=== PATIENT | male | born 1970 | race Caucasian/White ===

== ENCOUNTER 2019-10-12 22:24 | Inpatient (IN) | payer MEDICAID, SELFPAY ==
[2019-10-12 22:28] VITALS: BP 171/112; PULSE 89; RESP 20; TEMP 36.4; O2SAT 96; BMI 29.8
--- NOTE | 2019-10-12 22:36 | ED_ITS ---
Entered by Lisa Lagos, acting as scribe for Jose Ramon Li DO Oct 12, 2019 22:24 HPI - Chest Pain General: Chief Complaint: Chest Pain Stated Complaint: chest pain/sob Time Seen by Provider: 10/12/19 22:33 Source: patient Mode of arrival: ambulatory History of Present Illness: HPI narrative: 49 y/o male presents to the ED with complaint of chest pain and SOB. Pt states this started a couple hours ago while he was laying in bed. Pt states he had an AZ in August, which resulted in several stents. He reports that this feels similar to his previous episodes. MD complaint: chest pain Onset (ago): hour(s) Timing of current episode: constant Prior episodes: Yes Onset: during rest Severity: moderate Relieving factors: nothing Associated symptoms: Reports dyspnea and nausea (from pain); Deny abdominal pain, fever(s), palpitations or vomiting Treatment prior to arrival: nitroglycerin (no relief) Review of Systems Const: Denies: fever or chills Eyes: Denies: change in vision or blurry vision ENMT: Denies: painful swallowing, swelling of lips/tongue, bleeding gums, dental pain, Change in hearing, nose bleeds, post nasal drip or facial/sinus pain Card: Reports: chest pain; Denies: palpitations, irregular heart rhythm, edema, swelling of feet/ankles, shortness of breath on exertion or shortness of breath when lying down Resp: Reports: shortness of breath; Denies: productive cough, non-productive cough or wheezing GI: Reports: nausea (from pain); Denies: abdominal pain, vomiting, rectal pain, blood in stool or black tarry stool : Denies: difficulty urinating, painful urination, urinary frequency, urinary urgency or blood in urine Musc: Denies: neck pain, back pain, redness or joint warmth Skin/Breast: Denies: rash, itching or redness Neuro: Reports: headache (since taking NTG); Denies: dizziness, vertigo, confusion or seizure-like activity Psych: Reports: anxiety (panic attack); Denies: visual hallucinations or auditory hallucinations PFSH ED PFSH: Statuses (acute, chronic, etc) shown below reflect problem list status as previously entered and may not be historically accurate Medical History (Updated 10/13/19 @ 02:10 by Elena Marquis DO) Cardiac catheterization as the cause of abnormal reaction of the patient, or of later complication, without mention of misadventure at the time of the procedure (Acute) Social History Smoking and tobacco status: current every day smoker Physical Exam Const: COMMON NORMALS: alert GENERAL APPEARANCE: well developed ORIENTATION/CONSCIOUSNESS: Yes awake, Yes oriented to person, Yes oriented to place and Yes oriented to time HENMT: COMMON NORMALS: normocephalic, external ears normal, external nose normal and moist oral mucous membranes HEAD & SCALP: normocephalic; no scalp tenderness FACE & SINUS: normal facial exam NOSE: external nose normal and no nasal discharge EXTERNAL EAR: Yes external ears normal MOUTH: tongue normal Eye: COMMON NORMALS: EOMs intact bilaterally and conjunctivae normal EYELID: eyelids normal CONJUNCTIVA: Yes conjunctivae normal Chest: COMMONS NORMALS: inspection of chest normal CHEST: Yes symmetrical chest wall rise and No tenderness Resp: COMMON NORMALS: clear to auscultation bilaterally EFFORT & INSPECTION: No tachypneic, No respiratory distress, No retractions, No uses accessory muscles and No tracheal deviation AUSCULTATION: clear to auscultation bilaterally, no rhonchi, no wheezes and lung sounds not diminished Cardio: COMMON NORMALS: regular rate and regular rhythm RATE: regular rate RHYTHM: regular rhythm HEART SOUNDS: no murmurs PERIPHERAL PULSES: radial pulses present GI: INSPECTION: No abdominal distension AUSCULTATION: No hyperactive bowel sounds and No hypoactive bowel sounds PALPATION: No tender, No guarding and No rigid PERCUSSION: no dullness to percussion and no tympanic to percussion : COMMON NORMALS: Yes no CVA tenderness BLADDER/KIDNEY EXAM: Yes no CVA tenderness Back/Pelvis: COMMON NORMALS: no CVA tenderness Neuro: SENSORIUM/ORIENTATION: Yes alert, Yes oriented to person, Yes oriented to place and Yes oriented to time Psych: COMMON NORMALS: mental status grossly normal and speech normal SPEECH: Yes normal speech Skin: COMMON NORMALS: no rashes or lesions noted GENERAL SKIN EXAM: no rashes or lesions noted Course ED course: 49-year-old male with a history of coronary disease presents with chest discomfort. Difficult to control. He is also hypertensive. Nitroglycerin drip was started in the emergency department because of difficult to control chest pain and hypertension. This seemed to relieve his chest pain significantly he will be placed in a CSU. Consultations: Consultation #1: paul Time: 01:12 Vital Signs: Vital signs: Vital Signs Temperature 97.7 F 10/14/19 04:00 Pulse Rate 73 10/14/19 04:00 Respiratory Rate 20 H 10/14/19 04:00 Blood Pressure 116/63 10/14/19 04:00 Pulse Oximetry 90 10/14/19 04:00 MDM - Chest Pain Lab Data: Labs: Lab Results 10/12/19 10/12/19 10/12/19 Range/Units 22:44 22:54 22:54 WBC 12.7 H (4.0-10.0) 10^3/ uL RBC 4.92 (4.1-5.3) 10^6/u L Hgb 14.6 (11.7-16.6) g/dL Hct 43.7 (42.0-52.0) % MCV 88.8 (80-94) fL MCH 29.7 (28.0-34.0) pg MCHC 33.4 (30.0-36.0) g/dL RDW 14.0 (12.1-15.1) % Plt Count 328 (130-400) 10^3/c mm MPV 8.7 (7.4-10.4) fL Neut % (Auto) 67.3 % Lymph % (Auto) 23.9 % [place] % (Auto) 7.0 % Eos % (Auto) 1.0 % Baso % (Auto) 0.2 % Neut # (Auto) 8.5 H (1.8-7.7) 10^3/u L Lymph # (Auto) 3.0 (0.8-4.8) 10^3/u L [place] # (Auto) 0.9 (0.2-0.9) 10^3/u L Eos # (Auto) 0.1 (0.0-0.8) 10^3/u L Baso # (Auto) 0.0 (0.0-0.1) 10^3/u L Nucleated RBC % (a uto) 0 % Nucleated RBCs # 0.0 /100WBC Sodium 138 (136-145) mmol/L Potassium 3.3 L (3.5-5.1) mmol/L Chloride 97 L (98-107) mmol/L Carbon Dioxide 25 (22-29) mmol/L Anion Gap 19.3 H (5-19) BUN 7 (6-20) mg/dL Creatinine 0.9 (0.7-1.2) mg/dL GFR Calculation 89.7 L (90-130) mL/min Glucose 114 H (74-109) mg/dL POC Glucose 117 (70-110) mg/dL Calcium 9.6 (8.6-10.0) mg/Dl Total Bilirubin 0.6 (0.15-1.2) mg/dL AST 14 (0-40) U/L ALT 8 (0-41) U/L Alkaline Phosphata se 61 (40-130) IU/L Troponin T Baselin e (0-15) ng/mL Troponin T 120 Min emely (0-15) ng/mL Delta Troponin T (0-10) ABS# NT-Pro-B Natriuret Pep 698 H (0-125) pg/mL Total Protein 7.6 (6.6-8.7) g/dL Albumin 4.2 (3.5-5.2) g/dL Globulin 3.4 (1.3-4.6) g/dL 10/12/19 10/13/19 Range/Units 22:54 00:58 WBC (4.0-10.0) 10^3/ uL RBC (4.1-5.3) 10^6/u L Hgb (11.7-16.6) g/dL Hct (42.0-52.0) % MCV (80-94) fL MCH (28.0-34.0) pg MCHC (30.0-36.0) g/dL RDW (12.1-15.1) % Plt Count (130-400) 10^3/c mm MPV (7.4-10.4) fL Neut % (Auto) % Lymph % (Auto) % [place] % (Auto) % Eos % (Auto) % Baso % (Auto) % Neut # (Auto) (1.8-7.7) 10^3/u L Lymph # (Auto) (0.8-4.8) 10^3/u L [place] # (Auto) (0.2-0.9) 10^3/u L Eos # (Auto) (0.0-0.8) 10^3/u L Baso # (Auto) (0.0-0.1) 10^3/u L Nucleated RBC % (a uto) % Nucleated RBCs # /100WBC Sodium (136-145) mmol/L Potassium (3.5-5.1) mmol/L Chloride (98-107) mmol/L Carbon Dioxide (22-29) mmol/L Anion Gap (5-19) BUN (6-20) mg/dL Creatinine (0.7-1.2) mg/dL GFR Calculation (90-130) mL/min Glucose (74-109) mg/dL POC Glucose (70-110) mg/dL Calcium (8.6-10.0) mg/Dl Total Bilirubin (0.15-1.2) mg/dL AST (0-40) U/L ALT (0-41) U/L Alkaline Phosphata se (40-130) IU/L Troponin T Baselin e 22 H (0-15) ng/mL Troponin T 120 Min emely 20.38 H (0-15) ng/mL Delta Troponin T -1.62 L (0-10) ABS# NT-Pro-B Natriuret Pep (0-125) pg/mL Total Protein (6.6-8.7) g/dL Albumin (3.5-5.2) g/dL Globulin (1.3-4.6) g/dL Discharge Plan Discharge Patient Disposition: Admitted As Inpatient Admit Provider: Elena Marquis Condition: Stable Discharge Date/Time: 10/13/19 01:54 Coding Level of Care Code ED Dip Painter for Chg Fwd The documentation recorded by the Demond stewart Ashley, accurately reflects the service I personally performed and the decisions made by Guillermo mendoza Jeremy John, DO Oct 12, 2019 22:24
--- NOTE | 2019-10-12 22:38 | ECG_ITS ---
Measurements Intervals [place] Rate: 89 P: 51 IA: 184 QRS: 21 QRSD: 167 T: 63 QT: 418 QTc: 511 SINUS RHYTHM POSSIBLE LEFT ATRIAL ENLARGEMENT [-0.1mV P WAVE IN V1/V2] LEFT BUNDLE BRANCH BLOCK [120+ ms QRS DURATION, 80+ ms Q/S IN V1/V2, 85+ ms R IN I/aVL/V5/V6] Compared to ECG 08/25/2019 03:00:22 No significant changes Electronically Signed On 10-13-2019 19:16:56 HELICOPTER TECHNICIAN by Theresa Berry M.D. [id number]
[2019-10-12 22:41] VITALS: BP 171/112; PULSE 86; RESP 18; O2SAT 96
[2019-10-12 22:50] LABS: Glucose Point of Care 117 mg/dL (70-110)
[2019-10-12 23:07] LABS: Basophils % 0.2 %; Eosinophils # 0.1 10^3/uL (0.0-0.8); Hematocrit 43.7 % (42.0-52.0); Hemoglobin 14.6 g/dL (11.7-16.6); Lymphocytes % 23.9 %; Mean Corpuscular HGB Conc 33.4 g/dL (30.0-36.0); Mean Corpuscular Hemoglobin 29.7 pg (28.0-34.0); Mean Corpuscular Volume 88.8 fL (80-94); Mean Platelet Volume 8.7 fL (7.4-10.4); Monocytes # 0.9 10^3/uL (0.2-0.9); Neutrophils # 8.5 10^3/uL (1.8-7.7); Neutrophils % 67.3 %; Nucleated Red Blood Cells % 0 %; Platelet Count 328 10^3/cmm (130-400); Red Blood Count 4.92 10^6/uL (4.1-5.3); White Blood Count 12.7 10^3/uL (4.0-10.0)
[2019-10-12 23:12] VITALS: RESP 18; O2SAT 97
[2019-10-12] MEDS: morphine 4 mg/mL SDV 1 mL IVP (23:12)
[2019-10-12] MEDS: ondansetron 2 mg/ML SDV 2 mL 4 MG IVP (23:12)
[2019-10-12] MEDS: nitroglycerin 1 gm/inch oint Pkt 2 INCH TOPICAL (23:13)
[2019-10-12 23:35] LABS: Alanine Aminotransferase 8 U/L (0-41); Albumin Level 4.2 g/dL (3.5-5.2); Alkaline Phosphatase 61 IU/L (40-130); Anion Gap 19.3 (5-19); Aspartate Amino Transferase 14 U/L (0-40); Blood Urea Nitrogen 7 mg/dL (6-20); Calcium 9.6 mg/Dl (8.6-10.0); Carbon Dioxide 25 mmol/L (22-29); Chloride 97 mmol/L (98-107); Globulin 3.4 g/dL (1.3-4.6); Glomerular Filtration Rate 89.7 mL/min (90-130); Glucose 114 mg/dL (74-109); NT Pro B Type Natriuretic Pept 698 pg/mL (0-125); Potassium 3.3 mmol/L (3.5-5.1); Sodium 138 mmol/L (136-145); Total Bilirubin 0.6 mg/dL (0.15-1.2); Total Protein 7.6 g/dL (6.6-8.7)
[2019-10-12 23:49] LABS: Troponin(5th) Baseline 22 ng/mL (0-15)
[2019-10-12 23:54] VITALS: PULSE 83; RESP 21; O2SAT 95
[2019-10-12 23:55] VITALS: PULSE 86; RESP 19; O2SAT 94
--- NOTE | 2019-10-12 23:58 | XRR_ITS ---
PROCEDURE INFORMATION: Exam: XR Chest, 1 View Exam date and time: 10/13/2019 12:10 AM Age: 49 years old Clinical indication: Chest pain; Type not specified; Additional info: Cp TECHNIQUE: Imaging protocol: XR of the chest Views: 1 view. COMPARISON: CR Chest 1 [place] [id number] 08/22/2019 9:15 PM FINDINGS: Lungs: There are increased linear opacities present in the hemithoraces bilaterally and some hazy and patchy opacity seen in the lower hemithoraces. Mild indistinctness of the pulmonary vasculature is seen. These findings could represent pulmonary edema. Superimposed basilar infiltrates and pneumonia cannot be entirely excluded. Pleural space: Unremarkable. No pleural effusion. No pneumothorax. Heart/Mediastinum: Unremarkable. No cardiomegaly. Bones/joints: Unremarkable. XR/XR chest 1V portable [id number] IMPRESSION: Increased interstitial markings, mild seen seen pulmonary vasculature and some hazy and patchy opacity seen in the lower hemithoraces may represent pulmonary edema. However, superimposed basilar infiltrates and pneumonia cannot be entirely excluded.
[2019-10-13] VITALS (34 sets, daily range): BP systolic 116–169; BP diastolic 50–112; PULSE 64–93; RESP 14–24; TEMP 36.5–36.8; O2SAT 93–99
--- NOTE | 2019-10-13 00:38 | ECG_ITS ---
Measurements Intervals [place] Rate: 78 P: 47 AZ: 181 QRS: 1 QRSD: 170 T: 138 QT: 454 QTc: 518 SINUS RHYTHM LEFT ATRIAL ENLARGEMENT [-0.15mV P WAVE IN V1/V2] LEFT BUNDLE BRANCH BLOCK [120+ ms QRS DURATION, 80+ ms Q/S IN V1/V2, 85+ ms R IN I/aVL/V5/V6] Compared to ECG 08/25/2019 03:00:22 Atrial abnormality now present Electronically Signed On 10-13-2019 19:21:40 RESIDENT CAREGIVER by Theresa Berry M.D. [id number]
[2019-10-13] MEDS: morphine 4 mg/mL SDV 1 mL 8 MG IVP (01:01)
[2019-10-13] MEDS: nitroglycerin drip 50 MG/250 ML PREMIX IV (01:14)
[2019-10-13 01:21] LABS: Add Urine Microscopic? NO
[2019-10-13] MEDS: LORazepam 2 mg/mL INJ 1 mL 1 MG IVP (01:35)
[2019-10-13 01:36] LABS: Bilirubin Urine Neg (NEGATIVE); Blood Urine Neg (Negative); Glucose Urine UA Norm (Normal); Ketones Urine Negative (Negative); Leukocyte Esterase Urine Negative (Negative); Nitrate Urine Negative (Negative); Protein Urine Neg (Negative); Urine Appearance Clear (CLEAR); Urine Color Yellow (Yellow); Urobilinogen Urine Norm (Negative); pH Urine 6 (5-7)
[2019-10-13 01:37] LABS: Troponin 5 2HR 20.38 ng/mL (0-15)
[2019-10-13 01:39] LABS: Troponin 5 2HR Delta -1.62 ABS# (0-10)
--- NOTE | 2019-10-13 01:41 | P.HP_ITS ---
Providers/Chief Complaint Admitting Physician: Elena Marquis DO Primary Care Provider: Phillip Gill MD Chief Complaint: chest pain/sob History of Present Illness Magen Riddle SR is a 49 year old male w/ CAD s/p multiple interventions, Chronic smoker, Obesity, HTN, Hyperlipidemia, NIDDM type II, Chronic combined systolic and diastolic CHF, ischemic cardiomyopathy, GERD, Chronic back pain, DJD presents w/ chest pain. Chest pain started 1 week ago and progressively worsened today. Admits to SOB, orthopnea and PND at baseline. Also admits to mild nausea today. Patient has several episodes of chest pain w/ multiple stents and intervention. Denies any abdominal pain, fever or chills Patient started on nitro drip in the ED for no improvement in chest pain post ni tro paste and elevated BP systolic 170 Review of Systems General: Reports: 10 or more systems reviewed and unremarkable except in HPI and below Card: Reports: chest pain and shortness of breath on exertion Medications/Allergies Home Medications Medication Instructions Recorded Confirmed Last Taken Type albuterol sulfate 2.5 mg INHALATION Q6H 10/13/19 10/13/19 Unknown History alprazolam [Xanax] 0.5 mg PO DIRECTED PRN 10/13/19 10/13/19 Unknown History amlodipine 5 mg PO BID 10/13/19 10/13/19 Unknown History aspirin 81 mg PO DAILY 10/13/19 10/13/19 Unknown History budesonide-formoterol [Symbicort] 2 puff INHALATION BID 10/13/19 10/13/19 Unknown History doxepin 50 mg PO BEDTIME 10/13/19 10/13/19 Unknown History glimepiride 4 mg PO DAILY 10/13/19 10/13/19 Unknown History hydrocodone-acetaminophen 1 tab PO BID PRN 10/13/19 10/13/19 Unknown History hydroxyzine HCl 50 mg PO BID PRN 10/13/19 10/13/19 Unknown History isosorbide mononitrate 30 mg PO BID PRN 10/13/19 10/13/19 Unknown History lisinopril 20 mg PO DAILY 10/13/19 10/13/19 Unknown History metoprolol succinate 100 mg PO DAILY 10/13/19 10/13/19 Unknown History nicotine 1 patch TRANSDERMAL Q24H 10/13/19 10/13/19 Unknown History nitroglycerin [Nitrostat] 0.4 mg SUBLINGUAL Q5M PRN 10/13/19 10/13/19 Unknown History pantoprazole 40 mg PO DAILY 10/13/19 10/13/19 Unknown History potassium chloride 10 meq PO DAILY 10/13/19 10/13/19 Unknown History ranolazine [Ranexa] 1,000 mg PO BID 10/13/19 10/13/19 Unknown History simvastatin 40 mg PO BEDTIME 10/13/19 10/13/19 Unknown History sitagliptin-metformin [Janumet] 1 tab PO DAILY 10/13/19 10/13/19 Unknown History ticagrelor [Brilinta] 90 mg PO DAILY 10/13/19 10/13/19 Unknown History tiotropium bromide [Spiriva with 1 cap INHALATION DAILY 10/13/19 10/13/19 Unknown History HandiHaler] zolpidem [Ambien] 10 mg PO BEDTIME 10/13/19 10/13/19 Unknown History Allergies Allergy/AdvReac Type Severity Reaction Status Date / Time No Known Allergies Allergy Verified 10/12/19 22:33 PFSH Acute PFSH: Statuses (acute, chronic, etc) shown below reflect problem list status as previously entered and may not be historically accurate Medical History (Updated 10/13/19 @ 02:10 by Elena Marquis DO) Cardiac catheterization as the cause of abnormal reaction of the patient, or of later complication, without mention of misadventure at the time of the procedure (Acute) Social History Smoking and tobacco status: current every day smoker Vitals/I&O/Wt Last Vital Signs Temp 97.6 F 10/12/19 22:28 Pulse 82 10/13/19 01:00 Resp 18 10/13/19 01:01 BP 169/112 10/13/19 01:00 Pulse Ox 96 10/13/19 01:01 Weight last 48 hrs Weight 99.79 kg Physical Exam Const: COMMON NORMALS: no apparent distress, oriented x3 and well nourished HENMT: COMMON NORMALS: normocephalic Eye: COMMON NORMALS: no scleral icterus Neck/C-Spine: COMMON NORMALS: full ROM and supple Resp: COMMON NORMALS: normal respiratory effort EFFORT & INSPECTION: Yes symmetric chest movement AUSCULTATION: crackles Laterality: bilateral Cardio: COMMON NORMALS: regular rate and regular rhythm HEART SOUNDS: S1 normal and S2 normal GI: COMMON NORMALS: normal to inspection, nondistended, normoactive bowel sounds and non-tender Extremity: COMMON NORMALS: full ROM and no clubbing, cyanosis or edema Psych: COMMON NORMALS: mental status grossly normal Skin: COMMON NORMALS: no rashes or lesions noted Data : 10/12/19 22:54 10/12/19 22:54 A&P Assessment and plan (1) Chest pain: Status: Acute Code(s): R07.9 - Chest pain, unspecified (2) Coronary artery disease: Status: Chronic Code(s): I25.10 - Atherosclerotic heart disease of [place] coronary artery without angina pectoris (3) Accelerated essential hypertension: Status: Chronic Code(s): I10 - Essential (primary) hypertension (4) Obesity: # Chest pain r/o KS in setting of CAD. EKG does not show acute ST elevations - trend trop - c/w home dual antiplatelet , bblocker, deanne inhibitor and statin - tele - started on nitro drip in the ED for uncontrolled chest pain and HTN - titrate down and discontinue - cardiology f/u in AM if no improvement in chest pain # SOB likely due to hx of CHF currently at baseline - c/w bblocker and deanne inhibitor - s/p IVP lasix x 1 # DMII - ISS # HTN - c/w home meds # c/w rest of chronic home meds # dvt ppx: enoxaparin subq Status: Chronic Code(s): E66.9 - Obesity, unspecified Attestations Medical Necessity Statement*: Patient requires inpatient addmission for chest pain w/ extensive CAD > 2 midnights. Coding Level of Care Code Acute Image Consultant for Chg Fwd Exam Problem Focused Diagnoses Chest pain R07.9 Coronary artery disease I25.10 Accelerated essential hypertension I10 Obesity E66.9
[2019-10-13] MEDS: aspirin 81 mg EC Tablet PO ×2 (02:45→08:59)
[2019-10-13] MEDS: amlodipine 5 mg Tablet PO ×2 (02:45→09:00)
[2019-10-13] MEDS: FUROsemide 10 mg/mL SDV 4mL 40 MG IVP (02:46)
[2019-10-13] MEDS: enoxaparin 40 mg/0.4 mL Syringe SUBCUT (02:59)
[2019-10-13] MEDS: nicotine 21 mg Patch 1 PATCH TRANSDERMA (03:53)
[2019-10-13] MEDS: morphine 4 mg/mL SDV 1 mL IVP ×4 (03:53→20:23)
--- NOTE | 2019-10-13 04:18 | PC.NURSE ---
Morphine given for pain. Patient states, It really doesn't help....they gave me Dilaudid the last time I was here....I'd like to have that back if I can. This nurse explained to patient that I would relay this onto the oncoming shift. Will monitor.
[2019-10-13 04:20] LABS: Basophils % 0.4 %; Eosinophils # 0.1 10^3/uL (0.0-0.8); Eosinophils % 0.8 %; Hematocrit 42.7 % (42.0-52.0); Hemoglobin 14.3 g/dL (11.7-16.6); Lymphocytes # 3.1 10^3/uL (0.8-4.8); Lymphocytes % 29.7 %; Mean Corpuscular HGB Conc 33.5 g/dL (30.0-36.0); Mean Corpuscular Hemoglobin 29.7 pg (28.0-34.0); Mean Corpuscular Volume 88.8 fL (80-94); Mean Platelet Volume 8.7 fL (7.4-10.4); Monocytes # 0.8 10^3/uL (0.2-0.9); Neutrophils # 6.3 10^3/uL (1.8-7.7); Neutrophils % 60.6 %; Nucleated Red Blood Cells % 0 %; Platelet Count 312 10^3/cmm (130-400); Red Blood Count 4.81 10^6/uL (4.1-5.3); Red Cell Distribution Width 14.3 % (12.1-15.1); White Blood Count 10.4 10^3/uL (4.0-10.0)
--- NOTE | 2019-10-13 04:27 | PC.NURSE ---
REANNA at 0200: Admitted from ED via stretcher with complaint of CP. Denies CP;however, complaining of severe headache. Physician notified. Awaiting orders. Will monitor. Daughters at bedside. Patient requesting Sprite and a sandwich which were given to him.
--- NOTE | 2019-10-13 04:29 | PC.NURSE ---
Nitro drip discontinued as ordered per Dr. Marquis. Will monitor.
--- NOTE | 2019-10-13 04:38 | ECG_ITS ---
Measurements Intervals [place] Rate: 79 P: 56 [place]: 179 QRS: 19 QRSD: 172 T: 195 QT: 462 QTc: 532 SINUS RHYTHM POSSIBLE LEFT ATRIAL ENLARGEMENT [-0.1mV P WAVE IN V1/V2] LEFT BUNDLE BRANCH BLOCK [120+ ms QRS DURATION, 80+ ms Q/S IN V1/V2, 85+ ms R IN I/aVL/V5/V6] Compared to ECG 08/25/2019 03:00:22 No significant changes Electronically Signed On 10-13-2019 19:21:46 HAY FARMER by Theresa Berry M.D. [id number]
[2019-10-13 04:46] LABS: Alanine Aminotransferase 9 U/L (0-41); Albumin Level 4.2 g/dL (3.5-5.2); Alkaline Phosphatase 52 IU/L (40-130); Anion Gap 17.9 (5-19); Blood Urea Nitrogen 7 mg/dL (6-20); Calcium 9.5 mg/Dl (8.6-10.0); Carbon Dioxide 25 mmol/L (22-29); Chloride 97 mmol/L (98-107); Globulin 2.8 g/dL (1.3-4.6); Glomerular Filtration Rate 89.7 mL/min (90-130); Glucose 246 mg/dL (74-109); Potassium 3.9 mmol/L (3.5-5.1); Sodium 136 mmol/L (136-145); Total Bilirubin 0.6 mg/dL (0.15-1.2)
[2019-10-13 04:55] LABS: Aspartate Amino Transferase 16 U/L (0-40)
[2019-10-13 06:54] LABS: Troponin 5 6HR 15.75 ng/L (0-15)
[2019-10-13 07:35] LABS: Glucose Point of Care 250 mg/dL (70-110)
--- NOTE | 2019-10-13 08:23 | P.PN_ITS ---
Vitals/I&O/Wt Last Vital Signs Temp 98.2 F 10/13/19 07:06 Pulse 84 10/13/19 07:06 Resp 18 10/13/19 07:06 BP 148/91 10/13/19 07:06 Pulse Ox 97 10/13/19 07:06 10/12/19 10/13/19 10/13/19 22:59 06:59 14:59 Intake Total 490 / 490 Balance 490 / 490 Weight last 48 hrs Weight 101.605 kg Weight 101.803 kg Weight 99.79 kg Data Imaging^: Echo: Radiologist's impression: From 08/17/2019 FINDINGS Left Ventricle Mildly increased left ventricular cavity size. Normal left ventricular wall thickness. Moderately decreased left ventricular systolic function. Regional wall motion abnormalities (see diagram). Grade I/IV diastolic dysfunction (abnormal relaxation filling pattern), normal to mildly elevated filling pressures. There is severe hypokinesis of the septum and anterior wall. The apex is akinetic. Mild hypokinesis of the lateral wall. Inferior posterior jernigan contract normally. Estimated ejection fraction 35-40%.abnormal septal motion consistent with conduction abnormality. Right Ventricle Normal right ventricular size and systolic function. Normal right ventricular systolic pressure. Right Atrium The right atrium is normal in size. Left Atrium Mildly increased left atrial size. Mitral Valve Structurally normal mitral valve. Mild mitral valve regurgitation. Aortic Valve Structurally normal aortic valve without significant sclerosis or stenosis. There is no aortic regurgitation. Tricuspid Valve Structurally normal tricuspid valve. Trace tricuspid valve regurgitation. Pulmonic Valve Pulmonic valve not well visualized. Pericardium Normal pericardium without effusion. Aorta Normal ascending aorta dimension. CONCLUSIONS Mildly increased left ventricular cavity size. Normal left ventricular wall thickness. Moderately decreased left ventricular systolic function. Regional wall motion abnormalities (see diagram). Grade I/IV diastolic dysfunction (abnormal relaxation filling pattern), normal to mildly elevated filling pressures. There is severe hypokinesis of the septum and anterior wall. The apex is akinetic. Mild hypokinesis of the lateral wall. Inferior posterior jernigan contract normally. Estimated ejection fraction 35-40%.abnormal septal motion consistent with conduction abnormality. Mildly increased left atrial size. Structurally normal mitral valve. Mild mitral valve regurgitation. There are no prior echocardiogram studies to compare. Coding Level of Care Code Acute Head Banquet Waitress for Chg Lin
--- NOTE | 2019-10-13 08:33 | USCV_ITS ---
Magen Riddle Age: 49 Gender: M : 1970 Exam Date: 10/13/2019 09:39 Ordering Phys: Kamlesh Jackson MD Technologist: Elvia Alexander [place] [facility] [place]: New chest pain BP: 148 / 91 HR: 74 Rhythm: Sinus Technical Quality: Fair MEASUREMENTS (Male / Female) Normal Values 2D ECHO LV Diastolic Diameter PLAX 4.8 cm 4.2 - 5.9 / 3.9 - 5.3 cm LV Systolic Diameter PLAX 4.2 cm LV Chamber Size 5.9 cm IVS Diastolic Thickness 1.5 cm 0.6 - 1.0 / 0.6 - 0.9 cm IVS Systolic Thickness 1.7 cm LVPW Diastolic Thickness 1.2 cm 0.6 - 1.0 / 0.6 - 0.9 cm LVPW Systolic Thickness 1.9 cm RV Chamber Size 3.0 cm LVOT Diameter 2.1 cm LV Ejection Fraction 2D Teich 26.6 % LV Ejection Fraction MOD 2C 28.4 % LV Ejection Fraction 2C AL 33.3 % LA Diameter 4.0 cm LA Width 3.4 cm LA Height 5.2 cm RA Width 3.5 cm RA Height 5.1 cm Aorta at Sinotubular Diameter 2.9 cm M-MODE LV Diastolic Diameter MM 7.0 cm 4.2 - 5.9 / 3.9 - 5.3 cm LV Systolic Diameter MM 5.9 cm LV Ejection Fraction MM Teich 32.3 % IVS Diastolic Thickness MM 1.8 cm 0.6 - 1.0 / 0.6 - 0.9 cm IVS Systolic Thickness MM 2.0 cm LVPW Diastolic Thickness MM 1.6 cm 0.6 - 1.0 / 0.6 - 0.9 cm LVPW Systolic Thickness MM 2.1 cm Aortic Annulus Diameter 3.6 cm LA Ao Ratio MM 1.1 MV E Point Septal Separation 2.2 cm DOPPLER AV Peak Velocity 154.0 cm/s LVOT Peak Velocity 126.0 cm/s AV Area Cont Eq vti 2.7 cm squared AV Area Cont Eq pk 2.9 cm squared MV Area PHT 3.1 cm squared Mitral E to A Ratio 0.8 MV E' Velocity 9.0 cm/s Mitral E to MV E' Ratio 8.9 Mitral E to LV E' Lateral Ratio 7.1 Mitral E to LV E' Septal Ratio 12.2 TR Peak Velocity 267.0 cm/s TR Peak Gradient 28.6 mmHg TV Peak E Velocity 49.0 cm/s Right Atrial Pressure 3.0 mmHg Pulmonary Artery Systolic Pressu 31.5 mmHg PV Peak Velocity 109.0 cm/s RV Acceleration Time 0.1 s RV Ejection Time 0.3 s RV AcT/ET 0.3 FINDINGS Left Ventricle Moderate diffuse hypokinesia of the septum, anteroseptum,inferior wall and the LV apex. Slightly dyskinetic basal inferior wall segment LV ejection fraction around 30-35%. Right Ventricle Normal right ventricular size and systolic function. Right Atrium Normal right atrial size. Left Atrium Normal left atrial size. Mitral Valve Thickened mitral valve. Mild mitral valve regurgitation. Aortic Valve Thickened aortic valve. Tricuspid Valve No gross abnormalities noted Pulmonic Valve No gross abnormalities noted Pericardium No pericardial effusion. Aorta Normal aortic annulus size. CONCLUSIONS Multiple wall motion normalities with a diminished left ventricular ejection fraction of 30-35%. Mildly dilated LV cavity Thickened mitral valve. Mild mitral valve regurgitation. Thickened aortic valve. There is no pericardial effusion. There are no intracardiac masses. Compared to the study from 08/16/2019, there may not be a significant change. Dr. Becerril was informed about these findings Dr Theresa Berry MD [facility] (Electronically Signed) Final Date: 13 October 2019 15:29 S
[2019-10-13] MEDS: ranolazine (12HR) 500 mg Tablet 1000 MG PO ×2 (08:59→18:58)
[2019-10-13] MEDS: metoprolol succinate ER (24 HR) 100 mg Tablet PO (08:59)
[2019-10-13] MEDS: lisinopril 20 mg Tablet PO (08:59)
[2019-10-13] MEDS: FUROsemide 40 mg Tablet PO (08:59)
[2019-10-13] MEDS: pantoprazole DR 40 mg Tablet PO (08:59)
[2019-10-13] MEDS: ticagrelor 90 mg Tablet PO (08:59)
[2019-10-13] MEDS: isosorbide mononitrate ER 30 mg Tablet PO ×2 (09:11→20:25)
[2019-10-13 11:21] LABS: Glucose Point of Care 172 mg/dL (70-110)
[2019-10-13] MEDS: ALPRAZolam 0.5 mg Tablet PO (14:07)
--- NOTE | 2019-10-13 14:30 | PC.NURSE ---
Instructed pt of no caffeine for possible stress test tomorrow. Instructed pt of no smoking. he said he does not.
[2019-10-13 16:05] LABS: Glucose Point of Care 142 mg/dL (70-110)
[2019-10-13] MEDS: ondansetron 2 mg/ML SDV 2 mL 4 MG IVP (18:58)
--- NOTE | 2019-10-13 19:43 | PM.PN ---
Subjective Subjective: Interval history: Admitted overnight. H&P and labs noted. At present denies any CP, SOB, cough. States he continues to smoke but now 1/2 pack a day. Denies any N/V, abd pain, LOC, palpitations, dizziness. Vitals/I&O/Wt Last Vital Signs Temp 97.8 F 10/13/19 19:37 Pulse 93 10/13/19 19:37 Resp 21 H 10/13/19 19:37 BP 132/95 10/13/19 19:37 Pulse Ox 96 10/13/19 19:37 10/13/19 10/13/19 10/13/19 06:59 14:59 22:59 Intake Total 490 / 490 660 / 660 500 / 1160 Output Total 250 / 250 Balance 490 / 490 410 / 410 500 / 910 Weight last 48 hrs Weight 101.605 kg Weight 101.803 kg Weight 99.79 kg Physical Exam Narrative: EXAM NARRATIVE: General: No acute distress, AO x3 HEENT: PERRLA, pupils bilaterally equal and reactive Chest: Normal vesicular breath sounds, no added sounds, equal good air entry bilaterally CVS: S1-S2 regular, PSM at apex, no tachycardia, no gallops, no rubs Abdomen: Soft, nontender, no organomegaly, bowel sounds present Neuro: No focal deficits, no facial deformity, AO x3, power 5/5 in all limbs A&P Assessment and plan (1) Chest pain: Status: Acute Code(s): R07.9 - Chest pain, unspecified (2) Coronary artery disease: Status: Chronic Code(s): I25.10 - Atherosclerotic heart disease of [place] coronary artery without angina pectoris (3) Accelerated essential hypertension: Status: Chronic Code(s): I10 - Essential (primary) hypertension (4) Obesity: Chest pain r/o ACS: In setting of repeated ACS and multi PCI in past and very recently 2-3 times in last 6 months CAD can not be ruled out. EKG s/o LBBB with QRS widening so CAD can not be ruled out. Trop trend negative but in past has had ACS with negative trops. - Check ECHO to r/o further RWMA and EF. Can r/o symptoms due to CHF. Probnp stable. ECHO will also help assess if any MR - c/w home dual antiplatelet , bblocker, deanne inhibitor and statin - Will adjust anti-anginals. Will change Imdur from PRN to standing 30 mg BID. - c/w ranexa 1000mg BID. QTc 520 but pt has LBBB so acceptable range and is home dose. Plan for Lexisan tomorrow for above reason. If positive will consult cards. Euvoluemic at present DMII ISS. Change diet to cardiac carbs consistent. HTN: BP acceptable at present. - c/w home meds but will decrease Amlo to QD to have more room for imdur c/w rest of chronic home meds dvt ppx: enoxaparin subq NPO after midnight for trent in AM Status: Chronic Code(s): E66.9 - Obesity, unspecified Attestations Medical Necessity Statement*: Needs further work up to r/o ACS Time Spent in Patient Care: 16 - 35 minutes Coding Level of Care Code Acute Merchandise Execution Leader for [facility] Fwd Diagnoses Chest pain R07.9 Coronary artery disease I25.10 Accelerated essential hypertension I10 Obesity E66.9
[2019-10-13] MEDS: atorvastatin 40 mg Tablet 20 MG PO (20:24)
[2019-10-13] MEDS: doxepin 50 mg Capsule PO (20:25)
[2019-10-13 20:30] LABS: Glucose Point of Care 213 mg/dL (70-110)
--- NOTE | 2019-10-13 21:00 | ECG_ITS ---
Measurements Intervals [place] Rate: 90 P: 37 IL: 172 QRS: 5 QRSD: 162 T: 200 QT: 416 QTc: 509 SINUS RHYTHM POSSIBLE LEFT ATRIAL ENLARGEMENT [-0.1mV P WAVE IN V1/V2] LEFT BUNDLE BRANCH BLOCK [120+ ms QRS DURATION, 80+ ms Q/S IN V1/V2, 85+ ms R IN I/aVL/V5/V6] Compared to ECG 10/13/2019 04:05:31 No significant changes Electronically Signed On 10-14-2019 19:29:58 FILM CLEANER by Theresa Berry M.D. [email or web address]
[2019-10-14] VITALS (13 sets, daily range): BP systolic 104–119; BP diastolic 59–73; PULSE 66–108; RESP 13–20; TEMP 36.5–37.8; O2SAT 90–96; BMI 30.2
[2019-10-14] MEDS: nicotine 21 mg Patch 1 PATCH TRANSDERMA (02:38)
[2019-10-14] MEDS: enoxaparin 40 mg/0.4 mL Syringe SUBCUT (02:38)
[2019-10-14] MEDS: morphine 4 mg/mL SDV 1 mL IVP ×3 (02:39→13:37)
--- NOTE | 2019-10-14 06:00 | ECG_ITS ---
NAME OF STUDY: LEXISCAN SESTAMIBI STRESS TEST INDICATION: [Angina] PROCEDURE: At the baseline, the blood pressure was [108/68 mmHg] with a heart rate of 62 bpm. The electrocardiogram showed [normal sinus rhythm, right axis deviation and intraventricular conduction delay (suspect limb lead reversal) ]. The Lexiscan was infused over a period of 20 seconds. A total of 0.4 milligrams of Lexiscan was infused. The stress phase was continued for a total of 5 minutes. Heart rate at the end of the stress phase was 76 bpm with a blood pressure 117/60 mmHg. The EKG at the peak infusion revealed [no changes]. Sestamibi was injected 20 seconds after the Lexiscan infusion. Blood pressure at the end of the recovery phase was [108/64 mmHg] with a heart rate of 69 beats per minute. CONCLUSION: 1. Uninterpretable EKG with the] LexiScan infusion given baseline IVCD (left bundle branch block like morphology). 2. No LexiScan induced chest pain or cardiac arrhythmia. [] 3. Normal blood pressure and heart rate response. [] 4. Sestamibi/sestamibi perfusion scan pending; see separate report. Electronically Signed On 10-15-2019 12:17:34 ASBESTOS SHINGLE INSPECTOR by Lavinia Estrada M.D. [email or web address]
--- NOTE | 2019-10-14 06:34 | PC.NURSE ---
This nurse was notified by Kirill Jaffe, [facility] [employer] when he went to inject the patient for his rest images Mr. Riddle stated that he didn't know why we were doing this again and that he just had stents in August . This nurse called the overnight hospitalist, Dr. Marquis, and she stated that Dr. Jackson would be on in 30 minutes and to call him with questions regarding the ordered stress test. KACEY Gonzalez, on CSU was notified and she stated that she would pass it along to KACEY Mendiola, in report this AM.
--- NOTE | 2019-10-14 07:28 | PC.NURSE ---
Dr. Jackson was called to notify that the patient was questioning the need for today's stress test. He cut this nurse off mid sentence stating I know my patients history and that's why he needs a stress test . This nurse stated that the patients history was not the reason for the call. The reason for the call was to inform him that the patient did not understand the reasoning for the test and refused to let Nuclear Medicine inject until he spoke with the doctor. Dr. Jackson stated to this nurse that he would speak to the patient with in the next 10-15 minutes and let me know.
[2019-10-14 07:46] LABS: Glucose Point of Care 157 mg/dL (70-110)
[2019-10-14] MEDS: pantoprazole DR 40 mg Tablet PO (08:16)
[2019-10-14] MEDS: amlodipine 5 mg Tablet PO (08:16)
[2019-10-14] MEDS: metoprolol succinate ER (24 HR) 100 mg Tablet PO (08:16)
[2019-10-14] MEDS: lisinopril 20 mg Tablet PO (08:16)
[2019-10-14] MEDS: ticagrelor 90 mg Tablet PO (08:17)
[2019-10-14] MEDS: aspirin 81 mg EC Tablet PO (08:17)
[2019-10-14] MEDS: ranolazine (12HR) 500 mg Tablet 1000 MG PO (08:17)
[2019-10-14] MEDS: isosorbide mononitrate ER 30 mg Tablet PO (08:29)
[2019-10-14] MEDS: regadenoson 0.4 Mg/5 ml Syringe IVP (09:49)
[2019-10-14 11:29] LABS: Glucose Point of Care 193 mg/dL (70-110)
[2019-10-14] MEDS: FUROsemide 10 mg/mL SDV 4mL 40 MG IVP ×2 (12:55→13:30)
--- NOTE | 2019-10-14 14:13 | PC.CHAP ---
Pastoral Care Encounter/Spiritual Assessment Type of Contact [] Declined chef concierge visit [] Patient/Family/Request visit [] Outpatient visit [] Follow-up visit [] Physician referral [] Code/Alert [] Routine visit [] Staff referral [] Actively dying [] Patient sleeping [] Family support [] [x] Out of room [] Palliative care [] [] Receiving care in room [] Pre-surgical visit [] Trauma [] Long length of stay [] ICU visit [] Other: Relational/Emotional Strength [] Patient feels connected with others/family/visitors/staff [] Distress [] Loneliness/isolation [] Abandonment Spirituality of Patient [] Person of Karina [] Attends Baptism of their Karina [] Believes in Prayer [] Reads Bible or Methodist materials [] There are Spiritual issues to be addressed On Air Announcer Interventions [] Prayer [] Active listening [] Non-anxious presence [] Spiritual/emotional support [] Crisis/trauma care [] Spiritual counseling [] Bereavement support [] Provided bereavement packet [] Provided Bible/devotional materials [] Provided toy/stuffed animal, coloring book to patient or family member [] Completed spiritual assessment [] Provided Communion [] Anointing/[employer] [] Salvation [] Other: Impact on Illness or Injury [] Angry [] Fearful [] Anxious [] Often cries [] Exhaustion [] Unable to work [] Unable to attend church [] Unable to walk/stand [] Unable to read [] Unable to drive [] Unable to eat/drink [] Unable to sleep [] Unable to be with family [] Other: Summary Outof room. Patient is follow up Time spent with patient 2min.
--- NOTE | 2019-10-14 16:14 | PM.PN ---
Subjective Subjective: Interval history: No acute event overnight. Continues to have mild chest pain along with shortness of breath on minimal exertion. Denies of having any dizziness, palpitations, nausea, vomiting. Has been n.p.o. overnight for Lexiscan today morning. Medications: Reviewed: Yes Medication Review Details: With QRS widening. Renal dosing. Vitals/I&O/Wt Last Vital Signs Temp 97.7 F 10/14/19 15:50 Pulse 68 10/14/19 15:50 Resp 17 10/14/19 15:50 BP 104/59 10/14/19 15:50 Pulse Ox 94 10/14/19 15:50 10/14/19 10/14/19 10/14/19 06:59 14:59 22:59 Intake Total 330 / 2190 240 / 240 Output Total 400 / 400 300 / 700 Balance 330 / 1940 -160 / -160 -300 / -460 Weight last 48 hrs Weight 101.106 kg Weight 101.106 kg Weight 101.605 kg Weight 101.803 kg Weight 99.79 kg Physical Exam Narrative: EXAM NARRATIVE: General: No acute distress, AO x3 HEENT: PERRLA, pupils bilaterally equal and reactive Chest: Bilateral fine crackles present in lower zone, posterior more than anterior, equal good air entry bilaterally CVS: S1-S2 regular, no murmurs, no tachycardia, no gallops, no rubs Abdomen: Soft, nontender, no organomegaly, bowel sounds present Neuro: No focal deficits, no facial deformity, AO x3, power 5/5 in all limbs A&P Assessment and plan (1) Chest pain: Status: Acute Code(s): R07.9 - Chest pain, unspecified (2) Coronary artery disease: Status: Chronic Code(s): I25.10 - Atherosclerotic heart disease of [place] coronary artery without angina pectoris (3) Accelerated essential hypertension: Status: Chronic Code(s): I10 - Essential (primary) hypertension (4) Obesity: Chest pain r/o ACS: In setting of repeated ACS and multi PCI in past and very recently 2-3 times in last 6 months CAD can not be ruled out. EKG s/o LBBB with QRS widening so CAD can not be ruled out. Trop trend negative but in past has had ACS with negative trops. -Echocardiogram results appreciated. EF 30?35% with dilated LV, mild MR and dyskinetic basal inferior wall segment. - c/w home dual antiplatelet , bblocker, deanne inhibitor and statin - Will adjust anti-anginals. Will change Imdur from PRN to standing 30 mg BID. -Discontinue Ranexa as the QRS is widening. Will help with synchronization somewhat. IV Lasix 40 mg today for mild CHF. We will consult Dr. Paulson from cardiology for further work-up and a possible ICD placement given the EF and continued symptoms for better synchronization of therapy. Type 2 diabetes mellitus: ISS. Stop OHA's. Change diet to cardiac carbs consistent. HTN: BP acceptable at present. - c/w home meds but will decrease Amlo to QD to have more room for imdur c/w rest of chronic home meds dvt ppx: enoxaparin subq Carbohydrate consistent cardiac diet. Blood sugars acceptable. Status: Chronic Code(s): E66.9 - Obesity, unspecified Attestations Medical Necessity Statement*: He scheduled hospitalization for further work-up of chest pain in setting of low EF. Time Spent in Patient Care: Greater than 35 minutes Coding Level of Care Code Acute Temperer for g Fwd Diagnoses Chest pain R07.9 Coronary artery disease I25.10 Accelerated essential hypertension I10 Obesity E66.9
[2019-10-14 16:31] LABS: Glucose Point of Care 226 mg/dL (70-110)
--- NOTE | 2019-10-14 17:44 | PM.CONSULT ---
Providers/Reason For Consult Consulting Physican/Specialty*: Cardiovascular medicine Reason for Consult*: Chest pain/CHF Attending Physician: Kamlesh Jackson MD Primary Care Provider: Phillip Gill MD History of Present Illness History of Present Illness Magen Riddle SR is a 49 year old male Who is well known to us to his multiple admissions and through my clinic. He has history of extensive disease of coronary artery status post multiple stents, coronary spasm, systolic function, left bundle branch block, diabetes, continuous tobacco abuse presented with chest pain and shortness of breath. He was ruled out for acute coronary syndrome. He was diuresed with IV Lasix. Echocardiogram was consistent with severe to moderate LV dysfunction , I reviewed echocardiogram left ventricular ejection fraction may be in between 35-40%. Stress test was performed today which was negative. Overall he is feeling much better. He denies PND orthopnea. He is walking around without any problem now. Review of Systems Const: Denies: fever, chills or body aches Eyes: Denies: change in vision Card: Reports: chest pain; Denies: palpitations, irregular heart rhythm or edema Resp: Reports: shortness of breath GI: Denies: abdominal pain, nausea or vomiting Neuro: Denies: headache or numbness in extremities Psych: Reports: anxiety Meds/Allergies Home Medications and Allergies Home Medications Medication Instructions Recorded Confirmed Type Ambien 10 mg PO BEDTIME 10/13/19 10/13/19 History Brilinta 90 mg PO DAILY 10/13/19 10/13/19 History Janumet 1 tab PO DAILY 10/13/19 10/13/19 History Nitrostat 0.4 mg SUBLINGUAL Q5M PRN 10/13/19 10/13/19 History Spiriva with HandiHaler 1 cap INHALATION DAILY 10/13/19 10/13/19 History Symbicort 2 puff INHALATION BID 10/13/19 10/13/19 History Xanax 0.5 mg PO DIRECTED PRN 10/13/19 10/13/19 History albuterol sulfate 2.5 mg INHALATION Q6H 10/13/19 10/13/19 History aspirin 81 mg PO DAILY 10/13/19 10/13/19 History doxepin 50 mg PO BEDTIME 10/13/19 10/13/19 History glimepiride 4 mg PO DAILY 10/13/19 10/13/19 History hydrocodone-acetaminophen 1 tab PO BID PRN 10/13/19 10/13/19 History hydroxyzine HCl 50 mg PO BID PRN 10/13/19 10/13/19 History lisinopril 20 mg PO DAILY 10/13/19 10/13/19 History nicotine 1 patch TRANSDERMAL Q24H 10/13/19 10/13/19 History pantoprazole 40 mg PO DAILY 10/13/19 10/13/19 History potassium chloride 10 meq PO DAILY 10/13/19 10/13/19 History simvastatin 40 mg PO BEDTIME 10/13/19 10/13/19 History Allergies Allergy/AdvReac Type Severity Reaction Status Date / Time No Known Allergies Allergy Verified 10/12/19 22:33 Current Medications Current Medications Generic Name Dose Route Start Last Admin Trade Name Freq PRN Reason Stop Dose Admin Albuterol Sulfate 2.5 mg 10/13/19 03:00 10/14/19 15:12 Albuterol INHALATION Not Given Q6H.RESPIRATORY GRISEL Alprazolam 0.5 mg 10/13/19 13:37 10/13/19 14:07 Xanax PO 0.5 mg TID PRN Administration ANXIETY Amlodipine Besylate 5 mg 10/13/19 09:00 10/14/19 08:16 Norvasc PO 5 mg DAILY GRISEL Administration Aspirin 81 mg 10/13/19 02:20 10/14/19 08:17 Aspirin Ec PO 81 mg DAILY GRISEL Administration Atorvastatin Calcium 20 mg 10/13/19 21:00 10/13/19 20:24 Lipitor PO 20 mg BEDTIME GRISEL Administration Doxepin HCl 50 mg 10/13/19 21:00 10/13/19 20:25 Sinequan PO 50 mg BEDTIME GRISEL Administration Enoxaparin Sodium 40 mg 10/13/19 02:30 10/14/19 02:38 Lovenox SUBCUT 40 mg Q24H GRISEL Administration Furosemide 40 mg 10/13/19 08:00 10/13/19 08:59 Lasix PO 40 mg DAILY@0800 GRISEL Administration Insulin Aspart 0 unit 10/13/19 08:00 10/14/19 17:21 Novolog SUBCUT 8 unit WM&BEDTIME GRISEL Administration Protocol Isosorbide Mononitrate 30 mg 10/13/19 20:00 10/14/19 08:29 Imdur PO 30 mg 09,2000 GRISEL Administration Lisinopril 20 mg 10/13/19 09:00 10/14/19 08:16 Prinivil PO 20 mg DAILY GRISEL Administration Metoprolol Succinate 100 mg 10/13/19 09:00 10/14/19 08:16 Toprol Xl PO 100 mg DAILY GRISEL Administration Morphine Sulfate 4 mg 10/13/19 02:07 10/14/19 13:37 Morphine IVP 4 mg Q4H PRN Administration SEVERE PAIN Nicotine 1 patch 10/13/19 03:00 10/14/19 02:38 Nicoderm 21 Mg Patch TRANSDERMA 1 patch Q24H GRISEL Administration Ondansetron HCl 4 mg 10/13/19 02:07 10/13/19 18:58 Zofran IVP 4 mg Q6H PRN Administration NAUSEA AND VOMITING Pantoprazole Sodium 40 mg 10/13/19 09:00 10/14/19 08:16 Protonix PO 40 mg DAILY GRISEL Administration Potassium Chloride 10 meq 10/13/19 09:00 10/14/19 08:15 Klor-Con 10 PO 10 meq DAILY GRISEL Administration Fluticasone/Salmeterol 2 puff 10/13/19 20:00 10/14/19 08:55 Advair Diskus 250-50 INHALATION 1 diskus BID.RESPIRATORY GRISEL Administration Ticagrelor 90 mg 10/13/19 02:20 10/14/19 08:17 Brilinta PO 90 mg DAILY GRISEL Administration Tiotropium [place] 1 mcg 10/13/19 08:00 10/14/19 08:56 Spiriva INHALATION 1 puff DAILY.RESPIRATORY GRISEL Administration Zolpidem Tartrate 10 mg 10/13/19 21:00 10/13/19 20:25 Ambien PO 10 mg BEDTIME GRISEL Administration PFSH Acute PFSH: Statuses (acute, chronic, etc) shown below reflect problem list status as previously entered and may not be historically accurate Medical History (Updated 10/14/19 @ 18:01 by Mana Paulson MD) Cardiac catheterization as the cause of abnormal reaction of the patient, or of later complication, without mention of misadventure at the time of the procedure (Acute) Cardiomyopathy (Acute) Coronary artery spasm (Acute) Social History Smoking and tobacco status: current every day smoker Vitals/I&O/Wt Last Vital Signs Temp 97.7 F 10/14/19 15:50 Pulse 68 10/14/19 15:50 Resp 17 10/14/19 15:50 BP 104/59 10/14/19 15:50 Pulse Ox 94 10/14/19 15:50 10/14/19 10/14/19 10/14/19 06:59 14:59 22:59 Intake Total 330 / 2190 240 / 240 240 / 480 Output Total 400 / 400 300 / 700 Balance 330 / 1940 -160 / -160 -60 / -220 Weight last 48 hrs Weight 222 lb 14.4 oz Weight 222 lb 14.4 oz Weight 224 lb Weight 224 lb 7 oz Weight 220 lb Physical Exam Narrative: EXAM NARRATIVE: GENERAL: Patient is alert, awake and oriented x3. NECK: No jugular vein distension. HEENT: No cyanosis. No icterus. No pallor. HEART: Regular S1 and S2. No murmur, rub or gallop. LUNGS: Clear to auscultate bilaterally. ABDOMEN: Soft, nontender and nondistended. Positive bowel sounds. No guarding, rebound or tenderness. CENTRAL NERVOUS SYSTEM: Grossly nonfocal. EXTREMITIES: Lower extremities without edema bilaterally. A&P Assessment and plan (1) Coronary artery spasm: Continue amlodipine. Nitroglycerin was seen stable be given. He is already on isosorbide mononitrate Status: Acute Code(s): I20.1 - Angina pectoris with documented spasm (2) Coronary artery disease: Patient has history of coronary artery disease. He has history of coronary spasm proven during the catheterization with severe catheter induced spasm. We will optimize his medicines. I will also give him nitroglycerin spray. Status: Chronic Qualifiers: Coronary Disease-Associated Artery/Lesion type: [place] artery [place] vs. transplanted heart: [place] heart Associated angina: with angina and documented spasm Qualified Code(s): I25.111 - Atherosclerotic heart disease of [place] coronary artery with angina pectoris with documented spasm Code(s): I25.10 - Atherosclerotic heart disease of [place] coronary artery without angina pectoris (3) Cardiomyopathy: Patient has mostly nonischemic Cardiomyopathy, It is out of proportion of ischemic complain. I will switch patient to Coreg. We'll continue lisinopril. We will add Lasix to his regimen. We will see him back in our clinic in 7 days. We will also give him heart failure education. Status: Acute Qualifiers: Cardiomyopathy type: ischemic Qualified Code(s): I25.5 - Ischemic cardiomyopathy Code(s): I42.9 - Cardiomyopathy, unspecified (4) Accelerated essential hypertension: Well controlled. Continue regimen. Status: Chronic Code(s): I10 - Essential (primary) hypertension Coding Level of Care Code New Pt Acute Manager Behavioral for Chg Fwd Patient Type New History Expanded Problem Focused Exam Expanded Problem Focused Medical Decision Making Moderate Complexity Diagnoses Coronary artery spasm I20.1 Coronary artery disease I25.111 Coronary Disease-Associated Artery/Lesion type: [place] artery [place] vs. transplanted heart: [place] heart Associated angina: with angina and documented spasm Cardiomyopathy I25.5 Cardiomyopathy type: ischemic Accelerated essential hypertension I10
--- NOTE | 2019-10-14 17:47 | P.DS_ITS ---
Discharge Providers Date of Admission: 10/13/19 01:15 Date of Discharge: 10/14/19 Attending Provider at Admission: Elena Marquis DO Attending Provider at Discharge: Kamlesh Jackson MD Primary Care Provider: Phillip Gill MD Diagnoses at Discharge Discharge Diagnosis (1) Chest pain: Status: Acute (2) Coronary artery disease: Status: Chronic (3) Accelerated essential hypertension: Status: Chronic (4) Obesity: Status: Chronic Reason for Visit Reason for Visit: Reason For Visit: chest pain/sob Hospital Course Discharge Summary: See my progress note from today. Magen Riddle SR is a 49 year old male w/ CAD s/p multiple interventions, Chronic smoker, Obesity, HTN, Hyperlipidemia, NIDDM type II, Chronic combined systolic and diastolic CHF, ischemic cardiomyopathy, GERD, Chronic back pain, DJD presents w/ chest pain. He underwent stress test which was negative for any acute ischemia. Echocardiogram was done which showed EF of 35% with dyskinetic inferior septum. His medications were adjusted for vasospastic angina and CHF. Patient was also consulted by cardiology and will be following up with Dr. Paulson from cardiology in 1 week for up titration of medications. Physical Exam Narrative: EXAM NARRATIVE: General: No acute distress, AO x3 HEENT: PERRLA, pupils bilaterally equal and reactive Chest: Bilateral fine crackles present in lower zone, posterior more than anterior, equal good air entry bilaterally CVS: S1-S2 regular, no murmurs, no tachycardia, no gallops, no rubs Abdomen: Soft, nontender, no organomegaly, bowel sounds present Neuro: No focal deficits, no facial deformity, AO x3, power 5/5 in all limbs Discharge Data Data Completed and Pending: Completed Studies During Hospitalization Category Date Time Status XR chest 1V lovely ble [id number] Stat Exams 10/12/19 23:58 Completed NM mary perf SPECT r&s* [id number] Routin e Nuc Med 10/14/19 19:42 Completed CV echo complete* [id number] Routine Ultrasound 10/13/19 08:33 Completed Pending at discharge Category Date Time Status Sestamibi Stress Test Request Routi ne Exams 10/13/19 19:41 Stop Req Sestamibi Stress Test Request Routi ne Exams 10/14/19 06:00 Ordered Complete Blood Co unt w/Auto AM LABS Lab 10/15/19 04:00 Ordered Comprehensive Met abolic Panel AM GALE BS Lab 10/15/19 04:00 Ordered Labs from last 24 hours 10/14/19 10/14/19 10/14/19 15:48 10:50 07:07 POC Glucose 226 193 157 10/13/19 20:15 POC Glucose 213 Vitals: Last Vital Signs Temp 97.7 F 10/14/19 15:50 Pulse 68 10/14/19 15:50 Resp 17 10/14/19 15:50 BP 104/59 10/14/19 15:50 Pulse Ox 94 10/14/19 15:50 Discharge Plan Discharge Patient Disposition: Home, Self-Care Condition: Stable Prescriptions: New Coreg 6.25 mg tablet 6.25 mg PO BID Qty: 60 RF: 4 Lasix 40 mg tablet 40 mg PO DAILY Qty: 30 RF: 4 potassium chloride 20 mEq tablet extended release 20 meq PO DAILY Qty: 30 RF: 4 nitroglycerin 400 mcg/spray spray,non-aerosol 0.4 mg SUBLINGUAL Q5M PRN (Reason: chest pain) Qty: 4.9 RF: 3 Continued Xanax 0.5 mg tablet 0.5 mg PO DIRECTED PRN (Reason: Anxiety) RF: 0 doxepin 50 mg Capsule 50 mg PO BEDTIME RF: 0 hydrocodone-acetaminophen 10-325 mg Tablet 1 tab PO BID PRN (Reason: Pain) RF: 0 aspirin 81 mg tablet,delayed release (DR/EC) 81 mg PO DAILY RF: 0 glimepiride 4 mg Tablet 4 mg PO DAILY RF: 0 Ambien 10 mg Tablet 10 mg PO BEDTIME RF: 0 Brilinta 90 mg Tablet 90 mg PO DAILY RF: 0 hydroxyzine HCl 50 mg Tablet 50 mg PO BID PRN (Reason: Pain) RF: 0 albuterol sulfate 2.5 mg /3 mL (0.083 %) Solution For Nebulization 2.5 mg INHALATION Q6H RF: 0 lisinopril 20 mg Tablet 20 mg PO DAILY RF: 0 potassium chloride 10 mEq Tablet Extended Release 10 meq PO DAILY RF: 0 simvastatin 40 mg Tablet 40 mg PO BEDTIME RF: 0 pantoprazole 40 mg Tablet,Delayed Release (Dr/Ec) 40 mg PO DAILY RF: 0 nicotine 21 mg/24 hr Patch 24 Hour 1 patch TRANSDERMAL Q24H RF: 0 Nitrostat 0.4 mg Tablet, Sublingual 0.4 mg SUBLINGUAL Q5M PRN (Reason: Chest Pain) RF: 0 Spiriva with HandiHaler 18 mcg Capsule, W/Inhalation Device 1 cap INHALATION DAILY RF: 0 Janumet 50-1,000 mg Tablet 1 tab PO DAILY RF: 0 Symbicort 160-4.5 mcg/actuation Hfa Aerosol Inhaler 2 puff INHALATION BID RF: 0 isosorbide mononitrate 30 mg Tablet Extended Release 24 Hr 30 mg PO BID PRN (Reason: Chest Pain) Qty: 0 RF: 0 Discontinued amlodipine 5 mg Tablet 5 mg PO BID RF: 0 metoprolol succinate 100 mg Tablet Extended Release 24 Hr 100 mg PO DAILY RF: 0 ranolazine [Ranexa] 1,000 mg Tablet Extended Release 12 Hr 1,000 mg PO BID RF: 0 Referrals: Mana Paulson MD [Physician] - 7-10 days Phillip Gill MD [Primary Care Provider] - 2 weeks Discharge Diet: Cardiac Discharge Activity: Resume usual activity Activity Restrictions/Additional Instructions: Metoprolol changed to Coreg. Will be uptitrated as an outpatient. Lasix has been added to the treatment plan. Amlodipine has been withheld and Imdur has been made standing. Generalized and have been withheld in view of broadening of QRS. Discharge Attestations Time Spent in Discharge Care*: greater than 30 min Specific Discharge Activities: Specific discharge activities: educating patient and evaluating patient/reviewing data Time Spent in Smoking Cessation: Time spent discussing smoking cessation with patient: more than 10 minutes Status at Discharge: Cognitive status at discharge: cognitively intact , Behavioral status at discharge: cooperative , Functional status at discharge: independent ambulation Overall status at discharge: patient is back to baseline Quality Metrics Clinical Quality Measures During this hospital stay, did patient experience: None Coding Level of Care Code Acute Environmental Communications Specialist for Swethag Fwd Diagnoses Chest pain R07.9 Coronary artery disease I25.10 Accelerated essential hypertension I10 Obesity E66.9
--- NOTE | 2019-10-14 19:42 | NMCV_ITS ---
NM MIBI/MIBI Stress/Rest 71081 Venkatesh Magen Age: 49 Gender: M : 1970 Exam Date: 10/14/2019 19:42 Ordering Phys: Kamlesh Jackson MD Technologist: HERNESTO Alvarez Exam Location: [facility] Indications: Chest pain, SOB STRESS TEST Please see separate stress test report in [facility] for full findings IMAGE PROTOCOL Rest/Stress 1 Lexiscan Day Radiopharmaceutical Dose (mCi) Administration Site Administered by Rest: Tc-99m 10.2 IV HERNESTO Qiu Sestamibi Stress:Tc-99m 32.1 IV HERNESTO Alvarez Sestamijay Rest: 14-Oct-2019 60 Discovery 630 Stress: 14-Oct-2019 90 Discovery 630 0.4mg Lexiscan. Images obtained in supine and prone position. SPECT RESULTS Technical Quality: Good Raw Data Analysis: Subdiaphragmatic activity Image Corrections: Patient motion artifact - motion correction applied to rest images Summed Stress Score: 3 Summed Rest Score: 5 Summed Difference Score: 1 PERFUSION FINDINGS Medium-size area of fixed perfusion defect noted in basal to mid anterior wall suggestive of old myocardial infarction versus scarring. Medium-size area of patchy decreased tracer uptake noted in basal to distal inferior wall suggestive of old myocardial infarction versus scarring. FUNCTIONAL RESULTS (calculated via Gated SPECT) Stress Image LV EF (%): 18 Stress EDV (mL):246 TID: 1.02 Stress ESV (mL):202 Rest Image LV EF (%): 18 FUNCTIONAL FINDINGS: Global hypokinesis IMPRESSIONS Medium-size area of old myocardial infarction versus scarring noted in basal to mid inferior and basal to distal inferior wall without sofie-infarct ischemia. This study is negative for ischemia. EKG segment will be documented separately. Mana Paulson MD (Electronically Signed) Final Date: 14 October 2019 12:04 S
== END 2019-10-14 19:15 | disposition home or self-care (01) | DRG 303 ==
LOC: ER 22:38 → CSU 10-13 01:48
PROVIDERS: Admitting Provider Internal Medicine; Emergency Provider Emergency Medicine; Family Provider Family Medicine; PCP Family Medicine; Visit Provider Student in an Organized Health Care Education/Training Program
DX: I25.111 Atherosclerotic heart disease of native coronary artery with angina pectoris with documented spasm (principal); I50.42 Chronic combined systolic (congestive) and diastolic (congestive) heart failure; F17.210 Nicotine dependence, cigarettes, uncomplicated; E78.5 Hyperlipidemia, unspecified; E11.9 Type 2 diabetes mellitus without complications; I11.0 Hypertensive heart disease with heart failure; I25.5 Ischemic cardiomyopathy; K21.9 Gastro-esophageal reflux disease without esophagitis; G89.29 Other chronic pain; M19.90 Unspecified osteoarthritis, unspecified site; E66.9 Obesity, unspecified; Z68.30 Body mass index [BMI] 30.0-30.9, adult; Z79.84 Long term (current) use of oral hypoglycemic drugs; Z79.82 Long term (current) use of aspirin
CPT/HCPCS: 12345; 36415; 36416; 71045; 78452; 80053; 81003; 82962; 83880; 84484; 85025; 93005; 93017; 93306; 94640; 96372; 96374; 96375; 99221; 99283; A9500; J1650; J1815; J1940; J2060; J2270; J2405; J2785; J3490; J7611

== ENCOUNTER 2019-10-12 22:24 | Emergency (ER) | payer MEDICAID, SELFPAY | END 2019-10-13 01:54 | disposition admitted as inpatient to this hospital (09) | LOC: ER 01-08 08:31 | PROVIDERS: Emergency Provider Emergency Medicine; Family Provider Family Medicine; PCP Family Medicine | DX: Z76.89 Persons encountering health services in other specified circumstances (principal) | CPT/HCPCS: 36416; 71045; 80053; 82962; 83880; 84484; 85025; 93005; 96374; 96375; 99283; J2270; J2405; J3490 ==

== ENCOUNTER 2019-11-08 03:24 | Emergency (ER) | payer MEDICAID, SELFPAY ==
[2019-11-08] VITALS (14 sets, daily range): BP systolic 143–182; BP diastolic 80–111; PULSE 100–128; RESP 11–22; TEMP 36.7–37.1; O2SAT 91–99; BMI 29.8
--- NOTE | 2019-11-08 03:26 | XR_ITS ---
WS: [id number] Portable AP upright chest, 11/08/2019 Clinical Data: cp Comparison: Portable chest, 10/13/2019 Findings: No nodules, masses or effusions are seen. The heart is normal. The pulmonary vascularity is not increased. No pneumonia or pneumothorax is seen. Monitor leads on the chest wall. XR/XR chest 1V portable [id number] Impression: Negative chest.
--- NOTE | 2019-11-08 03:26 | ECG_ITS ---
Measurements Intervals [place] Rate: 123 P: 30 DC: 138 QRS: -14 QRSD: 159 T: 129 QT: 329 QTc: 472 SINUS TACHYCARDIA LEFT BUNDLE BRANCH BLOCK [120+ ms QRS DURATION, 80+ ms Q/S IN V1/V2, 85+ ms R IN Compared to ECG 10/13/2019 21:10:25 Sinus rhythm no longer present Electronically Signed On 11-08-2019 22:15:54 LONG TERM CARE PHARMACIST by Mana Paulson M.D. [email or web address]
--- NOTE | 2019-11-08 03:28 | ED_ITS ---
Entered by Angelina Horne, acting as scribe for David Contreras MD HPI - Chest Pain General: Chief Complaint: Chest Pain Stated Complaint: CP/SOB Time Seen by Provider: 11/08/19 03:28 Source: patient Mode of arrival: ambulatory Limitations: no limitations History of Present Illness: HPI narrative: 49 yo m came to the er pov for chest pain and sob. Onset was a month ago. Pt states that he has had a fever and a cough as well. Pt states that this just has steadly gotten worse. Pt states that he is at a 9 out of 10 pain scale. complaint: chest pain Onset (ago): month(s) (1 month ago) Timing of current episode: episodic Prior episodes: Yes Onset: during rest Pain location: substernal Quality: other (pain) Relieving factors: nothing Exacerbating factors: nothing Associated symptoms: Reports fever(s) and other (cough); Deny abdominal pain, dyspnea, nausea or vomiting Treatment prior to arrival: none Review of Systems General: Reports: other (negative unless marked) Const: Reports: fever Eyes: Denies: blurry vision or eye discomfort ENMT: Denies: throat pain or dental pain Card: Reports: chest pain Resp: Denies: shortness of breath GI: Denies: abdominal pain, nausea, vomiting or diarrhea : Denies: painful urination Musc: Denies: neck pain or back pain Skin/Breast: Denies: rash Neuro: Denies: headache Psych: Denies: depression Thai/Lymph: Denies: easy bruising All/Imm: Denies: hives PFSH ED PFSH: Statuses (acute, chronic, etc) shown below reflect problem list status as previously entered and may not be historically accurate Medical History (Updated 11/08/19 @ 05:55 by David Contreras MD) Cardiac catheterization as the cause of abnormal reaction of the patient, or of later complication, without mention of misadventure at the time of the procedure (Acute) Cardiomyopathy (Acute) Coronary artery spasm (Acute) Social History Smoking and tobacco status: current every day smoker Physical Exam Const: COMMON NORMALS: no apparent distress, oriented x3 and healthy appearing HENMT: COMMON NORMALS: normocephalic and head/scalp atraumatic HEAD & SCALP: normocephalic and atraumatic Eye: COMMON NORMALS: PERRL and EOMs intact bilaterally PUPIL: Yes PERRL Neck/C-Spine: COMMON NORMALS: full ROM and supple Chest: COMMONS NORMALS: inspection of chest normal and palpation of chest normal Resp: COMMON NORMALS: normal respiratory effort, no retractions, no use of accessory muscles and clear to auscultation bilaterally AUSCULTATION: clear to auscultation bilaterally Cardio: COMMON NORMALS: regular rhythm and no murmurs RATE: tachycardic RHYTHM: regular rhythm GI: COMMON NORMALS: normal to inspection, nondistended, normoactive bowel sounds, soft to palpation, non-tender and no masses PALPATION: Yes soft Extremity: COMMON NORMALS: normal to inspection and full ROM Neuro: COMMON NORMALS: oriented x3, moves all extremities and no focal motor deficits Psych: COMMON NORMALS: mental status grossly normal, thought process normal and cooperative THOUGHT PROCESS: normal thought process Skin: COMMON NORMALS: no rashes or lesions noted and no wounds GENERAL SKIN EXAM: no rashes or lesions noted Course Vital Signs: Vital signs: Vital Signs Temperature 98.8 F 11/08/19 03:26 Pulse Rate 106 H 11/08/19 05:00 Respiratory Rate 15 11/08/19 05:00 Blood Pressure 171/87 11/08/19 05:00 Pulse Oximetry 93 11/08/19 05:00 MDM - Chest Pain MDM Narrative: Medical decision making narrative: Patient presents here with chest pain that is atypical in nature. Patient's troponin and EKG here are normal. He had a stress test last month that was negative. Patient's pain is been going on for a month as well. He does have a fever along with cough and CT shows a likely pneumonia. We will start him on doxycycline along with pain meds. Patient is stable for discharge and is to follow-up with his primary care doctor in 3 to 5 days return to the ER if worsening. Lab Data: Labs: Lab Results 11/08/19 11/08/19 11/08/19 Range/Units 03:34 03:34 03:34 WBC 6.7 (4.0-10.0) 10^3/ uL RBC 4.99 (4.1-5.3) 10^6/u L Hgb 14.7 (11.7-16.6) g/dL Hct 42.7 (42.0-52.0) % MCV 85.6 (80-94) fL MCH 29.5 (28.0-34.0) pg MCHC 34.4 (30.0-36.0) g/dL RDW 13.5 (12.1-15.1) % Plt Count 221 (130-400) 10^3/c mm MPV 8.9 (7.4-10.4) fL Neut % (Auto) 65.7 % Lymph % (Auto) 25.4 % Riley % (Auto) 6.9 % Eos % (Auto) 1.2 % Baso % (Auto) 0.3 % Neut # (Auto) 4.4 (1.8-7.7) 10^3/u L Lymph # (Auto) 1.7 (0.8-4.8) 10^3/u L Riley # (Auto) 0.5 (0.2-0.9) 10^3/u L Eos # (Auto) 0.1 (0.0-0.8) 10^3/u L Baso # (Auto) 0.0 (0.0-0.1) 10^3/u L Nucleated RBC % (a uto) 0 % Nucleated RBCs # 0.0 /100WBC D-Dimer (0-0.59) ug/mIFE U Sodium 132 L (136-145) mmol/L Potassium 3.7 (3.5-5.1) mmol/L Chloride 95 L (98-107) mmol/L Carbon Dioxide 22 (22-29) mmol/L Anion Gap 18.7 (5-19) BUN 9 (6-20) mg/dL Creatinine 0.9 (0.7-1.2) mg/dL GFR Calculation 89.7 L (90-130) mL/min Glucose 274 H (65-115) mg/dL Calculated Osmolal ity 280 L (285-295) mOsm/k g Calcium 9.1 (8.5-10.5) mg/dL Troponin T Baselin e 15 (0-15) ng/mL Troponin T 120 Min [place] (0-15) ng/mL Delta Troponin T (0-10) ABS# Influenza Type A A g (Negative) POC Influenza B Ag (Negative) 11/08/19 11/08/19 11/08/19 Range/Units 03:34 03:48 05:27 WBC (4.0-10.0) 10^3/ uL RBC (4.1-5.3) 10^6/u L Hgb (11.7-16.6) g/dL Hct (42.0-52.0) % MCV (80-94) fL MCH (28.0-34.0) pg MCHC (30.0-36.0) g/dL RDW (12.1-15.1) % Plt Count (130-400) 10^3/c mm MPV (7.4-10.4) fL Neut % (Auto) % Lymph % (Auto) % Riley % (Auto) % Eos % (Auto) % Baso % (Auto) % Neut # (Auto) (1.8-7.7) 10^3/u L Lymph # (Auto) (0.8-4.8) 10^3/u L Riley # (Auto) (0.2-0.9) 10^3/u L Eos # (Auto) (0.0-0.8) 10^3/u L Baso # (Auto) (0.0-0.1) 10^3/u L Nucleated RBC % (a uto) % Nucleated RBCs # /100WBC D-Dimer 1.79 H (0-0.59) ug/mIFE U Sodium (136-145) mmol/L Potassium (3.5-5.1) mmol/L Chloride (98-107) mmol/L Carbon Dioxide (22-29) mmol/L Anion Gap (5-19) BUN (6-20) mg/dL Creatinine (0.7-1.2) mg/dL GFR Calculation (90-130) mL/min Glucose (65-115) mg/dL Calculated Osmolal ity (285-295) mOsm/k g Calcium (8.5-10.5) mg/dL Troponin T Baselin e (0-15) ng/mL Troponin T 120 Min [place] 14.28 (0-15) ng/mL Delta Troponin T -0.72 L (0-10) ABS# Influenza Type A A g Negative (Negative) POC Influenza B Ag Negative (Negative) Imaging Data^: CT Chest: Attestation: I personally reviewed and interpreted this imaging study as follow s: Radiologist's impression: Ordering Provider/Ordering MD: David Contreras MD Date of Service: 11/08/19 Procedure(s): CT angio chest PE protcl [id number] Accession Number(s): [id number] Report Number: [id number] PROCEDURE INFORMATION: Exam: CT Angiography Chest With Contrast Exam date and time: 11/08/2019 4:10 AM Age: 49 years old Clinical indication: Chest pain; Type not specified; Prior surgery; Surgery date: 6+ months; Surgery type: Stents; Additional info: Cp TECHNIQUE: Imaging protocol: Computed tomographic angiography of the chest with intravenous contrast. 3D rendering: MIP and/or 3D reconstructed images were created by the technologist. Total DLP: 656.35 mGy-cm Radiation optimization: All CT scans at this facility use at least one of these dose optimization techniques: automated exposure control; mA and/or kV adjustment per patient size (includes targeted exams where dose is matched to clinical indication); or iterative reconstruction. Contrast material: OMNI 350; Contrast volume: 73.6 ml; Contrast route: 18G; COMPARISON: CTA Chest-Pulmonary Emb [id number] 08/15/2019 2:02 AM FINDINGS: Pulmonary arteries: Normal. No pulmonary emboli. Aorta: Unremarkable. No aortic aneurysm. No aortic dissection. Lungs: There are subpleural emphysematous changes seen bilaterally. In strandy opacities are seen in the lung bases bilaterally likely representing atelectasis versus parenchymal or pleural scarring. Pleural space: Unremarkable. No pneumothorax. No pleural effusion. Heart: Unremarkable. No cardiomegaly. No pericardial effusion. Lymph nodes: There are mildly prominent mediastinal lymph nodes seen similar to those present on 08/15/2019. These could represent reactive lymph nodes. Bones/joints: Unremarkable. No acute fracture. Soft tissues: There is a patchy soft tissue attenuation nodularity adjacent to the major fissure within the right upper lobe that measures 1.9 x 2.2 x 1.3 cm. Although this could represent a focal infiltrate and pneumonia or atelectasis, an underlying soft tissue mass cannot be excluded. Other findings: The there are calcified nodularities seen within the hemithoraces bilaterally compatible with calcified granulomas. CT/CT angio chest PE protcl [id number] IMPRESSION: 1. The there is no evidence for pulmonary emboli. 2. There is a background of subpleural emphysema in bilateral basilar atelectasis versus parenchymal or pleural scarring. 3. There are scattered calcified granulomas seen bilaterally. 4. There is a patchy soft tissue nodularity seen adjacent to the major fissure within the right upper lobe measuring up to 2.2 cm. This could represent focal pneumonia or atelectasis although an underlying mass cannot be excluded. CT at 3-6 months to confirm persistence of the nodule. If unchanged and solid component remains < 6 mm, annual CT should be performed for 5 years. (Eleazar et al., Fleischner Society, 2017) 5. Stable mildly prominent mediastinal lymph nodes compared with 08/15/2019. EKG Data^: EKG 1: Attestation: I personally reviewed and interpreted this EKG as follows: EKG interpretation date: 11/08/19 EKG interpretation time: 03:32 Interpretation: Sinus tachycardia heart rate [address] or T wave abnormalities left bundle branch block is noted and unchanged from EKG on 10/13/2019 curious 159 QTc 4 2 EKG 2: Attestation: I personally reviewed and interpreted this EKG as follows: EKG interpretation date: 11/08/19 EKG interpretation time: 05:10 Interpretation: sinus tach hr [address] or t wave abnormalities qrs 166 qtc 444 Discharge Plan Discharge Patient Disposition: Home, Self-Care Clinical Impression: Chest pain Qualifiers: Chest pain type: other chest pain Qualified Code(s): R07.89 - Other chest pain Pneumonia Qualifiers: Pneumonia type: due to unspecified organism Laterality: bilateral Lung locatio n: unspecified part of lung Qualified Code(s): J18.9 - Pneumonia, unspecified organism Condition: Stable Prescriptions: [place] 5-325 mg tablet 1 tab PO Q6H PRN (Reason: pain) Qty: 14 RF: 0 doxycycline hyclate 100 mg capsule 100 mg PO BID 10 Days Qty: 20 RF: 0 No Action alprazolam [Xanax] 0.5 mg tablet 0.5 mg PO DIRECTED PRN (Reason: Anxiety) RF: 0 doxepin 50 mg Capsule 50 mg PO BEDTIME RF: 0 hydrocodone-acetaminophen 10-325 mg Tablet 1 tab PO BID PRN (Reason: Pain) RF: 0 aspirin 81 mg tablet,delayed release (DR/EC) 81 mg PO DAILY RF: 0 glimepiride 4 mg Tablet 4 mg PO DAILY RF: 0 zolpidem [Ambien] 10 mg Tablet 10 mg PO BEDTIME RF: 0 Brilinta 90 mg Tablet 90 mg PO DAILY RF: 0 hydroxyzine HCl 50 mg Tablet 50 mg PO BID PRN (Reason: Pain) RF: 0 albuterol sulfate 2.5 mg /3 mL (0.083 %) Solution For Nebulization 2.5 mg INHALATION Q6H RF: 0 lisinopril 20 mg Tablet 20 mg PO DAILY RF: 0 potassium chloride 10 mEq Tablet Extended Release 10 meq PO DAILY RF: 0 simvastatin 40 mg Tablet 40 mg PO BEDTIME RF: 0 pantoprazole 40 mg Tablet,Delayed Release (Dr/Ec) 40 mg PO DAILY RF: 0 nicotine 21 mg/24 hr Patch 24 Hour 1 patch TRANSDERMAL Q24H RF: 0 nitroglycerin [Nitrostat] 0.4 mg Tablet, Sublingual 0.4 mg SUBLINGUAL Q5M PRN (Reason: Chest Pain) RF: 0 Spiriva with HandiHaler 18 mcg Capsule, W/Inhalation Device 1 cap INHALATION DAILY RF: 0 Janumet 50-1,000 mg Tablet 1 tab PO DAILY RF: 0 Symbicort 160-4.5 mcg/actuation Hfa Aerosol Inhaler 2 puff INHALATION BID RF: 0 carvedilol [Coreg] 6.25 mg tablet 6.25 mg PO BID Qty: 60 RF: 4 furosemide [Lasix] 40 mg tablet 40 mg PO DAILY Qty: 30 RF: 4 potassium chloride 20 mEq tablet extended release 20 meq PO DAILY Qty: 30 RF: 4 nitroglycerin 400 mcg/spray spray,non-aerosol 0.4 mg SUBLINGUAL Q5M PRN (Reason: chest pain) Qty: 4.9 RF: 3 isosorbide mononitrate 30 mg Tablet Extended Release 24 Hr 30 mg PO BID PRN (Reason: Chest Pain) Qty: 0 RF: 0 Referrals: Phillip Gill MD [Primary Care Provider] - Coding Level of Care Code ED Principal Product Manager for Chg Fwd Exam Problem Focused The documentation recorded by the Ozzie stewart Stephanie Lyn, accurately reflects the service I personally performed and the decisions made by me, David Contreras MD Nov 08, 2019 03:24
[2019-11-08 03:51] LABS: Basophils % 0.3 %; Eosinophils # 0.1 10^3/uL (0.0-0.8); Eosinophils % 1.2 %; Hematocrit 42.7 % (42.0-52.0); Hemoglobin 14.7 g/dL (11.7-16.6); Lymphocytes # 1.7 10^3/uL (0.8-4.8); Lymphocytes % 25.4 %; Mean Corpuscular HGB Conc 34.4 g/dL (30.0-36.0); Mean Corpuscular Hemoglobin 29.5 pg (28.0-34.0); Mean Corpuscular Volume 85.6 fL (80-94); Mean Platelet Volume 8.9 fL (7.4-10.4); Monocytes # 0.5 10^3/uL (0.2-0.9); Monocytes % 6.9 %; Neutrophils # 4.4 10^3/uL (1.8-7.7); Neutrophils % 65.7 %; Nucleated Red Blood Cells % 0 %; Platelet Count 221 10^3/cmm (130-400); Red Blood Count 4.99 10^6/uL (4.1-5.3); Red Cell Distribution Width 13.5 % (12.1-15.1); White Blood Count 6.7 10^3/uL (4.0-10.0)
[2019-11-08] MEDS: acetaminophen 325 mg Tablet 650 MG PO (03:55)
[2019-11-08] MEDS: aspirin 81 mg Chew Tablet 324 MG PO (03:57)
[2019-11-08] MEDS: sodium chloride 0.9% 1,000 ML 999 ML IV (03:57)
[2019-11-08] MEDS: morphine 4 mg/mL SDV 1 mL IVP (03:58)
[2019-11-08 04:00] LABS: D Dimer 1.79 ug/mIFEU (0-0.59)
--- NOTE | 2019-11-08 04:03 | CTR_ITS ---
PROCEDURE INFORMATION: Exam: CT Angiography Chest With Contrast Exam date and time: 11/08/2019 4:10 AM Age: 49 years old Clinical indication: Chest pain; Type not specified; Prior surgery; Surgery date: 6+ months; Surgery type: Stents; Additional info: Cp TECHNIQUE: Imaging protocol: Computed tomographic angiography of the chest with intravenous contrast. 3D rendering: MIP and/or 3D reconstructed images were created by the technologist. Total DLP: 656.35 mGy-cm Radiation optimization: All CT scans at this facility use at least one of these dose optimization techniques: automated exposure control; mA and/or kV adjustment per patient size (includes targeted exams where dose is matched to clinical indication); or iterative reconstruction. Contrast material: OMNI 350; Contrast volume: 73.6 ml; Contrast route: 18G; COMPARISON: CTA Chest-Pulmonary Emb [id number] 08/15/2019 2:02 AM FINDINGS: Pulmonary arteries: Normal. No pulmonary emboli. Aorta: Unremarkable. No aortic aneurysm. No aortic dissection. Lungs: There are subpleural emphysematous changes seen bilaterally. In strandy opacities are seen in the lung bases bilaterally likely representing atelectasis versus parenchymal or pleural scarring. Pleural space: Unremarkable. No pneumothorax. No pleural effusion. Heart: Unremarkable. No cardiomegaly. No pericardial effusion. Lymph nodes: There are mildly prominent mediastinal lymph nodes seen similar to those present on 08/15/2019. These could represent reactive lymph nodes. Bones/joints: Unremarkable. No acute fracture. Soft tissues: There is a patchy soft tissue attenuation nodularity adjacent to the major fissure within the right upper lobe that measures 1.9 x 2.2 x 1.3 cm. Although this could represent a focal infiltrate and pneumonia or atelectasis, an underlying soft tissue mass cannot be excluded. Other findings: The there are calcified nodularities seen within the hemithoraces bilaterally compatible with calcified granulomas. CT/CT angio chest PE protcl [id number] IMPRESSION: 1. The there is no evidence for pulmonary emboli. 2. There is a background of subpleural emphysema in bilateral basilar atelectasis versus parenchymal or pleural scarring. 3. There are scattered calcified granulomas seen bilaterally. 4. There is a patchy soft tissue nodularity seen adjacent to the major fissure within the right upper lobe measuring up to 2.2 cm. This could represent focal pneumonia or atelectasis although an underlying mass cannot be excluded. CT at 3-6 months to confirm persistence of the nodule. If unchanged and solid component remains < 6 mm, annual CT should be performed for 5 years. (Eleazar et al., Fleischner Society, 2017) 5. Stable mildly prominent mediastinal lymph nodes compared with 08/15/2019. Radiation Dose CTDIVOL = (mGy): DLP = 656.35 (mGy-cm)
[2019-11-08 04:04] LABS: Anion Gap 18.7 (5-19); Blood Urea Nitrogen 9 mg/dL (6-20); Calcium 9.1 mg/dL (8.5-10.5); Carbon Dioxide 22 mmol/L (22-29); Chloride 95 mmol/L (98-107); Glomerular Filtration Rate 89.7 mL/min (90-130); Glucose 274 mg/dL (65-115); Osmolality Calculated 280 mOsm/kg (285-295); Potassium 3.7 mmol/L (3.5-5.1); Sodium 132 mmol/L (136-145)
[2019-11-08 04:06] LABS: Troponin(5th) Baseline 15 ng/mL (0-15)
[2019-11-08 04:31] LABS: Influenza A by IFA Negative (Negative); Influenza B by IFA Negative (Negative)
[2019-11-08] MEDS: iohexol 350 mg/mL 100 mL Btl IV (04:37)
[2019-11-08] MEDS: HYDROmorphone 1 mg/mL INJ 1 mL IVP (04:41)
[2019-11-08 05:49] LABS: Troponin 5 2HR 14.28 ng/mL (0-15)
[2019-11-08 05:52] LABS: Troponin 5 2HR Delta -0.72 ABS# (0-10)
--- NOTE | 2019-11-08 09:26 | ECG_ITS ---
Measurements Intervals [place] Rate: 103 P: 52 VA: 155 QRS: -15 QRSD: 166 T: 133 QT: 384 QTc: 505 SINUS TACHYCARDIA LEFT BUNDLE BRANCH BLOCK [120+ ms QRS DURATION, 80+ ms Q/S IN V1/V2, 85+ ms R IN I/aVL/V5/V6] Compared to ECG 10/13/2019 21:10:25 Sinus rhythm no longer present Electronically Signed On 11-08-2019 22:18:48 HOE RUNNER by Mana Paulson M.D. [id number]
== END 2019-11-08 06:20 | disposition home or self-care (01) ==
PROVIDERS: Emergency Provider Emergency Medicine; Family Provider Family Medicine; PCP Family Medicine
DX: R07.89 Other chest pain (principal); J18.9 Pneumonia, unspecified organism; Z79.82 Long term (current) use of aspirin; Z79.84 Long term (current) use of oral hypoglycemic drugs; F17.210 Nicotine dependence, cigarettes, uncomplicated
CPT/HCPCS: 36415; 71045; 71275; 80048; 84484; 85025; 85378; 87804; 93005; 96361; 96374; 96375; 96376; 99283; 99284; J1170; J2270; J7030; Q9967

== ENCOUNTER 2019-11-14 11:10 | Emergency (ER) | payer MEDICAID, SELFPAY | END 2019-11-14 14:35 | disposition still patient (30) | LOC: ER 01-22 07:52 | PROVIDERS: Emergency Provider Family Medicine; Family Provider Family Medicine; PCP Family Medicine | DX: I25.110 Atherosclerotic heart disease of native coronary artery with unstable angina pectoris (principal); I42.9 Cardiomyopathy, unspecified; E11.9 Type 2 diabetes mellitus without complications; I11.0 Hypertensive heart disease with heart failure; I50.9 Heart failure, unspecified; E78.5 Hyperlipidemia, unspecified; F17.210 Nicotine dependence, cigarettes, uncomplicated | CPT/HCPCS: 12345; 36415; 71045; 80053; 84484; 85025; 93005; 94640; 96365; 96372; 96375; 96376; 99283; 99285; G0378; J1650; J2270; J2405; J3490 ==

== ENCOUNTER 2019-11-14 11:10 | Inpatient (IN) | payer MEDICAID, SELFPAY ==
[2019-11-14] VITALS (28 sets, daily range): BP systolic 124–175; BP diastolic 68–116; PULSE 68–88; RESP 10–20; TEMP 36.3–36.8; O2SAT 95–100; BMI 29.8
--- NOTE | 2019-11-14 11:14 | XRR_ITS ---
PROCEDURE INFORMATION: Exam: XR Chest, 1 View Exam date and time: 11/14/2019 12:08 PM Age: 49 years old Clinical indication: Cough; Additional info: Cough/congestion, chest pain TECHNIQUE: Imaging protocol: XR of the chest Views: 1 view. COMPARISON: CR XR chest 1V portable [id number] 11/08/2019 3:30 AM FINDINGS: Lungs: No consolidation evident. Pleural space: Unremarkable. No pleural effusion. No pneumothorax. Heart/Mediastinum: Unremarkable. No cardiomegaly. Bones/joints: Unremarkable. XR/XR chest 1V portable [id number] IMPRESSION: No acute findings.
[2019-11-14 11:39] LABS: Basophils % 0.4 %; Eosinophils # 0.2 10^3/uL (0.0-0.8); Hematocrit 42.8 % (42.0-52.0); Hemoglobin 14.4 g/dL (11.7-16.6); Lymphocytes # 3.7 10^3/uL (0.8-4.8); Lymphocytes % 37.7 %; Mean Corpuscular HGB Conc 33.6 g/dL (30.0-36.0); Mean Corpuscular Volume 86.3 fL (80-94); Mean Platelet Volume 8.3 fL (7.4-10.4); Monocytes # 0.7 10^3/uL (0.2-0.9); Monocytes % 7.1 %; Neutrophils # 5.1 10^3/uL (1.8-7.7); Neutrophils % 52.2 %; Nucleated Red Blood Cells % 0 %; Platelet Count 479 10^3/cmm (130-400); Red Blood Count 4.96 10^6/uL (4.1-5.3); Red Cell Distribution Width 13.8 % (12.1-15.1); White Blood Count 9.7 10^3/uL (4.0-10.0)
--- NOTE | 2019-11-14 11:51 | ED_ITS ---
Entered by Ilana Luke, acting as scribe for Onesimo Carrasquillo DO HPI - Chest Pain General: Chief Complaint: Chest Pain Stated Complaint: cp Time Seen by Provider: 11/14/19 11:52 History of Present Illness: HPI narrative: 49 yo male presents with chest pain. Pt states that he has been taking nitro and it doesn't seem to help much. Pt states that he had a stress test 3 weeks ago. Pt states that he had chest pain before the stress test as well. Pt states that he has been taking nitro everyday for a week. Pt states that he will have the chest pain off and on, he doesn't have any specific thing that causes the chest pain. Pt states that his pain radiated down his left arm. MD complaint: chest pain Onset (ago): week(s) Timing of current episode: daily and still present Prior episodes: Yes Onset: during rest, during exertion and after eating Pain location: left chest Pain radiation: left arm Severity: moderate Quality: sharp Relieving factors: nitroglycerin Associated symptoms: Deny abdominal pain, dyspnea, fever(s), nausea, palpitations, syncope or vomiting Review of Systems Const: Denies: fever, chills, body aches, fatigue, malaise or night sweats Eyes: Denies: change in vision or blurry vision ENMT: Denies: throat pain, oral sores/lesions, dental pain, nasal discharge or nasal congestion Card: Reports: chest pain; Denies: palpitations, irregular heart rhythm, edema, syncope, shortness of breath on exertion, shortness of breath when lying down or leg pain with exertion Resp: Denies: shortness of breath, productive cough, non-productive cough or wheezing GI: Denies: abdominal pain, nausea, vomiting, vomiting blood, coffee grounds in vomit, difficulty swallowing, heartburn/indigestion, diarrhea, constipation, cramping, blood in stool or black tarry stool : Denies: flank pain, difficulty urinating, painful urination, urinary frequency, urinary urgency, urinary incontinence or blood in urine Musc: Denies: neck pain, back pain, extremity pain, extremity swelling, joint pain or joint swelling Skin/Breast: Denies: rash, itching or redness Neuro: Denies: headache, numbness in extremities, weakness in extremities, changes in sensation, lack of coordination, difficulty walking, frequent falls, dizziness, vertigo or confusion Psych: Denies: anxiety, depression, loss of interest, visual hallucinations, auditory hallucinations, suicidal ideation or homicidal ideation Endo: Denies: excessive urination, excessive thirst, tired all the time or cold intolerance Thai/Lymph: Denies: easy bruising, easy bleeding, petechiae, enlarged lymph nodes or tender lymph nodes PFSH ED PFSH: Medical History Cardiac catheterization as the cause of abnormal reaction of the patient, or of later complication, without mention of misadventure at the time of the procedure Cardiomyopathy Congestive heart failure Coronary artery spasm Diabetes mellitus Dyslipidemia Left bundle branch block Tobacco abuse Social History Smoking and tobacco status: current every day smoker Physical Exam Const: COMMON NORMALS: average body habitus, oriented x3 and alert GENERAL APPEARANCE: cooperative, comfortable, well kempt and well developed NUTRITIONAL APPEARANCE: not obese ORIENTATION/CONSCIOUSNESS: Yes awake, Yes oriented to person and Yes oriented to place HENMT: COMMON NORMALS: normocephalic, head/scalp atraumatic, EAC's normal, TM's normal bilaterally, external nose normal, moist oral mucous membranes and oropharynx normal HEAD & SCALP: normocephalic and atraumatic NOSE: external nose normal EXTERNAL AUDITORY CANAL: EAC's normal TYMPANIC MEMBRANE: TM's normal bilaterally MOUTH: oral and palatal mucosa normal, lip normal and tongue normal THROAT: posterior oropharynx normal and tonsils normal Eye: COMMON NORMALS: PERRL, EOMs intact bilaterally, conjunctivae normal and no scleral icterus CONJUNCTIVA: Yes conjunctivae normal PUPIL: Yes PERRL Neck/C-Spine: COMMON NORMALS: full ROM, no lymphadenopathy, supple, no meningeal signs and thyroid normal THYROID: thyroid normal and asymmetrical Lymph: LYMPHATIC: no lymphadenopathy noted Resp: COMMON NORMALS: normal respiratory effort, no retractions, no use of accessory muscles and clear to auscultation bilaterally AUSCULTATION: clear to auscultation bilaterally Cardio: COMMON NORMALS: regular rate and regular rhythm RATE: regular rate RHYTHM: regular rhythm HEART SOUNDS: no murmurs GI: COMMON NORMALS: normal to inspection, nondistended, normoactive bowel sounds, soft to palpation and no hepatosplenomegaly PALPATION: Yes soft and Yes no hepatosplenomegaly : COMMON NORMALS: Yes no CVA tenderness BLADDER/KIDNEY EXAM: Yes no CVA tenderness Back/Pelvis: COMMON NORMALS: no CVA tenderness LUMBAR SPINE/LOWER BACK: Yes normal to inspection Extremity: COMMON NORMALS: no clubbing, cyanosis or edema, no calf tenderness and no pedal edema Neuro: COMMON NORMALS: oriented x3 SENSORIUM/ORIENTATION: Yes alert, Yes oriented to person and Yes oriented to place MENINGEAL SIGNS: Yes no meningeal signs Psych: APPEARANCE: Yes well kempt Skin: COMMON NORMALS: no rashes or lesions noted and skin turgor normal GEN ERAL SKIN EXAM: no rashes or lesions noted and turgor normal Course ED course: Discussed with Dr. Hester and with Dr. Montes patient will be admitted to hospitalist on observation Dr. Montes to consult. Patient is pain- free at this time. Admit for his unstable angina and further evaluation Vital Signs: Vital signs: Vital Signs Temperature 97.8 F 11/16/19 07:54 Pulse Rate 77 11/16/19 07:56 Respiratory Rate 13 11/16/19 07:56 Blood Pressure 151/96 11/16/19 07:56 Pulse Oximetry 95 11/16/19 07:56 MDM - Chest Pain Lab Data: Labs: Lab Results 11/14/19 11/14/19 11/14/19 Range/Units 11:26 11:26 11:26 WBC 9.7 (4.0-10.0) 10^3/ uL RBC 4.96 (4.1-5.3) 10^6/u L Hgb 14.4 (11.7-16.6) g/dL Hct 42.8 (42.0-52.0) % MCV 86.3 (80-94) fL MCH 29.0 (28.0-34.0) pg MCHC 33.6 (30.0-36.0) g/dL RDW 13.8 (12.1-15.1) % Plt Count 479 H (130-400) 10^3/c mm MPV 8.3 (7.4-10.4) fL Neut % (Auto) 52.2 % Lymph % (Auto) 37.7 % [place] % (Auto) 7.1 % Eos % (Auto) 2.0 % Baso % (Auto) 0.4 % Neut # (Auto) 5.1 (1.8-7.7) 10^3/u L Lymph # (Auto) 3.7 (0.8-4.8) 10^3/u L [place] # (Auto) 0.7 (0.2-0.9) 10^3/u L Eos # (Auto) 0.2 (0.0-0.8) 10^3/u L Baso # (Auto) 0.0 (0.0-0.1) 10^3/u L Nucleated RBC % (a uto) 0 % Nucleated RBCs # 0.0 /100WBC Sodium 134 L (136-145) mmol/L Potassium 3.5 (3.5-5.1) mmol/L Chloride 95 L (98-107) mmol/L Carbon Dioxide 26 (22-29) mmol/L Anion Gap 16.5 (5-19) BUN 9 (6-20) mg/dL Creatinine 1.0 (0.7-1.2) mg/dL GFR Calculation 79.4 L (90-130) mL/min Glucose 316 H (65-115) mg/dL Calculated Osmolal ity (285-295) mOsm/k g Calcium 9.5 (8.5-10.5) mg/dL Total Bilirubin 0.4 (0.15-1.2) mg/dL AST 12 (0-40) U/L ALT 9 (0-41) U/L Alkaline Phosphata se 68 (40-130) IU/L Troponin I 6 Hour (0-15) ng/mL Troponin I Hi Sens Del (0-12) ng/L Troponin T Baselin e 40.09 Troponin T 120 Min blackfeet (0-15) ng/mL Delta Troponin T (0-10) ABS# Total Protein 7.7 (6.6-8.7) g/dL Albumin 4.2 (3.5-5.2) g/dL Globulin 3.5 (1.3-4.6) g/dL 11/14/19 11/14/19 11/15/19 Range/Units 13:32 17:15 04:30 WBC 9.0 (4.0-10.0) 10^3/ uL RBC 4.43 (4.1-5.3) 10^6/u L Hgb 12.7 (11.7-16.6) g/dL Hct 37.2 L (42.0-52.0) % MCV 84.0 (80-94) fL MCH 28.7 (28.0-34.0) pg MCHC 34.1 (30.0-36.0) g/dL RDW 13.9 (12.1-15.1) % Plt Count 443 H (130-400) 10^3/c mm MPV 8.6 (7.4-10.4) fL Neut % (Auto) 52.4 % Lymph % (Auto) 36.4 % [place] % (Auto) 7.9 % Eos % (Auto) 2.4 % Baso % (Auto) 0.3 % Neut # (Auto) 4.7 (1.8-7.7) 10^3/u L Lymph # (Auto) 3.3 (0.8-4.8) 10^3/u L [place] # (Auto) 0.7 (0.2-0.9) 10^3/u L Eos # (Auto) 0.2 (0.0-0.8) 10^3/u L Baso # (Auto) 0.0 (0.0-0.1) 10^3/u L Nucleated RBC % (a uto) 0 % Nucleated RBCs # 0.0 /100WBC Sodium (136-145) mmol/L Potassium (3.5-5.1) mmol/L Chloride (98-107) mmol/L Carbon Dioxide (22-29) mmol/L Anion Gap (5-19) BUN (6-20) mg/dL Creatinine (0.7-1.2) mg/dL GFR Calculation (90-130) mL/min Glucose (65-115) mg/dL Calculated Osmolal ity (285-295) mOsm/k g Calcium (8.5-10.5) mg/dL Total Bilirubin (0.15-1.2) mg/dL AST (0-40) U/L ALT (0-41) U/L Alkaline Phosphata se (40-130) IU/L Troponin I 6 Hour 42.02 H (0-15) ng/mL Troponin I Hi Sens Del 2.02 (0-12) ng/L Troponin T Baselin e Troponin T 120 Min [place] 35.41 H (0-15) ng/mL Delta Troponin T -4.68 L (0-10) ABS# Total Protein (6.6-8.7) g/dL Albumin (3.5-5.2) g/dL Globulin (1.3-4.6) g/dL 11/15/19 Range/Units 04:30 WBC (4.0-10.0) 10^3/ uL RBC (4.1-5.3) 10^6/u L Hgb (11.7-16.6) g/dL Hct (42.0-52.0) % MCV (80-94) fL MCH (28.0-34.0) pg MCHC (30.0-36.0) g/dL RDW (12.1-15.1) % Plt Count (130-400) 10^3/c mm MPV (7.4-10.4) fL Neut % (Auto) % Lymph % (Auto) % [place] % (Auto) % Eos % (Auto) % Baso % (Auto) % Neut # (Auto) (1.8-7.7) 10^3/u L Lymph # (Auto) (0.8-4.8) 10^3/u L [place] # (Auto) (0.2-0.9) 10^3/u L Eos # (Auto) (0.0-0.8) 10^3/u L Baso # (Auto) (0.0-0.1) 10^3/u L Nucleated RBC % (a uto) % Nucleated RBCs # /100WBC Sodium 134 L (136-145) mmol/L Potassium 3.8 (3.5-5.1) mmol/L Chloride 96 L (98-107) mmol/L Carbon Dioxide 25 (22-29) mmol/L Anion Gap 16.8 (5-19) BUN 12 (6-20) mg/dL Creatinine 0.9 (0.7-1.2) mg/dL GFR Calculation 89.7 L (90-130) mL/min Glucose 327 H (65-115) mg/dL Calculated Osmolal ity 287 (285-295) mOsm/k g Calcium 9.1 (8.5-10.5) mg/dL Total Bilirubin (0.15-1.2) mg/dL AST (0-40) U/L ALT (0-41) U/L Alkaline Phosphata se (40-130) IU/L Troponin I 6 Hour (0-15) ng/mL Troponin I Hi Sens Del (0-12) ng/L Troponin T Baselin e Troponin T 120 Min [place] (0-15) ng/mL Delta Troponin T (0-10) ABS# Total Protein (6.6-8.7) g/dL Albumin (3.5-5.2) g/dL Globulin (1.3-4.6) g/dL Discharge Plan Discharge Admit Provider: Liz Hester Clinical Impression: Unstable angina pectoris, Coronary artery disease, Accelerated essential hypertension, Cardiomyopathy Condition: Stable Discharge Date/Time: 11/14/19 14:35 Coding Level of Care Code ED Cash Grain Farmer for Chg Fwd Exam Problem Focused The documentation recorded by the Ti stewart Kialy, accurately reflects the service I personally performed and the decisions made by Foreign mendoza Curtis L, DO Nov 14, 2019 11:10
[2019-11-14 12:08] LABS: Alanine Aminotransferase 9 U/L (0-41); Albumin Level 4.2 g/dL (3.5-5.2); Alkaline Phosphatase 68 IU/L (40-130); Anion Gap 16.5 (5-19); Aspartate Amino Transferase 12 U/L (0-40); Blood Urea Nitrogen 9 mg/dL (6-20); Calcium 9.5 mg/dL (8.5-10.5); Carbon Dioxide 26 mmol/L (22-29); Chloride 95 mmol/L (98-107); Globulin 3.5 g/dL (1.3-4.6); Glomerular Filtration Rate 79.4 mL/min (90-130); Glucose 316 mg/dL (65-115); Potassium 3.5 mmol/L (3.5-5.1); Sodium 134 mmol/L (136-145); Total Bilirubin 0.4 mg/dL (0.15-1.2); Total Protein 7.7 g/dL (6.6-8.7)
[2019-11-14 12:12] LABS: Troponin(5th) Baseline 40.09
[2019-11-14] MEDS: nitroglycerin 1 gm/inch oint Pkt 1 INCH TOPICAL (12:22)
[2019-11-14] MEDS: enoxaparin 100 mg/mL Syringe SUBCUT (12:23)
--- NOTE | 2019-11-14 12:34 | PC.NURSE ---
history of 7 stents
--- NOTE | 2019-11-14 13:14 | ECG_ITS ---
Measurements Intervals [place] Rate: 78 P: 47 NE: 186 QRS: -1 QRSD: 161 T: 182 QT: 450 QTc: 515 ELECTRONIC VENTRICULAR PACEMAKER ABNORMAL RHYTHM ECG Compared to ECG 11/08/2019 05:10:19 Sinus tachycardia no longer present Left bundle-branch block no longer present Electronically Signed On 11-14-2019 20:43:18 SUPERVISOR LIME by Mana Paulson M.D. [id number]
[2019-11-14] MEDS: morphine 4 mg/mL SDV 1 mL IVP (13:46)
[2019-11-14] MEDS: ondansetron 2 mg/ML SDV 2 mL 4 MG IVP (13:49)
[2019-11-14 13:58] LABS: Troponin 5 2HR 35.41 ng/mL (0-15)
[2019-11-14] MEDS: nitroglycerin drip 50 MG/250 ML PREMIX IV (13:59)
[2019-11-14 14:04] LABS: Troponin 5 2HR Delta -4.68 ABS# (0-10)
--- NOTE | 2019-11-14 14:52 | PM.HP ---
Providers/Chief Complaint Admitting Physician: Liz Hester MD Primary Care Provider: Phillip Gill MD Chief Complaint: Unstable angina;cad History of Present Illness Magen Riddle SR is a 49 year old male w/ CAD s/p multiple interventions, Chronic smoker, Obesity, HTN, Hyperlipidemia, NIDDM type II, Chronic combined systolic and diastolic CHF, ischemic cardiomyopathy, GERD, Chronic back pain, DJD recently admitted 10/13 to 10/14 after p/w chest pain. He underwent stress test which was negative for any acute ischemia. Echocardiogram was done which showed EF of 35% with dyskinetic inferior septum. His medications were adjusted for vasospastic angina and CHF. Came to ER again on 11/08 with atypical chest ppain. Diagnosed with pneumonia and discharged. Returns today with recurrent chest pain including at rest, not relieved with nitroglycerin, radiating to left arm. Currently started on nitroglycerin drip, titrated up to 50mcg at this time. Symptoms improving. Denies dyspnea. Has not taken his lasix in 3-4 days as he developed cramps and thought he was dehydrated. Review of Systems General: Reports: 10 or more systems reviewed and unremarkable except in HPI and below Const: Denies: fever, chills or body aches Eyes: Denies: change in vision, blurry vision or photophobia ENMT: Reports: hoarseness; Denies: throat pain, enlarged tonsils, painful swallowing or nasal congestion Card: Reports: chest pain; Denies: palpitations, irregular heart rhythm, edema, swelling of feet/ankles, lightheadedness, pre-syncope, shortness of breath on exertion or shortness of breath when lying down Resp: Denies: shortness of breath, productive cough, non-productive cough, wheezing, stridor, pain on inspiration, change in phlegm color, coughing up blood or chest congestion GI: Denies: abdominal pain, nausea, vomiting, vomiting blood, coffee grounds in vomit, difficulty swallowing, heartburn/indigestion, diarrhea, constipation, cramping, change in stool character, blood in stool or black tarry stool : Denies: flank pain, painful urination, urinary frequency, urinary urgency, urinary hesitancy or blood in urine Musc: Denies: neck pain, back pain, extremity pain, joint swelling, joint warmth or deformity Neuro: Denies: headache, numbness in extremities, weakness in extremities, changes in sensation, difficulty walking, frequent falls, dizziness, vertigo, behavioral changes, slurred speech or seizure-like activity Psych: Denies: anxiety, depression, suicidal ideation or homicidal ideation Endo: Denies: excessive urination, excessive thirst, tired all the time, cold intolerance or hot flashes Thai/Lymph: Denies: easy bruising or easy bleeding Medications/Allergies Home Medications Medication Instructions Recorded Confirmed Last Taken Type acetaminophen [Tylenol Extra 1,000 mg PO Q4H PRN 11/14/19 11/14/19 Unknown History Strength] albuterol sulfate [Ventolin HFA] 2 puff INHALATION Q4H PRN 11/14/19 11/14/19 Unknown History benzonatate 200 mg PO BEDTIME 11/14/19 11/14/19 11/13/19 History doxepin 75 mg PO BEDTIME 11/14/19 11/14/19 11/13/19 History isosorbide mononitrate 60 mg PO BID PRN 11/14/19 11/14/19 11/14/19 History metoprolol succinate 100 mg PO DAILY 11/14/19 11/14/19 Unknown History sitagliptin-metformin [Janumet] 1 tab PO BID 11/14/19 11/14/19 11/14/19 History Allergies Allergy/AdvReac Type Severity Reaction Status Date / Time cefdinir Allergy ALGY-Rash Verified 11/14/19 11:25 doxycycline Allergy ADR-Nausea Verified 11/14/19 11:25 PFSH Acute PFSH: Medical History Cardiac catheterization as the cause of abnormal reaction of the patient, or of later complication, without mention of misadventure at the time of the procedure Cardiomyopathy Coronary artery spasm Social History Smoking and tobacco status: current every day smoker Vitals/I&O/Wt Last Vital Signs Temp 97.8 F 11/14/19 14:49 Pulse 76 11/14/19 14:49 Resp 18 11/14/19 14:49 BP 144/116 11/14/19 14:49 Pulse Ox 97 11/14/19 14:49 Weight last 48 hrs Weight 99.79 kg Physical Exam Narrative: EXAM NARRATIVE: GEN: Awake, alert and oriented, no acute distress CVS: S1S@ N RS: CTA B/L Abd: Soft, nt/nd , bs+ 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: no focal neuro deficits Data : 11/14/19 11:26 11/14/19 11:26 A&P Assessment and plan (1) Chest pain: Status: Acute Qualifiers: Chest pain type: other chest pain Qualified Code(s): R07.89 - Other chest pain Code(s): R07.9 - Chest pain, unspecified (2) Unstable angina pectoris: Status: Acute Code(s): I20.0 - Unstable angina (3) Cardiomyopathy: Status: Acute Code(s): I42.9 - Cardiomyopathy, unspecified (4) Coronary artery spasm: Status: Acute Code(s): I20.1 - Angina pectoris with documented spasm (5) Obesity: Status: Chronic Code(s): E66.9 - Obesity, unspecified (6) Accelerated essential hypertension: Status: Chronic Code(s): I10 - Essential (primary) hypertension (7) Coronary artery disease: Status: Chronic Code(s): I25.10 - Atherosclerotic heart disease of [place] coronary artery without angina pectoris Additional A&P Information Admit to CSU Continue nitroglycerin drip, titrated up currently. Currently reports chest pain has improved continue ASA, brilinta, statin, carvediolol Troponin without significant delta Cardiology consult placed from ER with Dr. Khurram ALFORD ppx: lovenox Code status: Full code Attestations Medical Necessity Statement*: Unstable angina with recurrent chest pain. Anticipate less than 2 midnight stay for w/up Coding Level of Care Code Acute General Office Clerk for Chg Fwd Diagnoses Chest pain R07.89 Chest pain type: other chest pain Unstable angina pectoris I20.0 Cardiomyopathy I42.9 Coronary artery spasm I20.1 Obesity E66.9 Accelerated essential hypertension I10 Coronary artery disease I25.10
[2019-11-14] MEDS: ALPRAZolam 0.5 mg Tablet PO (16:50)
[2019-11-14] MEDS: HYDROcodone-acetaminophen 10-325 mg Tablet 1 TAB PO (16:50)
--- NOTE | 2019-11-14 16:54 | PC.NURSE ---
DR. BISHOP UPDATED ON PATIENT'S BLOOD PRESSURE. DIASTOLIC BP'S CONSISTENTLY REMAINING AROUND 100 ON 50MCG OF NITRO GTT. THIS IS MAX DOSE FOR CSU. NO NEW ORDERS.
--- NOTE | 2019-11-14 17:14 | ECG_ITS ---
Measurements Intervals [place] Rate: 80 P: 45 [place]: 185 QRS: -13 QRSD: 162 T: 163 QT: 446 QTc: 517 SINUS RHYTHM POSSIBLE LEFT ATRIAL ENLARGEMENT [-0.1mV P WAVE IN V1/V2] LEFT BUNDLE BRANCH BLOCK [120+ ms QRS DURATION, 80+ ms Q/S IN V1/V2, 85+ ms R IN I/aVL/V5/V6] Compared to ECG 11/08/2019 05:10:19 Sinus tachycardia no longer present Electronically Signed On 11-14-2019 20:43:31 DISPATCH SUPERVISOR by Mana Paulson M.D. [id number]
[2019-11-14] MEDS: ticagrelor 90 mg Tablet PO (17:32)
[2019-11-14] MEDS: carvedilol 6.25 mg Tablet PO (17:32)
[2019-11-14 17:38] LABS: Troponin 5 6HR 42.02 ng/mL (0-15); Troponin 5 6HR Delta 2.02 ng/L (0-12)
[2019-11-14] MEDS: doxepin 25 mg Capsule 75 MG PO (21:17)
--- NOTE | 2019-11-14 21:34 | PM.CONSULT ---
Providers/Reason For Consult Attending Physician: Liz Hester MD Primary Care Provider: Phillip Gill MD History of Present Illness History of Present Illness Magen Riddle SR is a 49 year old male is a very complicated patient who is compliant with medicine but noncompliant with the food and smoking. This is one of the many admissions to the hospital for recurrent chest pain. He has a history of multiple stents last stent was for in-stent restenosis in the right mid RCA. He is also history of severe coronary spasm documented during angiograms. He has been on many combinations of medicines including high dosages of isosorbide mononitrate, calcium channel blockers, Ranexa in the past and now. In the last 3 months this is his third admission. In October of this year he was admitted with worsening of chest pain shortness of breath. Stress test was negative therefore he was discharged home on Ranexa. According to the patient he never felt better. According to him for the past 1 week on daily basis he has been hurting to the extent that he is not able to go to any work. He has been taking nitroglycerin 2-3 times on daily basis. He cannot function without taking it. Today when pain started becoming unbearable at different intervals l he decided to come to the ER. He was started on nitro drip his blood pressure is also moderately elevated. Still he rates his pain at 3 out of 10. So far there is no big bump in troponin. In the past he has been ruled out for extracardiac causes such as musculoskeletal GERD with EGD. He had many courses of PPIs. Review of Systems General: Reports: 10 or more systems reviewed and unremarkable except in HPI and below Const: Denies: fever, chills, body aches, fatigue, malaise or night sweats Eyes: Denies: change in vision, blurry vision or photophobia ENMT: Reports: hoarseness; Denies: throat pain, enlarged tonsils, painful swallowing, oral sores/lesions, dental pain, nasal discharge or nasal congestion Card: Reports: chest pain; Denies: palpitations, irregular heart rhythm, edema, swelling of feet/ankles, lightheadedness, syncope, pre-syncope, shortness of breath on exertion, shortness of breath when lying down or leg pain with exertion Resp: Denies: shortness of breath, productive cough, non-productive cough, wheezing, stridor, pain on inspiration, change in phlegm color, coughing up blood or chest congestion GI: Denies: abdominal pain, nausea, vomiting, vomiting blood, coffee grounds in vomit, difficulty swallowing, heartburn/indigestion, diarrhea, constipation, cramping, change in stool character, blood in stool or black tarry stool : Denies: flank pain, difficulty urinating, painful urination, urinary frequency, urinary urgency, urinary hesitancy, urinary incontinence or blood in urine Musc: Denies: neck pain, back pain, extremity pain, extremity swelling, joint pain, joint swelling, joint warmth or deformity Skin/Breast: Denies: rash, itching or redness Neuro: Denies: headache, numbness in extremities, weakness in extremities, changes in sensation, lack of coordination, difficulty walking, frequent falls, dizziness, vertigo, confusion, behavioral changes, slurred speech or seizure-like activity Psych: Denies: anxiety, depression, loss of interest, visual hallucinations, auditory hallucinations, suicidal ideation or homicidal ideation Endo: Denies: excessive urination, excessive thirst, tired all the time, cold intolerance or hot flashes Thai/Lymph: Denies: easy bruising, easy bleeding, petechiae, enlarged lymph nodes or tender lymph nodes Meds/Allergies Home Medications and Allergies Home Medications Medication Instructions Recorded Confirmed Type Brilinta 90 mg PO BID 10/13/19 11/14/19 History Spiriva with HandiHaler 1 cap INHALATION DAILY 10/13/19 11/14/19 History Symbicort 2 puff INHALATION BID 10/13/19 11/14/19 History alprazolam [Xanax] 0.5 mg PO BID PRN 10/13/19 11/14/19 History aspirin 81 mg PO DAILY 10/13/19 11/14/19 History glimepiride 4 mg PO DAILY 10/13/19 11/14/19 History hydrocodone-acetaminophen 1 tab PO TID PRN 10/13/19 11/14/19 History hydroxyzine HCl 50 mg PO TID PRN 10/13/19 11/14/19 History lisinopril 10 mg PO DAILY 10/13/19 11/14/19 History pantoprazole 40 mg PO DAILY 10/13/19 11/14/19 History zolpidem [Ambien] 10 mg PO BEDTIME 10/13/19 11/14/19 History acetaminophen [Tylenol Extra 1,000 mg PO Q4H PRN 11/14/19 11/14/19 History Strength] albuterol sulfate [Ventolin HFA] 2 puff INHALATION Q4H PRN 11/14/19 11/14/19 History benzonatate 200 mg PO BEDTIME 11/14/19 11/14/19 History doxepin 75 mg PO BEDTIME 11/14/19 11/14/19 History isosorbide mononitrate 60 mg PO BID PRN 11/14/19 11/14/19 History metoprolol succinate 100 mg PO DAILY 11/14/19 11/14/19 History sitagliptin-metformin [Janumet] 1 tab PO BID 11/14/19 11/14/19 History Allergies Allergy/AdvReac Type Severity Reaction Status Date / Time cefdinir Allergy ALGY-Rash Verified 11/14/19 11:25 doxycycline Allergy ADR-Nausea Verified 11/14/19 11:25 Current Medications Current Medications Generic Name Dose Route Start Last Admin Trade Name Freq PRN Reason Stop Dose Admin Hydrocodone Bitart/Acetaminophen 1 tab 11/14/19 16:34 11/14/19 16:50 [place] 10-325 Mg PO 1 tab TID PRN Administration Pain Alprazolam 0.5 mg 11/14/19 16:34 11/14/19 16:50 Xanax PO 0.5 mg BID PRN Administration Anxiety Carvedilol 6.25 mg 11/14/19 18:00 11/14/19 17:32 Coreg PO 6.25 mg BID GRISEL Administration Doxepin HCl 75 mg 11/14/19 21:00 11/14/19 21:17 Sinequan PO 75 mg BEDTIME GRISEL Administration Fluticasone/Salmeterol 1 puff 11/14/19 20:00 11/14/19 21:31 Advair Diskus 500-50 INHALATION 1 puff BID.RESPIRATORY GRISEL Administration Ticagrelor 90 mg 11/14/19 18:00 11/14/19 17:32 Brilinta PO 90 mg BID GRISEL Administration Zolpidem Tartrate 10 mg 11/14/19 21:00 11/14/19 20:45 Ambien PO 10 mg BEDTIME GRISEL Administration PFSH Acute PFSH: Medical History Cardiac catheterization as the cause of abnormal reaction of the patient, or of later complication, without mention of misadventure at the time of the procedure (Acute) Cardiomyopathy (Acute) Coronary artery spasm (Acute) Social History Smoking and tobacco status: current every day smoker Vitals/I&O/Wt Last Vital Signs Temp 98.3 F 11/14/19 20:00 Pulse 82 11/14/19 21:31 Resp 18 11/14/19 21:31 BP 149/91 11/14/19 20:00 Pulse Ox 96 11/14/19 21:31 Weight last 48 hrs Weight 220 lb Physical Exam Narrative: EXAM NARRATIVE: GENERAL: Patient is alert, awake and oriented x3. NECK: No jugular vein distension. HEENT: No cyanosis. No icterus. No pallor. HEART: Regular S1 and S2. No murmur, rub or gallop. LUNGS: Clear to auscultate bilaterally. ABDOMEN: Soft, nontender and nondistended. Positive bowel sounds. No guarding, rebound or tenderness. CENTRAL NERVOUS SYSTEM: Grossly nonfocal. EXTREMITIES: Lower extremities without edema bilaterally. Pulses palpable in the lower extremities, both dorsalis pedis and posterior tibial. A&P Assessment and plan (1) Unstable angina pectoris: As I mentioned above this is a very complicated patient despite of maximal medical management including beta-blockers, isosorbide mononitrate, calcium channel frederic, ranolazine he get admitted every 2 to 3 months. He has multiple episodes of in-stent restenosis despite of significant postdilatation with noncompliant balloon. On the last angiogram left main LAD and circumflex were patent however RCA had mid severe 90% stenosis treated with drug-eluting stent. Proximal RCA had moderate lesion around 60% it also spasm badly upon engaging with a catheter. Patient is complaining of continuous chest pain for the last 1 week with multiple usages of nitroglycerin. Currently is on nitro drip. At the moment I do not have any option but to proceed with coronary angiogram in the morning. Patient has been explained all risk benefits and alternatives for the procedure. Status: Acute Code(s): I20.0 - Unstable angina (2) Cardiomyopathy: Ischemic cardiomyopathy currently appears to be in compensated state. Status: Acute Code(s): I42.9 - Cardiomyopathy, unspecified (3) Coronary artery spasm: Multiple medicine has already been prescribed. I almost exhausted all my options. Continue IV nitroglycerin for now. Status: Acute Code(s): I20.1 - Angina pectoris with documented spasm (4) Accelerated essential hypertension: We will titrate carvedilol and other blood pressure medicines. Status: Chronic Code(s): I10 - Essential (primary) hypertension Consult Attestations Medical Necessity Statement: I am expecting his stay to cross more than 2 midnights Coding Level of Care Code New Pt Acute Manager Ecommerce for [facility] Fwd Patient Type New History Comprehensive Exam Comprehensive Medical Decision Making Moderate Complexity Diagnoses Unstable angina pectoris I20.0 Cardiomyopathy I42.9 Coronary artery spasm I20.1 Accelerated essential hypertension I10
[2019-11-14] MEDS: morphine 4 mg/mL SDV 1 mL 2 MG IVP (23:42)
--- NOTE | 2019-11-14 23:45 | PC.NURSE ---
Patient was complaining of headache 07/11. Patient had nitro gtt running at 50 mcg/min. Patient stated that he did not have any chest pain. VSS. Drip slowly titrated down to 10 mcg/min. PRN Morphine given for pain. Patient educated to let nurse know if chest pain comes back. Will continue to monitor.
[2019-11-15] VITALS (81 sets, daily range): BP systolic 133–169; BP diastolic 74–120; PULSE 62–100; RESP 5–21; TEMP 36.4–36.9; O2SAT 87–98
[2019-11-15] MEDS: HYDROcodone-acetaminophen 10-325 mg Tablet 1 TAB PO ×3 (00:26→19:23)
--- NOTE | 2019-11-15 00:30 | PC.NURSE ---
Patient is complaining of chest pain /. He is still complaining of headache 07/11. Nitro gtt running at 10 mcg/min. PRN [place] given. Will continue to monitor.
--- NOTE | 2019-11-15 03:54 | PC.NURSE ---
Addendum entered by Jordy Dillard LPN 11/15/19 03:57: BP IS 132/73. Original Note: PT HAS BEEN SLEEPING SINCE LAST NORCO WAS GIVEN. NITRO GTT IS STILL RUNNING AT 10MCG/MIN. WILL CONTINUE TO MONITOR.
[2019-11-15 04:50] LABS: Basophils % 0.3 %; Eosinophils # 0.2 10^3/uL (0.0-0.8); Eosinophils % 2.4 %; Hematocrit 37.2 % (42.0-52.0); Hemoglobin 12.7 g/dL (11.7-16.6); Lymphocytes # 3.3 10^3/uL (0.8-4.8); Lymphocytes % 36.4 %; Mean Corpuscular HGB Conc 34.1 g/dL (30.0-36.0); Mean Corpuscular Hemoglobin 28.7 pg (28.0-34.0); Mean Platelet Volume 8.6 fL (7.4-10.4); Monocytes # 0.7 10^3/uL (0.2-0.9); Monocytes % 7.9 %; Neutrophils # 4.7 10^3/uL (1.8-7.7); Neutrophils % 52.4 %; Nucleated Red Blood Cells % 0 %; Platelet Count 443 10^3/cmm (130-400); Red Blood Count 4.43 10^6/uL (4.1-5.3); Red Cell Distribution Width 13.9 % (12.1-15.1)
[2019-11-15 05:14] LABS: Anion Gap 16.8 (5-19); Blood Urea Nitrogen 12 mg/dL (6-20); Calcium 9.1 mg/dL (8.5-10.5); Carbon Dioxide 25 mmol/L (22-29); Chloride 96 mmol/L (98-107); Glomerular Filtration Rate 89.7 mL/min (90-130); Glucose 327 mg/dL (65-115); Osmolality Calculated 287 mOsm/kg (285-295); Potassium 3.8 mmol/L (3.5-5.1); Sodium 134 mmol/L (136-145)
--- NOTE | 2019-11-15 07:55 | XACV_ITS ---
Exam Room: [facility] Ht: 183 cm Wt: 102 kg BSA: 2.30 m2 Gender: Male : 1970 Any Known Allergies: Other Exam Priority: Routine Procedure(s): Procedure Description: Diagnostic procedure Procedure Description: PCI procedure Procedure Description: Left Heart Catheterization Procedure Description: Drug Eluting Coronary Stent Procedure Description: PTCA Diagnostic Cath Status: Elective Diagnostic Findings LM has 0% stenosis. LAD has 0% stenosis. pCIRC: Severe 90% stenosis, [place]NEY: 3 flow. pRCA: Moderate 60% stenosis, [place]: 3 flow. Coronary angiography shows co-dominance. PCI Status: Urgent PCI Indication: New Onset Angina <= 2 months Interventional Findings pCIRC: 90% stenosis treated with MDT R YOLANDA 3.0X12 DARREN. 0% residual stenosis, SYDNEY: 3 flow. Conclusions Patient underwent coronary angiogram today. He was found to have ostial bifurcating large size and caliber circumflex and obtuse marginal 1 lesion. FFR was performed which termed the lesion significant at 0.77. Due to bifurcating nature of the disease Dr. Díaz from cardiothoracic surgery was requested to discuss the angiogram for surgical versus percutaneous option however because of the fact the patient has disease in the RCA and LAD at the moment not significant it was agreed through discussion between Dr. Díaz and me along and patient to treat it now with stent. Two wires approach was adopted. One wire was passed in the obtuse marginal other in circumflex. Ostial circumflex bifurcating lesion was predilated with the balloon followed by deployment of the yolanda 3.0 x 12 mm drug-eluting stent at high JALEEL of 12. Wire underneath the stent was withdrawn from the OM 1 branch. Jailed OM1 branch was reentered through run-through wire from circumflex. Ostium of the obtuse marginal jailed branch was then treated with 2.0 time 8 mm noncompliant balloon at 10 JALEEL. Excellent angiographic result without compromise of flow in any of the branch vessel was achieved. Patient is transferred back to [facility]. We will continue Brilinta. We will continue IV fluid at 10 mL/h for 10 hours. Advised to quit smoking. There is severe coronary artery disease with two vessel disease. Ostial Left CIRC was treated with Drug Eluting Stent. #1 L eft main is normal #2 LAD has luminal irregularities with patent previously placed mid segment stent#3 L eft circumflex has ostial 90% stenosis which immediately divides into circumflex and obtuse marginal 1. Both are moderate size and caliber large branches #3 RCA has proximal 60% stenosis with patent previously placed mid RCA stent. Proximal segment is known to have severe spasm. Upon engagement spasm was again witnessed. Recommendations 1-Return to inpatient for close monitoring and routine cath care2-Risk factor modification for secondary prevention3-Statin with LDL goal <70 mg/dl, aspirin 81 mg [id number] Brillinta 90mg p.o. twice daily for at least one year. We will assess at the end of one year again to continue it further or not5-Continue optimal medical management, continue isosorbide mononitrate for coronary spasm6-Follow up with Dr. Paulson in four weeks and with your PCP in one week. Diagnostic RX Recommendation: PCI w/o planned CABG Pressures Phase:Rest AO : 51 mmHg / 43 mmHg ( 41 mmHg ) @ 9:24:00 AM 115 mmHg / 83 mmHg ( 99 mmHg ) @ 9:25:00 AM Clinical Evaluation EBL: 5mL-10mL Procedural Details Procedure Consent Obtained. RT Hector was relieved by RT Hector as monitoring person. Procedure started. Pre-Procedure Time Out. Identified patient by full name and date of as verbalized by the patient/guarantor. Does the consent match the physician's order: Yes. Accurate & Complete Informed Consent: Yes. Inpatient/Outpatient History & Physical on Chart: N/A. If H&P is completed, is and addenduem needed: N/A; If yes, is the addendum complete: N/A. Visualize and Verify Site with Patient/Guarantor: N/A. Relevant Radiology Images available: N/A. Pre-op teaching completed and patient verbalized understanding. The risks, benefits, and alternatives of sedation and/or procedure were discussed by physician. The patient agrees to continue. Correct patient, site and procedure confirmed by cath team. PERRLA. Strong, equal hand concrete curer bilaterally. Lungs clear x 5 lobes. IV Site on Arrival: 18 gauge in the left anticubital. Oxygen started at 2liters/min via nasal canula. bilateral groins was prepped with chloroprep then draped in the usual sterile fashion. Baseline sample Acquired. HR: 83 BPM. Admit Source: In Patient. Physician notified. Physician arrived. Physician scrubbed in. Immediate Pre-Procedure Time Out. Correct Patient: Yes; Correct Procedure: Yes; Correct Site: Yes; Correct Patient Position: Yes; Correct Supplies: Yes; Dried Flammable Prep: Yes; Blood Products Available: N/A;. Lidocaine 1% infiltrated to the right groin. Arterial access obtained with micropuncture set. A 5 cook islander JR4 catheter in over wire. wire out. Multiple views taken of right coronary artery. nitro drip shut off. Catheter out. A 5 cook islander JL4 catheter in over wire. family updated. Multiple views taken of left coronary artery. A 6 cook islander CLS 3.5 [address] over wire. Dr. Headley arrived. FFR wire inserted. flushing the hoop. going across lesion. An FFR value of 0.75 was obtained for a lesion located at Prox CX. Dr. Díaz notified. pressure wire out. catheter hooked up to heparnized saline at KVO to maintain patency. An FFR value of 0.94 was obtained for a lesion located at Prox RCA. guide out. Katherine scrubbing in for Reuben. CLS guide catheter is in. Runthrough guidewire was advanced through the guide catheter to lesion in the 1st margional branch.. Kathleen guidewire was advanced through the guide catheter to lesion in the 2nd margional branch. Inflation number : 1 A AB TREK 2.50X12 RX BALLOON was prepped and advanced across the Prox CX , then inflated to 8 JALEEL for 0:11 seconds. Inflation number: 2 The AB TREK 2.50X12 RX BALLOON was reinflated across the Prox CX, to 8 JALEEL for 0:10 seconds. Balloon out. checking results. Inflation Number : 1 A TALI Negrete YOLANDA 3.0X12 DARREN -Lot Number#[id number] 09-02-2021 was prepped and advanced across the Prox CX1. The stent was deployed at 12 JALEEL for 0:13 seconds. Stent balloon out over wire. cougar wire out. Inflation number : 1 A TALI HEAD EUPHORA RX 2.0X08MM BALLOON was prepped and advanced across the 2nd Ob Stephanie , then inflated to 10 JALEEL for 0:12 seconds. Wire out. ACT drawn. Results 161 seconds. Therapeutic limits - pre-heparin administration 90-150 seconds and monitoring heparin during a vascular procedure >250 seconds. Sheath(s) sutured into position with 2-0 silk and sterile 4x4's and Op-site applied over the site. No oozing or signs and symptoms of hematoma noted. Arterial sheath flushed and connected to tranducer and pressure bag with heparinized saline. Post Procedure: Pulses reassessed and unchanged. PERRLA. Strong, equal hand concrete curer bilaterally. No VTE prophylaxis required. Medication's Wasted: Heparin = 1000 units. Total IV fluids: 230 mL. Contrast type used: Visipaque 320 mgI/mL, 500 mL bottle. Visipaque 457mL. Post-op diagnosis: PCI to OC. Current diagnosis: Unstable angina. Medication's Wasted: Other = versed 4 mg. Medication's Wasted: Other = adenosine 30 mg. [facility] Clinical Fraility Score: 3: Managing Well. 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 Chest Pain Symptom Assessment: Typical Angina Symptoms. Cardiovascular Instability: No. PCI Indication: New Onset Angina/ abnormal FFR. Complications: none. Estimated blood loss: 5mL-10mL. Procedure completed. Patient transferred by bed to 1st floor. Vital chart was stopped. Site: Right Femoral artery Sheath Size: 6 Fr Hemostasis Success: Unsuccessful Procedure Medications Start: 2:56 PM Stop: 2:56 PM Medication: Versed Amount: 1 mg Route: I.V. Start: 2:56 PM Stop: 2:56 PM Medication: Fentanyl Amount: 50 mcg Route: I.V. Start: 2:59 PM Stop: 2:59 PM Medication: Versed Amount: 1 mg Route: I.V. Start: 3:00 PM Stop: 3:00 PM Medication: Fentanyl Amount: 50 mcg Route: I.V. Start: 3:02 PM Stop: 3:02 PM Medication: Versed Amount: 1 mg Route: I.V. Start: 3:06 PM Stop: 3:06 PM Medication: Versed Amount: 1 mg Route: I.V. Start: 3:08 PM Stop: 3:08 PM Medication: Nitrogylcerin Amount: 10 mcg/min Route: I.V. drip Start: 3:11 PM Stop: 3:11 PM Medication: Fentanyl Amount: 25 mcg Route: I.V. Start: 3:13 PM Stop: 3:13 PM Medication: Versed Amount: 1 mg Route: I.V. Start: 3:23 PM Stop: 3:23 PM Medication: Fentanyl Amount: 25 mcg Route: I.V. Start: 3:33 PM Stop: 3:33 PM Medication: Versed Amount: 1 mg Route: I.V. Start: 3:46 PM Stop: 3:46 PM Medication: Versed Amount: 1 mg Route: I.V. Start: 3:46 PM Stop: 3:46 PM Medication: Fentanyl Amount: 25 mcg Route: I.V. Start: 3:49 PM Stop: 3:49 PM Medication: Heparin Amount: 5000 units Route: I.V. Start: 4:04 PM Stop: 4:04 PM Medication: Versed Amount: 1 mg Route: I.V. Start: 4:04 PM Stop: 4:04 PM Medication: Fentanyl Amount: 25 mcg Route: I.V. Start: 4:07 PM Stop: 4:07 PM Medication: Adenosine (Adenocard) Amount: 857 Route: I.V. bolus Start: 4:28 PM Stop: 4:28 PM Medication: Nitrogylcerin Amount: 15 mcg/min Route: I.V. drip Start: 4:29 PM Stop: 4:29 PM Medication: Nitrogylcerin Amount: 20 mcg/min Route: I.V. drip Start: 4:32 PM Stop: 4:32 PM Medication: Heparin Amount: 2000 units Route: I.V. Start: 4:33 PM Stop: 4:33 PM Medication: Versed Amount: 1 mg Route: I.V. Start: 4:45 PM Stop: 4:45 PM Medication: Versed Amount: 1 mg Route: I.V. Start: 4:45 PM Stop: 4:45 PM Medication: Heparin Amount: 2000 units Route: I.V. Start: 4:50 PM Stop: 4:50 PM Medication: Fentanyl Amount: 50 mcg Route: I.V. Start: 4:55 PM Stop: 4:55 PM Medication: Adenosine (Adenocard) Amount: 857 Route: I.V. bolus Start: 5:05 PM Stop: 5:05 PM Medication: Versed Amount: 1 mg Route: I.V. Start: 5:13 PM Stop: 5:13 PM Medication: Heparin Amount: 4000 units Route: I.V. Start: 5:15 PM Stop: 5:15 PM Medication: Fentanyl Amount: 50 mcg Route: I.V. Start: 5:18 PM Stop: 5:18 PM Medication: Versed Amount: 1 mg Route: I.V. Start: 5:46 PM Stop: 5:46 PM Medication: Heparin Amount: 3000 units Route: I.V. I, the attending physician, have reviewed and verified all procedure medications. Yes, all medications given per verbal order History/Risk Factors Hypertension: No Dyslipidemia: No Peripheral Arterial Disease (PAD): No Myocardial Infarction ([place]): No Obesity: No Renal Disease: No Tobacco Use: Current/Recent(w/in 1 year) Prior Interventions PCI: No CABG: No Valve Surgery: No Report Signatures Finalized by:Mana Paulson MD on 12/02/2019 6:36:08 PM
--- NOTE | 2019-11-15 09:23 | PM.PN ---
Subjective Subjective: Interval history: Chest pain is currently resolved. Nitroglycerin titrated down to 10. No acute events overnight. Patient plan cardiac catheterization today. Medications: Reviewed: Yes Vitals/I&O/Wt Last Vital Signs Temp 98.4 F 11/15/19 08:00 Pulse 86 11/15/19 08:26 Resp 18 11/15/19 08:23 BP 147/86 11/15/19 08:00 Pulse Ox 96 11/15/19 08:23 11/14/19 11/15/19 11/15/19 22:59 06:59 14:59 Intake Total 440 / 440 0 / 440 240 / 240 Balance 440 / 440 0 / 440 240 / 240 Weight last 48 hrs Weight 101.922 kg Weight 99.79 kg Physical Exam Narrative: EXAM NARRATIVE: GEN: Awake, alert and oriented, no acute distress CVS: S1S2 N RS: CTA B/L Abd: Soft, nt/nd , bs+ TRANSFORMER BUILDER: no focal neuro deficits Data : 11/15/19 04:30 11/15/19 04:30 A&P Assessment and plan (1) Chest pain: Status: Acute Qualifiers: Chest pain type: other chest pain Qualified Code(s): R07.89 - Other chest pain Code(s): R07.9 - Chest pain, unspecified (2) Unstable angina pectoris: Status: Acute Code(s): I20.0 - Unstable angina (3) Cardiomyopathy: Status: Acute Code(s): I42.9 - Cardiomyopathy, unspecified (4) Coronary artery spasm: Status: Acute Code(s): I20.1 - Angina pectoris with documented spasm (5) Obesity: Status: Chronic Code(s): E66.9 - Obesity, unspecified (6) Accelerated essential hypertension: Status: Chronic Code(s): I10 - Essential (primary) hypertension (7) Coronary artery disease: Status: Chronic Code(s): I25.10 - Atherosclerotic heart disease of [place] coronary artery without angina pectoris Additional A&P Information Continue nitroglycerin drip, titrated for blood pressure and chest pain. continue ASA, brilinta, statin, carvediolol Troponin without significant delta Plan for cardiac catheterization today Further orders dependent on results. DVT ppx: lovenox Code status: Full code Attestations Medical Necessity Statement*: Plan for cardiac catheterization today. 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
[2019-11-15] MEDS: ALPRAZolam 0.5 mg Tablet PO ×2 (09:45→21:53)
[2019-11-15] MEDS: aspirin 81 mg EC Tablet PO (09:45)
[2019-11-15] MEDS: lisinopril 20 mg Tablet 10 MG PO (09:46)
[2019-11-15] MEDS: ticagrelor 90 mg Tablet PO ×2 (09:47→18:15)
[2019-11-15] MEDS: pantoprazole DR 40 mg Tablet PO (09:48)
[2019-11-15] MEDS: carvedilol 6.25 mg Tablet PO ×2 (09:48→18:14)
[2019-11-15] MEDS: sodium chloride 0.9% 1,000 ML 50 ML IV (09:50)
[2019-11-15] MEDS: diphenhydrAMINE 50 mg Capsule PO (14:02)
--- NOTE | 2019-11-15 14:27 | PC.NURSE ---
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
--- NOTE | 2019-11-15 16:19 | PC.CHAP ---
Pastoral Care Encounter/Spiritual Assessment Type of Contact [] Declined news editor visit [] Patient/Family/Request visit [] Outpatient visit [x] Follow-up visit [] Physician referral [] Code/Alert [] Routine visit [] Staff referral [] Actively dying [] Patient sleeping [] Family support [] [] Out of room [] Palliative care [] [] Receiving care in room [] Pre-surgical visit [] Trauma [] Long length of stay [] ICU visit [x] Other: Fellow up Relational/Emotional Strength [] Patient feels connected with others/family/visitors/staff [] Distress [] Loneliness/isolation [] Abandonment Spirituality of Patient [] Person of Karina [] Attends Rastafarian of their Karina [] Believes in Prayer [] Reads Bible or Methodist materials [] There are Spiritual issues to be addressed Saute Chef Interventions [] Prayer [] Active listening [] Non-anxious presence [] Spiritual/emotional support [] Crisis/trauma care [] Spiritual counseling [] Bereavement support [] Provided bereavement packet [] Provided Bible/devotional materials [] Provided toy/stuffed animal, coloring book to patient or family member [] Provided Communion [] Anointing/Mission [] Salvation [] Completed spiritual assessment [] Other: Impact on Illness or Injury [] Angry [] Fearful [] Anxious [] Often cries [] Exhaustion [] Unable to work [] Unable to attend jehovah's witness [] Unable to walk/stand [] Unable to read [] Unable to drive [] Unable to eat/drink [] Unable to sleep [] Unable to be with family [] Patient intubated [] Other: Summary Fellow up Time spent with patient 5 mins
--- NOTE | 2019-11-15 17:55 | P.PN_ITS ---
Subjective Subjective: Interval history: Patient underwent coronary angiogram today. He was found to have ostial bifurcating large size and caliber circumflex and obtuse marginal 1 lesion. FFR was performed which termed the lesion significant at 0.77. Due to bifurcating nature of the disease Dr. Díaz from cardiothoracic surgery was requested to discuss the angiogram with surgical versus percutaneous option however because of the fact the patient has disease in the RCA and LAD at the moment not significant it was agreed through discussion between Dr. Díaz and me along and patient to treat it now with stent. Two wires approach was adopted. One wire was passed in the obtuse marginal other in circumflex. Ostial circumflex bifurcating lesion was predilated with the balloon followed by deployment of the yolanda 3.0 x 12 mm drug-eluting stent at high JALEEL of 12. Wire underneath the stent was withdrawn from the OM 1 branch. Jailed OM1 branch was really entered through run-through wire from circumflex. Ostium of the obtuse marginal jailed branch was then treated with 2.0 time 8 mm noncompliant balloon at 10 JALEEL. Excellent angiographic result without compromise of flow in any of t he branch vessel was achieved. Patient is transferred back to [facility]. We will continue Brilinta. We will continue IV fluid at 10 mL/h for 10 hours. Advised to quit smoking. Medications: Reviewed: Yes Vitals/I&O/Wt Last Vital Signs Temp 98.4 F 11/15/19 08:00 Pulse 83 11/15/19 12:00 Resp 14 11/15/19 12:00 BP 143/89 11/15/19 12:00 Pulse Ox 96 11/15/19 12:00 11/15/19 11/15/19 11/15/19 06:59 14:59 22:59 Intake Total 0 / 440 360 / 360 Balance 0 / 440 360 / 360 Weight last 48 hrs Weight 224 lb 11.2 oz Weight 220 lb Physical Exam Narrative: EXAM NARRATIVE: GENERAL: Patient is alert, awake and oriented x3. NECK: No jugular vein distension. HEENT: No cyanosis. No icterus. No pallor. HEART: Regular S1 and S2. No murmur, rub or gallop. LUNGS: Clear to auscultate bilaterally. ABDOMEN: Soft, nontender and nondistended. Positive bowel sounds. No guarding, rebound or tenderness. CENTRAL NERVOUS SYSTEM: Grossly nonfocal. EXTREMITIES: Lower extremities without edema bilaterally. Pulses palpable in the lower extremities, both dorsalis pedis and posterior tibial. Data : 11/15/19 04:30 11/15/19 04:30 A&P Assessment and plan (1) Unstable angina pectoris: Patient underwent coronary angiogram today. He was found to have ostial bifurcating large size and caliber circumflex and obtuse marginal 1 lesion. FFR was performed which termed the lesion significant at 0.77. Due to bifurcating nature of the disease Dr. Díaz from cardiothoracic surgery was requested to discuss the angiogram with surgical versus percutaneous option however because of the fact the patient has disease in the RCA and LAD at the moment not significant it was agreed through discussion between Dr. Díaz and me along and patient to treat it now with stent. Two wires approach was adopted. One wire was passed in the obtuse marginal other in circumflex. Ostial circumflex bifurcating lesion was predilated with the balloon followed by deployment of the yolanda 3.0 x 12 mm drug-eluting stent at high JALEEL of 12. Wire underneath the stent was withdrawn from the OM 1 branch. Jailed OM1 branch was really entered through run-through wire from circumflex. Ostium of the obtuse marginal jailed branch was then treated with 2.0 time 8 mm noncompliant balloon at 10 JALEEL. Excellent angiographic result without compromise of flow in any of the branch vessel was achieved. Patient is transferred back to [facility]. We will continue Brilinta. We will continue IV fluid at 10 mL/h for 10 hours. Advised to quit smoking. Status: Acute Code(s): I20.0 - Unstable angina (2) Cardiomyopathy: Currently stable denies any chest pain. Status: Acute Code(s): I42.9 - Cardiomyopathy, unspecified (3) Coronary artery spasm: Continue isosorbide mononitrate. Proximal RCA has clear-cut area/segment which causes his spasm. Continue to treat medically. RCA was was assessed through FFR which was not significant at 0.93 Status: Acute Code(s): I20.1 - Angina pectoris with documented spasm (4) Accelerated essential hypertension: Continue titrating medicine. Status: Chronic Code(s): I10 - Essential (primary) hypertension Attestations Medical Necessity Statement*: Patient require continuation of hospitalization for above defined care. Coding Level of Care Code Established Pt Acute Mobile Sales Technician for Chg Fwd Patient Type Established History Detailed Exam Detailed Medical Decision Making High Complexity Diagnoses Unstable angina pectoris I20.0 Cardiomyopathy I42.9 Coronary artery spasm I20.1 Accelerated essential hypertension I10
[2019-11-15 19:46] LABS: Partial Thromboplastin Time 126.3 SECONDS (23.9-36.7)
[2019-11-15] MEDS: doxepin 25 mg Capsule 75 MG PO (21:52)
[2019-11-15] MEDS: acetaminophen 325 mg Tablet 650 MG PO (21:53)
--- NOTE | 2019-11-15 21:57 | PC.NURSE ---
Nitro drip currently running at 20 mcg/min. Blood pressure is 148/78.
[2019-11-15 22:31] LABS: Partial Thromboplastin Time 34.8 SECONDS (23.9-36.7)
[2019-11-15] MEDS: fentaNYL 50 mcg/mL INJ 2mL 25 MCG IVP (23:10)
--- NOTE | 2019-11-15 23:51 | PC.NURSE ---
Sheath pulled from right groin at 2320. Manual pressure held for 20 minutes. Dressing placed to right groin. No hematoma noted. VSS. Nitro drip tapered down and shut off. BP 139/92. Will continue to monitor. Patient educated on post-cath activity restrictions and length of bed rest and verbalized understanding.
[2019-11-16] VITALS (10 sets, daily range): BP systolic 132–151; BP diastolic 80–96; PULSE 77–93; RESP 13–20; TEMP 36.6; O2SAT 91–96
[2019-11-16 04:35] LABS: Basophils % 0.5 %; Eosinophils # 0.2 10^3/uL (0.0-0.8); Eosinophils % 2.7 %; Hematocrit 36.9 % (42.0-52.0); Hemoglobin 12.5 g/dL (11.7-16.6); Lymphocytes # 3.4 10^3/uL (0.8-4.8); Lymphocytes % 39.1 %; Mean Corpuscular HGB Conc 33.9 g/dL (30.0-36.0); Mean Corpuscular Hemoglobin 28.3 pg (28.0-34.0); Mean Corpuscular Volume 83.7 fL (80-94); Mean Platelet Volume 8.7 fL (7.4-10.4); Monocytes # 0.8 10^3/uL (0.2-0.9); Monocytes % 9.3 %; Neutrophils # 4.1 10^3/uL (1.8-7.7); Neutrophils % 47.9 %; Nucleated Red Blood Cells % 0 %; Platelet Count 440 10^3/cmm (130-400); Red Blood Count 4.41 10^6/uL (4.1-5.3); Red Cell Distribution Width 13.9 % (12.1-15.1); White Blood Count 8.6 10^3/uL (4.0-10.0)
[2019-11-16 04:55] LABS: Anion Gap 15.6 (5-19); Blood Urea Nitrogen 13 mg/dL (6-20); Carbon Dioxide 26 mmol/L (22-29); Chloride 100 mmol/L (98-107); Glomerular Filtration Rate 102.7 mL/min (90-130); Glucose 194 mg/dL (65-115); Osmolality Calculated 287 mOsm/kg (285-295); Potassium 3.6 mmol/L (3.5-5.1); Sodium 138 mmol/L (136-145)
--- NOTE | 2019-11-16 05:28 | PC.NURSE ---
Patient ambulated with nurse in the cerna. Right groin dressing c/d/i. No drainage or hematoma before or after. VSS before and after.
[2019-11-16] MEDS: HYDROcodone-acetaminophen 10-325 mg Tablet 1 TAB PO (07:05)
--- NOTE | 2019-11-16 07:51 | PM.PN ---
Subjective Subjective: Interval history: Prince is here frequently for chest pain. He underwent yet another angiogram yesterday due to repeated chest discomfort despite negative stress testing. His LAD stent was widely patent. His right coronary artery stents were patent. There was a lesion in the ostial circumflex. After discussion with Dr. Díaz the decision was made to intervene. A stent was placed in the ostial circumflex. A balloon angioplasty was done in the other marginal branch. Patient wants to go home this morning. The procedure was done from the right common femoral artery. Medications: Reviewed: Yes Vitals/I&O/Wt Last Vital Signs Temp 97.8 F 11/16/19 00:00 Pulse 93 11/16/19 04:00 Resp 17 11/16/19 04:00 BP 140/80 11/16/19 04:00 Pulse Ox 94 11/16/19 04:00 11/15/19 11/16/19 11/16/19 22:59 06:59 14:59 Intake Total 965 / 1325 Output Total 1150 / 1150 300 / 1450 Balance -185 / 175 -300 / -125 Weight last 48 hrs Weight 224 lb 11.2 oz Weight 220 lb Physical Exam Narrative: EXAM NARRATIVE: GENERAL: In general he looks and feels well HEENT: Exam within normal limits. NECK: Supple without jugular vein distention. The carotid upstroke is normal without bruits. BACK: Exam normal. LUNGS: Clear. HEART: Regular rate and rhythm. ABDOMEN: Benign without organomegaly or tenderness. EXTREMITIES: No edema. The right groin entry site is flat, dry without bleeding or hematoma NEUROLOGIC: Exam normal. SKIN: Unremarkable. Data : 11/16/19 03:49 11/16/19 03:49 A&P Assessment and plan (1) Tobacco abuse: Status: Acute Code(s): Z72.0 - Tobacco use (2) Dyslipidemia: Status: Acute Code(s): E78.5 - Hyperlipidemia, unspecified (3) Diabetes mellitus: Status: Acute Code(s): E11.9 - Type 2 diabetes mellitus without complications (4) Unstable angina pectoris: Status: Acute Code(s): I20.0 - Unstable angina (5) Cardiomyopathy: Status: Acute Code(s): I42.9 - Cardiomyopathy, unspecified (6) Coronary artery spasm: Status: Acute Code(s): I20.1 - Angina pectoris with documented spasm (7) Obesity: Status: Chronic Code(s): E66.9 - Obesity, unspecified (8) Accelerated essential hypertension: Status: Chronic Code(s): I10 - Essential (primary) hypertension (9) Coronary artery disease: Status: Chronic Code(s): I25.10 - Atherosclerotic heart disease of [place] coronary artery without angina pectoris (10) Left bundle branch block: Status: Acute Code(s): I44.7 - Left bundle-branch block, unspecified Additional A&P Information Magen can be discharged today. He should stay on Brilinta, low-dose aspirin, 40 mg of Lasix, isosorbide as currently prescribed, metoprolol. Previously was also on Ranexa though I do not feel strongly about that at this time. We will see him in the office in about a week to check his leg and then he will be scheduled with Dr. Khurram lugo. Attestations Medical Necessity Statement*: Not applicable Coding Level of Care Code Established Pt Acute Support Representative for Swethag Pamelad Patient Type Established History Detailed Exam Detailed Medical Decision Making Moderate Complexity Diagnoses Tobacco abuse Z72.0 Dyslipidemia E78.5 Diabetes mellitus E11.9 Unstable angina pectoris I20.0 Cardiomyopathy I42.9 Coronary artery spasm I20.1 Obesity E66.9 Accelerated essential hypertension I10 Coronary artery disease I25.10 Left bundle branch block I44.7 Time Spent (min) 32
[2019-11-16] MEDS: aspirin 81 mg EC Tablet PO (08:30)
[2019-11-16] MEDS: carvedilol 6.25 mg Tablet PO (08:31)
[2019-11-16] MEDS: lisinopril 20 mg Tablet 10 MG PO (08:31)
[2019-11-16] MEDS: pantoprazole DR 40 mg Tablet PO (08:31)
[2019-11-16] MEDS: ticagrelor 90 mg Tablet PO (08:31)
--- NOTE | 2019-11-16 08:47 | P.DS_ITS ---
Discharge Providers Date of Admission: 11/15/19 08:31 Date of Discharge: November 16, 2019 Attending Provider at Admission: Liz Hester MD Attending Provider at Discharge: Liz Hester MD Primary Care Provider: Phillip Gill MD Diagnoses at Discharge Discharge Diagnosis (1) Tobacco abuse: Status: Acute (2) Dyslipidemia: Status: Acute (3) Diabetes mellitus: Status: Acute (4) Unstable angina pectoris: Status: Acute (5) Cardiomyopathy: Status: Acute (6) Coronary artery spasm: Status: Acute (7) Obesity: Status: Chronic (8) Accelerated essential hypertension: Status: Chronic (9) Coronary artery disease: Status: Chronic (10) Left bundle branch block: Status: Acute Reason for Visit Reason for Visit: Reason For Visit: Unstable angina;cad Hospital Course Discharge Summary: Magen Riddle SR is a 49 year old male w/ CAD s/p multiple interventions, Chronic smoker, Obesity, HTN, Hyperlipidemia, NIDDM type II, Chronic combined systolic and diastolic CHF, ischemic cardiomyopathy, GERD, Chronic back pain, DJD recently admitted 10/13 to 10/14 after p/w chest pain. He underwent stress test which was negative for any acute ischemia. Echocardiogram was done which showed EF of 35% with dyskinetic inferior septum. His medications were adjusted for vasospastic angina and CHF. Came to ER again on 11/08 with atypical chest pain. Diagnosed with pneumonia and discharged. Returned with recurrent chest pain including at rest, not relieved with nitroglycerin, radiating to left arm and accelearted HTN. He was started on nitorglycerin infusion with relief of symptoms. On 11/15 he underwent angiogram for repeated chest discomfort despite negative stress testing. His LAD stent was widely patent. His right coronary artery stents were patent. There was a lesion in the ostial circumflex. A stent was placed in the ostial circumflex. A balloon angioplasty was done in the other marginal branch. he is currently relieved of his symptoms. feels well this morning and wants to go home. Physical Exam Narrative: EXAM NARRATIVE: GEN: Awake, alert and oriented, no acute distress CVS: S1S2 N RS: CTA B/L except crackles over RUL Abd: Soft, nt/nd , bs+ TOOL SPECIALIST: no focal neuro deficits EXT: R groin access site without any gross hematomas. No distal neurovascular deficits. Discharge Data Data Completed and Pending: Completed Studies During Hospitalization Category Date Time Status XR chest 1V lovely ble [id number] Urgent Exams 11/14/19 11:14 Completed Pending at discharge Category Date Time Status PSYCHIATRY INSTRUCTOR request for service Routin e Exams 11/15/19 07:55 Ordered Labs from last 24 hours 11/16/19 11/16/19 11/15/19 03:49 03:49 22:09 WBC 8.6 RBC 4.41 Hgb 12.5 Hct 36.9 L MCV 83.7 MCH 28.3 MCHC 33.9 RDW 13.9 Plt Count 440 H MPV 8.7 Neut % (Auto) 47.9 Lymph % (Auto) 39.1 [place] % (Auto) 9.3 Eos % (Auto) 2.7 Baso % (Auto) 0.5 Neut # (Auto) 4.1 Lymph # (Auto) 3.4 [place] # (Auto) 0.8 Eos # (Auto) 0.2 Baso # (Auto) 0.0 Nucleated RBC % (a uto) 0 Nucleated RBCs # 0.0 APTT 34.8 D Sodium 138 Potassium 3.6 Chloride 100 Carbon Dioxide 26 Anion Gap 15.6 BUN 13 Creatinine 0.8 GFR Calculation 102.7 Glucose 194 H Calculated Osmolal ity 287 Calcium 9.0 11/15/19 19:00 WBC RBC Hgb Hct MCV MCH MCHC RDW Plt Count MPV Neut % (Auto) Lymph % (Auto) [place] % (Auto) Eos % (Auto) Baso % (Auto) Neut # (Auto) Lymph # (Auto) [place] # (Auto) Eos # (Auto) Baso # (Auto) Nucleated RBC % (a uto) Nucleated RBCs # APTT 126.3 H Sodium Potassium Chloride Carbon Dioxide Anion Gap BUN Creatinine GFR Calculation Glucose Calculated Osmolal ity Calcium Vitals: Last Vital Signs Temp 97.8 F 11/16/19 07:54 Pulse 77 11/16/19 07:56 Resp 13 11/16/19 07:56 BP 151/96 11/16/19 07:56 Pulse Ox 95 11/16/19 07:56 Discharge Plan Discharge Patient Disposition: Home, Self-Care Condition: Stable Prescriptions: New amoxicillin-pot clavulanate [Augmentin] 875-125 mg tablet 1 tab PO Q12H 7 Days Qty: 14 RF: 0 Continued benzonatate 200 mg Capsule 200 mg PO BEDTIME RF: 0 metoprolol succinate 100 mg tablet extended release 24 hr 100 mg PO DAILY RF: 0 doxepin 75 mg Capsule 75 mg PO BEDTIME RF: 0 Tylenol Extra Strength 500 mg Tablet 1,000 mg PO Q4H PRN (Reason: Pain) RF: 0 Ventolin HFA 90 mcg/actuation Hfa Aerosol Inhaler 2 puff INHALATION Q4H PRN (Reason: Shortness Of Breath) RF: 0 Janumet 50-500 mg Tablet 1 tab PO BID RF: 0 isosorbide mononitrate 30 mg tablet extended release 24 hr 60 mg PO BID PRN (Reason: Chest Pain) RF: 0 alprazolam [Xanax] 0.5 mg tablet 0.5 mg PO BID PRN (Reason: Anxiety) RF: 0 hydrocodone-acetaminophen 10-325 mg Tablet 1 tab PO TID PRN (Reason: Pain) RF: 0 aspirin 81 mg tablet,delayed release (DR/EC) 81 mg PO DAILY RF: 0 glimepiride 4 mg Tablet 4 mg PO DAILY RF: 0 zolpidem [Ambien] 10 mg Tablet 10 mg PO BEDTIME RF: 0 Brilinta 90 mg Tablet 90 mg PO BID RF: 0 hydroxyzine HCl 50 mg Tablet 50 mg PO TID PRN (Reason: Anxiety) RF: 0 lisinopril 20 mg Tablet 10 mg PO DAILY RF: 0 pantoprazole 40 mg Tablet,Delayed Release (Dr/Ec) 40 mg PO DAILY RF: 0 Spiriva with HandiHaler 18 mcg Capsule, W/Inhalation Device 1 cap INHALATION DAILY RF: 0 Symbicort 160-4.5 mcg/actuation Hfa Aerosol Inhaler 2 puff INHALATION BID RF: 0 furosemide [Lasix] 40 mg tablet 40 mg PO DAILY Qty: 30 RF: 4 potassium chloride 20 mEq tablet extended release 20 meq PO DAILY Qty: 30 RF: 4 nitroglycerin 400 mcg/spray spray,non-aerosol 0.4 mg SUBLINGUAL Q5M PRN (Reason: chest pain) Qty: 4.9 RF: 3 Discontinued carvedilol [Coreg] 6.25 mg tablet 6.25 mg PO BID Qty: 60 RF: 4 Discharge Orders: Discharge Order (Routine); Ordered 11/16/19 Ordered By: Liz Hester Referrals: Mana Paulson MD [Physician] - 1 month Phillip Gill MD [Primary Care Provider] - Janiya Bray FNP [Nurse Practitioner] - 1 week Discharge Diet: Cardiac Discharge Activity: Resume usual activity Discharge Attestations Time Spent in Discharge Care*: less than 30 min Status at Discharge: Cognitive status at discharge: cognitively intact , Behavioral status at discharge: cooperative , Quality Metrics Clinical Quality Measures During this hospital stay, did patient experience: None Coding Level of Care Code Acute Health Care Sanitary Technician for g Fwd Diagnoses Tobacco abuse Z72.0 Dyslipidemia E78.5 Diabetes mellitus E11.9 Unstable angina pectoris I20.0 Cardiomyopathy I42.9 Coronary artery spasm I20.1 Obesity E66.9 Accelerated essential hypertension I10 Coronary artery disease I25.10 Left bundle branch block I44.7
== END 2019-11-16 11:45 | disposition home or self-care (01) | DRG 247 ==
LOC: ER 13:27 → CSU 14:26
PROVIDERS: Internal Medicine Cardiovascular Disease; Physician Assistant; Admitting Provider Student in an Organized Health Care Education/Training Program; Emergency Provider Family Medicine; Family Provider Family Medicine; PCP Family Medicine; Visit Provider Student in an Organized Health Care Education/Training Program
DX: I25.110 Atherosclerotic heart disease of native coronary artery with unstable angina pectoris (principal); I50.42 Chronic combined systolic (congestive) and diastolic (congestive) heart failure; Z71.6 Tobacco abuse counseling; F17.210 Nicotine dependence, cigarettes, uncomplicated; E66.9 Obesity, unspecified; Z68.30 Body mass index [BMI] 30.0-30.9, adult; E78.5 Hyperlipidemia, unspecified; E11.9 Type 2 diabetes mellitus without complications; I11.0 Hypertensive heart disease with heart failure; I25.5 Ischemic cardiomyopathy; K21.9 Gastro-esophageal reflux disease without esophagitis
CPT/HCPCS: 12345; 36415; 71045; 80048; 80053; 84484; 85025; 85347; 85730; 93005; 93454; 93571; 94640; 96372; 96375; 99283; C1725; C1769; C1874; C1887; C1894; C9600; G0378; J0153; J1644; J1650; J2001; J2250; J2270; J2405; J3010; J3490; J7030; Q0163; Q9967

== ENCOUNTER → 2019-11-25 14:35 | Outpatient (BNVA) | payer MEDICAID, SELFPAY | PROVIDERS: Family Provider Family Medicine; PCP Family Medicine; Visit Provider Nurse Practitioner Family | DX: I25.119 Atherosclerotic heart disease of native coronary artery with unspecified angina pectoris (principal) | CPT/HCPCS: 80048 ==

== ENCOUNTER 2019-12-05 20:19 | Emergency (ER) | payer MEDICAID, SELFPAY ==
[2019-12-05] VITALS (25 sets, daily range): BP systolic 135–177; BP diastolic 82–99; PULSE 76–114; RESP 20; TEMP 37.2–37.4; O2SAT 95–98; BMI 29.8
--- NOTE | 2019-12-05 20:20 | ECG_ITS ---
Measurements Intervals [place] Rate: 99 P: 65 MO: 178 QRS: -7 QRSD: 174 T: 40 QT: 400 QTc: 515 SINUS RHYTHM WITH OCCASIONAL VENTRICULAR PREMATURE COMPLEXES LEFT BUNDLE BRANCH BLOCK Compared to ECG 11/14/2019 17:40:09 Ventricular premature complex(es) now present Electronically Signed On 12-06-2019 15:30:50 FIELD NURSE CASE MANAGER by Lavinia Estrada M.D. [email or web address]
--- NOTE | 2019-12-05 20:20 | XR_ITS ---
WS: [id number] XR chest 1V portable [id number] REASON FOR EXAM: cough/congestion FINDINGS: Scattered granulomas well calcified bilaterally. The heart is not enlarged. The lung james are adequately aerated no pneumonia, pleural effusion, pulmonary edema, no pneumothor ax. The hilum and apices normal. XR/XR chest 1V portable [id number] IMPRESSION: Negative chest for active pathology. Unchanged since November 14, 2019.
--- NOTE | 2019-12-05 20:36 | ED_ITS ---
Entered by Kirsten Rodarte, acting as scribe for Jacquelin Joseph HPI - Chest Pain General: Chief Complaint: Chest Pain Stated Complaint: CP/N/V Time Seen by Provider: 12/05/19 20:35 Source: patient Mode of arrival: ambulatory Limitations: no limitations History of Present Illness: HPI narrative: 49 yo Male presents to ED with complaint of chest pain. Pt states that he has been having this pain since about the time he got his stent placed. Pt states that he had his stent placed about 2-3 weeks ago. Pt states that the pain runs between his 2 shoulder blades. Pt states that he has had shortness of breath and fever. MD complaint: chest pain Onset (ago): week(s) Timing of current episode: constant and still present Prior episodes: Yes Onset: during rest Pain location: substernal Pain radiation: back Pain scale (0-10): 7 Relieving factors: nothing Exacerbating factors: nothing Context: recent surgery (cardiac stent placement) Associated symptoms: Reports diaphoresis, dyspnea, fever(s) and nausea; Deny palpitations or syncope Treatment prior to arrival: none Review of Systems General: Reports: other (negative unless marked) Const: Reports: fever and diaphoresis Eyes: Denies: change in vision or blurry vision ENMT: Denies: throat pain, painful swallowing, hoarseness, ear pain, ear dis charge, Change in hearing or nasal discharge Card: Reports: chest pain; Denies: palpitations, irregular heart rhythm, syncope, pre-syncope, shortness of breath on exertion or shortness of breath when lying down Resp: Reports: shortness of breath GI: Reports: nausea : Denies: flank pain, difficulty urinating, painful urination, urinary frequency, urinary urgency, decreased urine ouput, urinary incontinence or blood in urine Musc: Reports: back pain; Denies: neck pain, extremity pain, extremity swelling, joint pain, joint swelling, joint warmth or joint stiffness Skin/Breast: Denies: rash, skin tenderness or yellow skin Neuro: Denies: headache, numbness in extremities, weakness in extremities, changes in sensation, lack of coordination, difficulty walking, dizziness, vertigo or confusion Endo: Denies: excessive thirst, tired all the time, cold intolerance, excessive sweating, flushing or hot flashes Thai/Lymph: Denies: easy bruising, easy bleeding, petechiae or enlarged lymph nodes All/Imm: Denies: hives, throat swelling, tongue swelling, facial swelling or acute wheezing PFSH ED PFSH: Medical History Cardiac catheterization as the cause of abnormal reaction of the patient, or of later complication, without mention of misadventure at the time of the procedure Cardiomyopathy Congestive heart failure Coronary artery spasm Diabetes mellitus Dyslipidemia Left bundle branch block Tobacco abuse Surgical History Hx of heart artery stent Stents to LAD, RCA (Aug 2019) and circumflex (2019), angioplasty of the obtuse marginal Social History Smoking and tobacco status: current every day smoker Alcohol intake: never Physical Exam Const: COMMON NORMALS: no apparent distress, oriented x3, no limitations, healthy appearing and well nourished EXAM LIMITATIONS: no altered mental status GENERAL APPEARANCE: cooperative, well kempt and well developed ORIENTATION/CONSCIOUSNESS: Yes awake HENMT: COMMON NORMALS: normocephalic, head/scalp atraumatic, hearing grossly normal bilaterally, external ears normal, EAC's normal, external nose normal and moist oral mucous membranes HEAD & SCALP: normal to inspection, normocephalic and atraumatic FACE & SINUS: normal facial exam and face symmetric NOSE: external nose normal and nares normal EXTERNAL EAR: Yes external ears normal EXTERNAL AUDITORY CANAL: EAC's normal MOUTH: oral and palatal mucosa normal and tongue normal Eye: COMMON NORMALS: PERRL, EOMs intact bilaterally, conjunctivae normal and no scleral icterus GENERAL EYE: normal appearance of both eyes and normal light reflex CONJUNCTIVA: Yes conjunctivae normal SCLERA: sclerae normal CORNEA: Yes corneas normal PUPIL: Yes PERRL DIRECT OPHTHALMOSCOPY: Yes normal light reflex Neck/C-Spine: COMMON NORMALS: full ROM, no lymphadenopathy, supple, no meningeal signs and no JVD GENERAL: Yes normal visual inspection and Yes trachea midline CERVICAL SPINE: Yes cervical ROM normal Chest: COMMONS NORMALS: inspection of chest normal and palpation of chest normal Resp: COMMON NORMALS: normal respiratory effort, no retractions, no use of accessory muscles and clear to auscultation bilaterally EFFORT & INSPECTION: Yes able to speak in complete sentences AUSCULTATION: clear to auscultation bilaterally Cardio: COMMON NORMALS: no JVD, regular rate, regular rhythm, S1 normal heart sound, S2 normal heart sound, no gallops, no clicks, no murmurs and no rub JUGULAR VENOUS DISTENTION: no JVD RATE: regular rate RHYTHM: regular rhythm HEART SOUNDS: S1 normal and S2 normal GI: COMMON NORMALS: soft to palpation, non-tender, no hepatosplenomegaly and no masses INSPECTION: Yes normal to inspection PALPATION: Yes soft and Yes no hepatosplenomegaly : COMMON NORMALS: Yes no CVA tenderness BLADDER/KIDNEY EXAM: Yes no CVA tenderness Back/Pelvis: COMMON NORMALS: no CVA tenderness, thoracic and lumbar spine normal to inspection, no thoracic nor lumbar tenderness and thoraco-lumbar ROM normal Extremity: COMMON NORMALS: normal to inspection, full ROM, normal capillary refill, no joint enlargement, no clubbing, cyanosis or edema and no calf tenderness Neuro: COMMON NORMALS: oriented x3, CN's II-XII intact bilaterally, moves all extremities, no focal motor deficits and no sensory deficits noted MENINGEAL SIGNS: Yes no meningeal signs Psych: COMMON NORMALS: mental status grossly normal, thought process normal, cooperative, affect normal, speech normal and activity/motor behavior normal APPEARANCE: Yes well kempt SPEECH: Yes normal speech THOUGHT PROCESS: normal thought process Skin: COMMON NORMALS: no rashes or lesions noted, skin turgor normal, no jaundice, no petechiae and no mottling GENERAL SKIN EXAM: no rashes or lesions noted and turgor normal Course ED course: 2199 - I discussed the patient the necessity of him staying in the hospital for repeat testing but he is refusing. He states he wants to go home at this time. He does not think this is his heart and he thinks he can follow- up with Dr. Montes in the office in the morning. After much discussion and encouragement by me he does agree to stay for at least a second EKG and troponin. He does realize that leaving even after this will be leaving against my advice but he wants to proceed with this plan at this time. His family was with him supports him but they do not seem to agree with his decision but nonetheless are leaving the decision up to him. Vital Signs: Vital signs: Vital Signs Temperature 99.3 F 12/05/19 21:22 Pulse Rate 76 12/05/19 23:15 Respiratory Rate 20 H 12/05/19 21:22 Blood Pressure 135/84 12/05/19 23:15 Pulse Oximetry 96 12/05/19 23:15 MDM - Chest Pain MDM Narrative: Medical decision making narrative: Prince is a nice 49-year-old male who comes in complaining of chest pain. He states he has had this pain almost constantly since he had a stent placed. He has since even followed up with the nurse practitioner Dr. Montes's office and they have tried to get him a earlier appointment to see Dr. Montes as he continues to have pain. There is questionable talk of him having bypass surgery. Please see that nurse practitioners note in [facility] for details. As the patient's troponin is gone up slightly and I have previously discussed with him I am recommending he stay in the hospital for complete evaluation and care but he is refusing. I reviewed with him at length the risks of leaving with incomplete evaluation including or severe permanent disability from [place], dissection, pulmonary embolism among others but he is refusing to stay. He does agree to return should his symptoms change or worsen but at this time despite mine and his family's encouragement he is refusing to stay. The patient has been warned but he is also been welcomed to return. Lab Data: Attestation: I reviewed the patient's lab results. Labs: Lab Results 12/05/19 12/05/19 12/05/19 Range/Units 20:37 20:37 20:37 WBC 14.1 H (4.0-10.0) 10^3/ uL RBC 4.85 (4.1-5.3) 10^6/u L Hgb 13.7 (11.7-16.6) g/dL Hct 41.5 L (42.0-52.0) % MCV 85.6 (80-94) fL MCH 28.2 (28.0-34.0) pg MCHC 33.0 (30.0-36.0) g/dL RDW 13.2 (12.1-15.1) % Plt Count 324 (130-400) 10^3/c mm MPV 8.7 (7.4-10.4) fL Neut % (Auto) 59.3 % Lymph % (Auto) 30.7 % [place] % (Auto) 7.3 % Eos % (Auto) 1.9 % Baso % (Auto) 0.4 % Neut # (Auto) 8.4 H (1.8-7.7) 10^3/u L Lymph # (Auto) 4.3 (0.8-4.8) 10^3/u L [place] # (Auto) 1.0 H (0.2-0.9) 10^3/u L Eos # (Auto) 0.3 (0.0-0.8) 10^3/u L Baso # (Auto) 0.1 (0.0-0.1) 10^3/u L Nucleated RBC % (a uto) 0 % Nucleated RBCs # 0.0 /100WBC Sodium 135 L (136-145) mmol/L Potassium 3.1 L (3.5-5.1) mmol/L Chloride 96 L (98-107) mmol/L Carbon Dioxide 24 (22-29) mmol/L Anion Gap 18.1 (5-19) BUN 7 (6-20) mg/dL Creatinine 1.0 (0.7-1.2) mg/dL GFR Calculation 79.4 L (90-130) mL/min Glucose 235 H (65-115) mg/dL Calcium 9.7 (8.5-10.5) mg/dL Magnesium (1.7-2.3) mg/dL Total Bilirubin 0.4 (0.15-1.2) mg/dL AST 12 (0-40) U/L ALT 8 (0-41) U/L Alkaline Phosphata se 68 (40-130) IU/L Troponin T Baselin e 15 (0-15) ng/mL Troponin T 120 Min [place] (0-15) ng/mL Delta Troponin T (0-10) ABS# NT-Pro-B Natriuret Pep (0-125) pg/mL Total Protein 7.4 (6.6-8.7) g/dL Albumin 3.9 (3.5-5.2) g/dL Globulin 3.5 (1.3-4.6) g/dL Influenza Type A A g (Negative) POC Influenza B Ag (Negative) 03/05/20 03/05/20 03/05/20 Range/Units 20:37 20:37 21:33 WBC (4.0-10.0) 10^3/ uL RBC (4.1-5.3) 10^6/u L Hgb (11.7-16.6) g/dL Hct (42.0-52.0) % MCV (80-94) fL MCH (28.0-34.0) pg MCHC (30.0-36.0) g/dL RDW (12.1-15.1) % Plt Count (130-400) 10^3/c mm MPV (7.4-10.4) fL Neut % (Auto) % Lymph % (Auto) % [place] % (Auto) % Eos % (Auto) % Baso % (Auto) % Neut # (Auto) (1.8-7.7) 10^3/u L Lymph # (Auto) (0.8-4.8) 10^3/u L [place] # (Auto) (0.2-0.9) 10^3/u L Eos # (Auto) (0.0-0.8) 10^3/u L Baso # (Auto) (0.0-0.1) 10^3/u L Nucleated RBC % (a uto) % Nucleated RBCs # /100WBC Sodium (136-145) mmol/L Potassium (3.5-5.1) mmol/L Chloride (98-107) mmol/L Carbon Dioxide (22-29) mmol/L Anion Gap (5-19) BUN (6-20) mg/dL Creatinine (0.7-1.2) mg/dL GFR Calculation (90-130) mL/min Glucose (65-115) mg/dL Calcium (8.5-10.5) mg/dL Magnesium 1.5 L (1.7-2.3) mg/dL Total Bilirubin (0.15-1.2) mg/dL AST (0-40) U/L ALT (0-41) U/L Alkaline Phosphata se (40-130) IU/L Troponin T Baselin e (0-15) ng/mL Troponin T 120 Min [place] (0-15) ng/mL Delta Troponin T (0-10) ABS# NT-Pro-B Natriuret Pep 502 H (0-125) pg/mL Total Protein (6.6-8.7) g/dL Albumin (3.5-5.2) g/dL Globulin (1.3-4.6) g/dL Influenza Type A A g Negative (Negative) POC Influenza B Ag Negative (Negative) 12/05/19 Range/Units 22:25 WBC (4.0-10.0) 10^3/ uL RBC (4.1-5.3) 10^6/u L Hgb (11.7-16.6) g/dL Hct (42.0-52.0) % MCV (80-94) fL MCH (28.0-34.0) pg MCHC (30.0-36.0) g/dL RDW (12.1-15.1) % Plt Count (130-400) 10^3/c mm MPV (7.4-10.4) fL Neut % (Auto) % Lymph % (Auto) % [place] % (Auto) % Eos % (Auto) % Baso % (Auto) % Neut # (Auto) (1.8-7.7) 10^3/u L Lymph # (Auto) (0.8-4.8) 10^3/u L [place] # (Auto) (0.2-0.9) 10^3/u L Eos # (Auto) (0.0-0.8) 10^3/u L Baso # (Auto) (0.0-0.1) 10^3/u L Nucleated RBC % (a uto) % Nucleated RBCs # /100WBC Sodium (136-145) mmol/L Potassium (3.5-5.1) mmol/L Chloride (98-107) mmol/L Carbon Dioxide (22-29) mmol/L Anion Gap (5-19) BUN (6-20) mg/dL Creatinine (0.7-1.2) mg/dL GFR Calculation (90-130) mL/min Glucose (65-115) mg/dL Calcium (8.5-10.5) mg/dL Magnesium (1.7-2.3) mg/dL Total Bilirubin (0.15-1.2) mg/dL AST (0-40) U/L ALT (0-41) U/L Alkaline Phosphata se (40-130) IU/L Troponin T Baselin e (0-15) ng/mL Troponin T 120 Min [place] 18.19 H (0-15) ng/mL Delta Troponin T 3.19 (0-10) ABS# NT-Pro-B Natriuret Pep (0-125) pg/mL Total Protein (6.6-8.7) g/dL Albumin (3.5-5.2) g/dL Globulin (1.3-4.6) g/dL Influenza Type A A g (Negative) POC Influenza B Ag (Negative) Imaging Data^: CXR: My impression: No acute cardiopulmonary findings. EKG Data^: EKG 1: Attestation: I personally reviewed and interpreted this EKG as follows: EKG interpretation date: 12/05/19 EKG interpretation time: 20:32 Interpretation: Normal sinus rhythm at 99 beats a minute, left bundle branch block. Unchanged from previous. EKG 2: Attestation: I personally reviewed and interpreted this EKG as follows: EKG interpretation date: 12/05/19 EKG interpretation time: 22:23 Interpretation: Normal sinus rhythm at 90 beats a minute, left bundle branch block, no acute ST-T wave changes. Unchanged from previous. Discharge Plan Discharge Patient Disposition: Left Against Medical Advice Clinical Impression: Chest pain Qualifiers: Chest pain type: unspecified Qualified Code(s): R07.9 - Chest pain, unspecified Condition: Stable Prescriptions: No Action benzonatate 200 mg Capsule 200 mg PO BEDTIME RF: 0 doxepin 75 mg Capsule 75 mg PO BEDTIME RF: 0 acetaminophen [Tylenol Extra Strength] 500 mg Tablet 1,000 mg PO Q4H PRN (Reason: Pain) RF: 0 albuterol sulfate [Ventolin HFA] 90 mcg/actuation Hfa Aerosol Inhaler 2 puff INHALATION Q4H PRN (Reason: Shortness Of Breath) RF: 0 Janumet 50-500 mg Tablet 1 tab PO BID RF: 0 isosorbide mononitrate 30 mg tablet extended release 24 hr 60 mg PO BID PRN (Reason: Chest Pain) RF: 0 carvedilol 6.25 mg Tablet 6.25 mg PO BID RF: 0 alprazolam [Xanax] 0.5 mg tablet 0.5 mg PO BID PRN (Reason: Anxiety) RF: 0 hydrocodone-acetaminophen 10-325 mg Tablet 1 tab PO TID PRN (Reason: Pain) RF: 0 aspirin 81 mg tablet,delayed release (DR/EC) 81 mg PO DAILY RF: 0 glimepiride 4 mg Tablet 4 mg PO DAILY RF: 0 zolpidem [Ambien] 10 mg Tablet 10 mg PO BEDTIME RF: 0 Brilinta 90 mg Tablet 90 mg PO BID RF: 0 hydroxyzine HCl 50 mg Tablet 50 mg PO TID PRN (Reason: Anxiety) RF: 0 lisinopril 20 mg Tablet 10 mg PO DAILY RF: 0 pantoprazole 40 mg Tablet,Delayed Release (Dr/Ec) 40 mg PO DAILY RF: 0 Spiriva with HandiHaler 18 mcg Capsule, W/Inhalation Device 1 cap INHALATION DAILY RF: 0 Symbicort 160-4.5 mcg/actuation Hfa Aerosol Inhaler 2 puff INHALATION BID RF: 0 furosemide [Lasix] 40 mg tablet 40 mg PO DAILY Qty: 30 RF: 4 potassium chloride 20 mEq tablet extended release 20 meq PO DAILY Qty: 30 RF: 4 nitroglycerin 400 mcg/spray spray,non-aerosol 0.4 mg SUBLINGUAL Q5M PRN (Reason: chest pain) Qty: 4.9 RF: 3 Discharge Orders: Discharge Order (Routine); Ordered 12/05/19 Ordered By: Jacquelin Joseph Referrals: Mana Paulson MD [Physician] - 1-3 days Phillip Gill MD [Primary Care Provider] - 1-3 days Discharge Diet: Advance as tolerated Discharge Activity: Increase activity as tolerated Patient Instructions: Chest Pain (ED) Activity Restrictions/Additional Instructions: You're leaving AGAINST MEDICAL ADVICE and are at risk for or severe permanent disability by doing so. You are more than welcome to return at any time for recheck and for further evaluation and care suture change you change your mind. You are leaving without complete evaluation of your heart. If your symptoms return or you simply change your mind you are more than welcome to return to the ER at any time for recheck. 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
[2019-12-05 20:52] LABS: Basophils # 0.1 10^3/uL (0.0-0.1); Basophils % 0.4 %; Eosinophils # 0.3 10^3/uL (0.0-0.8); Eosinophils % 1.9 %; Hematocrit 41.5 % (42.0-52.0); Hemoglobin 13.7 g/dL (11.7-16.6); Lymphocytes # 4.3 10^3/uL (0.8-4.8); Lymphocytes % 30.7 %; Mean Corpuscular Hemoglobin 28.2 pg (28.0-34.0); Mean Corpuscular Volume 85.6 fL (80-94); Mean Platelet Volume 8.7 fL (7.4-10.4); Monocytes % 7.3 %; Neutrophils # 8.4 10^3/uL (1.8-7.7); Neutrophils % 59.3 %; Nucleated Red Blood Cells % 0 %; Platelet Count 324 10^3/cmm (130-400); Red Blood Count 4.85 10^6/uL (4.1-5.3); Red Cell Distribution Width 13.2 % (12.1-15.1); White Blood Count 14.1 10^3/uL (4.0-10.0)
[2019-12-05] MEDS: aspirin 325 mg Tablet PO (21:05)
[2019-12-05 21:09] LABS: Alanine Aminotransferase 8 U/L (0-41); Albumin Level 3.9 g/dL (3.5-5.2); Alkaline Phosphatase 68 IU/L (40-130); Anion Gap 18.1 (5-19); Aspartate Amino Transferase 12 U/L (0-40); Blood Urea Nitrogen 7 mg/dL (6-20); Calcium 9.7 mg/dL (8.5-10.5); Carbon Dioxide 24 mmol/L (22-29); Chloride 96 mmol/L (98-107); Globulin 3.5 g/dL (1.3-4.6); Glomerular Filtration Rate 79.4 mL/min (90-130); Glucose 235 mg/dL (65-115); Potassium 3.1 mmol/L (3.5-5.1); Sodium 135 mmol/L (136-145); Total Bilirubin 0.4 mg/dL (0.15-1.2); Total Protein 7.4 g/dL (6.6-8.7)
[2019-12-05 21:19] LABS: NT Pro B Type Natriuretic Pept 502 pg/mL (0-125)
--- NOTE | 2019-12-05 21:20 | PC.NURSE ---
Introduced self to patient and initiated vital signs. Patient presents A&O x 4. NAD, ABCs intact, MAEW and agreeable to treatment. Respirations are even and unlabored. Pt states being in [place] and returning 2-3 days ago. Pt is coughing and is having some minor shortness of breath. Pt states that the chief complaint for the ER visit today is due to chest pain. Pt also complaining of cough and general malaise. Pt denies any vision disturbances or lightheadedness. Bed left in lowest position in semi-fowlers with side rails up.Reassured patient of needs and will continue to monitor.
[2019-12-05 21:39] LABS: Troponin(5th) Baseline 15 ng/mL (0-15)
[2019-12-05] MEDS: metoprolol tartrate 1 mg/1 mL SDV 5 mL 5 MG IV (21:39)
[2019-12-05] MEDS: nitroglycerin 0.4 mg sublingual Tablet SUBLINGUAL (21:42)
[2019-12-05 21:55] LABS: Influenza A by IFA Negative (Negative)
[2019-12-05 21:56] LABS: Influenza B by IFA Negative (Negative)
[2019-12-05 22:05] LABS: Magnesium 1.5 mg/dL (1.7-2.3)
--- NOTE | 2019-12-05 22:20 | ECG_ITS ---
Measurements Intervals [place] Rate: 90 P: 51 UT: 168 QRS: 17 QRSD: 166 T: 198 QT: 416 QTc: 511 SINUS RHYTHM LEFT BUNDLE BRANCH BLOCK [120+ ms QRS DURATION, 80+ ms Q/S IN V1/V2, 85+ ms R IN I/aVL/V5/V6] Compared to ECG 11/14/2019 17:40:09 No significant changes Electronically Signed On 12-06-2019 15:40:07 BLEACH SUPERVISOR by Lavinia Estrada M.D. [email or web address]
--- NOTE | 2019-12-05 22:21 | PC.NURSE ---
EKG done at 221 and shown to ER doctor
[2019-12-05] MEDS: HYDROmorphone 1 mg/mL INJ 1 mL 0.5 MG IVP (22:40)
[2019-12-05 22:43] LABS: Troponin 5 2HR 18.19 ng/mL (0-15); Troponin 5 2HR Delta 3.19 ABS# (0-10)
[2019-12-05] MEDS: magnesium sulfate premix 2 GM/50 ML PIGGYBACK IV (23:03)
== END 2019-12-06 00:03 | disposition left against medical advice (07) ==
PROVIDERS: Physician Assistant; Emergency Provider Emergency Medicine; Family Provider Family Medicine; PCP Family Medicine
DX: R07.9 Chest pain, unspecified (principal); R06.02 Shortness of breath; R50.9 Fever, unspecified; R11.2 Nausea with vomiting, unspecified; F17.210 Nicotine dependence, cigarettes, uncomplicated; I42.9 Cardiomyopathy, unspecified; I50.9 Heart failure, unspecified; E11.9 Type 2 diabetes mellitus without complications; E78.5 Hyperlipidemia, unspecified; I44.7 Left bundle-branch block, unspecified; Z95.5 Presence of coronary angioplasty implant and graft
CPT/HCPCS: 12345; 71045; 80053; 83735; 83880; 84484; 85025; 87040; 87077; 87186; 87205; 87804; 93005; 96365; 96374; 96375; 99283; 99284; J1170; J3475; J3490

== ENCOUNTER 2020-02-19 10:19 | Outpatient (CLI) | payer MEDICAID, SELFPAY ==
--- NOTE | 2020-02-19 10:21 | CT_ITS ---
WS: [id number] INDICATION: CT lung screening abnormal TECHNIQUE: Noncontrast and contrast-enhanced CT of the chest FINDINGS: Moderate chronic emphysematous changes with subpleural emphysema. A few calcified granulomas. Previou sly described opacities in right lower lobe along the right fissure have resolved and were likely inf ectious or inflammatory. No new pulmonary infiltrates or suspicious pulmonary parenchymal opacities t tami. Proximal main pulmonary arteries are patent. Normal caliber thoracic aorta. Coronary calcification. N o mediastinal or hilar lymphadenopathy. Prominent paratracheal and AP window lymph nodes the largest measuring 10 mm likely reactive. These appear improved from previous. Normal endobronchial tree. Adrenal glands are normal. Normal GE junction. Cardiomegaly. Mild thoracic curve. CT/CT chest wo/w con [id number] IMPRESSION: 1. Moderate chronic emphysematous changes with subpleural emphysema. 2. Previously described pulmonary opacities in the right lower lobe and along the right minor fissure have resolved and were likely infectious or inflammator y. 3. No new pulmonary infiltrates today. No suspicious pulmonary parenchymal opa cities. 4. Prominent AP window and peribronchial lymph nodes the largest measuring 10 mm improved from previous and likely reactive. 5. Coronary calcification.
[2020-02-19] MEDS: iohexol 300 mg/mL 100 mL Btl IV (10:38)
== END 2020-02-19 10:20 | disposition home or self-care (01) ==
LOC: RAD 10:19
PROVIDERS: PCP Family Medicine; Visit Provider Family Medicine
DX: R91.8 Other nonspecific abnormal finding of lung field (principal); J43.8 Other emphysema; I25.10 Atherosclerotic heart disease of native coronary artery without angina pectoris
CPT/HCPCS: 71270

== ENCOUNTER 2020-03-07 23:04 | Emergency (ER) | payer MEDICAID, SELFPAY ==
--- NOTE | 2020-03-07 23:10 | XRR_ITS ---
PROCEDURE INFORMATION: Exam: XR Chest, 1 View Exam date and time: 03/07/2020 11:11 PM Age: 49 years old Clinical indication: Chest pain; Type not specified; Prior surgery; Surgery date: 6+ months; Surgery type: Stent; Additional info: Cp TECHNIQUE: Imaging protocol: XR of the chest Views: 1 view. COMPARISON: CR XR chest 1V portable [id number] 12/05/2019 8:45 PM FINDINGS: Lungs: There is no consolidation. Scattered tiny calcified nodules in both lower lungs are stable. Pleural space: There is no pleural effusion or pneumothorax. Heart/Mediastinum: The cardiac silhouette is within normal limits of size given AP technique. Bones/joints: Bones are unremarkable. XR/XR chest 1V portable [id number] IMPRESSION: No acute findings.
[2020-03-07 23:14] VITALS: BP 160/98; PULSE 96; RESP 18; TEMP 36.7; O2SAT 96; BMI 29.8
[2020-03-07] MEDS: aspirin 81 mg Chew Tablet 324 MG PO (23:32)
[2020-03-07 23:36] VITALS: BP 169/91; PULSE 88; RESP 14; O2SAT 96
[2020-03-07 23:38] LABS: Basophils # 0.1 10^3/uL (0.0-0.1); Basophils % 0.5 %; Eosinophils # 0.2 10^3/uL (0.0-0.8); Eosinophils % 2.1 %; Hematocrit 43.3 % (42.0-52.0); Hemoglobin 14.7 g/dL (11.7-16.6); Lymphocytes % 38.8 %; Mean Corpuscular HGB Conc 33.9 g/dL (30.0-36.0); Mean Corpuscular Hemoglobin 29.8 pg (28.0-34.0); Mean Corpuscular Volume 87.8 fL (80-94); Mean Platelet Volume 8.6 fL (7.4-10.4); Monocytes # 0.9 10^3/uL (0.2-0.9); Monocytes % 8.6 %; Neutrophils # 5.1 10^3/uL (1.8-7.7); Neutrophils % 49.8 %; Nucleated Red Blood Cells % 0 %; Platelet Count 306 10^3/cmm (130-400); Red Blood Count 4.93 10^6/uL (4.1-5.3); Red Cell Distribution Width 14.3 % (12.1-15.1); White Blood Count 10.2 10^3/uL (4.0-10.0)
--- NOTE | 2020-03-07 23:56 | W.ED.CHESTPA ---
HPI - Chest Pain General: Chief Complaint: Chest Pain Stated Complaint: cp Time Seen by Provider: 03/07/20 23:24 Source: patient Mode of arrival: ambulatory Limitations: no limitations History of Present Illness: HPI narrative: 49-year-old male with extensive cardiac history states he has had chest pain over the last day. He states been a pressure type pain in the center of his chest. He states he took nitro at home that originally helped but then his pain returned. States pain is currently 5 out of 10. Denies any shortness of breath or nausea. He has had no vomiting. Denies any worsening factors. MD complaint: chest pain Onset (ago): hour(s) Associated symptoms: Deny abdominal pain, dyspnea, fever(s), nausea or vomiting Review of Systems Const: Denies: fever(s), chills, body aches or change in appetite Eyes: Denies: blurry vision or eye discomfort ENMT: Denies: throat pain or dental pain Card: Reports: chest pain Resp: Denies: dyspnea GI: Denies: abdominal pain, nausea, vomiting or diarrhea : Denies: dysuria Musc: Denies: neck pain or back pain Skin/Breast: Denies: rash Neuro: Denies: headache(s) Psych: Denies: depression Thai/Lymph: Denies: easy bruising All/Imm: Denies: urticaria PFSH ED PFSH: Medical History Cardiac catheterization as the cause of abnormal reaction of the patient, or of later complication, without mention of misadventure at the time of the procedure Cardiomyopathy Congestive heart failure Coronary artery spasm Diabetes mellitus Dyslipidemia Left bundle branch block Tobacco abuse Surgical History Hx of heart artery stent Stents to LAD, RCA (Aug 2019) and circumflex (2019), angioplasty of the obtuse marginal Social History Smoking and tobacco status: current every day smoker Alcohol intake: never Physical Exam Const: COMMON NORMALS: no acute distress, patient oriented x3 and healthy appearing HENMT: COMMON NORMALS: normocephalic and atraumatic HEAD & SCALP: normocephalic and atraumatic Eye: COMMON NORMALS: Equal, round and reactive pupils present and EOMs intact bilaterally PUPIL: Yes Equal, round and reactive pupils present Neck/C-Spine: COMMON NORMALS: full ROM and supple Chest: COMMONS NORMALS: normal inspection of the chest and normal palpation of entire chest wall Resp: COMMON NORMALS: normal respiratory effort, No retractions, No use of accessory muscles and clear to auscultation bilaterally AUSCULTATION: clear to auscultation bilaterally Cardio: COMMON NORMALS: regular rate, regular rhythm and No murmurs present (Cardio) RATE: regular rate RHYTHM: regular rhythm GI: COMMON NORMALS: Normal to inspection, nondistended, normoactive bowel sounds present, Soft to palpation, non-tender and no masses PALPATION: Yes Soft to palpation Extremity: COMMON NORMALS: normal to inspection and full ROM Neuro: COMMON NORMALS: patient oriented x3, moves all extremities and no focal motor deficits Psych: COMMON NORMALS: mental status grossly normal, Normal thought process present and cooperative THOUGHT PROCESS: Normal thought process present Skin: COMMON NORMALS: no rashes or lesions noted and no wounds GENERAL SKIN EXAM: no rashes or lesions noted Course Vital Signs: Vital signs: Vital Signs Temperature 98.0 F 03/07/20 23:14 Pulse Rate 70 03/08/20 01:39 Respiratory Rate 14 03/08/20 01:10 Blood Pressure 129/74 03/08/20 01:39 Pulse Oximetry 98 03/08/20 01:39 MDM - Chest Pain MDM Narrative: Medical decision making narrative: Prince presents here with chest pain is atypical in nature. His pain is improved after Dilaudid. Initial and repeat EKG showed no change and troponins here are normal. Patient is to follow-up with his household personal assistant next week and return to the ER if worsening. He understands and agrees to plan. Lab Data: Labs: Lab Results 03/07/20 03/07/20 03/07/20 Range/Units 23:30 23:30 23:30 WBC 10.2 H (4.0-10.0) 10^3/ uL RBC 4.93 (4.1-5.3) 10^6/u L Hgb 14.7 (11.7-16.6) g/dL Hct 43.3 (42.0-52.0) % MCV 87.8 (80-94) fL MCH 29.8 (28.0-34.0) pg MCHC 33.9 (30.0-36.0) g/dL RDW 14.3 (12.1-15.1) % Plt Count 306 (130-400) 10^3/c mm MPV 8.6 (7.4-10.4) fL Neut % (Auto) 49.8 % Lymph % (Auto) 38.8 % [place] % (Auto) 8.6 % Eos % (Auto) 2.1 % Baso % (Auto) 0.5 % Neut # (Auto) 5.1 (1.8-7.7) 10^3/u L Lymph # (Auto) 4.0 (0.8-4.8) 10^3/u L [place] # (Auto) 0.9 (0.2-0.9) 10^3/u L Eos # (Auto) 0.2 (0.0-0.8) 10^3/u L Baso # (Auto) 0.1 (0.0-0.1) 10^3/u L Nucleated RBC % (a uto) 0 % Nucleated RBCs # 0.0 /100WBC Sodium 133 L (136-145) mmol/L Potassium 3.7 (3.5-5.1) mmol/L Chloride 98 (98-107) mmol/L Carbon Dioxide 24 (22-29) mmol/L Anion Gap 14.7 (5-19) BUN 13 (6-20) mg/dL Creatinine 1.0 (0.7-1.2) mg/dL GFR Calculation 79.4 L (90-130) mL/min Glucose 293 H (65-115) mg/dL Calculated Osmolal ity 283 L (285-295) mOsm/k g Calcium 9.2 (8.5-10.5) mg/dL Total Bilirubin 0.3 (0.15-1.2) mg/dL AST 24 (0-40) U/L ALT 15 (0-41) U/L Alkaline Phosphata se 58 (40-130) IU/L Troponin T Baselin e 16 H (0-15) ng/L Troponin T 120 Min [place] (0-15) ng/L Delta Troponin T (0-10) ABS# Total Protein 7.4 (6.6-8.7) g/dL Albumin 4.5 (3.5-5.2) g/dL Globulin 2.9 (1.3-4.6) g/dL 03/08/20 Range/Units 01:10 WBC (4.0-10.0) 10^3/ uL RBC (4.1-5.3) 10^6/u L Hgb (11.7-16.6) g/dL Hct (42.0-52.0) % MCV (80-94) fL MCH (28.0-34.0) pg MCHC (30.0-36.0) g/dL RDW (12.1-15.1) % Plt Count (130-400) 10^3/c mm MPV (7.4-10.4) fL Neut % (Auto) % Lymph % (Auto) % [place] % (Auto) % Eos % (Auto) % Baso % (Auto) % Neut # (Auto) (1.8-7.7) 10^3/u L Lymph # (Auto) (0.8-4.8) 10^3/u L [place] # (Auto) (0.2-0.9) 10^3/u L Eos # (Auto) (0.0-0.8) 10^3/u L Baso # (Auto) (0.0-0.1) 10^3/u L Nucleated RBC % (a uto) % Nucleated RBCs # /100WBC Sodium (136-145) mmol/L Potassium (3.5-5.1) mmol/L Chloride (98-107) mmol/L Carbon Dioxide (22-29) mmol/L Anion Gap (5-19) BUN (6-20) mg/dL Creatinine (0.7-1.2) mg/dL GFR Calculation (90-130) mL/min Glucose (65-115) mg/dL Calculated Osmolal ity (285-295) mOsm/k g Calcium (8.5-10.5) mg/dL Total Bilirubin (0.15-1.2) mg/dL AST (0-40) U/L ALT (0-41) U/L Alkaline Phosphata se (40-130) IU/L Troponin T Baselin e (0-15) ng/L Troponin T 120 Min [place] 18.45 H (0-15) ng/L Delta Troponin T 2.45 (0-10) ABS# Total Protein (6.6-8.7) g/dL Albumin (3.5-5.2) g/dL Globulin (1.3-4.6) g/dL Imaging Data^: CXR: Attestation: I personally reviewed and interpreted this imaging study as follows: My impression: no acute abnormality EKG Data^: EKG 1: Attestation: I personally reviewed and interpreted this EKG as follows: EKG interpretation date: 03/07/20 EKG interpretation time: 23:26 Interpretation: nsr hr [address] elevation lbbb unchanged from previous ekg qrs 169 qtc 456 Discharge Plan Discharge Patient Disposition: Home, Self-Care Clinical Impression: Chest pain Qualifiers: Chest pain type: unspecified Qualified Code(s): R07.9 - Chest pain, unspecified Condition: Stable Prescriptions: No Action ranolazine 500 mg tablet extended release 12 hr 500 mg PO BID 90 Days Qty: 180 RF: 3 Brilinta 90 mg tablet 90 mg PO BID Qty: 180 RF: 3 furosemide [Lasix] 40 mg tablet 40 mg PO DAILY Qty: 30 RF: 4 benzonatate 200 mg Capsule 200 mg PO BEDTIME RF: 0 doxepin 75 mg Capsule 75 mg PO BEDTIME RF: 0 acetaminophen [Tylenol Extra Strength] 500 mg Tablet 1,000 mg PO Q4H PRN (Reason: Pain) RF: 0 albuterol sulfate [Ventolin HFA] 90 mcg/actuation Hfa Aerosol Inhaler 2 puff INHALATION Q4H PRN (Reason: Shortness Of Breath) RF: 0 Janumet 50-500 mg Tablet 1 tab PO BID RF: 0 isosorbide mononitrate 30 mg tablet extended release 24 hr 60 mg PO BID PRN (Reason: Chest Pain) RF: 0 carvedilol 6.25 mg Tablet 6.25 mg PO BID RF: 0 alprazolam [Xanax] 0.5 mg tablet 0.5 mg PO BID PRN (Reason: Anxiety) RF: 0 hydrocodone-acetaminophen 10-325 mg Tablet 1 tab PO TID PRN (Reason: Pain) RF: 0 aspirin 81 mg tablet,delayed release (DR/EC) 81 mg PO DAILY RF: 0 glimepiride 4 mg Tablet 4 mg PO DAILY RF: 0 zolpidem [Ambien] 10 mg Tablet 10 mg PO BEDTIME RF: 0 hydroxyzine HCl 50 mg Tablet 50 mg PO TID PRN (Reason: Anxiety) RF: 0 lisinopril 20 mg Tablet 10 mg PO DAILY RF: 0 pantoprazole 40 mg Tablet,Delayed Release (Dr/Ec) 40 mg PO DAILY RF: 0 Spiriva with HandiHaler 18 mcg Capsule, W/Inhalation Device 1 cap INHALATION DAILY RF: 0 Symbicort 160-4.5 mcg/actuation Hfa Aerosol Inhaler 2 puff INHALATION BID RF: 0 potassium chloride 20 mEq tablet extended release 20 meq PO DAILY Qty: 30 RF: 4 nitroglycerin 400 mcg/spray spray,non-aerosol 0.4 mg SUBLINGUAL Q5M PRN (Reason: chest pain) Qty: 4.9 RF: 3 Discharge Orders: Discharge Order (Routine); Ordered 03/08/20 Ordered By: David Contreras Referrals: Phillip Gill MD [Primary Care Provider] - 1-3 days Discharge Diet: Advance as tolerated Discharge Activity: Resume usual activity Patient Instructions: Chest Pain (ED) Coding Level of Care Code ED Slat Twister for Chg Fwd Exam Comprehensive
[2020-03-07 23:58] LABS: Alanine Aminotransferase 15 U/L (0-41); Albumin Level 4.5 g/dL (3.5-5.2); Alkaline Phosphatase 58 IU/L (40-130); Anion Gap 14.7 (5-19); Aspartate Amino Transferase 24 U/L (0-40); Blood Urea Nitrogen 13 mg/dL (6-20); Calcium 9.2 mg/dL (8.5-10.5); Carbon Dioxide 24 mmol/L (22-29); Chloride 98 mmol/L (98-107); Globulin 2.9 g/dL (1.3-4.6); Glomerular Filtration Rate 79.4 mL/min (90-130); Glucose 293 mg/dL (65-115); Osmolality Calculated 283 mOsm/kg (285-295); Potassium 3.7 mmol/L (3.5-5.1); Sodium 133 mmol/L (136-145); Total Bilirubin 0.3 mg/dL (0.15-1.2); Total Protein 7.4 g/dL (6.6-8.7)
[2020-03-07 23:59] LABS: Troponin(5th) Baseline 16 ng/L (0-15)
[2020-03-08] VITALS (7 sets, daily range): BP systolic 117–136; BP diastolic 64–78; PULSE 70–84; RESP 14–16; O2SAT 95–98
[2020-03-08] MEDS: morphine 4 mg/mL SDV 1 mL IVP ×2 (00:22)
[2020-03-08 01:43] LABS: Troponin 5 2HR 18.45 ng/L (0-15); Troponin 5 2HR Delta 2.45 ABS# (0-10)
[2020-03-08] MEDS: nitroglycerin 0.4 mg sublingual Tablet SUBLINGUAL (01:52)
[2020-03-08] MEDS: HYDROmorphone 1 mg/mL INJ 1 mL 0.5 MG IVP (02:09)
== END 2020-03-08 02:43 | disposition home or self-care (01) ==
PROVIDERS: Emergency Provider Emergency Medicine; PCP Family Medicine
DX: R07.9 Chest pain, unspecified (principal); Z79.82 Long term (current) use of aspirin; I50.9 Heart failure, unspecified; E11.9 Type 2 diabetes mellitus without complications; E78.5 Hyperlipidemia, unspecified; F17.210 Nicotine dependence, cigarettes, uncomplicated
CPT/HCPCS: 12345; 71045; 80053; 84484; 85025; 96374; 96375; 99282; 99284; J1170; J2270

== ENCOUNTER 2020-03-17 20:28 | Observation (INO) | payer MEDICAID, SELFPAY ==
[2020-03-17] VITALS (12 sets, daily range): BP systolic 149–186; BP diastolic 93–123; PULSE 92–113; RESP 18–24; TEMP 36–37.4; O2SAT 96–100; BMI 29.8
--- NOTE | 2020-03-17 20:32 | ECG_ITS ---
[facility] ED Test Date: 2020-03-17 Pat Name: Magen Riddle Department: Room: Gender: Male Diffusion Operator: DANTE : 1970 Requested By: David Contreras Order Number: [id number] Darnell MD: Theresa Berry M.D. Measurements Intervals [place] Rate: 81 P: 61 ND: 164 QRS: 22 QRSD: 166 T: 207 QT: 437 QTc: 509 Interpretive Statements SINUS RHYTHM WITH FREQUENT VENTRICULAR PREMATURE COMPLEXES POSSIBLE LEFT ATRIAL ENLARGEMENT [-0.1mV P WAVE IN V1/V2] LEFT BUNDLE BRANCH BLOCK [120+ ms QRS DURATION, 80+ ms Q/S IN V1/V2, 85+ ms R IN I/aVL/V5/V6] Compared to ECG 12/05/2019 22:23:45 Ventricular premature complex(es) now present Electronically Signed On 03-18-2020 19:15:21 CDT by Theresa Berry M.D. [id number]
--- NOTE | 2020-03-17 20:32 | XR_ITS ---
WS: [id number] XR chest 1V portable [id number] REASON FOR EXAM: cp FINDINGS: Borderline cardiomegaly is noted similar to previous exam of March 07, 2020. The lung james are well aerated. No pneumonia, pleural effusion, pulmonary edema, or pneumothorax. The hilum is and apices normal. No osseous abnormalities. XR/XR chest 1V portable [id number] IMPRESSION: Borderline cardiomegaly.
--- NOTE | 2020-03-17 20:36 | ED_ITS ---
HPI - Chest Pain General: Chief Complaint: Chest Pain Stated Complaint: CP X 4 HRS Time Seen by Provider: 03/17/20 20:32 Source: patient Mode of arrival: ambulatory Limitations: no limitations History of Present Illness: HPI narrative: 49-year-old male who states he has had a sharp chest pain in the center of his chest starting 4 hours ago. He states it is been constant in nature and rates it an 8 out of 10. He denies any nausea or diaphoresis. Patient states nitro did not help with the pain. He states it is worse with palpation and movement of his arm. complaint: chest pain Onset (ago): hour(s) Timing of current episode: constant Prior episodes: No Pain location: substernal Pain radiation: none Severity: moderate Quality: sharp Associated symptoms: Deny abdominal pain, dyspnea, fever(s), nausea or vomiting Review of Systems Const: Denies: fever(s), chills, body aches or change in appetite Eyes: Denies: blurry vision or eye discomfort ENMT: Denies: throat pain or dental pain Card: Reports: chest pain Resp: Denies: dyspnea GI: Denies: abdominal pain, nausea, vomiting or diarrhea : Denies: dysuria Musc: Denies: neck pain or back pain Skin/Breast: Denies: rash Neuro: Denies: headache(s) Psych: Denies: depression Thai/Lymph: Denies: easy bruising All/Imm: Denies: urticaria PFSH ED PFSH: Medical History Cardiac catheterization as the cause of abnormal reaction of the patient, or of later complication, without mention of misadventure at the time of the procedure Cardiomyopathy Congestive heart failure Coronary artery spasm Diabetes mellitus Dyslipidemia Left bundle branch block Tobacco abuse Surgical History Hx of heart artery stent Stents to LAD, RCA (Aug 2019) and circumflex (2019), angioplasty of the obtuse marginal Family History Father Myocardial infarction Mother CAD (coronary artery disease) Brother Valvular heart disease Social History Smoking and tobacco status: current every day smoker cigarettes [ Other cigarette details: Says cutting down but has not quit completely ] Alcohol intake: never Substance/Drug Use: never Household members: significant other Marital status: Legally Physical Exam Const: COMMON NORMALS: no acute distress, patient oriented x3 and healthy appearing HENMT: COMMON NORMALS: normocephalic and atraumatic HEAD & SCALP: normocephalic and atraumatic Eye: COMMON NORMALS: Equal, round and reactive pupils present and EOMs intact bilaterally PUPIL: Yes Equal, round and reactive pupils present Neck/C-Spine: COMMON NORMALS: full ROM and supple Chest: COMMONS NORMALS: normal inspection of the chest OTHER: Point tenderness over left chest Resp: COMMON NORMALS: normal respiratory effort, No retractions, No use of accessory muscles and clear to auscultation bilaterally AUSCULTATION: clear to auscultation bilaterally Cardio: COMMON NORMALS: regular rate, regular rhythm and No murmurs present (Cardio) RATE: regular rate RHYTHM: regular rhythm GI: COMMON NORMALS: Normal to inspection, nondistended, normoactive bowel sounds present, Soft to palpation, non-tender and no masses PALPATION: Yes Soft to palpation Extremity: COMMON NORMALS: normal to inspection and full ROM Neuro: COMMON NORMALS: patient oriented x3, moves all extremities and no focal motor deficits Psych: COMMON NORMALS: mental status grossly normal, Normal thought process present and cooperative THOUGHT PROCESS: Normal thought process present Skin: COMMON NORMALS: no rashes or lesions noted and no wounds GENERAL SKIN EXAM: no rashes or lesions noted Course Vital Signs: Vital signs: Vital Signs Temperature 98.0 F 03/18/20 08:00 Pulse Rate 80 03/18/20 08:42 Respiratory Rate 18 03/18/20 08:42 Blood Pressure 129/91 03/18/20 08:00 Pulse Oximetry 95 03/18/20 08:42 MDM - Chest Pain MDM Narrative: Medical decision making narrative: Patient presents with chest pain. Patient's troponin slightly elevated spoke to hospitalist will admit. Patient EKG shows no acute findings. Patient has no signs of pulmonary embolism. Lab Data: Labs: Lab Results 03/17/20 03/17/20 03/17/20 Range/Units 20:42 20:42 20:42 WBC 12.4 H (4.0-10.0) 10^3/ uL RBC 5.12 (4.1-5.3) 10^6/u L Hgb 14.8 (11.7-16.6) g/dL Hct 44.0 (42.0-52.0) % MCV 85.9 (80-94) fL MCH 28.9 (28.0-34.0) pg MCHC 33.6 (30.0-36.0) g/dL RDW 13.9 (12.1-15.1) % Plt Count 342 (130-400) 10^3/c mm MPV 8.9 (7.4-10.4) fL Neut % (Auto) 47.5 % Lymph % (Auto) 40.8 % [place] % (Auto) 9.5 % Eos % (Auto) 1.6 % Baso % (Auto) 0.3 % Neut # (Auto) 5.9 (1.8-7.7) 10^3/u L Lymph # (Auto) 5.1 H (0.8-4.8) 10^3/u L [place] # (Auto) 1.2 H (0.2-0.9) 10^3/u L Eos # (Auto) 0.2 (0.0-0.8) 10^3/u L Baso # (Auto) 0.0 (0.0-0.1) 10^3/u L Nucleated RBC % (a uto) 0 % Nucleated RBCs # 0.0 /100WBC Sodium 136 (136-145) mmol/L Potassium 3.9 (3.5-5.1) mmol/L Chloride 96 L (98-107) mmol/L Carbon Dioxide 24 (22-29) mmol/L Anion Gap 19.9 H (5-19) BUN 15 (6-20) mg/dL Creatinine 1.0 (0.7-1.2) mg/dL GFR Calculation 79.4 L (90-130) mL/min Glucose 242 H (65-115) mg/dL Estimat Average Gl ucose Hemoglobin A1c (4.0-6.0) % Calculated Osmolal ity 286 (285-295) mOsm/k g Calcium 10.0 (8.5-10.5) mg/dL Total Bilirubin 0.4 (0.15-1.2) mg/dL AST 17 (0-40) U/L ALT 11 (0-41) U/L Alkaline Phosphata se 64 (40-130) IU/L Troponin T Baselin e 54 H (0-15) ng/L Total Protein 7.3 (6.6-8.7) g/dL Albumin 4.6 (3.5-5.2) g/dL Globulin 2.7 (1.3-4.6) g/dL 03/17/20 Range/Units 20:42 WBC (4.0-10.0) 10^3/ uL RBC (4.1-5.3) 10^6/u L Hgb (11.7-16.6) g/dL Hct (42.0-52.0) % MCV (80-94) fL MCH (28.0-34.0) pg MCHC (30.0-36.0) g/dL RDW (12.1-15.1) % Plt Count (130-400) 10^3/c mm MPV (7.4-10.4) fL Neut % (Auto) % Lymph % (Auto) % [place] % (Auto) % Eos % (Auto) % Baso % (Auto) % Neut # (Auto) (1.8-7.7) 10^3/u L Lymph # (Auto) (0.8-4.8) 10^3/u L [place] # (Auto) (0.2-0.9) 10^3/u L Eos # (Auto) (0.0-0.8) 10^3/u L Baso # (Auto) (0.0-0.1) 10^3/u L Nucleated RBC % (a uto) % Nucleated RBCs # /100WBC Sodium (136-145) mmol/L Potassium (3.5-5.1) mmol/L Chloride (98-107) mmol/L Carbon Dioxide (22-29) mmol/L Anion Gap (5-19) BUN (6-20) mg/dL Creatinine (0.7-1.2) mg/dL GFR Calculation (90-130) mL/min Glucose (65-115) mg/dL Estimat Average Gl ucose 157 Hemoglobin A1c 7.1 H (4.0-6.0) % Calculated Osmolal ity (285-295) mOsm/k g Calcium (8.5-10.5) mg/dL Total Bilirubin (0.15-1.2) mg/dL AST (0-40) U/L ALT (0-41) U/L Alkaline Phosphata se (40-130) IU/L Troponin T Baselin e (0-15) ng/L Total Protein (6.6-8.7) g/dL Albumin (3.5-5.2) g/dL Globulin (1.3-4.6) g/dL Imaging Data^: CXR: Attestation: I personally reviewed and interpreted this imaging study as follows: My impression: no acute abnormality EKG Data^: EKG 1: Attestation: I personally reviewed and interpreted this EKG as follows: EKG interpretation date: 03/17/20 EKG interpretation time: 20:40 Interpretation: sinus tach hr 109 lbbb unchanged from previous qrs 170 [id number] EKG 2: Attestation: I personally reviewed and interpreted this EKG as follows: EKG interpretation date: 03/17/20 EKG interpretation time: 22:24 Interpretation: sinus tach hr 100 lbbb unchanged from previous qrs 170 qtc 445 Discharge Plan Discharge Patient Disposition: Admitted As Inpatient Admit Provider: Pascual Senior Clinical Impression: Chest pain Qualifiers: Chest pain type: unspecified Qualified Code(s): R07.9 - Chest pain, unspecified Condition: Stable Referrals: Phillip Gill MD [Primary Care Provider] - Discharge Date/Time: 03/17/20 23:07 Coding Level of Care Code ED Information Services Manager for Chg Fwd Exam Comprehensive
[2020-03-17] MEDS: ondansetron 2 mg/ML SDV 2 mL 4 MG IVP (20:46)
[2020-03-17] MEDS: morphine 4 mg/mL SDV 1 mL IVP (20:46)
[2020-03-17] MEDS: nitroglycerin 0.4 mg sublingual Tablet SUBLINGUAL (21:07)
[2020-03-17] MEDS: metoclopramide 5 mg/mL SDV 2 mL 10 MG IVP (21:08)
[2020-03-17] MEDS: diphenhydrAMINE 50 mg/mL SDV 1mL IVP (21:08)
[2020-03-17 21:11] LABS: Basophils % 0.3 %; Eosinophils # 0.2 10^3/uL (0.0-0.8); Eosinophils % 1.6 %; Hemoglobin 14.8 g/dL (11.7-16.6); Lymphocytes # 5.1 10^3/uL (0.8-4.8); Lymphocytes % 40.8 %; Mean Corpuscular HGB Conc 33.6 g/dL (30.0-36.0); Mean Corpuscular Hemoglobin 28.9 pg (28.0-34.0); Mean Corpuscular Volume 85.9 fL (80-94); Mean Platelet Volume 8.9 fL (7.4-10.4); Monocytes # 1.2 10^3/uL (0.2-0.9); Monocytes % 9.5 %; Neutrophils # 5.9 10^3/uL (1.8-7.7); Neutrophils % 47.5 %; Nucleated Red Blood Cells % 0 %; Platelet Count 342 10^3/cmm (130-400); Red Blood Count 5.12 10^6/uL (4.1-5.3); Red Cell Distribution Width 13.9 % (12.1-15.1); White Blood Count 12.4 10^3/uL (4.0-10.0)
[2020-03-17 21:22] LABS: Alanine Aminotransferase 11 U/L (0-41); Albumin Level 4.6 g/dL (3.5-5.2); Alkaline Phosphatase 64 IU/L (40-130); Anion Gap 19.9 (5-19); Aspartate Amino Transferase 17 U/L (0-40); Blood Urea Nitrogen 15 mg/dL (6-20); Carbon Dioxide 24 mmol/L (22-29); Chloride 96 mmol/L (98-107); Globulin 2.7 g/dL (1.3-4.6); Glomerular Filtration Rate 79.4 mL/min (90-130); Glucose 242 mg/dL (65-115); Osmolality Calculated 286 mOsm/kg (285-295); Potassium 3.9 mmol/L (3.5-5.1); Sodium 136 mmol/L (136-145); Total Bilirubin 0.4 mg/dL (0.15-1.2); Total Protein 7.3 g/dL (6.6-8.7)
[2020-03-17 21:25] LABS: Troponin(5th) Baseline 54 ng/L (0-15)
--- NOTE | 2020-03-17 21:33 | PC.NURSE ---
AT BEDSIDE, ALL MEDS IN, APPEARS TO BE MORE CALM
--- NOTE | 2020-03-17 21:46 | PC.NURSE ---
Repeat EKG done at 2144 and shown to ER doctor
[2020-03-17] MEDS: LORazepam 2 mg/mL INJ 1 mL 1 MG IVP (21:59)
[2020-03-17] MEDS: HYDROmorphone 1 mg/mL INJ 1 mL 0.5 MG IVP (21:59)
--- NOTE | 2020-03-17 22:31 | PC.NURSE ---
EKG done at 2225 and shown to ER doctor
--- NOTE | 2020-03-17 22:32 | ECG_ITS ---
[facility] ED Test Date: 2020-03-17 Pat Name: Magen Riddle Department: Room: 103 Gender: Male Tie Man: HERBIE: 1970 Requested By: David Contreras Order Number: [id number] Darnell MD: Theresa Berry M.D. Measurements Intervals [place] Rate: 100 P: 62 MA: 173 QRS: 23 QRSD: 170 T: 202 QT: 388 QTc: 502 Interpretive Statements SINUS TACHYCARDIA LEFT BUNDLE BRANCH BLOCK [120+ ms QRS DURATION, 80+ ms Q/S IN V1/V2, 85+ ms R IN I/aVL/V5/V6] Compared to ECG 03/17/2020 21:44:01 Sinus rhythm no longer present Ventricular premature complex(es) no longer present Electronically Signed On 03-18-2020 19:28:41 CDT by Theresa Berry M.D. [id number]
[2020-03-17] MEDS: HYDROmorphone 1 mg/mL INJ 1 mL IVP (22:43)
--- NOTE | 2020-03-17 23:08 | PM.HP ---
Providers/Chief Complaint Admitting Physician: Pascual Senior Primary Care Provider: Phillip Gill MD Chief Complaint: CP X 4 HRS History of Present Illness Magen Riddle SR is a 49 year old gentleman with CAD who returns with chest pain, L sided, sharp, radiating to the left axilla, and then towards the back from there. He reports he has had multiple episodes today with pain coming and going, starting around 4 PM. Yesterday he saw his supply person Dr. Paulson in office, telling him about recurrent chest pain symptoms. Per discussion reportedly the thought is that it may be microvascular disease responsible for the symptoms given recent coronary angiogram. On assessment in ER noted with old left bundle branch block on EKG, but troponin is somewhat higher than usual on initial testing at 54. His symptoms currently have eased up somewhat with Dilaudid in ER. Due to recurrence of symptoms, as well as troponin abnormality he is placed in observation. Review of Systems Const: Denies: fever(s), chills, body aches or malaise Eyes: Denies: change in vision or eye redness ENMT: Denies: throat pain, oral sores or ear or mastoid pain Card: Reports: chest pain; Denies: edema, pre-syncope or dyspnea on exertion Resp: Denies: dyspnea, productive cough, change in phlegm color or hemoptysis GI: Denies: abdominal pain, nausea, vomiting, diarrhea, constipation, hematochezia or melena : Denies: flank pain, difficulty urinating, urinary frequency or hematuria Musc: Denies: back pain, joint swelling or joint redness Skin/Breast: Denies: rash, sores or new lesions Neuro: Denies: headache(s), numbness in extremities, weakness in extremities, dizziness, confusion or seizure-like activity Endo: Denies: polyuria or polydipsia Thai/Lymph: Denies: easy bleeding or purpura All/Imm: Denies: urticaria, throat swelling or tongue swelling Medications/Allergies Home Medications Medication Instructions Recorded Confirmed Last Taken Type Spiriva with HandiHaler 1 cap INHALATION DAILY 10/13/19 03/17/20 03/17/20 History alprazolam [Xanax] 0.5 mg PO BID PRN 10/13/19 03/17/20 03/17/20 History aspirin 81 mg PO DAILY 10/13/19 03/17/20 03/16/20 History budesonide-formoterol [Symbicort] 2 puff INHALATION BID 10/13/19 03/17/20 03/17/20 History glimepiride 4 mg PO DAILY 10/13/19 03/17/20 03/16/20 History hydrocodone-acetaminophen 1 tab PO TID PRN 10/13/19 03/17/20 03/17/20 History hydroxyzine HCl 50 mg PO TID PRN 10/13/19 03/17/20 03/16/20 History lisinopril 10 mg PO DAILY 10/13/19 03/17/20 03/16/20 History pantoprazole 40 mg PO DAILY 10/13/19 03/17/20 03/16/20 History zolpidem [Ambien] 10 mg PO BEDTIME 10/13/19 03/17/20 03/16/20 History potassium chloride 20 meq PO DAILY #30 tab 10/14/19 03/17/20 Unknown Rx Janumet 1 tab PO BID 11/14/19 03/17/20 03/16/20 History acetaminophen [Tylenol Extra 1,000 mg PO Q4H PRN 11/14/19 03/17/20 03/17/20 History Strength] doxepin 75 mg PO BEDTIME 11/14/19 03/17/20 03/16/20 History isosorbide mononitrate 60 mg PO BID PRN 11/14/19 03/17/20 03/17/20 History carvedilol 12.5 mg PO BID 12/05/19 03/17/20 03/16/20 History ticagrelor 90 mg tablet 90 mg PO BID #180 tab 01/22/20 03/17/20 03/17/20 Rx furosemide 40 mg tablet 40 mg PO DAILY #30 tab 03/03/20 03/17/20 Unknown Rx nitroglycerin 0.4 mg sublingual 0.4 mg SUBLINGUAL Q5M PRN 90 Days 03/16/20 03/17/20 03/17/20 Rx tablet #25 tab budesonide-formoterol [Symbicort] 2 puff INHALATION BID 03/17/20 03/17/20 03/17/20 History nitroglycerin See Rx Instructions .ROUTE .COMPLEX 03/17/20 03/17/20 03/17/20 History ranolazine 1,000 mg PO BID 03/17/20 03/17/20 03/17/20 History Allergies Allergy/AdvReac Type Severity Reaction Status Date / Time cefdinir Allergy ALGY-Rash Verified 03/17/20 21:13 doxycycline Allergy ADR-Nausea Verified 03/17/20 21:13 PFSH Acute PFSH: Medical History Cardiac catheterization as the cause of abnormal reaction of the patient, or of later complication, without mention of misadventure at the time of the procedure Cardiomyopathy Congestive heart failure Coronary artery spasm Diabetes mellitus Dyslipidemia Left bundle branch block Tobacco abuse Surgical History Hx of heart artery stent Stents to LAD, RCA (Aug 2019) and circumflex (2019), angioplasty of the obtuse marginal Family History Father Myocardial infarction Mother CAD (coronary artery disease) Brother Valvular heart disease Social History Smoking and tobacco status: current every day smoker cigarettes [ Other cigarette details: Says cutting down but has not quit completely ] Alcohol intake: never Substance/Drug Use: never Household members: significant other Marital status: Legally Vitals/I&O/Wt Last Vital Signs Temp 98.8 F 03/17/20 23:02 Pulse 105 H 03/17/20 23:02 Resp 18 03/17/20 23:02 BP 149/93 03/17/20 23:02 Pulse Ox 97 03/17/20 23:02 Weight last 48 hrs Weight 99.79 kg Physical Exam Const: COMMON NORMALS: no acute distress and patient oriented x3 HENMT: COMMON NORMALS: oropharynx normal Neck/C-Spine: COMMON NORMALS: no JVD Resp: COMMON NORMALS: normal respiratory effort and clear to auscultation bilaterally AUSCULTATION: clear to auscultation bilaterally Cardio: COMMON NORMALS: no JVD, regular rhythm, S1 normal heart sound present, S2 normal heart sound present and No murmurs present (Cardio) RHYTHM: regular rhythm HEART SOUNDS: S1 normal heart sound present and S2 normal heart sound present GI: COMMON NORMALS: Normal to inspection, nondistended, normoactive bowel sounds present, Soft to palpation and non-tender PALPATION: Yes Soft to palpation Extremity: COMMON NORMALS: no joint enlargement and no pedal edema Neuro: COMMON NORMALS: patient oriented x3 and moves all extremities Skin: COMMON NORMALS: no rashes or lesions noted GENERAL SKIN EXAM: no rashes or lesions noted Data : 03/17/20 20:42 03/17/20 20:42 A&P Assessment and plan (1) Chest pain: With known coronary disease, with multiple stents, most recently in November at the bifurcation of left circumflex and OM1. Also has known LAD and RCA disease. He had seen his supply person yesterday, and reportedly the concern is for microvascular disease. At the same time he does have troponin ovation today up to 54 which is higher than usual. Recurrent episodes of pain today. Due to this we will go ahead and place him in observation, complete troponin EKG series. Depending on his results, symptoms, may need additional evaluation by cardiology tomorrow. He had a recent angiogram, although on discussion with him reports also that this was the case in the past when after a recent angiogram was reassessed again with restenosis noted within about 2 weeks after prior 1. For now we will continue his cardiac medications. He is feeling somewhat better after Dilaudid in ER. Status: Acute Qualifiers: Chest pain type: unspecified Qualified Code(s): R07.9 - Chest pain, unspecified (2) Troponin level elevated: Up to 54. Complete troponin EKG series. As above. Status: Acute Additional A&P Information CAD: Concern is for possible microvascular disease, and discussed with him need for close monitoring and optimization of his risk factors. First and foremost he needs to stop smoking. Discussed cessation with him. He understands, and has been trying. Discussed also needs optimization of his diabetes control and hypertension control. Will check A1c. Smoking addiction: Discussed smoking cessation for 3.5 minutes. Encouraged he stop, which he understands. He states that he has been cutting down, but has not quit completely yet. He is agreeable for nicotine replacement with gum as needed in the hospital. He declines nicotine patches due to prior intolerance. Other medical problems. Attestations Medical Necessity Statement*: Place in observation. Coding Level of Care Code Acute International Exchange Coordinator for katlyn Ceballos Diagnoses Chest pain R07.9 Chest pain type: unspecified Troponin level elevated R79.89
[2020-03-18] VITALS (102 sets, daily range): BP systolic 101–170; BP diastolic 59–106; PULSE 67–100; RESP 1–26; TEMP 36.4–36.8; O2SAT 94–98
[2020-03-18] MEDS: ALPRAZolam 0.5 mg Tablet PO (00:04)
[2020-03-18] MEDS: HYDROcodone-acetaminophen 10-325 mg Tablet 1 TAB PO ×3 (00:04→17:03)
[2020-03-18] MEDS: ranolazine (12HR) 500 mg Tablet 1000 MG PO ×3 (00:05→17:04)
[2020-03-18] MEDS: atorvastatin 40 mg Tablet PO (00:06)
[2020-03-18] MEDS: ticagrelor 90 mg Tablet PO ×3 (00:06→17:55)
[2020-03-18] MEDS: heparin 5,000 unit/mL INJ 1 mL 5000 UNIT SUBCUT (00:09)
--- NOTE | 2020-03-18 00:18 | PC.NURSE ---
2310: Pt arrived to floor from ER. Reports midsternal chest pain 04/10 (03/11 at departure from ER after x2 administrations of dilaudid, see MAR) Dr. Senior notified and stated to try percy and corinna. No additional orders. Pt appears to be resting comfortably in bed. Refuses gown at this time. Monitoring chest pain closely.
[2020-03-18] MEDS: nitroglycerin drip 50 MG/250 ML PREMIX IV (01:10)
[2020-03-18] MEDS: enoxaparin 100 mg/mL Syringe SUBCUT (01:16)
[2020-03-18 02:27] LABS: Basophils # 0.1 10^3/uL (0.0-0.1); Basophils % 0.4 %; Eosinophils # 0.2 10^3/uL (0.0-0.8); Eosinophils % 1.3 %; Hematocrit 42.1 % (42.0-52.0); Hemoglobin 14.3 g/dL (11.7-16.6); Lymphocytes # 4.2 10^3/uL (0.8-4.8); Lymphocytes % 37.2 %; Mean Corpuscular Hemoglobin 29.5 pg (28.0-34.0); Mean Corpuscular Volume 86.8 fL (80-94); Mean Platelet Volume 8.8 fL (7.4-10.4); Monocytes % 8.9 %; Neutrophils # 5.8 10^3/uL (1.8-7.7); Neutrophils % 51.8 %; Nucleated Red Blood Cells % 0 %; Platelet Count 280 10^3/cmm (130-400); Red Blood Count 4.85 10^6/uL (4.1-5.3); White Blood Count 11.2 10^3/uL (4.0-10.0)
--- NOTE | 2020-03-18 02:32 | ECG_ITS ---
[facility] Test Date: 2020-03-18 Pat Name: Magen Riddle Department: Room: 103 Gender: Male Certified Ophthalmic Medical Technician: Latia STONER: 1970 Requested By: David Contreras Order Number: [id number] Darnell MD: Theresa Berry M.D. Measurements Intervals [place] Rate: 88 P: 63 WI: 190 QRS: 51 QRSD: 161 T: 232 QT: 426 QTc: 517 Interpretive Statements SINUS RHYTHM WITH FREQUENT VENTRICULAR PREMATURE COMPLEXES LEFT BUNDLE BRANCH BLOCK [120+ ms QRS DURATION, 80+ ms Q/S IN V1/V2, 85+ ms R IN I/aVL/V5/V6] Compared to ECG 03/17/2020 22:24:04 Ventricular premature complex(es) now present Sinus tachycardia no longer present Electronically Signed On 03-18-2020 19:29:49 CDT by Theresa Berry M.D. [id number]
[2020-03-18 02:50] LABS: Anion Gap 16.2 (5-19); Blood Urea Nitrogen 14 mg/dL (6-20); Calcium 9.5 mg/dL (8.5-10.5); Carbon Dioxide 25 mmol/L (22-29); Chloride 101 mmol/L (98-107); Glomerular Filtration Rate 79.4 mL/min (90-130); Glucose 164 mg/dL (65-115); Osmolality Calculated 286 mOsm/kg (285-295); Potassium 4.2 mmol/L (3.5-5.1); Sodium 138 mmol/L (136-145)
[2020-03-18 03:00] LABS: Troponin 5 6HR 323.1 ng/L (0-15); Troponin 5 6HR Delta 269.1 ng/L (0-12)
--- NOTE | 2020-03-18 03:11 | PC.NURSE ---
Troponin continues to elevate (6 hr trop: 323.1) Dr. Senior notifed x2 and states will have Dr. Paulson see the patient. (See critical lab flowsheet for more details). Nitro gtt infusing, see MAR. Pt denies current chest pain. Resting comfortably in bed. No further needs or orders at this time.
--- NOTE | 2020-03-18 05:15 | PC.NURSE ---
Nitro gtt continues. Remains pain free at this time. Resting in bed.
[2020-03-18 06:39] LABS: Glucose Point of Care 165 mg/dL (70-110)
[2020-03-18] MEDS: carvedilol 12.5 mg Tablet PO ×2 (08:02→17:04)
[2020-03-18] MEDS: pantoprazole DR 40 mg Tablet PO (08:02)
[2020-03-18] MEDS: lisinopril 10 mg Tablet PO (08:03)
--- NOTE | 2020-03-18 09:23 | PC.CHAP ---
Pastoral Care Encounter/Spiritual Assessment Type of Contact [] Declined preparer samples and repairs visit [] Patient/Family/Request visit [] Outpatient visit [] Follow-up visit [] Physician referral [] Code/Alert [x] Routine visit [] Staff referral [] Actively dying [] Patient sleeping [] Family support [] [] Out of room [] Palliative care [] [] Receiving care in room [] Pre-surgical visit [] Trauma [] Long length of stay [] ICU visit [] Other: Relational/Emotional Strength [] Patient feels connected with others/family/visitors/staff [] Distress [] Loneliness/isolation [] Abandonment Spirituality of Patient [] Person of Karina [] Attends Shinto of their Karina [] Believes in Prayer [] Reads Bible or Islam materials [] There are Spiritual issues to be addressed Purchasing Analyst Interventions [x] Prayer [] Active listening [] Non-anxious presence [] Spiritual/emotional support [] Crisis/trauma care [] Spiritual counseling [] Bereavement support [] Provided bereavement packet [] Provided Bible/devotional materials [] Provided toy/stuffed animal, coloring book to patient or family member [] Provided Communion [] Anointing/[place] [] Salvation [x] Completed spiritual assessment [] Other: Impact on Illness or Injury [] Angry [] Fearful [] Anxious [] Often cries [] Exhaustion [] Unable to work [] Unable to attend orthodoxy [] Unable to walk/stand [] Unable to read [] Unable to drive [] Unable to eat/drink [] Unable to sleep [] Unable to be with family [] Patient intubated [] Other: Summary Patient not happy with not feeling well. Patient setting on side of bed waiting for doctor. Time spent with patient 10 min
[2020-03-18 09:47] LABS: Estmated Average Glucose 157; Hemoglobin A1C 7.1 % (4.0-6.0)
[2020-03-18] MEDS: aspirin 81 mg EC Tablet PO (09:48)
[2020-03-18 09:49] LABS: Chol HDL Ratio 9.83 mg/dL (1.0-5.00); Cholesterol 226 mg/dL (0-200); HDL Cholesterol 23 mg/dL (60-100); LDL Cholesterol Calculated 142 mg/dL (50-129); NT Pro B Type Natriuretic Pept 369 pg/mL (0-125); Thyroid Stimulating Hormone 1.27 uIU/mL (0.27-4.20); Triglycerides 307 mg/dL (0-150); VLDL Cholestrol Calculation 61 mg/dL (0-30)
--- NOTE | 2020-03-18 09:53 | PC.RESP ---
Smoking Cessation information and a schedule of classes to patient.
--- NOTE | 2020-03-18 10:00 | XACV_ITS ---
Exam Room: 1 Ht: 183 cm Wt: 95 kg BSA: 2.21 m2 Gender: Male : 1970 Any Known Allergies: Other Exam Priority: Routine Procedure(s): Procedure Description: Diagnostic procedure Procedure Description: PCI procedure Procedure Description: Drug Eluting Coronary Stent Procedure Description: PTCA Procedure Description: Coronary Angiography Diagnostic Cath Status: Urgent Diagnostic Findings LM has 0% stenosis. LAD has 0% stenosis. Proximal Circumflex Coronary Artery: Severe 95% stenosis, SYDNEY: 0 flow. Ramus: Mild 40% stenosis, SYDNEY: 3 flow. pRCA: Moderate 50% stenosis, [place]NEY: 3 flow. Mid Right Coronary Artery: Severe 80% stenosis, SYDNEY: 0 flow. Coronary angiography shows right dominance. PCI Status: Urgent PCI Indication: NSTE - ACS Interventional Findings Proximal Circumflex Coronary Artery: 95% stenosis treated with MDT NC EUPHORA RX 2.56S65IS BALLOON and MDT R NICOL 3.0X12 DARREN. 0% residual stenosis, SYDNEY: 3 flow.Two wire technique was used one in OM and other in LCx over LCX wire balloon angioplasty followed by stent deployment performed, jailing OM-1, OM-1 wire was then withdrawn out of the vessel and reintroduce throught the stent strut which was the dilated using 2.0x8mm balloon , excellent angiographic result with SYDNEY-3 flow was achieved. Mid Right Coronary Artery: 80% in stent rtenosis treated with MDT NC EUPHORA RX 3.76H08DN BALLOON. 20% residual stenosis, SYDNEY: 3 flow. Conclusions 1. Left main normal 2. LAD has luminal irregularities with patent previously placed stent in the proximal segment3. LCx is moderate size and caliber large vessel with bifurcating ostial high diagonal branch, 90% hazy eccentric in-stent stenotic lesion at the ostium of circumflex just at the origin and involving high obtuse marginal branch.4. RCA is a moderate size and caliber vessel with proximal 50% long stenosis with severe spasm noted relieved with nitroglycerin, mid 80% in-stent restenosis of RCA.LCx is the culprit vessel which required balloon angioplasty followed by stent placement. In-stent restenosis of RCA was treated with noncompliant balloon. There is severe coronary artery disease with three vessel disease. Proximal Circumflex Coronary Artery was treated with Balloon and Drug Eluting Stent. Mid Right Coronary Artery was treated with Balloon. Recommendations 1-Return to inpatient for close monitoring and routine cath care 2-Risk factor modification for secondary prevention 3-Statin with LDL goal <70 mg/dl, aspirin 81 mg life-long 4-Continue Brillinta 90mg p.o. twice daily for at least one year. We will assess at the end of one year again to continue it further or not 5-Continue optimal medical management 6-Follow up with Dr. Paulson in four weeks and with your PCP in one week . Interventional RX Recommendation: PCI w/o planned CABG Diagnostic RX Recommendation: PCI w/o planned CABG Pressures Phase:Rest AO : 105 mmHg / 63 mmHg ( 79 mmHg ) @ 5:59:00 AM 101 mmHg / 65 mmHg ( 74 mmHg ) @ 6:10:00 AM 107 mmHg / 88 mmHg ( 98 mmHg ) @ 6:37:00 AM 105 mmHg / 74 mmHg ( 89 mmHg ) @ 6:44:00 AM 116 mmHg / 78 mmHg ( 95 mmHg ) @ 6:53:00 AM 109 mmHg / 74 mmHg ( 88 mmHg ) @ 7:00:00 AM Clinical Evaluation EBL: 5mL-10mL Procedural Details Procedure Consent Obtained. Pre-Procedure Time Out. Identified patient by full name and date of as verbalized by the patient/guarantor. Does the consent match the physician's order: Yes. Accurate & Complete Informed Consent: Yes. Inpatient/Outpatient History & Physical on Chart: Yes. If H&P is completed, is and addenduem needed: No. Visualize and Verify Site with Patient/Guarantor: N/A. Relevant Radiology Images available: Yes. The risks, benefits, and alternatives of sedation and/or procedure were discussed by physician. The patient agrees to continue. Procedure started. [facility] Clinical Fraility Score: 3: Managing Well. Phlebotomist Indications: ACS <= 24 hours. Chest Pain Symptom Assessment: Typical Angina Symptoms. Cardiovascular Instability: Yes, if yes, Persistant Ischemic Symptoms. Correct patient, site and procedure confirmed by cath team. PERRLA. Strong, equal hand phlebotomy supervisor bilaterally. Lungs clear x 5 lobes. IV Site on Arrival: 18 gauge in the left anticubital. IV Fluids: 0.9% NaCl at KVO. 0 mL infused prior to construction or leak gang laborer. Pre Procedural Pulses: bilateral dorsalis pedis was Doppled. Pre Procedural Pulses: bilateral posterior tibial was Doppled. Pre Procedural Pulses: bilateral radial was 2+. Oxygen started at 2liters/min via nasal canula. bilateral groins was prepped with chloroprep then draped in the usual sterile fashion. Physician notified. Baseline sample Acquired. HR: 78 BPM. Patient's family unavailable due to current Covid-19 restrictions. Equipment: 6F - Femoral. Cardiac Cath Pack. ACIST Manifold Kit Model BT 2000. Heparinized Saline (2 units/mL), 1000 mL bag. Kit, Micropuncture. RT Nila, Scrubbed in with Reuben Dowling RN, [facility]. Physician arrived. Physician scrubbed in. Immediate Pre-Procedure Time Out. Correct Patient: Yes; Correct Procedure: Yes; Correct Site: Yes; Correct Patient Position: Yes; Correct Supplies: Yes Dried Flammable Prep: Yes; Blood Products Available: N/A. Current diagnosis: NSTEMI. Lidocaine 1% infiltrated to the right groin. Arterial access obtained with micropuncture set. A JJ 6F JL4 100cm Diagnostic Catheter was advanced over the wire and used for Left coronary angiography. Patient stated that he did not wish to update any family or friends during the procedure. Multiple views taken of left coronary artery. Catheter removed over the standard wire. AP Pads placed on the patient prior to start of PCI. A CRD 6F JR4 100cm Diagnostic Catheter was advanced over the wire and used for Right coronary angiography. Inventory Added: Endoflator. Inventory Added: [place] Guidewire x 2. Multiple views taken of right coronary artery. Surgery notified of intervention. Physician review of cine films. PCI Indication: NSTE. 6 icelandic CLS 3.5 guide catheter was inserted over the wire. [place] guidewire was advanced through the guide catheter to lesion in the Ostial Circ. [place] guidewire was advanced through the guide catheter the distal LAD as a brandon wire. Inflation number : 1 A MDT ADILENE EUPHORA RX 2.28X11FN BALLOON was prepped and advanced across the Prox CX , then inflated to 10 JALEEL for 0:20 seconds. Results checked. Balloon out. Inflation Number : 2 A MDT R NICOL 3.0X12 DARREN -Lot Number# [id number] was prepped and advanced across the Prox CX. The stent was deployed at 12 JALEEL for 0:20 seconds. Exp. 10/15/2021. Stent balloon out over wire. LAD [place] wire out. [place] wire redirected from the CX to 1st OM. Inflation number : 1 A AB TREK 2.25X6 RX BALLOON was prepped and advanced across the 1st Ob Stephanie , then inflated to 8 JALEEL for 0:22 seconds. Inflation number: 2 The AB TREK 2.25X6 RX BALLOON was reinflated across the 1st Ob Stephanie, to 8 JALEEL for 0:13 seconds. Inflation number: 3 The AB TREK 2.25X6 RX BALLOON was reinflated across the 1st Ob Stephanie, to 8 JALEEL for 0:12 seconds. Inflation number: 4 The AB TREK 2.25X6 RX BALLOON was reinflated across the 1st Ob Stephanie, to 8 JALEEL for 0:19 seconds. Inflation number: 5 The AB TREK 2.25X6 RX BALLOON was reinflated across the 1st Ob Stephanie, to 10 JALEEL for 0:12 seconds. Inflation number: 6 The AB TREK 2.25X6 RX BALLOON was reinflated across the 1st Ob Stephanie, to 10 JALEEL for 0:16 seconds. Inflation number: 7 The AB TREK 2.25X6 RX BALLOON was reinflated across the 1st Ob Stephanie, to 8 JALEEL for 0:13 seconds. Inflation number: 8 The AB TREK 2.25X6 RX BALLOON was reinflated across the 1st Ob Stephanie, to 8 JALEEL for 0:12 seconds. Inflation number: 9 The AB TREK 2.25X6 RX BALLOON was reinflated across the 1st Ob Stephanie, to 10 JALEEL for 0:[address] [place] wire out[address] Dr. Headley here to consult with Dr. Paulson. [place] wire in. Inflation number : 10 A MDT NC EUPHORA RX 3.73W60AI BALLOON was prepped and advanced across the 1st Ob Stephanie , then inflated to 8 JALEEL for 0:32 seconds. Guide catheter out over the wire. 6 icelandic JR 4 SH guide catheter was inserted over the wire. ACT drawn. Results 209 seconds. Therapeutic limits - pre-heparin administration 90-150 seconds and monitoring heparin during a vascular procedure >250 seconds. [place] guidewire was advanced through the guide catheter to lesion in the mid RCA. Inflation number : 1 A MDT NC EUPHORA RX 3.58E28IF BALLOON was prepped and advanced across the Mid RCA , then inflated to 8 JALEEL for 0:19 seconds. Inflation number: 2 The MDT NC EUPHORA RX 3.11X38XZ BALLOON was reinflated across the Mid RCA, to 14 JALEEL for 0:46 seconds. Inflation number: 3 The MDT NC EUPHORA RX 3.69F90PP BALLOON was reinflated across the Mid RCA, to 14 JALEEL for 0:40 seconds. Inflation number: 4 The MDT NC EUPHORA RX 3.02Z42YF BALLOON was reinflated across the Mid RCA, to 14 JALEEL for 0:20 seconds. Wire out. A Right femoral angiogram was performed to determine safe placement of closure device. Dr. Paulson changed into a fresh pair of sterile gloves prior to Perclose. right groin was prepped with chloroprep prior to Perclose. Lidocaine 1% infiltrated to the right groin prior to Perclose. A Perclose (Br[place]gs) was successful obtaining hemostatsis at the Right Femoral artery insertion site. Perclose placed without complications. No signs or symptoms of hematoma noted. Sterile dressing applied per usual sterile fashion. LOT # [id number]. Exp. 08/01/2020. Post Procedure: Pulses reassessed and unchanged. PERRLA. Strong, equal hand phlebotomy supervisor bilaterally. No VTE prophylaxis required. Medication's Wasted: Nitro = 49.6 mg. Medication's Wasted: Heparin = 2000 units. Total IV fluids: 300 mL. Post-op diagnosis: . Complications: none. Estimated blood loss: 5mL-10mL. Current Diagnosis : NSTEMI. Procedure completed. Patient transferred by bed to 1st floor. Vital chart was stopped. Site: Right Femoral artery Sheath Size: 6 Fr Hemostasis Method: Perclose (Dynamics Direct) Hemostasis Success: Successful Procedure Medications Start: 10:39 AM Stop: 10:39 AM Medication: Versed Amount: 1 mg Route: I.V. Start: 10:42 AM Stop: 10:42 AM Medication: Fentanyl Amount: 50 mcg Route: I.V. Start: 10:47 AM Stop: 10:47 AM Medication: Versed Amount: 1 mg Route: I.V. Start: 10:47 AM Stop: 10:47 AM Medication: Fentanyl Amount: 50 mcg Route: I.V. Start: 11:07 AM Stop: 11:07 AM Medication: Heparin Amount: 7000 units Route: I.V. Start: 12:00 PM Stop: 12:00 PM Medication: Nitrogylcerin Amount: 200 mcg Route: I.C. Start: 12:01 PM Stop: 12:01 PM Medication: Heparin Amount: 3000 units Route: I.V. Start: 12:17 PM Stop: 12:17 PM Medication: Versed Amount: 2 mg Route: I.V. I, the attending physician, have reviewed and verified all procedure medications. Yes, all medications given per verbal order History/Risk Factors Hypertension: Yes Dyslipidemia: Yes Peripheral Arterial Disease (PAD): No Myocardial Infarction (TX): Yes Obesity: Yes Renal Disease: No Tobacco Use: Current/Recent(w/in 1 year) Prior Interventions PCI: Yes CABG: No Valve Surgery: No Date of PCI: 11/15/2019 Report Signatures Finalized by:Mana Paulson MD on 03/31/2020 11:49:14 AM
--- NOTE | 2020-03-18 10:02 | P.CONIM_ITS ---
Providers/Reason For Consult Consulting Physican/Specialty*: Cardiology Reason for Consult*: Non-ST relation [place] Attending Physician: Kamlesh Jackson MD Primary Care Provider: Phillip Gill MD History of Present Illness History of Present Illness Magen Riddle SR is a 49 year old male is a very complicated patient who is compliant with medicine but noncompliant with the lifestyle and smoking. This is one of the many admissions to the hospital for recurrent chest pain. He has a history of multiple stents last stent was placed in November 2019 in the ostial bifurcating large circumflex lesion. He is also carries a history of severe coronary spasm documented during angiograms. Despite of multiple discussion reminders patient refused to quit smoking and continues to smoke unfortunately. He has been on multiple combinations of medicines including high dosages of isosorbide mononitrate, calcium channel blockers, Ranexa in the past and now. In the last few months this is his fourth admission. In October and November of this year he was admitted with worsening of chest pain shortness of breath. Stress test was negative therefore he was discharged home on Ranexa. In November he presented with unstable angina like picture ostial left circumflex stent was placed. On later clinic visit patient continues to had off-and-on chest pain treated with optimization of medicine for musculoskeletal disorder and PPIs. Couple of days before this admission patient saw me in the clinic when he was complaining of worsening of chest pain medicine were optimize Ranexa was increased to thousand milligrams twice a day. Yesterday after 4 PM patient chest pain became more consistent in the middle of the night he came to the hospital his troponin was more than 240, EKG had chronic left bundle branch block. Patient was started on IV nitroglycerin which took edge of the pain. This morning I saw the patient he continues to have chest pressure radiating to left arm axilla nonpleuritic in nature. Since patient has abnormal cardiac markers with chest pain mostly controlled on IV nitroglycerin and he is high risk for acute coronary syndrome we will proceed with angiogram. Patient understand all risk benefit and alternative for the procedure. He understands risk of stroke bleeding emergent bypass. He would like to proceed with it. Review of Systems Const: Denies: fever(s), chills, body aches, change in appetite or malaise Eyes: Denies: change in vision, blurry vision, photophobia, eye discomfort or eye redness ENMT: Denies: throat pain, enlarged tonsils, oral sores, dental pain or ear or mastoid pain Card: Reports: chest pain; Denies: edema, pre-syncope or dyspnea on exertion Resp: Denies: dyspnea, productive cough, change in phlegm color or hemoptysis GI: Denies: abdominal pain, nausea, vomiting, diarrhea, constipation, hematochezia or melena : Denies: flank pain, difficulty urinating, dysuria, urinary frequency or hematuria Musc: Denies: neck pain, back pain, joint swelling, joint redness or joint warmth Skin/Breast: Reports: surgical incision; Denies: rash, sores or new lesions Neuro: Denies: headache(s), numbness in extremities, weakness in extremities, dizziness, confusion or seizure-like activity Psych: Denies: depression Endo: Denies: polyuria or polydipsia Thai/Lymph: Denies: easy bruising, easy bleeding or purpura All/Imm: Denies: urticaria, throat swelling, tongue swelling or acute wheezing Meds/Allergies Home Medications and Allergies Home Medications Medication Instructions Recorded Confirmed Last Taken Type Spiriva with HandiHaler 1 cap INHALATION DAILY 10/13/19 03/17/20 03/17/20 History alprazolam [Xanax] 0.5 mg PO BID PRN 10/13/19 03/17/20 03/17/20 History aspirin 81 mg PO DAILY 10/13/19 03/17/20 03/16/20 History budesonide-formoterol [Symbicort] 2 puff INHALATION BID 10/13/19 03/17/20 03/17/20 History glimepiride 4 mg PO DAILY 10/13/19 03/17/20 03/16/20 History hydrocodone-acetaminophen 1 tab PO TID PRN 10/13/19 03/17/20 03/17/20 History hydroxyzine HCl 50 mg PO TID PRN 10/13/19 03/17/20 03/16/20 History lisinopril 10 mg PO DAILY 10/13/19 03/17/20 03/16/20 History pantoprazole 40 mg PO DAILY 10/13/19 03/17/20 03/16/20 History zolpidem [Ambien] 10 mg PO BEDTIME 10/13/19 03/17/20 03/16/20 History potassium chloride 20 meq PO DAILY #30 tab 10/14/19 03/17/20 Unknown Rx Janumet 1 tab PO BID 11/14/19 03/17/20 03/16/20 History acetaminophen [Tylenol Extra 1,000 mg PO Q4H PRN 11/14/19 03/17/20 03/17/20 History Strength] doxepin 75 mg PO BEDTIME 11/14/19 03/17/20 03/16/20 History isosorbide mononitrate 60 mg PO BID PRN 11/14/19 03/17/20 03/17/20 History carvedilol 12.5 mg PO BID 12/05/19 03/17/20 03/16/20 History ticagrelor 90 mg tablet 90 mg PO BID #180 tab 01/22/20 03/17/20 03/17/20 Rx furosemide 40 mg tablet 40 mg PO DAILY #30 tab 03/03/20 03/17/20 Unknown Rx nitroglycerin 0.4 mg sublingual 0.4 mg SUBLINGUAL Q5M PRN 90 Days 03/16/20 03/17/20 03/17/20 Rx tablet #25 tab budesonide-formoterol [Symbicort] 2 puff INHALATION BID 03/17/20 03/17/20 03/17/20 History nitroglycerin See Rx Instructions .ROUTE .COMPLEX 03/17/20 03/17/20 03/17/20 History ranolazine 1,000 mg PO BID 03/17/20 03/17/20 03/17/20 History Allergies Allergy/AdvReac Type Severity Reaction Status Date / Time cefdinir Allergy ALGY-Rash Verified 03/17/20 21:13 doxycycline Allergy ADR-Nausea Verified 03/17/20 21:13 Current Medications Current Medications Generic Name Dose Route Start Last Admin Trade Name Freq PRN Reason Stop Dose Admin Hydrocodone Bitart/Acetaminophen 1 tab 03/17/20 23:37 03/18/20 08:02 [place] 10-325 Mg PO 1 tab TID PRN Administration Pain Alprazolam 0.5 mg 03/17/20 23:37 03/18/20 00:04 Xanax PO 0.5 mg BID PRN Administration Anxiety Atorvastatin Calcium 40 mg 03/17/20 23:45 03/18/20 00:06 Lipitor PO 40 mg BEDTIME GRISEL Administration Carvedilol 12.5 mg 03/18/20 09:00 03/18/20 08:02 Coreg PO 12.5 mg BID GRISEL Administration Enoxaparin Sodium 100 mg 03/18/20 00:45 03/18/20 01:16 Lovenox 1 mg/kg (100 mg) 100 mg SUBCUT Administration Q12H GRISEL Nitroglycerin/Dextrose 50 mg in 250 mls @ 0 mls/hr 03/18/20 00:45 03/18/20 06:27 Nitroglycerin Drip IV 15 mcg/min .Q0M GRISEL 4.5 mls/hr Titration Protocol Per Protocol Insulin Aspart 0 unit 03/18/20 08:00 03/18/20 08:05 Novolog SUBCUT Not Given WM&BEDTIME GRISEL Protocol Lisinopril 10 mg 03/18/20 09:00 03/18/20 08:03 Prinivil PO 10 mg DAILY GRISEL Administration Pantoprazole Sodium 40 mg 03/18/20 09:00 03/18/20 08:02 Protonix PO 40 mg DAILY GRISEL Administration Ranolazine 1,000 mg 03/17/20 23:40 03/18/20 08:03 Ranexa PO 1,000 mg BID GRISEL Administration Fluticasone/Salmeterol 1 puff 03/18/20 08:00 03/18/20 08:43 Advair Diskus 500-50 INHALATION 1 puff BID.RESPIRATORY GRISEL Administration Ticagrelor 90 mg 03/17/20 23:40 03/18/20 08:02 Brilinta PO 90 mg BID GRISEL Administration Tiotropium [place] 18 mcg 03/18/20 08:00 03/18/20 08:43 Spiriva INHALATION 1 puff DAILY.RESPIRATORY GRISEL Administration Zolpidem Tartrate 10 mg 03/17/20 23:45 03/18/20 00:06 Ambien PO 10 mg BEDTIME GRISEL Administration PFSH Acute PFSH: Medical History Cardiac catheterization as the cause of abnormal reaction of the patient, or of later complication, without mention of misadventure at the time of the procedure Cardiomyopathy Congestive heart failure Coronary artery spasm Diabetes mellitus Dyslipidemia Left bundle branch block Tobacco abuse Surgical History Hx of heart artery stent Stents to LAD, RCA (Aug 2019) and circumflex (2019), angioplasty of the obtuse marginal Family History Father Myocardial infarction Mother CAD (coronary artery disease) Brother Valvular heart disease Social History Smoking and tobacco status: current every day smoker cigarettes [ Other cigarette details: Says cutting down but has not quit completely ] Alcohol intake: never Substance/Drug Use: never Household members: significant other Marital status: Legally Dietary Habits: Current diet type/program: regular Caffeine: No Exercise: What type of physical activity do you participate in?: none Safety: Seatbelt use: always Home Safety: Working smoke detector in home: Yes Fire extinguisher in home: No Carbon monoxide detector in home: No Personal Safety: Do you feel safe at home: Yes Vitals/I&O/Wt Last Vital Signs Temp 98.0 F 03/18/20 08:00 Pulse 80 03/18/20 08:42 Resp 18 03/18/20 08:42 BP 129/91 03/18/20 08:00 Pulse Ox 95 03/18/20 08:42 03/17/20 03/18/20 03/18/20 22:59 06:59 14:59 Intake Total 62.95 / 62.95 300 / 300 Balance 62.95 / 62.95 300 / 300 Weight last 48 hrs Weight 209 lb 9.6 oz Weight 209 lb 9.6 oz Weight 220 lb Physical Exam Narrative: EXAM NARRATIVE: GENERAL: Patient is alert, awake and oriented x3. In moderate distress NECK: No jugular vein distension. HEENT: No cyanosis. No icterus. No pallor. HEART: Regular S1 and S2. No murmur, rub or gallop. LUNGS: Clear to auscultate bilaterally. ABDOMEN: Soft, nontender and nondistended. Positive bowel sounds. No guarding, rebound or tenderness. CENTRAL NERVOUS SYSTEM: Grossly nonfocal. EXTREMITIES: Lower extremities with out edema bilaterally. Data Labs: Other Labs: Other Data: Attestation for Other Data: I personally reviewed and interpreted the following: A&P Assessment and plan (1) NSTEMI (non-ST elevated myocardial infarction): Worsening of chest pain with abnormal cardiac markers suggestive of acute coronary syndrome. We will proceed with coronary angiogram. Patient has been explained all risk benefit and not ready for the procedure. He agrees to it and would like to proceed with it Status: Acute (2) Congestive heart failure: Appear to be compensated. Continue current regimen Status: Acute (3) Diabetes mellitus: As per medicine Status: Acute (4) Tobacco abuse: Advised quitting smoking. Status: Acute Coding Level of Care Code Established Pt Acute Order Entry Specialist for Dacia Ceballos Patient Type Established History Detailed Exam Detailed Medical Decision Making Moderate Complexity Diagnoses NSTEMI (non-ST elevated myocardial infarction) I21.4 Congestive heart failure I50.9 Diabetes mellitus E11.9 Tobacco abuse Z72.0
--- NOTE | 2020-03-18 10:07 | PM.PN ---
Subjective Subjective: Interval history: Admitted overnight. H&P and labs noted. Case discussed with Dr. Paulson today. Patient will be going for [employer] in the afternoon. Overnight patient has had some chest pain for which he was started on nitro drip after which chest pain has subsided. Denies of any nausea, vomiting, dizziness, palpitation. Telemetry has remained stable. Vitals/I&O/Wt Last Vital Signs Temp 98.0 F 03/18/20 08:00 Pulse 80 03/18/20 08:42 Resp 18 03/18/20 08:42 BP 129/91 03/18/20 08:00 Pulse Ox 95 03/18/20 08:42 03/17/20 03/18/20 03/18/20 22:59 06:59 14:59 Intake Total 62.95 / 62.95 300 / 300 Balance 62.95 / 62.95 300 / 300 Weight last 48 hrs Weight 95.073 kg Weight 95.073 kg Weight 99.79 kg Physical Exam Narrative: EXAM NARRATIVE: General: No acute distress, AO x3 HEENT: PERRLA, pupils bilaterally equal and reactive Chest: Normal vesicular breath sounds, no added sounds, equal good air entry bilaterally CVS: S1-S2 regular, soft pansystolic murmur at the apex 2/6 , no tachycardia, S3 gallop, no rubs Abdomen: Soft, nontender, no organomegaly, bowel sounds present Neuro: No focal deficits, no facial deformity, AO x3, power 5/5 in all limbs Data : 03/18/20 02:17 03/18/20 02:17 A&P Assessment and plan (1) NSTEMI (non-ST elevated myocardial infarction): Status: Acute (2) Left bundle branch block: Status: Acute (3) Congestive heart failure: Status: Acute (4) Diabetes mellitus: Status: Acute (5) Dyslipidemia: Status: Acute (6) Tobacco abuse: Status: Acute Additional A&P Information NSTEMI/CAD: With known coronary disease, with multiple stents, most recently in November at the bifurcation of left circumflex and OM1. Also has known LAD and RCA disease. Troponin significantly delta value overnight. Continue with aspirin, regular, full dose Lovenox, statin. Patient is to go for [employer] and possible PCI later in the day today. For now continue with nitro drip. Check HbA1c, lipid panel. Concern is for possible microvascular disease, and discussed with him need for close monitoring and optimization of his risk factors. First and foremost he needs to stop smoking. Discussed cessation with him. He understands, and has been trying. Discussed also needs optimization of his diabetes control and hypertension control. Continue with ranolazine at current dose. Case discussed with Dr. Paulson. CHF: Echocardiogram done earlier in the ER showed Multiple wall motion normalities with a diminished left ventricular ejection fraction of 30-35%. Mildly dilated LV cavity Thickened mitral valve. Mild mitral valve regurgitation. Patient is euvolemic for now. We will hold off on any Lasix for now because of possible cath and contrast load. Hypertension: Blood pressure well controlled for now. We will continue with home dose of Coreg, lisinopril. Continue to monitor blood pressures. Target blood pressure goals 140/90 mmHg. Type 2 diabetes mellitus: We will withhold on home dose of oral hypoglycemics. Check HbA1c. Insulin sliding scale before meals and at bedtime at moderate dose. Smoking addiction: Discussed smoking cessation for 3.5 minutes. Encouraged he stop, which he understands. He states that he has been cutting down, but has not quit completely yet. He is agreeable for nicotine replacement with gum as needed in the hospital. He declines nicotine patches due to prior intolerance. Discussed in detail with patient again if he needed any help with trying to quit smoking. He states he has used Chantix in the past but started having horrible dreams and became hang angry with that. Continue chronic medications like Xanax as needed, fluticasone twice daily, hydrocodone 3 times daily as needed, Zofran, Spiriva. Full code. N.p.o. for now for possible cath later in the day. Full dose Lovenox. Given significant elevation in troponins will change her admission to inpatient. Attestations Medical Necessity Statement*: NSTEMI. Time Spent in Patient Care: Greater than 35 minutes Coding Level of Care Code Acute Air Analysis Engineering Technician for Dacia Ceballos Diagnoses NSTEMI (non-ST elevated myocardial infarction) I21.4 Left bundle branch block I44.7 Congestive heart failure I50.9 Diabetes mellitus E11.9 Dyslipidemia E78.5 Tobacco abuse Z72.0
[2020-03-18 10:42] LABS: Amphetamines Screen Urine Negative (Negative); Barbiturates Screen Urine Negative (Negative); Benzodiazepines Screen Urine Positive (Negative); Cocaine Screen Urine Negative (Negative); Opiate Screen Urine Positive (Negative); PCP Screen Urine Negative (Negative); THC Screen Urine Negative (Negative)
--- NOTE | 2020-03-18 12:42 | PC.NURSE ---
to cardiac cath lab tech via bed at 1010
--- NOTE | 2020-03-18 12:51 | PC.NURSE ---
received from cardiac cath lab nurse.report received.sr on monitor,alert and awake.denies pain.right groin with drsg dry and intact.perclose performed in cath lab nurse by dr whitlock.no hematoma noted.right foot is warm to touch and with brisk capillary refill.palpable dp pulse noted.instructed in activity restrictions s/p femoral procedure...and instructed to notify staff for any bleeding,pain,numbness..or for any concerns at all.pt verb understanding of instrucctions.
[2020-03-18 13:13] LABS: Glucose Point of Care 172 mg/dL (70-110)
--- NOTE | 2020-03-18 15:04 | PC.NURSE ---
at 1400 did routine check on pt..found right groin drsg saturated with blood.small hematoma palpated.pressure applied x 15 min.vss. redressed with quartered 4x4 and secured with biocclusive drsg.instructed in activity restrictions...and instructed to notify staff for any further bleeding.pt verb understanding of instructions
[2020-03-18 16:41] LABS: Glucose Point of Care 266 mg/dL (70-110)
--- NOTE | 2020-03-18 18:19 | PC.NURSE ---
dr whitlock in and assessed pt.he states from his standpoint..pt may be discharged this evening.no further bleeding noted from right groin cath site.
--- NOTE | 2020-03-18 18:22 | P.PN_ITS ---
Subjective Subjective: Interval history: Status post coronary angiogram revealed 90% in- stent stenosis of ostial left circumflex stent and 80% in-stent stenosis of right mid coronary stents. In-stent restenosis of left circumflex stent was treated with balloon angioplasty followed by drug-eluting stent mild in-stent restenosis of mid RCA stent was treated with noncompliant balloon angioplasty. Excellent angiographic result with [place]-3 flow was restored. Patient tolerated procedure well and has recovered. Vitals/I&O/Wt Last Vital Signs Temp 97.6 F 03/18/20 15:55 Pulse 79 03/18/20 15:55 Resp 20 H 03/18/20 15:55 BP 126/79 03/18/20 15:55 Pulse Ox 94 03/18/20 15:55 03/18/20 03/18/20 03/18/20 06:59 14:59 22:59 Intake Total 62.95 / 62.95 540 / 540 Output Total 600 / 600 Balance 62.95 / 62.95 540 / 540 -600 / -60 Weight last 48 hrs Weight 209 lb 9.6 oz Weight 209 lb 9.6 oz Weight 220 lb Physical Exam Narrative: EXAM NARRATIVE: GENERAL: Patient is alert, awake and oriented x3. NECK: No jugular vein distension. HEENT: No cyanosis. No icterus. No pallor. HEART: Regular S1 and S2. No murmur, rub or gallop. LUNGS: Clear to auscultate bilaterally. ABDOMEN: Soft, nontender and nondistended. Positive bowel sounds. No guarding, rebound or tenderness. CENTRAL NERVOUS SYSTEM: Grossly nonfocal. EXTREMITIES: Lower extremities with out edema bilaterally. Data : 03/18/20 02:17 03/18/20 02:17 A&P Assessment and plan (1) NSTEMI (non-ST elevated myocardial infarction): Status post coronary angiogram revealed 90% in-stent stenosis of ostial left circumflex stent and 80% in-stent stenosis of right mid coronary stents. In-stent restenosis of left circumflex stent was treated with balloon angioplasty followed by drug-eluting stent followed by balloon angioplasty of ostial jailed high obtuse marginal 1, mid RCA stent was treated with noncompliant balloon angioplasty since there were already 2 stents layers. Excellent angiographic result with SYDNEY-3 flow was restored. Patient tolerated procedure well and has recovered. Patient would like to go home. Advised to careful with lifting with and come back to the hospital if he noticed any chest pain bleeding from the groin. Is advised to continue Brilinta and baby aspirin. Advised to quit smoking. Advised to continue rest of the medical management. Follow-up with Janiya Bray cardiology nurse practitioner in [address] Paulson in 3 months. Status: Acute (2) Congestive heart failure: Well compensated. Continue meds Status: Acute (3) Diabetes mellitus: As per medicine Status: Acute (4) Tobacco abuse: Advised quitting smoking. Status: Acute Attestations Medical Necessity Statement*: From a cardiovascular perspective patient can be discharged home today Coding Level of Care Code Established Pt Acute Environmental Services Tech for Chg Fwd Patient Type Established History Expanded Problem Focused Exam Expanded Problem Focused Medical Decision Making Moderate Complexity Diagnoses NSTEMI (non-ST elevated myocardial infarction) I21.4 Congestive heart failure I50.9 Diabetes mellitus E11.9 Tobacco abuse Z72.0
--- NOTE | 2020-03-18 19:17 | P.DS_ITS ---
Discharge Providers Date of Admission: 03/18/20 10:17 Date of Discharge: March 18, 2020 Attending Provider at Admission: Pascual Senior Attending Provider at Discharge: Kamlesh Jackson MD Primary Care Provider: Phillip Gill MD Diagnoses at Discharge Discharge Diagnosis (1) NSTEMI (non-ST elevated myocardial infarction): Status: Acute (2) Congestive heart failure: Status: Acute (3) Diabetes mellitus: Status: Acute (4) Tobacco abuse: Status: Acute Reason for Visit Reason for Visit: CP X 4 HRS Hospital Course Discharge Summary: Magen Riddle SR is a 49 year old male w/ CAD s/p multiple interventions, Chronic smoker, Obesity, HTN, Hyperlipidemia, NIDDM type II, Chronic combined systolic and diastolic CHF, ischemic cardiomyopathy, GERD, Chronic back pain, DJD last in hospital in nov 2019 when underwent angiogram for repeated chest discomfort despite negative stress testing. His LAD stent was wi edie patent. His right coronary artery stents were patent. There was a lesion in the ostial circumflex. A stent was placed in the ostial circumflex. A balloon angioplasty was done in the other marginal branch. He presented to ER on 03/17/2020 and reports he has had multiple episodes today with pain coming and going, starting around 4 PM. 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 Paulson in office, telling him about recurrent chest pain symptoms. Per discussion reportedly the thought is that it may be microvascular disease responsible for the symptoms given recent coronary angiogram. On assessment in ER noted with old left bundle branch block on EKG, but troponin is somewhat higher than usual on initial testing at 54 and overnight patient had more chest oain and his trop went upto 300s. He ws started on nitro GGT and cardio was consulted. He underwent CAG which revealed 90% in-stent stenosis of ostial left circumflex stent and 80% in-stent stenosis of right mid coronary stents. In-stent restenosis of left circumflex stent was treated with balloon angioplasty followed by drug-eluting stent mild in-stent restenosis of mid RCA stent was treated with noncompliant balloon angioplasty. Excellent angiographic result with SYDNEY-3 flow was restored. Patient tolerated procedure well and has recovered.Discussed in detail with patient again if he needed any help with trying to quit smoking. He states he has used Chantix in the past but started having horrible dreams and became hang angry with that. He is being discharged in hemodynamically stable condition after cardiology has seen his post procedure Physical Exam Narrative: EXAM NARRATIVE: General: No acute distress, AO x3 HEENT: PERRLA, pupils bilaterally equal and reactive Chest: Normal vesicular breath sounds, no added sounds, equal good air entry bilaterally CVS: S1-S2 regular, soft pansystolic murmur at the apex 2/6 , no tachycardia, S3 gallop, no rubs Abdomen: Soft, nontender, no organomegaly, bowel sounds present Neuro: No focal deficits, no facial deformity, AO x3, power 5/5 in all limbs Discharge Data Data Completed and Pending: Completed Studies During Hospitalization Category Date Time Status XR chest 1V [place] [id number] Stat Exams 03/17/20 20:32 Completed Pending at discharge Category Date Time Status DIRECTOR OF SALES SUPPORT request for service Routin e Exams 03/18/20 10:00 Taken Basic Metabolic P oz AM LABS Lab 03/19/20 04:00 Ordered Basic Metabolic P oz AM LABS Lab 03/20/20 04:00 Ordered Complete Blood Co unt w/Auto AM LABS Lab 03/19/20 04:00 Ordered Complete Blood Co unt w/Auto AM LABS Lab 03/20/20 04:00 Ordered Labs from last 24 hours 03/18/20 03/18/20 03/18/20 15:57 12:57 10:15 WBC RBC Hgb Hct MCV MCH MCHC RDW Plt Count MPV Neut % (Auto) Lymph % (Auto) Wetzel % (Auto) Eos % (Auto) Baso % (Auto) Neut # (Auto) Lymph # (Auto) Wetzel # (Auto) Eos # (Auto) Baso # (Auto) Nucleated RBC % (a uto) Nucleated RBCs # Sodium Potassium Chloride Carbon Dioxide Anion Gap BUN Creatinine GFR Calculation Glucose POC Glucose 266 172 Estimat Average Gl ucose Hemoglobin A1c Calculated Osmolal ity Calcium Total Bilirubin AST ALT Alkaline Phosphata se Troponin I 6 Hour Troponin I Hi Sens Del Troponin T Baselin e Troponin T 120 Min [place] Troponin T NT-Pro-B Natriuret Pep Total Protein Albumin Globulin Triglycerides Cholesterol LDL Cholesterol, C alc Total VLDL Cholest rafaela HDL Cholesterol Cholesterol/HDL Ra alicja TSH Urine Opiates Scre en Positive H Ur Barbiturates Sc reen Negative Ur Phencyclidine S crn Negative Ur Amphetamines Sc reen Negative U Benzodiazepines Scrn Positive H Urine Cocaine Scre en Negative U Marijuana (THC) Screen Negative 03/18/20 03/18/20 03/18/20 06:26 02:17 02:17 WBC RBC Hgb Hct MCV MCH MCHC RDW Plt Count MPV Neut % (Auto) Lymph % (Auto) [place] % (Auto) Eos % (Auto) Baso % (Auto) Neut # (Auto) Lymph # (Auto) Wetzel # (Auto) Eos # (Auto) Baso # (Auto) Nucleated RBC % (a uto) Nucleated RBCs # Sodium Potassium Chloride Carbon Dioxide Anion Gap BUN Creatinine GFR Calculation Glucose POC Glucose 165 Estimat Average Gl ucose Hemoglobin A1c Calculated Osmolal ity Calcium Total Bilirubin AST ALT Alkaline Phosphata se Troponin I 6 Hour 323.1 H Troponin I Hi Sens Del 269.1 H* Troponin T Baselin e Troponin T 120 Min [place] Troponin T NT-Pro-B Natriuret Pep 369 H Total Protein Albumin Globulin Triglycerides 307 H Cholesterol 226 H LDL Cholesterol, C alc 142 H Total VLDL Cholest rafaela 61 H HDL Cholesterol 23 L Cholesterol/HDL Ra alicja 9.83 H TSH 1.27 Urine Opiates Scre en Ur Barbiturates Sc reen Ur Phencyclidine S crn Ur Amphetamines Sc reen U Benzodiazepines Scrn Urine Cocaine Scre en U Marijuana (THC) Screen 03/18/20 03/18/20 03/17/20 02:17 02:17 23:30 WBC 11.2 H RBC 4.85 Hgb 14.3 Hct 42.1 MCV 86.8 MCH 29.5 MCHC 34.0 RDW 14.0 Plt Count 280 MPV 8.8 Neut % (Auto) 51.8 Lymph % (Auto) 37.2 Wetzel % (Auto) 8.9 Eos % (Auto) 1.3 Baso % (Auto) 0.4 Neut # (Auto) 5.8 Lymph # (Auto) 4.2 Wetzel # (Auto) 1.0 H Eos # (Auto) 0.2 Baso # (Auto) 0.1 Nucleated RBC % (a uto) 0 Nucleated RBCs # 0.0 Sodium 138 Potassium 4.2 Chloride 101 Carbon Dioxide 25 Anion Gap 16.2 BUN 14 Creatinine 1.0 GFR Calculation 79.4 L Glucose 164 H POC Glucose Estimat Average Gl ucose Hemoglobin A1c Calculated Osmolal ity 286 Calcium 9.5 Total Bilirubin AST ALT Alkaline Phosphata se Troponin I 6 Hour Troponin I Hi Sens Del Troponin T Baselin e Troponin T 120 Min [place] 132.0 H Delta Troponin T 78.0 H* NT-Pro-B Natriuret Pep Total Protein Albumin Globulin Triglycerides Cholesterol LDL Cholesterol, C alc Total VLDL Cholest rafaela HDL Cholesterol Cholesterol/HDL Ra alicja TSH Urine Opiates Scre en Ur Barbiturates Sc reen Ur Phencyclidine S crn Ur Amphetamines Sc reen U Benzodiazepines Scrn Urine Cocaine Scre en U Marijuana (THC) Screen 03/17/20 03/17/20 03/17/20 20:42 20:42 20:42 WBC RBC Hgb Hct MCV MCH MCHC RDW Plt Count MPV Neut % (Auto) Lymph % (Auto) [place] % (Auto) Eos % (Auto) Baso % (Auto) Neut # (Auto) Lymph # (Auto) Wetzel # (Auto) Eos # (Auto) Baso # (Auto) Nucleated RBC % (a uto) Nucleated RBCs # Sodium 136 Potassium 3.9 Chloride 96 L Carbon Dioxide 24 Anion Gap 19.9 H BUN 15 Creatinine 1.0 GFR Calculation 79.4 L Glucose 242 H POC Glucose Estimat Average Gl ucose 157 Hemoglobin A1c 7.1 H Calculated Osmolal ity 286 Calcium 10.0 Total Bilirubin 0.4 AST 17 ALT 11 Alkaline Phosphata se 64 Troponin I 6 Hour Troponin I Hi Sens Del Troponin T Baselin e 54 H Troponin T 120 Min [place] Troponin T NT-Pro-B Natriuret Pep Total Protein 7.3 Albumin 4.6 Globulin 2.7 Triglycerides Cholesterol LDL Cholesterol, C alc Total VLDL Cholest rafaela HDL Cholesterol Cholesterol/HDL Ra alicja TSH Urine Opiates Scre en Ur Barbiturates Sc reen Ur Phencyclidine S crn Ur Amphetamines Sc reen U Benzodiazepines Scrn Urine Cocaine Scre en U Marijuana (THC) Screen 03/17/20 20:42 WBC 12.4 H RBC 5.12 Hgb 14.8 Hct 44.0 MCV 85.9 MCH 28.9 MCHC 33.6 RDW 13.9 Plt Count 342 MPV 8.9 Neut % (Auto) 47.5 Lymph % (Auto) 40.8 Wetzel % (Auto) 9.5 Eos % (Auto) 1.6 Baso % (Auto) 0.3 Neut # (Auto) 5.9 Lymph # (Auto) 5.1 H Wetzel # (Auto) 1.2 H Eos # (Auto) 0.2 Baso # (Auto) 0.0 Nucleated RBC % (a uto) 0 Nucleated RBCs # 0.0 Sodium Potassium Chloride Carbon Dioxide Anion Gap BUN Creatinine GFR Calculation Glucose POC Glucose Estimat Average Gl ucose Hemoglobin A1c Calculated Osmolal ity Calcium Total Bilirubin AST ALT Alkaline Phosphata se Troponin I 6 Hour Troponin I Hi Sens Del Troponin T Baselin e Troponin T 120 Min [place] Troponin T NT-Pro-B Natriuret Pep Total Protein Albumin Globulin Triglycerides Cholesterol LDL Cholesterol, C alc Total VLDL Cholest rafaela HDL Cholesterol Cholesterol/HDL Ra alicja TSH Urine Opiates Scre en Ur Barbiturates Sc reen Ur Phencyclidine S crn Ur Amphetamines Sc reen U Benzodiazepines Scrn Urine Cocaine Scre en U Marijuana (THC) Screen Vitals: Last Vital Signs Temp 97.6 F 03/18/20 15:55 Pulse 79 03/18/20 15:55 Resp 20 H 03/18/20 15:55 BP 126/79 03/18/20 15:55 Pulse Ox 94 03/18/20 15:55 Discharge Plan Discharge Patient Disposition: Home, Self-Care Condition: Stable Prescriptions: New atorvastatin 40 mg Tablet 80 mg PO BEDTIME Qty: 30 RF: 0 Continued Brilinta 90 mg tablet 90 mg PO BID Qty: 180 RF: 3 furosemide [Lasix] 40 mg tablet 40 mg PO DAILY Qty: 30 RF: 4 nitroglycerin [Nitrostat] 0.4 mg tablet, sublingual 0.4 mg SUBLINGUAL Q5M PRN (Reason: chest pain) 90 Days Qty: 25 RF: 3 doxepin 75 mg Capsule 75 mg PO BEDTIME RF: 0 acetaminophen [Tylenol Extra Strength] 500 mg Tablet 1,000 mg PO Q4H PRN (Reason: Pain) RF: 0 Janumet 50-500 mg Tablet 1 tab PO BID RF: 0 isosorbide mononitrate 30 mg tablet extended release 24 hr 60 mg PO BID PRN (Reason: Chest Pain) RF: 0 carvedilol 6.25 mg Tablet 12.5 mg PO BID RF: 0 alprazolam [Xanax] 0.5 mg tablet 0.5 mg PO BID PRN (Reason: Anxiety) RF: 0 hydrocodone-acetaminophen 10-325 mg Tablet 1 tab PO TID PRN (Reason: Pain) RF: 0 aspirin 81 mg tablet,delayed release (DR/EC) 81 mg PO DAILY RF: 0 glimepiride 4 mg Tablet 4 mg PO DAILY RF: 0 zolpidem [Ambien] 10 mg Tablet 10 mg PO BEDTIME RF: 0 hydroxyzine HCl 50 mg Tablet 50 mg PO TID PRN (Reason: Anxiety) RF: 0 lisinopril 20 mg Tablet 10 mg PO DAILY RF: 0 pantoprazole 40 mg Tablet,Delayed Release (Dr/Ec) 40 mg PO DAILY RF: 0 Spiriva with HandiHaler 18 mcg Capsule, W/Inhalation Device 1 cap INHALATION DAILY RF: 0 budesonide-formoterol [Symbicort] 160-4.5 mcg/actuation Hfa Aerosol Inhaler 2 puff INHALATION BID RF: 0 potassium chloride 20 mEq tablet extended release 20 meq PO DAILY Qty: 30 RF: 4 nitroglycerin 400 mcg/spray spray,non-aerosol See Rx Instructions .ROUTE .COMPLEX RF: 0 ranolazine 500 mg tablet extended release 12 hr 1,000 mg PO BID RF: 0 Symbicort 160-4.5 mcg/actuation Hfa Aerosol Inhaler 2 puff INHALATION BID RF: 0 Discharge Orders: Discharge Order (Routine); Ordered 03/18/20 Ordered By: Kamlesh Jackson Referrals: Mana Paulson MD [Physician] - 7-10 days Phillip Gill MD [Primary Care Provider] - 2 weeks Discharge Diet: Cardiac and Diabetic Discharge Activity: Resume usual activity Activity Restrictions/Additional Instructions: Please try to quit smoking Please take medication on time Please follow up with PCP and cardiology as directed Discharge Attestations Time Spent in Discharge Care*: greater than 30 min Specific Discharge Activities: Specific discharge activities: educating patient, discussing with pcp/other providers, discussing with comp field case manager/social workers/dc planners, documenting/other paperwork and evaluating patient/reviewing data Status at Discharge: Cognitive status at discharge: cognitively intact , Behavioral status at discharge: cooperative , Functional status at discharge: independent ambulation Overall status at discharge: patient is back to baseline Quality Metrics Clinical Quality Measures During this hospital stay, did patient experience: AMI Clinical Trial Participant: No Contraindication to aspirin (AMI): Aspirin given Contraindication to statin: Statin prescribed Contraindication to PCI: PCI performed Coding Level of Care Code Acute Calculation Reviewer for [facility] Fwd Diagnoses NSTEMI (non-ST elevated myocardial infarction) I21.4 Congestive heart failure I50.9 Diabetes mellitus E11.9 Tobacco abuse Z72.0
--- NOTE | 2020-03-18 19:32 | PM.EVENT ---
Event Note Event Note: No hematoma, pulsatile mass or ecchymosis in the R groin. He says he is feeling well and ready to go home.
[2020-03-18 20:42] LABS: Glucose Point of Care 211 mg/dL (70-110)
== END 2020-03-18 20:31 | disposition home or self-care (01) ==
LOC: ER 22:07 → CSU 22:16
PROVIDERS: Emergency Medicine; Internal Medicine Cardiovascular Disease; Admitting Provider Internal Medicine; PCP Family Medicine; Visit Provider Student in an Organized Health Care Education/Training Program
DX: R07.9 Chest pain, unspecified (principal); R79.89 Other specified abnormal findings of blood chemistry; I25.10 Atherosclerotic heart disease of native coronary artery without angina pectoris; F17.210 Nicotine dependence, cigarettes, uncomplicated; Z79.82 Long term (current) use of aspirin; Z79.891 Long term (current) use of opiate analgesic; I50.9 Heart failure, unspecified; E11.9 Type 2 diabetes mellitus without complications; E78.5 Hyperlipidemia, unspecified; Z95.5 Presence of coronary angioplasty implant and graft; Z82.49 Family history of ischemic heart disease and other diseases of the circulatory system; I44.7 Left bundle-branch block, unspecified
CPT/HCPCS: 12345; 36415; 36416; 71045; 80048; 80053; 80061; 80306; 82962; 83036; 83880; 84443; 84484; 85025; 85347; 92921; 93005; 93454; 94640; 96372; 96374; 96375; 99283; 99285; C1725; C1760; C1769; C1874; C1887; C1894; C9600; G0378; J1170; J1200; J1644; J1650; J1815; J2001; J2060; J2250; J2270; J2405; J2765; J3010; J3490; J7030; Q9967

== ENCOUNTER 2020-04-26 23:20 | Inpatient (IN) | payer MEDICAID, SELFPAY ==
--- NOTE | 2020-04-26 23:23 | XRR_ITS ---
PROCEDURE INFORMATION: Exam: XR Chest, 1 View Exam date and time: 04/26/2020 11:45 PM Age: 49 years old Clinical indication: Shortness of breath; Chest pain; Prior surgery; Surgery type: Stent; Additional info: Chest pain, SOB TECHNIQUE: Imaging protocol: XR of the chest Views: Frontal portable upright view of the chest. COMPARISON: CR XR chest 1V portable [id number] 03/17/2020 9:06 PM FINDINGS: Lungs: The lungs are clear bilaterally. The pulmonary vasculature is normal. Pleural space: No pleural effusion. No pneumothorax. Heart/Mediastinum: The heart is normal in size and contour. Mediastinum: Stable. Bones/joints: Stable. XR/XR chest 1V portable [id number] IMPRESSION: No acute cardiopulmonary abnormality identified.
[2020-04-26 23:33] VITALS: BP 132/79; PULSE 97; RESP 18; TEMP 36.4; O2SAT 98; BMI 29.1
--- NOTE | 2020-04-26 23:40 | ECG_ITS ---
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 Measurements Intervals [place] Rate: 99 P: 56 SC: 169 QRS: 70 QRSD: 169 T: -66 QT: 398 QTc: 512 Interpretive Statements SINUS RHYTHM LEFT BUNDLE BRANCH BLOCK [120+ ms QRS DURATION, 80+ ms Q/S IN V1/V2, 85+ ms R IN I/aVL/V5/V6] Compared to ECG 03/18/2020 02:27:05 Ventricular premature complex(es) no longer present Electronically Signed On 04-27-2020 21:28:16 CDT by Lavinia Estrada M.D. [id number]
[2020-04-26 23:48] VITALS: RESP 18
[2020-04-26] MEDS: fentaNYL 50 mcg/mL INJ 2mL 100 MCG IVP (23:48)
[2020-04-26] MEDS: aspirin 81 mg Chew Tablet 324 MG PO (23:48)
[2020-04-26 23:51] VITALS: BP 132/86; PULSE 96; RESP 18; O2SAT 97
[2020-04-26 23:52] LABS: Basophils % 0.3 %; Eosinophils # 0.2 10^3/uL (0.0-0.8); Eosinophils % 1.6 %; Hematocrit 42.7 % (42.0-52.0); Hemoglobin 14.2 g/dL (11.7-16.6); Lymphocytes # 3.8 10^3/uL (0.8-4.8); Lymphocytes % 32.8 %; Mean Corpuscular HGB Conc 33.3 g/dL (30.0-36.0); Mean Corpuscular Hemoglobin 29.7 pg (28.0-34.0); Mean Corpuscular Volume 89.3 fL (80-94); Mean Platelet Volume 8.9 fL (7.4-10.4); Monocytes # 1.1 10^3/uL (0.2-0.9); Monocytes % 9.5 %; Neutrophils # 6.36 10^3/uL (1.8-7.7); Neutrophils % 55.4 %; Nucleated Red Blood Cells % 0 %; Platelet Count 348 10^3/cmm (130-400); Red Blood Count 4.78 10^6/uL (4.1-5.3); Red Cell Distribution Width 13.8 % (12.1-15.1); White Blood Count 11.5 10^3/uL (4.0-10.0)
[2020-04-27] VITALS (26 sets, daily range): BP systolic 103–139; BP diastolic 58–99; PULSE 55–96; RESP 12–19; TEMP 36.4–36.8; O2SAT 96–99
[2020-04-27 00:05] LABS: INR 0.94 (0.8-1.2)
[2020-04-27 00:07] LABS: Partial Thromboplastin Time 28.4 SECONDS (23.9-36.7)
[2020-04-27 00:09] LABS: Troponin(5th) Baseline 19 ng/L (0-15)
[2020-04-27] MEDS: nitroglycerin drip 50 MG/250 ML PREMIX IV (00:10)
[2020-04-27 00:31] LABS: Alanine Aminotransferase 25 U/L (0-41); Albumin Level 4.5 g/dL (3.5-5.2); Alkaline Phosphatase 71 IU/L (40-130); Aspartate Amino Transferase 28 U/L (0-40); Blood Urea Nitrogen 23 mg/dL (6-20); Calcium 9.7 mg/dL (8.5-10.5); Carbon Dioxide 22 mmol/L (22-29); Creatine Phosphokinase 198 U/L (39-308); Globulin 3.6 g/dL (1.3-4.6); Glomerular Filtration Rate 53.9 mL/min (90-130); Glucose 282 mg/dL (65-115); NT Pro B Type Natriuretic Pept 237 pg/mL (0-125); Total Bilirubin 0.3 mg/dL (0.15-1.2); Total Protein 8.1 g/dL (6.6-8.7)
[2020-04-27] MEDS: fentaNYL 50 mcg/mL INJ 2mL 100 MCG IVP (00:36)
[2020-04-27 00:43] LABS: Anion Gap 18.1 (5-19); Chloride 95 mmol/L (98-107); Osmolality Calculated 279 mOsm/kg (285-295); Potassium 4.1 mmol/L (3.5-5.1); Sodium 131 mmol/L (136-145)
--- NOTE | 2020-04-27 01:40 | ECG_ITS ---
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 Measurements Intervals [place] Rate: 73 P: 60 VT: 179 QRS: 72 QRSD: 167 T: 257 QT: 454 QTc: 503 Interpretive Statements SINUS RHYTHM LEFT BUNDLE BRANCH BLOCK [120+ ms QRS DURATION, 80+ ms Q/S IN V1/V2, 85+ ms R IN I/aVL/V5/V6] Compared to ECG 03/18/2020 02:27:05 Ventricular premature complex(es) no longer present Electronically Signed On 04-27-2020 21:41:00 CDT by Lavinia Estrada M.D. [id number]
[2020-04-27 02:13] LABS: Troponin 5 2HR 41.14 ng/L (0-15)
--- NOTE | 2020-04-27 02:16 | P.HP_ITS ---
Providers/Chief Complaint Primary Care Provider: Phillip Gill MD Chief Complaint: cp History of Present Illness Magen Riddle SR is a 49 year old male who has established complex coronary artery disease status post multiple stents, chronic smoker, obesity, hypertension, type 2 diabetes, dyslipidemia, combined systolic diastolic congestive heart failure, ischemic cardiomyopathy, recent stent 03/17, left bundle branch block, coming in today with recurrent chest pain. Recent PCI:He underwent CAG which revealed 90% in-stent stenosis of ostial left circumflex stent and 80% in-stent stenosis of right mid coronary stents. In-stent restenosis of left circumflex stent was treated with balloon angioplasty followed by drug-eluting stent mild in-stent restenosis of mid RCA stent was treated with noncompliant balloon angioplasty. Excellent angiographic result with SYDNEY-3 flow was restored. Patient presented today to the hospital with chief complaint of chest pain. Patient is describing his chest pain as0 someone squeezing his heart , started when he was watching television around 9pm. This chest pain was radiating towards his shoulders bilaterally and left hand. He did experience nausea and couple of episode of vomiting. He is endorsing that this pain is similar to the one when he had stent placed. Is currently smoking 4 to 5 cigarettes a day, compliant with his medications followed up with Dr. Montes in the clinic. He sprayed his nitroglycerin spray about 10-12 times for his intermittent chest pain. Diagnostics in the ER revealed chronic left bundle branch block without Sgarbossa criteria, he required fentanyl to relieve his chest pain currently on nitro drip chest pain-free, troponin delta significant, Review of Systems Const: Denies: fever(s), chills or body aches Eyes: Denies: change in vision ENMT: Denies: throat pain Card: Reports: chest pain and dyspnea on exertion; Denies: swelling of feet/ankles, syncope, pre-syncope or orthopnea Resp: Denies: dyspnea GI: Reports: nausea and vomiting; Denies: abdominal pain, diarrhea or constipation : Denies: flank pain Musc: Denies: neck pain Skin/Breast: Denies: rash Neuro: Denies: headache(s) Psych: Denies: anxiety Endo: Denies: polyuria Thai/Lymph: Denies: easy bruising All/Imm: Denies: urticaria Medications/Allergies Home Medications Medication Instructions Recorded Confirmed Last Taken Type Spiriva with HandiHaler 1 cap INHALATION DAILY 10/13/19 03/27/20 03/17/20 History alprazolam [Xanax] 0.5 mg PO BID PRN 10/13/19 03/27/20 03/17/20 History aspirin 81 mg PO DAILY 10/13/19 03/27/20 03/16/20 History budesonide-formoterol [Symbicort] 2 puff INHALATION BID 10/13/19 03/27/20 03/17/20 History glimepiride 4 mg PO DAILY 10/13/19 03/27/20 03/16/20 History hydrocodone-acetaminophen 1 tab PO TID PRN 10/13/19 03/27/20 03/17/20 History hydroxyzine HCl 50 mg PO TID PRN 10/13/19 03/27/20 03/16/20 History lisinopril 10 mg PO DAILY 10/13/19 03/27/20 03/16/20 History pantoprazole 40 mg PO DAILY 10/13/19 03/27/20 03/16/20 History zolpidem [Ambien] 10 mg PO BEDTIME 10/13/19 03/27/20 03/16/20 History potassium chloride 20 meq PO DAILY #30 tab 10/14/19 03/27/20 Unknown Rx Janumet 1 tab PO BID 11/14/19 03/27/20 03/16/20 History acetaminophen [Tylenol Extra 1,000 mg PO Q4H PRN 11/14/19 03/27/20 03/17/20 History Strength] doxepin 75 mg PO BEDTIME 11/14/19 03/27/20 03/16/20 History isosorbide mononitrate 60 mg PO BID PRN 11/14/19 03/27/20 03/17/20 History carvedilol 12.5 mg PO BID 12/05/19 03/27/20 03/16/20 History ticagrelor 90 mg tablet 90 mg PO BID #180 tab 01/22/20 03/27/20 03/17/20 Rx furosemide 40 mg tablet 40 mg PO DAILY #30 tab 03/03/20 03/27/20 Unknown Rx nitroglycerin 0.4 mg sublingual 0.4 mg SUBLINGUAL Q5M PRN 90 Days 0603/27/20 03/17/20 Rx tablet #25 tab nitroglycerin See Rx Instructions .ROUTE .COMPLEX 03/17/20 03/27/20 03/17/20 History ranolazine 1,000 mg PO BID 03/17/20 03/27/20 03/17/20 History atorvastatin 80 mg PO BEDTIME #30 tab 03/18/20 03/27/20 Unknown Rx Allergies Allergy/AdvReac Type Severity Reaction Status Date / Time cefdinir Allergy ALGY-Rash Verified 03/27/20 11:54 doxycycline Allergy ADR-Nausea Verified 03/27/20 11:54 PFSH Acute PFSH: Medical History Cardiac catheterization as the cause of abnormal reaction of the patient, or of later complication, without mention of misadventure at the time of the procedure Cardiomyopathy Congestive heart failure Coronary artery spasm Diabetes mellitus Dyslipidemia Left bundle branch block Tobacco abuse Surgical History Hx of heart artery stent Stents to LAD, RCA (Aug 2019) and circumflex (2019), angioplasty of the obtuse marginal Family History Father Myocardial infarction Mother CAD (coronary artery disease) Brother Valvular heart disease Social History Smoking and tobacco status: current every day smoker cigarettes [ Other cigarette details: Says cutting down but has not quit completely ] Alcohol intake: never Household members: significant other Marital status: Legally Vitals/I&O/Wt Last Vital Signs Temp 97.6 F 04/26/20 23:33 Pulse 68 04/27/20 02:04 Resp 16 04/27/20 02:04 BP 104/58 04/27/20 02:04 Pulse Ox 97 04/27/20 02:04 Weight last 48 hrs Weight 97.522 kg Physical Exam Narrative: EXAM NARRATIVE: Middle-age male currently chest pain-free Nitroglycerin drip at the bedside required fentanyl before nitroglycerin initiation Left bundle branch block complex rhythm without tachycardia or signs of PR, S1-S2 no signs of heart failure Abdomen soft nontender nondistended Neurologically nonfocal exam Awake alert oriented x3 GCS 15 Lower extremity no signs of edema gangrene or ulcer Appropriate mood and affect EOMI, PERRLA Bilateral normal breath sounds without adventitious sounds Data : 04/26/20 23:35 04/26/20 23:35 A&P Assessment and plan (1) NSTEMI (non-ST elevated myocardial infarction): Status: Acute (2) Unstable angina: Status: Acute (3) Dyslipidemia: Status: Acute (4) Diabetes mellitus: Status: Acute (5) Left bundle branch block: Status: Acute (6) Nicotine dependence: Status: Acute Additional A&P Information Non-ST segment elevation PR Unstable angina, start ACS protocol Established complex coronary artery disease history Start heparin drip, continue aspirin and Brilinta, he got loading dose of aspirin in the ER currently on nitroglycerin drip chest pain-free EKG does not meet Sgarbossa criteria Chronic left bundle branch block He will need an angiogram in the morning, Dr. Estrada has been consulted Obtain drug screen TSH 1.27, LDL 142 cholesterol 226 Chronic left bundle branch block without Sgarbossa criteria We will treat as NSTEMI for now Chest pain-free No hemodynamic instability Nicotine dependence: Patient is still smoking about 5 to 6 cigarettes a day has tried Chantix in the past and experienced nightmares, patient is motivated to q uit smoking Full code N.p.o. DVT prophylaxis not indicated as he is on heparin drip Attestations Medical Necessity Statement*: Anticipating stay in the hospital to cross more than 2 midnights currently need an angiogram for non-ST segment elevation PR for established coronary artery disease Time Spent in Patient Care: 50mins Coding Level of Care Code Acute Dealer Card Room for g Fwd Diagnoses NSTEMI (non-ST elevated myocardial infarction) I21.4 Unstable angina I20.0 Dyslipidemia E78.5 Diabetes mellitus E11.9 Left bundle branch block I44.7 Nicotine dependence F17.200
[2020-04-27 02:35] LABS: Troponin 5 2HR Delta 22.14 ABS# (0-10)
--- NOTE | 2020-04-27 02:35 | PC.NURSE ---
lab called with critical 2 hour troponin 41.14;delta 22.14. Notified Dr. Li
[2020-04-27] MEDS: heparin drip 25,000 UNIT/500 ML PREMIX 27 UNIT IV (04:47)
[2020-04-27] MEDS: sodium chloride 0.9% 1,000 ML 30 ML IV (04:48)
[2020-04-27] MEDS: heparin 5,000 unit/mL INJ 1 mL IV (04:48)
[2020-04-27] MEDS: morphine 4 mg/mL SDV 1 mL 2 MG IVP ×4 (04:59→20:56)
--- NOTE | 2020-04-27 05:00 | PC.NURSE ---
Patient arrived from the ED around 0430 after report was received via phone. Patient is alert and oriented and ambulatory. Patient does not complain of chest pain, but complains of lower back pain. Patient has been oriented to his room and has call light within reach. Patient states that he does not know his home medications and does not have a list with him, but they should all be the same as last time. Will have to verify med rec with his pharmacy or family today.
--- NOTE | 2020-04-27 05:09 | PC.NURSE ---
password: [id number]
--- NOTE | 2020-04-27 05:23 | ECG_ITS ---
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 Measurements Intervals [place] Rate: 58 P: 59 DC: 190 QRS: 71 QRSD: 169 T: 235 QT: 482 QTc: 477 Interpretive Statements SINUS BRADYCARDIA WITH SINUS ARRHYTHMIA LEFT BUNDLE BRANCH BLOCK [120+ ms QRS DURATION, 80+ ms Q/S IN V1/V2, 85+ ms R IN I/aVL/V5/V6] Compared to ECG 03/18/2020 02:27:05 Sinus rhythm no longer present Ventricular premature complex(es) no longer present Electronically Signed On 04-27-2020 21:40:24 CDT by Lavinia Estrada M.D. [id number]
--- NOTE | 2020-04-27 06:06 | PC.NURSE ---
Verified with Dr. Abarca that he did not want Accuchecks ordered on this patient. No new orders.
[2020-04-27 06:08] LABS: Platelet Count 311 10^3/cmm (130-400)
[2020-04-27 07:53] LABS: Troponin 5 6HR 71.95 ng/L (0-15)
[2020-04-27 07:59] LABS: Troponin 5 6HR Delta 52.95 ng/L (0-12)
--- NOTE | 2020-04-27 08:06 | PC.NURSE ---
Lab called signee of critical lab levels, notified at 0803. No new orders received at this time
[2020-04-27] MEDS: aspirin 81 mg EC Tablet PO (08:37)
[2020-04-27] MEDS: ticagrelor 90 mg Tablet PO ×2 (08:37→17:16)
[2020-04-27] MEDS: carvedilol 6.25 mg Tablet 12.5 MG PO ×2 (08:37→17:16)
[2020-04-27] MEDS: ranolazine (12HR) 500 mg Tablet 1000 MG PO ×2 (08:37→17:16)
--- NOTE | 2020-04-27 08:50 | ED_ITS ---
HPI - Chest Pain General: Chief Complaint: Chest Pain Stated Complaint: cp Time Seen by Provider: 04/26/20 23:33 History of Present Illness: HPI narrative: 49-year-old male with a history of coronary disease. He had a stent placed last month as well as an angioplasty for clotting of 2 prior stents. He continues to smoke. He says he takes his Brilinta. His onset was this evening while watching TV. He took multiple doses of nitroglycerin upwards of 12 at home with transient improvement, but the pain kept returning. He presents for evaluation he rates his pain at a 4-5. 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 Onset (ago): hour(s) Timing of current episode: constant Prior episodes: Yes Onset: during rest Pain location: substernal Severity: moderate Quality: tightness and heaviness Relieving factors: nitroglycerin Exacerbating factors: exertion Context: recent illness Associated symptoms: Reports diaphoresis, dyspnea, nausea and vomiting; Deny fever(s), leg edema or palpitations Review of Systems Const: Reports: diaphoresis; Denies: fever(s) Eyes: Denies: change in vision or blurry vision ENMT: Denies: swelling of lips/tongue, epistaxis or post nasal drip Card: Reports: chest pain; Denies: palpitations, irregular heart rhythm, edema or swelling of feet/ankles Resp: Reports: dyspnea GI: Reports: nausea and vomiting : Denies: difficulty urinating or hematuria Musc: Reports: back pain; Denies: neck pain or joint redness Skin/Breast: Denies: rash or erythema Neuro: Reports: dizziness; Denies: headache(s) or confusion Psych: Denies: anxiety PFSH ED PFSH: Medical History Cardiac catheterization as the cause of abnormal reaction of the patient, or of later complication, without mention of misadventure at the time of the procedure Cardiomyopathy Congestive heart failure Coronary artery spasm Diabetes mellitus Dyslipidemia Left bundle branch block Tobacco abuse Surgical History Hx of heart artery stent Stents to LAD, RCA (Aug 2019) and circumflex (2019), angioplasty of the obtuse marginal Family History Father Myocardial infarction Mother CAD (coronary artery disease) Brother Valvular heart disease Social History Smoking and tobacco status: current every day smoker cigarettes [ Other cigarette details: Says cutting down but has not quit completely ] Alcohol intake: never Household members: significant other Marital status: Legally Physical Exam Const: GENERAL APPEARANCE: well developed ORIENTATION/CONSCIOUSNESS: Yes oriented to person, Yes oriented to place and Yes oriented to time HENMT: COMMON NORMALS: normocephalic, external ears normal and Normal external nose present HEAD & SCALP: normocephalic FACE & SINUS: normal facial exam NOSE: Normal external nose present and No nasal discharge present EXTERNAL EAR: Yes external ears normal Eye: COMMON NORMALS: Equal, round and reactive pupils present, EOMs intact bilaterally and conjunctivae normal EYELID: eyelids normal CONJUNCTIVA: Yes conjunctivae normal PUPIL: Yes Equal, round and reactive pupils present Neck/C-Spine: GENERAL: No tracheal deviation Chest: COMMONS NORMALS: normal inspection of the chest CHEST: No tenderness Resp: COMMON NORMALS: clear to auscultation bilaterally EFFORT & INSPECTION: No tachypneic, No respiratory distress, No retractions, No uses accessory muscles and No tracheal deviation AUSCULTATION: clear to auscultation bilaterally, no rhonchi, no wheezes and lung sounds not diminished Cardio: COMMON NORMALS: regular rate and regular rhythm RATE: regular rate RHYTHM: regular rhythm HEART SOUNDS: no murmurs PERIPHERAL PULSES: radial pulses present GI: INSPECTION: No abdominal distension AUSCULTATION: No Hyperactive bowel sounds present and No Hypoactive bowel sounds present PALPATION: No Guarding due to palpation present (GI) and No Rigid due to palpation PERCUSSION: no dullness to percussion and no tympanic to percussion : COMMON NORMALS: Yes no CVA tenderness BLADDER/KIDNEY EXAM: Yes no CVA tenderness Back/Pelvis: COMMON NORMALS: no CVA tenderness Neuro: SENSORIUM/ORIENTATION: Yes oriented to person, Yes oriented to place and Yes oriented to time Psych: COMMON NORMALS: mental status grossly normal Skin: COMMON NORMALS: no rashes or lesions noted GENERAL SKIN EXAM: no rashes or lesions noted Course Consultations: Consultation #1: osei Consultation #2: leena Vital Signs: Vital signs: Vital Signs Temperature 98.0 F 04/27/20 07:37 Pulse Rate 57 L 04/27/20 07:37 Respiratory Rate 13 04/27/20 07:37 Blood Pressure 112/71 04/27/20 07:37 Pulse Oximetry 99 04/27/20 07:37 MDM - Chest Pain MDM Narrative: Medical decision making narrative: 49-year-old male with multiple stents. He has a history of clotting stents. He presents with significant chest pain. His EKG shows a large left bundle branch block, that was present on his prior EKGs. His first troponin is slightly elevated. His creatinine is slightly elevated as well. His other laboratory is essentially benign. His chest x-ray is negative. Because of the severity of his pain despite multiple doses of nitroglycerin at home, he was placed on a drip. After 200 mcg of fentanyl, and nitroglycerin at 10, his pain went away. He was given a full aspirin. He will go to the [facility] for further treatment and monitoring of troponins. Dr. Arce from cardiology was consulted from the ER and agrees with all of the above treatments as well as heparin infusion. Lab Data: Labs: Lab Results 04/26/20 04/26/20 04/26/20 Range/Units 23:35 23:35 23:35 WBC 11.5 H (4.0-10.0) 10^3/ uL RBC 4.78 (4.1-5.3) 10^6/u L Hgb 14.2 (11.7-16.6) g/dL Hct 42.7 (42.0-52.0) % MCV 89.3 (80-94) fL MCH 29.7 (28.0-34.0) pg MCHC 33.3 (30.0-36.0) g/dL RDW 13.8 (12.1-15.1) % Plt Count 348 (130-400) 10^3/c mm MPV 8.9 (7.4-10.4) fL Neut % (Auto) 55.4 % Lymph % (Auto) 32.8 % Rice % (Auto) 9.5 % Eos % (Auto) 1.6 % Baso % (Auto) 0.3 % Neut # (Auto) 6.36 (1.8-7.7) 10^3/u L Lymph # (Auto) 3.8 (0.8-4.8) 10^3/u L Rice # (Auto) 1.1 H (0.2-0.9) 10^3/u L Eos # (Auto) 0.2 (0.0-0.8) 10^3/u L Baso # (Auto) 0.0 (0.0-0.1) 10^3/u L Nucleated RBC % (a uto) 0 % Nucleated RBCs # 0.0 /100WBC PT (10.5-13.3) SECO NDS INR (0.8-1.2) APTT (23.9-36.7) SECO NDS Sodium 131 L (136-145) mmol/L Potassium 4.1 (3.5-5.1) mmol/L Chloride 95 L (98-107) mmol/L Carbon Dioxide 22 (22-29) mmol/L Anion Gap 18.1 (5-19) BUN 23 H (6-20) mg/dL Creatinine 1.4 H (0.7-1.2) mg/dL GFR Calculation 53.9 L (90-130) mL/min Glucose 282 H (65-115) mg/dL Calculated Osmolal ity 279 L (285-295) mOsm/k g Calcium 9.7 (8.5-10.5) mg/dL Total Bilirubin 0.3 (0.15-1.2) mg/dL AST 28 (0-40) U/L ALT 25 (0-41) U/L Alkaline Phosphata se 71 (40-130) IU/L Creatine Kinase 198 (39-308) U/L Troponin T Baselin e 19 H (0-15) ng/L Troponin T 120 Min emely (0-15) ng/L Delta Troponin T (0-10) ABS# NT-Pro-B Natriuret Pep 237 H (0-125) pg/mL Total Protein 8.1 (6.6-8.7) g/dL Albumin 4.5 (3.5-5.2) g/dL Globulin 3.6 (1.3-4.6) g/dL 04/26/20 04/27/20 Range/Units 23:35 01:32 WBC (4.0-10.0) 10^3/ uL RBC (4.1-5.3) 10^6/u L Hgb (11.7-16.6) g/dL Hct (42.0-52.0) % MCV (80-94) fL MCH (28.0-34.0) pg MCHC (30.0-36.0) g/dL RDW (12.1-15.1) % Plt Count (130-400) 10^3/c mm MPV (7.4-10.4) fL Neut % (Auto) % Lymph % (Auto) % Rice % (Auto) % Eos % (Auto) % Baso % (Auto) % Neut # (Auto) (1.8-7.7) 10^3/u L Lymph # (Auto) (0.8-4.8) 10^3/u L Rice # (Auto) (0.2-0.9) 10^3/u L Eos # (Auto) (0.0-0.8) 10^3/u L Baso # (Auto) (0.0-0.1) 10^3/u L Nucleated RBC % (a uto) % Nucleated RBCs # /100WBC PT 12.90 (10.5-13.3) SECO NDS INR 0.94 (0.8-1.2) APTT 28.4 (23.9-36.7) SECO NDS Sodium (136-145) mmol/L Potassium (3.5-5.1) mmol/L Chloride (98-107) mmol/L Carbon Dioxide (22-29) mmol/L Anion Gap (5-19) BUN (6-20) mg/dL Creatinine (0.7-1.2) mg/dL GFR Calculation (90-130) mL/min Glucose (65-115) mg/dL Calculated Osmolal ity (285-295) mOsm/k g Calcium (8.5-10.5) mg/dL Total Bilirubin (0.15-1.2) mg/dL AST (0-40) U/L ALT (0-41) U/L Alkaline Phosphata se (40-130) IU/L Creatine Kinase (39-308) U/L Troponin T Baselin e (0-15) ng/L Troponin T 120 Min emely 41.14 H (0-15) ng/L Delta Troponin T 22.14 H* (0-10) ABS# NT-Pro-B Natriuret Pep (0-125) pg/mL Total Protein (6.6-8.7) g/dL Albumin (3.5-5.2) g/dL Globulin (1.3-4.6) g/dL Critical Care Time Critical Care Time: Critical Care Time: Yes Total Critical Care Time: 35 Attestation: This case had a high probability of a clinically significant, sudden, or life threatening deterioration of this patient's condition which required my full and direct attention, intervention and personal management. Discharge Plan Discharge Patient Disposition: Admitted As Inpatient Admit Provider: Mana Abarca Clinical Impression: NSTEMI (non-ST elevated myocardial infarction) Chest pain Qualifiers: Chest pain type: chest pain due to myocardial ischemia Condition: Stable Discharge Date/Time: 04/27/20 04:06 Coding Level of Care Code ED Polysomnograph Tech for [facility]acia Fwd Exam Comprehensive
--- NOTE | 2020-04-27 09:24 | P.CONIM_ITS ---
Providers/Reason For Consult Consulting Physican/Specialty*: Dr. Estrada, Cardiology Reason for Consult*: NSTEMI, CAD with multiple stents Attending Physician: Pascual Senior Primary Care Provider: Phillip Gill MD History of Present Illness History of Present Illness Magen Riddle SR is a 49 year old male with PMHx of CAD s/p multiple interventions, Chronic active smoker, Obesity, HTN, Hyperlipidemia, NIDDM type II, Chronic combined systolic and diastolic CHF, H/o ischemic cardiomyopathy, GERD, Chronic back pain, DJD with recurrent hospitalizations for chest pain and angiogram. In nov 2019 he underwent angiogram for repeated chest discomfort despite negative stress testing. His LAD stent and right coronary artery stents were patent. There was a lesion in the ostial circumflex. A stent was placed in the ostial circumflex. A balloon angioplasty was done in the other marginal branch. He presented to ER again on 03/17/2020 for chest pains symptoms; troponin initially was 54 and overnight patient had more chest pain and his trop went upto 320s. He underwent another LHC which revealed 90% in-stent stenosis of ostial left circumflex stent and 80% in-stent stenosis of right mid coronary stents. In-stent restenosis of left circumflex stent was treated with balloon angioplasty followed by drug-eluting stent mild in-stent restenosis of mid RCA stent was treated with noncompliant balloon angioplasty. Excellent angiographic result with SYDNEY-3 flow was restored. Patient presented last night to the hospital with chief complaint of chest pain. Patient is describing chest pain as someone squeezing his heart that started when he was watching television around 9pm. This chest pain was radiating towards his shoulders bilaterally and left hand. He did experience nausea and couple of episode of vomiting. He presented to the hospital around 10 pm after nitroglycerin spray about 10-12 times did not relieve his chest pain completely. EKG showed chronic left bundle branch block. He was started on nitro drip ad ACS protocol. Overnight, he has been chest pain free and I have asked to assist in further management. Review of Systems Const: Reports: diaphoresis; Denies: fever(s) Eyes: Denies: change in vision or blurry vision ENMT: Denies: swelling of lips/tongue, epistaxis or post nasal drip Card: Reports: chest pain; Denies: palpitations, irregular heart rhythm, edema or swelling of feet/ankles Resp: Reports: dyspnea GI: Reports: nausea and vomiting : Denies: difficulty urinating or hematuria Musc: Reports: back pain; Denies: neck pain or joint redness Skin/Breast: Denies: rash or erythema Neuro: Reports: dizziness; Denies: headache(s) or confusion Psych: Denies: anxiety Meds/Allergies Home Medications and Allergies Home Medications Medication Instructions Recorded Confirmed Last Taken Type Spiriva with HandiHaler 1 cap INHALATION DAILY 10/13/19 03/27/20 03/17/20 History alprazolam [Xanax] 0.5 mg PO BID PRN 10/13/19 03/27/20 03/17/20 History aspirin 81 mg PO DAILY 10/13/19 03/27/20 03/16/20 History budesonide-formoterol [Symbicort] 2 puff INHALATION BID 10/13/19 03/27/20 03/17/20 History glimepiride 4 mg PO DAILY 10/13/19 03/27/20 03/16/20 History hydrocodone-acetaminophen 1 tab PO TID PRN 10/13/19 03/27/20 03/17/20 History hydroxyzine HCl 50 mg PO TID PRN 10/13/19 03/27/20 03/16/20 History lisinopril 10 mg PO DAILY 10/13/19 03/27/20 03/16/20 History pantoprazole 40 mg PO DAILY 10/13/19 03/27/20 03/16/20 History zolpidem [Ambien] 10 mg PO BEDTIME 10/13/19 03/27/20 03/16/20 History potassium chloride 20 meq PO DAILY #30 tab 10/14/19 03/27/20 Unknown Rx Janumet 1 tab PO BID 11/14/19 03/27/20 03/16/20 History acetaminophen [Tylenol Extra 1,000 mg PO Q4H PRN 11/14/19 03/27/20 03/17/20 History Strength] doxepin 75 mg PO BEDTIME 11/14/19 03/27/20 03/16/20 History isosorbide mononitrate 60 mg PO BID PRN 11/14/19 03/27/20 03/17/20 History carvedilol 12.5 mg PO BID 12/05/19 03/27/20 03/16/20 History ticagrelor 90 mg tablet 90 mg PO BID #180 tab 01/22/20 03/27/20 03/17/20 Rx furosemide 40 mg tablet 40 mg PO DAILY #30 tab 03/03/20 03/27/20 Unknown Rx nitroglycerin 0.4 mg sublingual 0.4 mg SUBLINGUAL Q5M PRN 90 Days 03/16/20 03/27/20 03/17/20 Rx tablet #25 tab nitroglycerin See Rx Instructions .ROUTE .COMPLEX 03/17/20 03/27/20 03/17/20 History ranolazine 1,000 mg PO BID 03/17/20 03/27/20 03/17/20 History atorvastatin 80 mg PO BEDTIME #30 tab 03/18/20 03/27/20 Unknown Rx Allergies Allergy/AdvReac Type Severity Reaction Status Date / Time cefdinir Allergy ALGY-Rash Verified 04/27/20 05:02 doxycycline Allergy ADR-Nausea Verified 04/27/20 05:02 Current Medications Current Medications Generic Name Dose Route Start Last Admin Trade Name Freq PRN Reason Stop Dose Admin Aspirin 81 mg 04/27/20 09:00 04/27/20 08:37 Aspirin Ec PO 81 mg DAILY GRISEL Administration Carvedilol 12.5 mg 04/27/20 09:00 04/27/20 08:37 Coreg PO 12.5 mg BID GRISEL Administration Heparin Sodium (Beef Lung) 0 unit 04/27/20 04:09 04/27/20 04:48 Heparin IV 4,900 unit PRN PRN Administration Heparin weight-base protocol Protocol Nitroglycerin/Dextrose 50 mg in 250 mls @ 0 mls/hr 04/26/20 23:45 04/27/20 00:10 Nitroglycerin Drip IV 10 mcg/min .Q0M GRISEL 3 mls/hr Administration Protocol Per Protocol Heparin Sodium/Sodium Chloride 25,000 unit in 500 mls @ 0 mls/hr 04/27/20 04:09 04/27/20 04:47 Heparin Drip IV 13.84 unit/kg/hr .Q0M GRISEL 27 mls/hr Administration Protocol Per Protocol Sodium Chloride 1,000 mls @ 30 mls/hr 04/27/20 04:09 04/27/20 04:48 Sodium Chloride 0.9% IV 30 mls/hr .Q24H GRISEL Administration Morphine Sulfate 2 mg 04/27/20 04:09 04/27/20 04:59 Morphine IVP 2 mg Q4H PRN Administration SEVERE PAIN Ranolazine 1,000 mg 04/27/20 09:00 04/27/20 08:37 Ranexa PO 1,000 mg BID GRISEL Administration Ticagrelor 90 mg 04/27/20 09:00 04/27/20 08:37 Brilinta PO 90 mg BID GRISEL Administration PFSH Acute PFSH: Medical History Cardiac catheterization as the cause of abnormal reaction of the patient, or of later complication, without mention of misadventure at the time of the procedure Cardiomyopathy Congestive heart failure Coronary artery spasm Diabetes mellitus Dyslipidemia Left bundle branch block Tobacco abuse Surgical History Hx of heart artery stent Stents to LAD, RCA (Aug 2019) and circumflex (2019), angioplasty of the obtuse marginal Family History Father Myocardial infarction Mother CAD (coronary artery disease) Brother Valvular heart disease Social History Smoking and tobacco status: current every day smoker cigarettes [ Other cigarette details: Says cutting down but has not quit completely ] Alcohol intake: never Household members: significant other Marital status: Legally Vitals/I&O/Wt Last Vital Signs Temp 98.0 F 04/27/20 07:37 Pulse 57 L 04/27/20 07:37 Resp 13 04/27/20 07:37 BP 112/71 04/27/20 07:37 Pulse Ox 99 04/27/20 07:37 04/26/20 04/27/20 04/27/20 22:59 06:59 14:59 Output Total 400 / 400 Balance -400 / -400 Weight last 48 hrs Weight 215 lb Physical Exam Narrative: EXAM NARRATIVE: Gen: NAD, lying comfortably in bed HEENT/Neck: No JVD, trachea midline RS:CTAB/L, No wheezes, rhonchi or rales; No reproducible CP CVS: S1, S2 normal, No murmur, rub or gallop appreciated. ELECTRONIC SYSTEMS SECURITY ASSESSMENT: AAOx 3, No FND Psych: Normal mood and affect Skin: No rashes. Data Labs: Other Labs: Laboratory Tests 04/26/20 04/26/20 04/27/20 23:35 23:35 01:32 Troponin T Baselin e 19 H Troponin T 120 Min emely 41.14 H Troponin T Hi Sens 6Hr NT-Pro-B Natriuret Pep 237 H 04/27/20 07:19 Troponin T Baselin e Troponin T 120 Min emely Troponin T Hi Sens 6Hr 71.95 H NT-Pro-B Natriuret Pep A&P Assessment and plan (1) NSTEMI (non-ST elevated myocardial infarction): After having a detailed discussion with patient and Dr. Paulson decision to proceed with stress test to assess for ischemia. -Plan for stress test. Status: Acute (2) Left bundle branch block: Status: Acute (3) Coronary artery spasm: Documented vasospasm in past. Vasospasm contributing to troponin leak and chest pain in highly likely. Status: Acute (4) Coronary artery disease: Status: Chronic Qualifiers: Associated angina: with unspecified angina Coronary Disease-Associated Artery/Lesion type: [place] artery [place] vs. transplanted heart: [place] heart Qualified Code(s): I25.119 - Atherosclerotic heart disease of [place] coronary artery with unspecified angina pectoris (5) Nicotine dependence: Status: Acute (6) Dyslipidemia: Status: Acute Additional A&P Information Chronic active smoker BRI Consult Attestations Medical Necessity Statement: Needs hospital stay for chest pain. Coding Level of Care Code Acute Lpn Cma for [facility] Diagnoses NSTEMI (non-ST elevated myocardial infarction) I21.4 Left bundle branch block I44.7 Coronary artery spasm I20.1 Coronary artery disease I25.119 Associated angina: with unspecified angina Coronary Disease-Associated Artery/Lesion type: [place] artery [place] vs. transplanted heart: [place] si[place] heart Nicotine dependence F17.200 Dyslipidemia E78.5
--- NOTE | 2020-04-27 09:56 | PC.NURSE ---
Dr Estrada at bedside discussing POC at this time.
--- NOTE | 2020-04-27 10:05 | ECG_ITS ---
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 Interpretive Statements NAME OF STUDY: LEXISCAN SESTAMIBI STRESS TEST INDICATION: Chest Pain PROCEDURE: At the baseline, the blood pressure was 110/78 mmHg with a heart rate of 69 bpm and oxygen saturation 96%. The electrocardiogram showed normal sinus rhythm, right axis deviation and IVCD (left bundle branch block like). The Lexiscan was infused over a period of 20 seconds. A total of 0.4 milligrams of Lexiscan was infused. The stress phase was continued for a total of 5 minutes. Heart rate at the end of the stress phase was 92 bpm, oxygen saturation 96% with a blood pressure 138/99 mmHg. The EKG at the peak infusion revealed sinus rhythm with intraventricular conduction delay. Sestamibi was injected 20 seconds after the Lexiscan infusion. Blood pressure at the end of the recovery phase was 153/97 mmHg, oxygen saturation 95% with a heart rate of 86 beats per minute. CONCLUSION: 1. Nondiagnostic EKG with LexiScan infusion given baseline left bundle branch block like morphology. 2. No LexiScan induced chest pain or cardiac arrhythmia. 3. Normal blood pressure and heart rate response. 4. Sestamibi/sestamibi perfusion scan pending; see separate report. Electronically Signed On 04-27-2020 13:29:18 CDT by Lavinia Estrada M.D. [id number]
--- NOTE | 2020-04-27 10:05 | NMCV_ITS ---
NM mary perf SPECT r/s* [id number] Magen Riddle Age: 49 Gender: M : 1970 Exam Date: 04/27/2020 11:04 Ordering Phys: Lavinia Estrada MD ([email or web address]) Technologist: HERNESTO Gleason Exam [facility]: [facility] Indications: CHEST PAIN STRESS TEST Please see separate stress test report in [facility] for full findings IMAGE PROTOCOL Rest/Stress 1 Lexiscan Day Radiopharmaceutical Dose (mCi) Administration Site Administered by Rest: Tc-99m 11.0 IV HERNESTO Alvarez Sestamibi Stress:Tc-99m 32.8 IV HERNESTO Alvarez Sestamibi Rest: 60 Discovery 630 Stress: 30 Discovery 630 0.4mg Lexiscan. Images obtained in supine and prone position. SPECT RESULTS Technical Quality: Excellent Raw Data Analysis: Normal Image Corrections: No attenuation or motion correction applied Summed Stress Score: 9 Summed Rest Score: 10 Summed Difference Score: 3 PERFUSION FINDINGS Medium to large size perfusion abnormality of moderate to severe severity of entire inferior, basal to apical anterior and apical jernigan on rest images with mild reversibility noted in mid anteroseptal, apical anterior and apical septal jernigan on stress images. FUNCTIONAL RESULTS (calculated via Gated SPECT) Stress Image LV EF (%): 23 Stress EDV (mL):312 TID: 1.06 Stress ESV (mL):239 FUNCTIONAL FINDINGS: The left ventricle is dilated. Transient Ischemia Dilatation of 1.1. There is severely reduced left ventricular global systolic function. The left ventricular ejection fraction is reduced with a value of 23%. There is severely decreased wall thickening, more pronounced in mid to apical anterior and apical jernigan. Markedly increased end-diastolic and end-systolic volumes IMPRESSIONS 1. Medium to large size perfusion abnormality of moderate to severe severity of entire inferior, basal to apical anterior and apical jernigan on rest images with mild reversibility noted in mid anteroseptal, apical anterior and apical septal jernigan on stress images. 2. This represents old myocardial infarction in left anterior descending and right coronary artery territory with minimal sofie-infarct ischemia in left anterior descending artery territory. 3. The left ventricular ejection fraction is severely reduced with a value of 23%. 4. There is severely decreased wall thickening, more pronounced in mid to apical anterior and apical jernigan. 5. When compared to previous stress test dated 10/14/2019, there there is minimal sofie-infarct ischemia in left anterior descending artery territory. Lavinia Estrada MD (Electronically Signed) Final Date: 27 April 2020 17:16 S
--- NOTE | 2020-04-27 10:07 | PC.CHAP ---
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 [] Patient/Family/Request visit [] Outpatient visit [] Follow-up visit [] Physician referral [] Code/Alert [x] Routine visit [] Staff referral [] Actively dying [] Patient sleeping [] Family support [] [] Out of room [] Palliative care [] [] Receiving care in room [] Pre-surgical visit [] Trauma [] Long length of stay [] ICU visit [] Other: Relational/Emotional Strength [] Patient feels connected with others/family/visitors/staff [] Distress [] Loneliness/isolation [] Abandonment Spirituality of Patient [] Person of Karina [] Attends Jainism of their Karina [] Believes in Prayer [] Reads Bible or Hoahaoism materials [] There are Spiritual issues to be addressed Buffing Wheel Presser Interventions [x] Prayer [x] Active listening [x] Non-anxious presence [x] Spiritual/emotional support [] Crisis/trauma care [] Spiritual counseling [] Bereavement support [] Provided bereavement packet [] Provided Bible/devotional materials [] Provided toy/stuffed animal, coloring book to patient or family member [] Provided Communion [] Anointing/[place] [] Salvation [x] Completed spiritual assessment [] Other: Impact on Illness or Injury [] Angry [] Fearful [] Anxious [] Often cries [] Exhaustion [] Unable to work [] Unable to attend faith [] Unable to walk/stand [] Unable to read [] Unable to drive [] Unable to eat/drink [] Unable to sleep [] Unable to be with family [] Patient intubated [] Other: Summary Patient seemed concerned with issues at hand. Prayed for peace and understanding of all things. Time spent with patient 10 min
--- NOTE | 2020-04-27 10:08 | PC.NURSE ---
Dr. Rebollar at bedside discussing POC at this time.
--- NOTE | 2020-04-27 11:18 | PM.PN ---
Subjective Subjective: Interval history: Currently he is chest pain-free. Denies shortness of breath. Denies any other complaints at this time. Has just had a discussion with the aircraft load controller with regards to next steps and assessment and treatment. Denies any questions. Vitals/I&O/Wt Last Vital Signs Temp 98.0 F 04/27/20 07:37 Pulse 67 04/27/20 11:00 Resp 12 04/27/20 11:00 BP 110/71 04/27/20 11:00 Pulse Ox 98 04/27/20 11:00 04/26/20 04/27/20 04/27/20 22:59 06:59 14:59 Output Total 400 / 400 Balance -400 / -400 Weight last 48 hrs Weight 97.522 kg Physical Exam Const: COMMON NORMALS: no acute distress and patient oriented x3 HENMT: COMMON NORMALS: oropharynx normal Neck/C-Spine: COMMON NORMALS: no JVD Resp: COMMON NORMALS: normal respiratory effort and clear to auscultation bilaterally AUSCULTATION: clear to auscultation bilaterally Cardio: COMMON NORMALS: no JVD, regular rhythm, S1 normal heart sound present, S2 normal heart sound present and No murmurs present (Cardio) RHYTHM: regular rhythm HEART SOUNDS: S1 normal heart sound present and S2 normal heart sound present GI: COMMON NORMALS: Normal to inspection, nondistended, normoactive bowel sounds present, Soft to palpation and non-tender PALPATION: Yes Soft to palpation Extremity: COMMON NORMALS: no joint enlargement and no pedal edema Neuro: COMMON NORMALS: patient oriented x3 and moves all extremities Skin: COMMON NORMALS: no rashes or lesions noted GENERAL SKIN EXAM: no rashes or lesions noted Data : 04/27/20 05:47 04/26/20 23:35 A&P Assessment and plan (1) NSTEMI (non-ST elevated myocardial infarction): After consideration of his condition, prior history, cardiology and patient together decided for additional assessment by stress testing. He is currently chest pain-free. Denies any questions. Status: Acute (2) BRI (acute kidney injury): Mild acute kidney injury, creatinine up to 1.4. Appears to be normal at baseline. Brilinta can cause transient increase in creatinine level. Not sure if maybe this is from that. Otherwise I do not see medications that should cause kidney injury. Does have some BUN elevation, and suprarenal injury may be considered. Receiving gentle IV fluid challenge. We will continue for now. Monitor renal function. Status: Acute (3) Dyslipidemia: Status: Acute (4) Diabetes mellitus: After diet resumed, resume consistent carbohydrate. Oral hypoglycemics on hold for now. Mild insulin sliding scale. Status: Acute (5) Left bundle branch block: Chronic left bundle branch block Status: Acute (6) Nicotine dependence: Continue to encourage smoking cessation. Status: Acute Attestations Medical Necessity Statement*: Continue admission for assessment and management of non-STEMI. Coding Level of Care Code Acute Supervisor Home Energy Consultant for [facility] Diagnoses NSTEMI (non-ST elevated myocardial infarction) I21.4 BIR (acute kidney injury) N17.9 Dyslipidemia E78.5 Diabetes mellitus E11.9 Left bundle branch block I44.7 Nicotine dependence F17.200
[2020-04-27 11:39] LABS: Partial Thromboplastin Time 63.1 SECONDS (23.9-36.7)
[2020-04-27] MEDS: ondansetron 2 mg/ML SDV 2 mL 4 MG IVP (12:06)
[2020-04-27] MEDS: regadenoson 0.4 Mg/5 ml Syringe IVP (12:06)
--- NOTE | 2020-04-27 12:16 | PC.RESP ---
Smoking Cessation information sent to patient.
[2020-04-27 12:26] LABS: Amphetamines Screen Urine Negative (Negative); Barbiturates Screen Urine Negative (Negative); Benzodiazepines Screen Urine Negative (Negative); Cocaine Screen Urine Negative (Negative); Opiate Screen Urine Positive (Negative); PCP Screen Urine Negative (Negative); THC Screen Urine Negative (Negative)
[2020-04-27 13:14] LABS: Glucose Point of Care 248 mg/dL (70-110)
--- NOTE | 2020-04-27 13:14 | PC.NURSE ---
Patient arrived back from stress test at 1306.
[2020-04-27 16:15] LABS: Glucose Point of Care 189 mg/dL (70-110)
[2020-04-27] MEDS: isosorbide mononitrate ER 60 mg Tablet PO (17:16)
--- NOTE | 2020-04-27 17:35 | PC.NURSE ---
Call from doctor balwinder to check on patient no concerns to report at this time discussed new medication orders for imdur with instructions to stop nitro drip POC discussed with patient
--- NOTE | 2020-04-27 18:43 | PC.NURSE ---
Dr Estrada at bedside to discuss POC Dr whitlock to see patient tomorrow verbal instructions given to stop heparin drip and start Lovenox q 24 hr weight based dosing verified by Dr. Estrada and Dr Whitlock
[2020-04-27 20:46] LABS: Glucose Point of Care 327 mg/dL (70-110)
[2020-04-27] MEDS: doxepin 25 mg Capsule 75 MG PO (20:57)
[2020-04-27] MEDS: atorvastatin 40 mg Tablet 80 MG PO (20:57)
[2020-04-27] MEDS: enoxaparin 100 mg/mL Syringe SUBCUT (20:57)
--- NOTE | 2020-04-28 00:37 | PC.NURSE ---
Patient does not have any complaints at this time. Will monitor.
[2020-04-28 03:00] VITALS: BP 101/55; PULSE 72; RESP 18; TEMP 36.6; O2SAT 98
[2020-04-28 03:18] VITALS: RESP 16
[2020-04-28] MEDS: morphine 4 mg/mL SDV 1 mL 2 MG IVP (03:18)
--- NOTE | 2020-04-28 03:59 | PC.NURSE ---
Patient has been given PRN Morphine for lower back pain twice during this shift. Patient has not had any complaints of chest pain. Will monitor.
[2020-04-28 04:44] LABS: Basophils % 0.5 %; Eosinophils # 0.2 10^3/uL (0.0-0.8); Eosinophils % 2.1 %; Hematocrit 39.3 % (42.0-52.0); Lymphocytes # 3.4 10^3/uL (0.8-4.8); Lymphocytes % 42.8 %; Mean Corpuscular HGB Conc 33.1 g/dL (30.0-36.0); Mean Corpuscular Hemoglobin 30.1 pg (28.0-34.0); Monocytes # 0.8 10^3/uL (0.2-0.9); Monocytes % 9.5 %; Neutrophils # 3.54 10^3/uL (1.8-7.7); Neutrophils % 44.5 %; Nucleated Red Blood Cells % 0 %; Platelet Count 307 10^3/cmm (130-400); Red Blood Count 4.32 10^6/uL (4.1-5.3); Red Cell Distribution Width 13.9 % (12.1-15.1)
[2020-04-28 05:16] LABS: Blood Urea Nitrogen 20 mg/dL (6-20); Calcium 8.3 mg/dL (8.5-10.5); Carbon Dioxide 24 mmol/L (22-29); Chloride 99 mmol/L (98-107); Glomerular Filtration Rate 71.1 mL/min (90-130); Glucose 238 mg/dL (65-115); Osmolality Calculated 284 mOsm/kg (285-295); Sodium 135 mmol/L (136-145)
[2020-04-28 05:26] LABS: Anion Gap 15.9 (5-19); Potassium 3.9 mmol/L (3.5-5.1)
[2020-04-28 06:41] LABS: Glucose Point of Care 249 mg/dL (70-110)
[2020-04-28 07:43] VITALS: BP 127/80; PULSE 82; RESP 18; TEMP 36.6; O2SAT 97
[2020-04-28] MEDS: isosorbide mononitrate ER 60 mg Tablet PO (09:00)
[2020-04-28] MEDS: carvedilol 6.25 mg Tablet 12.5 MG PO (09:00)
[2020-04-28] MEDS: enoxaparin 100 mg/mL Syringe SUBCUT (09:00)
[2020-04-28] MEDS: ticagrelor 90 mg Tablet PO (09:01)
[2020-04-28] MEDS: ranolazine (12HR) 500 mg Tablet 1000 MG PO (09:01)
[2020-04-28] MEDS: aspirin 81 mg EC Tablet PO (09:02)
--- NOTE | 2020-04-28 10:28 | PC.NURSE ---
Patient up walking in [address] denies any chest pain or discomfort no s/s of SOB; patient appears to be tolerating activity well
[2020-04-28 11:00] VITALS: BP 121/76; PULSE 78; RESP 19; TEMP 36.4; O2SAT 96
--- NOTE | 2020-04-28 11:07 | PC.CHAP ---
Pastoral Care Encounter/Spiritual Assessment Type of Contact [] Declined tinsmith helper visit [] Patient/Family/Request visit [] Outpatient visit [] Follow-up visit [] Physician referral [] Code/Alert [x] Routine visit [] Staff referral [] Actively dying [] Patient sleeping [] Family support [] [] Out of room [] Palliative care [] [x] Receiving care in room [] Pre-surgical visit [] Trauma [] Long length of stay [] ICU visit [] Other: Relational/Emotional Strength [x] Patient feels connected with others/family/visitors/staff [] Distress [] Loneliness/isolation [] Abandonment Spirituality of Patient [x] Person of Karina [] Attends Jewish of their Karina [x] Believes in Prayer [] Reads Bible or Anabaptist materials [] There are Spiritual issues to be addressed Double Cut Off Saw Operator Interventions [x] Prayer [x] Active listening [x] Non-anxious presence [x] Spiritual/emotional support [] Crisis/trauma care [x] Spiritual counseling [] Bereavement support [] Provided bereavement packet [] Provided Bible/devotional materials [] Provided toy/stuffed animal, coloring book to patient or family member [] Provided Communion [] Anointing/[place] [] Salvation [x] Completed spiritual assessment [] Other: Impact on Illness or Injury [] Angry [] Fearful [] Anxious [] Often cries [] Exhaustion [] Unable to work [] Unable to attend christianity [] Unable to walk/stand [] Unable to read [] Unable to drive [] Unable to eat/drink [] Unable to sleep [] Unable to be with family [] Patient intubated [] Other: Summary Alurt feeling better has a good attitude, wants to home and do regler actives Time spent with patient 10 mins
[2020-04-28 11:31] LABS: Glucose Point of Care 189 mg/dL (70-110)
--- NOTE | 2020-04-28 15:15 | PM.DCS ---
Discharge Providers Date of Admission: 04/27/20 03:06 Date of Discharge: April 28, 2020 Attending Provider at Admission: Mana Abarca MD Attending Provider at Discharge: Pascual Senior Primary Care Provider: Phillip Gill MD Diagnoses at Discharge Discharge Diagnosis (1) NSTEMI (non-ST elevated myocardial infarction): Status: Acute (2) Left bundle branch block: Status: Acute (3) Coronary artery spasm: Status: Acute (4) Coronary artery disease: Status: Chronic Qualifiers: Associated angina: with unspecified angina Coronary Disease-Associated Artery/Lesion type: [place] artery [place] vs. 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 Noted LBBB. His coronary disease medications were continued, and on on assessment and discussion with patient by cardiology decision was made for additional risk stratification by stress testing, with finding of medium to large size perfusion abnormality of moderate to severe severity of entire inferior, basal to apical anterior and apical jernigan with mild reversibility in mid anteroseptal, apical, inferior and apical septal jernigan on stress test imaging. Representing old myocardial infarction in left anterior descending coronary artery territory, with minimal sofie-infarct ischemia. Noted reduced ejection fraction. During the hospitalization he remains chest pain-free. On reassessment by cardiology he is cleared for discharge with continuation of his current medications, and follow-up in office. He needs to stop smoking. This may be attributable to his vasospasm, but also progression of atherosclerotic vascular disease. Please assist him with cessation. Continue to optimize CAD risk factors. Physical Exam Const: COMMON NORMALS: no acute distress and patient oriented x3 OTHER: He is feeling well, wanting to return home. All questions answered. HENMT: COMMON NORMALS: oropharynx normal Neck/C-Spine: COMMON NORMALS: no JVD Resp: COMMON NORMALS: normal respiratory effort and clear to auscultation bilaterally AUSCULTATION: clear to auscultation bilaterally Cardio: COMMON NORMALS: no JVD, regular rhythm, S1 normal heart sound present, S2 normal heart sound present and No murmurs present (Cardio) RHYTHM: regular rhythm HEART SOUNDS: S1 normal heart sound present and S2 normal heart sound present GI: COMMON NORMALS: Normal to inspection, nondistended, normoactive bowel sounds present, Soft to palpation and non-tender PALPATION: Yes Soft to palpation Extremity: COMMON NORMALS: no joint enlargement and no pedal edema Neuro: COMMON NORMALS: patient oriented x3 and moves all extremities Skin: COMMON NORMALS: no rashes or lesions noted GENERAL SKIN EXAM: no rashes or lesions noted Discharge Data Data Completed and Pending: Completed Studies During Hospitalization Category Date Time Status Sestamibi Stress Test Request Routi ne Exams 04/27/20 10:05 Completed XR chest 1V lovely ble [id number] Urgent Exams 04/26/20 23:23 Completed NM mary perf SPECT r/s* [id number] Routin e Nuc Med 04/27/20 10:05 Completed Labs from last 24 hours 04/28/20 04/28/20 04/28/20 11:25 06:33 03:15 WBC RBC Hgb Hct MCV MCH MCHC RDW Plt Count MPV Neut % (Auto) Lymph % (Auto) [place] % (Auto) Eos % (Auto) Baso % (Auto) Neut # (Auto) Lymph # (Auto) [place] # (Auto) Eos # (Auto) Baso # (Auto) Nucleated RBC % (a uto) Nucleated RBCs # Sodium 135 L Potassium 3.9 Chloride 99 Carbon Dioxide 24 Anion Gap 15.9 BUN 20 Creatinine 1.1 GFR Calculation 71.1 L Glucose 238 H POC Glucose 189 249 Calculated Osmolal ity 284 L Calcium 8.3 L 04/28/20 04/27/20 04/27/20 03:15 20:38 16:08 WBC 8.0 RBC 4.32 Hgb 13.0 Hct 39.3 L MCV 91.0 MCH 30.1 MCHC 33.1 RDW 13.9 Plt Count 307 MPV 9.0 Neut % (Auto) 44.5 Lymph % (Auto) 42.8 [place] % (Auto) 9.5 Eos % (Auto) 2.1 Baso % (Auto) 0.5 Neut # (Auto) 3.54 Lymph # (Auto) 3.4 [place] # (Auto) 0.8 Eos # (Auto) 0.2 Baso # (Auto) 0.0 Nucleated RBC % (a uto) 0 Nucleated RBCs # 0.0 Sodium Potassium Chloride Carbon Dioxide Anion Gap BUN Creatinine GFR Calculation Glucose POC Glucose 327 189 Calculated Osmolal ity Calcium Vitals: Last Vital Signs Temp 97.6 F 04/28/20 11:00 Pulse 78 04/28/20 11:00 Resp 19 H 04/28/20 11:00 BP 121/76 04/28/20 11:00 Pulse Ox 96 04/28/20 11:00 Discharge Plan Discharge Patient Disposition: Home Condition: Stable Prescriptions: Continued Brilinta 90 mg tablet 90 mg PO BID Qty: 180 RF: 3 furosemide [Lasix] 40 mg tablet 40 mg PO DAILY Qty: 30 RF: 4 nitroglycerin [Nitrostat] 0.4 mg tablet, sublingual 0.4 mg SUBLINGUAL Q5M PRN (Reason: chest pain) 90 Days Qty: 25 RF: 3 doxepin 75 mg Capsule 75 mg PO BEDTIME RF: 0 acetaminophen [Tylenol Extra Strength] 500 mg Tablet 1,000 mg PO Q4H PRN (Reason: Pain) RF: 0 Janumet 50-500 mg Tablet 1 tab PO BID RF: 0 isosorbide mononitrate 30 mg tablet extended release 24 hr 60 mg PO BID PRN (Reason: Chest Pain) RF: 0 carvedilol 6.25 mg Tablet 12.5 mg PO BID RF: 0 alprazolam [Xanax] 0.5 mg tablet 0.5 mg PO BID PRN (Reason: Anxiety) RF: 0 hydrocodone-acetaminophen 10-325 mg Tablet 1 tab PO TID PRN (Reason: Pain) RF: 0 aspirin 81 mg tablet,delayed release (DR/EC) 81 mg PO DAILY RF: 0 glimepiride 4 mg Tablet 4 mg PO DAILY RF: 0 zolpidem [Ambien] 10 mg Tablet 10 mg PO BEDTIME RF: 0 hydroxyzine HCl 50 mg Tablet 50 mg PO TID PRN (Reason: Anxiety) RF: 0 lisinopril 20 mg Tablet 10 mg PO DAILY RF: 0 pantoprazole 40 mg Tablet,Delayed Release (Dr/Ec) 40 mg PO DAILY RF: 0 Spiriva with HandiHaler 18 mcg Capsule, W/Inhalation Device 1 cap INHALATION DAILY RF: 0 budesonide-formoterol [Symbicort] 160-4.5 mcg/actuation Hfa Aerosol Inhaler 2 puff INHALATION BID RF: 0 potassium chloride 20 mEq tablet extended release 20 meq PO DAILY Qty: 30 RF: 4 nitroglycerin 400 mcg/spray spray,non-aerosol See Rx Instructions .ROUTE .COMPLEX RF: 0 ranolazine 500 mg tablet extended release 12 hr 1,000 mg PO BID RF: 0 atorvastatin 40 mg Tablet 80 mg PO BEDTIME Qty: 30 RF: 0 Discharge Orders: Discharge Order (Routine); Ordered 04/28/20 Ordered By: Pascual Senior Referrals: Mana Paulson MD [Physician] - 1 month (You have an follow-up appointment with Dr. Paulson on June 09 at 12:45p.m. If you have any questions or need to reschedule. Please call ) Phillip Gill MD [Primary Care Provider] - 4-7 days (You have an follow-up appointment with Dr. Gill on May 06 at 2:30p.m. If you have any questions or need to reschedule. Please call ) Janiya Bray FNP [Nurse Practitioner] - 1 week (You have an follow-upp appointment with Janiya Bray on May 07 at 1:oop.m. If you have any questions or need to reschedule. Please call ) Discharge Diet: Cardiac Discharge Activity: Increase activity as tolerated Patient Instructions: Angina (GEN), Myocardial Infarction (DC), Myocardial Infarction (GEN), How to Stop Smoking (DC), Acute Kidney Injury (DC), Acute Kidney Injury (GEN), Diabetes Mellitus Type 2 in Adults (DC), Chest Pain Stoplight Activity Restrictions/Additional Instructions: Please stop smoking, as this contributes to episodes of coronary artery spasm, and episodes of chest pain. Also contributes to progression of atherosclerotic disease, and risk of additional heart attack, in addition to other complications. Avoid sumatriptan as it can contribute to spasm of coronary artery. Avoid high doses of aspirin as they may contribute as well. If you experience persistent chest pain or pressure, shortness of breath, or other abnormal symptoms, please seek medical attention. Discharge Attestations Time Spent in Discharge Care*: greater than 30 min Status at Discharge: Cognitive status at discharge: cognitively intact, Behavioral status at discharge: cooperative, Quality Metrics Clinical Quality Measures During this hospital stay, did patient experience: AMI Clinical Trial Participant: No Contraindication to aspirin (AMI): Aspirin given Contraindication to statin: Statin prescribed Coding Level of Care Code Acute Hospice Social Worker for Dacia Ceballos Diagnoses NSTEMI (non-ST elevated myocardial infarction) I21.4 Left bundle branch block I44.7 Coronary artery spasm I20.1 Coronary artery disease I25.119 Associated angina: with unspecified angina Coronary Disease-Associated Artery/Lesion type: [place] artery [place] vs. transplanted heart: [place] heart Nicotine dependence F17.200 Dyslipidemia E78.5
[2020-04-28 15:31] VITALS: BP 135/91; PULSE 77; RESP 20; TEMP 36.5; O2SAT 99
[2020-04-28 15:33] VITALS: BP 135/91; PULSE 77; RESP 20; TEMP 36.5; O2SAT 99
--- NOTE | 2020-04-28 15:48 | PC.NURSE ---
Patient discharged home from [facility], and exited via to surgical services exit via w/c to private vehicle at 1545. Patient discharged home with all personal belongings, and verbalized understanding of discharge instructions. All follow up appointments explained to patient and given with discharge instructions and paperwork. Patient verbalizes understanding.
--- NOTE | 2020-04-28 18:51 | P.PN_ITS ---
Subjective Subjective: Interval history: Denies any more chest pain. Ruled out for acute coronary syndrome stress test did not show significant ischemia Vitals/I&O/Wt Last Vital Signs Temp 97.7 F 04/28/20 15:33 Pulse 77 04/28/20 15:33 Resp 20 H 04/28/20 15:33 BP 135/91 04/28/20 15:33 Pulse Ox 99 04/28/20 15:33 04/28/20 04/28/20 04/28/20 06:59 14:59 22:59 Intake Total 400 / 963.00 960 / 960 Output Total 400 / 2000 350 / 350 Balance 0 / -1037.00 610 / 610 Weight last 48 hrs Weight 215 lb Physical Exam Narrative: EXAM NARRATIVE: GENERAL: Patient is alert, awake and oriented x3. NECK: No jugular vein distension. HEENT: No cyanosis. No icterus. No pallor. HEART: Regular S1 and S2. No murmur, rub or gallop. LUNGS: Clear to auscultate bilaterally. ABDOMEN: Soft, nontender and nondistended. Positive bowel sounds. No guarding, rebound or tenderness. CENTRAL NERVOUS SYSTEM: Grossly nonfocal. EXTREMITIES: Lower extremities without edema bilaterally. Data : 04/28/20 03:15 04/28/20 03:15 A&P Assessment and plan (1) Coronary artery spasm: Advised quitting smoking maximize medical management by increasing isosorbide mononitrate. Consider adding amlodipine Status: Acute (2) Coronary artery disease: Stable from coronary disease perspective chest pain may be from coronary spasm he has been ruled out for ischemia with stress test Status: Chronic Qualifiers: Coronary Disease-Associated Artery/Lesion type: [place] artery [place] vs. transplanted heart: [place] heart Associated angina: with unspecified angina Qualified Code(s): I25.119 - Atherosclerotic heart disease of [place] coronary artery with unspecified angina pectoris (3) Nicotine dependence: Advised quitting smoking Status: Acute (4) Dyslipidemia: On statin will continue meds Status: Acute (5) Chest pain: Most likely atypical or coronary spasm stress test negative for ischemia. Continue optimizing medicine. Advise lifestyle modification Status: Acute Qualifiers: Chest pain type: precordial pain Qualified Code(s): R07.2 - Precordial pain (6) Cardiomyopathy: Stable and well compensated. Status: Acute Qualifiers: Cardiomyopathy type: other Qualified Code(s): I42.8 - Other cardiomyopathies Additional A&P Information Chronic active smoker BRI Attestations Medical Necessity Statement*: Patient can be discharged home follow-up with cardiology in 7 to 10 days Coding Level of Care Code Established Pt Acute Body Cleaner for Chg Fwd Patient Type Established History Expanded Problem Focused Exam Expanded Problem Focused Medical Decision Making Moderate Complexity Diagnoses Coronary artery spasm I20.1 Coronary artery disease I25.119 Coronary Disease-Associated Artery/Lesion type: [place] artery [place] vs. transplanted heart: [place] heart Associated angina: with unspecified angina Nicotine dependence F17.200 Dyslipidemia E78.5 Chest pain R07.2 Chest pain type: precordial pain Cardiomyopathy I42.8 Cardiomyopathy type: other
== END 2020-04-28 15:45 | disposition home or self-care (01) | DRG 303 ==
LOC: ER 23:33 → CSU 04-27 03:20
PROVIDERS: Emergency Medicine; Physician Assistant; Admitting Provider Internal Medicine; PCP Family Medicine; Visit Provider Internal Medicine
DX: I25.119 Atherosclerotic heart disease of native coronary artery with unspecified angina pectoris (principal); I50.42 Chronic combined systolic (congestive) and diastolic (congestive) heart failure; N17.9 Acute kidney failure, unspecified; I44.7 Left bundle-branch block, unspecified; E78.5 Hyperlipidemia, unspecified; F17.210 Nicotine dependence, cigarettes, uncomplicated; I25.5 Ischemic cardiomyopathy; K21.9 Gastro-esophageal reflux disease without esophagitis; G89.29 Other chronic pain; M54.9 Dorsalgia, unspecified; I11.0 Hypertensive heart disease with heart failure; E11.9 Type 2 diabetes mellitus without complications; M19.90 Unspecified osteoarthritis, unspecified site; Z79.82 Long term (current) use of aspirin; Z95.5 Presence of coronary angioplasty implant and graft; E66.9 Obesity, unspecified; Z68.29 Body mass index [BMI] 29.0-29.9, adult; Z79.84 Long term (current) use of oral hypoglycemic drugs
CPT/HCPCS: 12345; 36415; 36416; 71045; 78452; 80048; 80053; 80306; 82550; 82962; 83880; 84484; 85025; 85049; 85610; 85730; 93005; 93017; 96372; 96374; 96375; 99283; A9500; J1644; J1650; J1815; J2270; J2405; J2785; J3010; J3490; J7030

== ENCOUNTER 2020-05-29 08:59 | Outpatient (CLI) | payer MEDICAID, SELFPAY ==
--- NOTE | 2020-05-29 09:28 | USCV_ITS ---
Magen Riddle Age: 49 Gender: M : 1970 Exam Date: 05/29/2020 09:18 Ordering Phys: Phillip Gill MD Technologist: Yocasta Tavarez Exam Location: [facility] [place] Indication: PAIN IN LEGS WHEN WALKING RIGHT LEFT Brachial 116.00 mmHg Brachial 132.00 mmHg Pressure (mmHg) Waveform Pressure (mmHg) Waveform 140.00 SUPERVISOR GLUING 106.00 130.00 DPA 122.00 0.98 Ankle/Brachial Index 0.84 111.00 Pre-Exercise Toe Pressure 111.00 0.84 Pre-Exercise Toe/Brachial Index 0.84 FINDINGS Normal resting ELVIS and TBI on the right side Slightly diminished resting ELVIS on the left side with a normal TBI. CONCLUSIONS Features of possible mild peripheral arterial disease on the left side No significant arterial obstruction on the right side Dr Theresa Berry MD FACC (Electronically Signed) Final Date: 30 May 2020 20:06 S
== END 2020-05-29 09:00 | disposition home or self-care (01) ==
LOC: US 08:59
PROVIDERS: PCP Family Medicine; Visit Provider Nurse Practitioner Family
DX: M79.604 Pain in right leg (principal); M79.605 Pain in left leg
CPT/HCPCS: 93922

== ENCOUNTER 2020-05-29 10:03 | Outpatient (CLI) | payer MEDICAID, SELFPAY ==
--- NOTE | 2020-05-29 10:10 | XR_ITS ---
WS: [id number] LUMBAR SPINE: 4 VIEWS TECHNIQUE: AP, lateral. Lateral in neutral, flexion and extension. HISTORY: LOW BACK PAIN COMPARISON: None available. Mild RIGHT convex curvature lumbar spine. L5 sacralization on the RIGHT. Moderate disc space narrowing at L5-S1. 2 mm retrolisthesis of L3 and L4. With flexion and extension there is no interval change. Pedicles are all identified. SI joints are symmetric bilaterally. No soft tissue abnormalities. Scattered calcification in aorta. XR/XR lumbar spine min 4V [id number] IMPRESSION: 1. No lumbar spine fracture. 2. No significant lumbar spine instability. 3. L5 RIGHT sacralization. 4. Moderate disc space narrowing at L5-S1.
== END 2020-05-29 10:04 | disposition home or self-care (01) ==
LOC: RAD 10:04
PROVIDERS: Family Provider Family Medicine; PCP Family Medicine; Visit Provider Nurse Practitioner
DX: M54.5 Low back pain (principal); Q76.49 Other congenital malformations of spine, not associated with scoliosis
CPT/HCPCS: 72114

== ENCOUNTER 2020-05-29 21:37 | Inpatient (IN) | payer MEDICAID, SELFPAY ==
--- NOTE | 2020-05-29 21:50 | W.ED.CHESTPA ---
HPI - Chest Pain General: Chief Complaint: Chest Pain Stated Complaint: cp Time Seen by Provider: 05/29/20 21:49 History of Present Illness: HPI narrative: 49-year-old male with a history of coronary disease, 4 stents in his past, presents with chest discomfort that started tonight. He has had some milder episodes earlier in the week. Tonight was the worst. He took 4 nitroglycerin tablets at home with intermittent relief, but still has pain. He presents in significant pain with some shortness of breath. He was nauseated. He was seen and observed a month ago for similar symptoms. He had a stress test at that point that showed some mild reversible ischemia. 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 Onset (ago): hour(s) Timing of current episode: constant Prior episodes: Yes Onset: during rest Pain location: substernal Pain radiation: none Severity: severe Quality: aching Relieving factors: nitroglycerin Exacerbating factors: exertion Associated symptoms: Reports diaphoresis and dyspnea; Deny abdominal pain, fever(s) or palpitations Review of Systems Const: Reports: diaphoresis; Denies: fever(s) Eyes: Denies: change in vision ENMT: Denies: swelling of lips/tongue or sinus pain Card: Reports: chest pain and dyspnea on exertion; Denies: palpitations, irregular heart rhythm or swelling of feet/ankles Resp: Reports: dyspnea GI: Denies: abdominal pain : Denies: difficulty urinating or hematuria Musc: Denies: neck pain, back pain or joint warmth Skin/Breast: Denies: rash or erythema Neuro: Denies: headache(s), dizziness, vertigo, confusion or seizure-like activity Psych: Denies: anxiety PFSH ED PFSH: Medical History Cardiac catheterization as the cause of abnormal reaction of the patient, or of later complication, without mention of misadventure at the time of the procedure Cardiomyopathy Chest pain Congestive heart failure Coronary artery spasm Diabetes mellitus Dyslipidemia Left bundle branch block Tobacco abuse Surgical History Hx of heart artery stent Stents to LAD, RCA (Aug 2019) and circumflex (2019), angioplasty of the obtuse marginal Family History Father Myocardial infarction Mother CAD (coronary artery disease) Brother Valvular heart disease Social History (Updated 05/30/20 @ 02:07 by Mana Abarca MD) Smoking and tobacco status: current every day smoker cigarettes [ Other cigarette details: Says cutting down but has not quit completely, smoking half a pack a day ] Alcohol intake: never Substance/Drug Use: never Household members: significant other Housing: House Marital status: Legally 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 Physical Exam Const: GENERAL APPEARANCE: well developed and in distress (Mild) ORIENTATION/CONSCIOUSNESS: Yes oriented to person, Yes oriented to place and Yes oriented to time HENMT: COMMON NORMALS: normocephalic, external ears normal and Normal external nose present HEAD & SCALP: normocephalic FACE & SINUS: normal facial exam NOSE: Normal external nose present and No nasal discharge present EXTERNAL EAR: Yes external ears normal Eye: COMMON NORMALS: Equal, round and reactive pupils present, EOMs intact bilaterally and conjunctivae normal EYELID: eyelids normal CONJUNCTIVA: Yes conjunctivae normal PUPIL: Yes Equal, round and reactive pupils present Neck/C-Spine: GENERAL: No tracheal deviation Chest: COMMONS NORMALS: normal inspection of the chest CHEST: No tenderness Resp: COMMON NORMALS: clear to auscultation bilaterally EFFORT & INSPECTION: No tachypneic, No respiratory distress, No retractions, No uses accessory muscles and No tracheal deviation AUSCULTATION: clear to auscultation bilaterally, no rhonchi, no wheezes and lung sounds not diminished Cardio: COMMON NORMALS: regular rate and regular rhythm RATE: regular rate RHYTHM: regular rhythm HEART SOUNDS: no murmurs PERIPHERAL PULSES: radial pulses present GI: INSPECTION: No abdominal distension AUSCULTATION: No Hyperactive bowel sounds present and No Hypoactive bowel sounds present PALPATION: No Guarding due to palpation present (GI) and No Rigid due to palpation PERCUSSION: no dullness to percussion and no tympanic to percussion Neuro: SENSORIUM/ORIENTATION: Yes oriented to person, Yes oriented to place and Yes oriented to time Psych: COMMON NORMALS: mental status grossly normal Skin: COMMON NORMALS: no rashes or lesions noted GENERAL SKIN EXAM: no rashes or lesions noted Course Vital Signs: Vital signs: Vital Signs Temperature 97.7 F 05/30/20 02:28 Pulse Rate 74 05/30/20 02:28 Respiratory Rate 23 H 05/30/20 02:28 Blood Pressure 122/60 05/30/20 02:28 Pulse Oximetry 94 05/30/20 02:28 MDM - Chest Pain MDM Narrative: Medical decision making narrative: 49-year-old male with a history of coronary disease post multiple interventions. He continues to smoke. His EKGs did not demonstrate a change at 2 hours. They showed a normal sinus rhythm without acute ST elevation or depression. His troponin, however, elevated significantly at 2 hours. This is concerning. His blood pressure improved with nitroglycerin paste. He was given 2 doses of fentanyl to help with pain. Overall he is feeling significantly improved. With elevation at his 2-hour troponin, he will be observed. Lab Data: Labs: Lab Results 05/29/20 05/29/20 05/29/20 Range/Units 22:03 22:03 22:03 WBC 12.7 H (4.0-10.0) 10^3/ uL RBC 4.71 (4.1-5.3) 10^6/u L Hgb 14.6 (11.7-16.6) g/dL Hct 42.3 (42.0-52.0) % MCV 89.8 (80-94) fL MCH 31.0 (28.0-34.0) pg MCHC 34.5 (30.0-36.0) g/dL RDW 13.7 (12.1-15.1) % Plt Count 343 (130-400) 10^3/c mm MPV 9.0 (7.4-10.4) fL Neut % (Auto) 55.0 % Lymph % (Auto) 30.9 % Iron % (Auto) 12.0 % Eos % (Auto) 1.3 % Baso % (Auto) 0.3 % Neut # (Auto) 7.00 (1.8-7.7) 10^3/u L Lymph # (Auto) 3.9 (0.8-4.8) 10^3/u L Iron # (Auto) 1.5 H (0.2-0.9) 10^3/u L Eos # (Auto) 0.2 (0.0-0.8) 10^3/u L Baso # (Auto) 0.0 (0.0-0.1) 10^3/u L Nucleated RBC % (a uto) 0 % Nucleated RBCs # 0.0 /100WBC PT 12.80 (12.1-14.9) SECO NDS INR 0.93 (0.8-1.2) APTT 28.8 (23.9-36.7) SECO NDS Sodium 135 L (136-145) mmol/L Potassium 3.7 (3.5-5.1) mmol/L Chloride 98 (98-107) mmol/L Carbon Dioxide 22 (22-29) mmol/L Anion Gap 18.7 (5-19) BUN 14 (6-20) mg/dL Creatinine 1.2 (0.7-1.2) mg/dL GFR Calculation 64.4 L (90-130) mL/min Glucose 256 H (65-115) mg/dL Calculated Osmolal ity 285 (285-295) mOsm/k g Calcium 9.8 (8.5-10.5) mg/dL Total Bilirubin 0.5 (0.15-1.2) mg/dL AST 42 H (0-40) U/L ALT 41 (0-41) U/L Alkaline Phosphata se 54 (40-130) IU/L Creatine Kinase 357 H* (39-308) U/L Troponin T Baselin e (0-15) ng/L Troponin T 120 Min [place] (0-15) ng/L Delta Troponin T (0-10) ABS# NT-Pro-B Natriuret Pep 187 H (0-125) pg/mL Total Protein 7.5 (6.6-8.7) g/dL Albumin 4.4 (3.5-5.2) g/dL Globulin 3.1 (1.3-4.6) g/dL 05/29/20 05/30/20 Range/Units 22:03 00:08 WBC (4.0-10.0) 10^3/ uL RBC (4.1-5.3) 10^6/u L Hgb (11.7-16.6) g/dL Hct (42.0-52.0) % MCV (80-94) fL MCH (28.0-34.0) pg MCHC (30.0-36.0) g/dL RDW (12.1-15.1) % Plt Count (130-400) 10^3/c mm MPV (7.4-10.4) fL Neut % (Auto) % Lymph % (Auto) % Iron % (Auto) % Eos % (Auto) % Baso % (Auto) % Neut # (Auto) (1.8-7.7) 10^3/u L Lymph # (Auto) (0.8-4.8) 10^3/u L Iron # (Auto) (0.2-0.9) 10^3/u L Eos # (Auto) (0.0-0.8) 10^3/u L Baso # (Auto) (0.0-0.1) 10^3/u L Nucleated RBC % (a uto) % Nucleated RBCs # /100WBC PT (12.1-14.9) SECO NDS INR (0.8-1.2) APTT (23.9-36.7) SECO NDS Sodium (136-145) mmol/L Potassium (3.5-5.1) mmol/L Chloride (98-107) mmol/L Carbon Dioxide (22-29) mmol/L Anion Gap (5-19) BUN (6-20) mg/dL Creatinine (0.7-1.2) mg/dL GFR Calculation (90-130) mL/min Glucose (65-115) mg/dL Calculated Osmolal ity (285-295) mOsm/k g Calcium (8.5-10.5) mg/dL Total Bilirubin (0.15-1.2) mg/dL AST (0-40) U/L ALT (0-41) U/L Alkaline Phosphata se (40-130) IU/L Creatine Kinase (39-308) U/L Troponin T Baselin e 17 H (0-15) ng/L Troponin T 120 Min [place] 35.62 H (0-15) ng/L Delta Troponin T 18.62 H* (0-10) ABS# NT-Pro-B Natriuret Pep (0-125) pg/mL Total Protein (6.6-8.7) g/dL Albumin (3.5-5.2) g/dL Globulin (1.3-4.6) g/dL Discharge Plan Discharge Admit Provider: Mana Abarca Discharge Date/Time: 05/30/20 02:23 Coding Level of Care Code ED Web Offset Press Feeder for Chg Fwd Exam Comprehensive
[2020-05-29 21:52] VITALS: BP 173/106; PULSE 123; RESP 20; O2SAT 97
--- NOTE | 2020-05-29 21:56 | XRR_ITS ---
PROCEDURE INFORMATION: Exam: XR Chest, 1 View Exam date and time: 05/29/2020 10:15 PM Age: 49 years old Clinical indication: Chest pain; Additional info: Cp TECHNIQUE: Imaging protocol: XR of the chest Views: 1 view. COMPARISON: CR XR chest 1V portable [id number] 04/26/2020 11:34 PM FINDINGS: Lungs: Unremarkable. No consolidation. There is unchanged interstitial prominence/fibrosis with scattered calcified granulomas. Pleural space: Unremarkable. No pleural effusion. No pneumothorax. Heart/Mediastinum: Unremarkable. No cardiomegaly. Bones/joints: No acute abnormality. XR/XR chest 1V portable [id number] IMPRESSION: No acute findings.
--- NOTE | 2020-05-29 21:57 | ECG_ITS ---
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 Measurements Intervals [place] Rate: 120 P: 49 RI: 153 QRS: 5 QRSD: 164 T: 52 QT: 353 QTc: 501 Interpretive Statements SINUS TACHYCARDIA LEFT BUNDLE BRANCH BLOCK [120+ ms QRS DURATION, 80+ ms Q/S IN V1/V2, 85+ ms R IN I/aVL/V5/V6] INTERPRETATION BASED ON A DEFAULT AGE OF 40 YEARS Compared to ECG 04/27/2020 05:28:57 Sinus bradycardia no longer present Sinus arrhythmia no longer present Electronically Signed On 05-30-2020 20:50:57 CDT by Theresa Berry M.D. [email or web address] [email or web address].[email or web address]/store/[id number] f
[2020-05-29 22:02] VITALS: BP 153/92; PULSE 117; RESP 25; O2SAT 98
[2020-05-29 22:08] VITALS: RESP 25; O2SAT 97
[2020-05-29] MEDS: fentaNYL 50 mcg/mL INJ 2mL 100 MCG IVP (22:08)
[2020-05-29] MEDS: aspirin 325 mg Tablet PO (22:08)
[2020-05-29] MEDS: nitroglycerin 1 gm/inch oint Pkt 1.5 INCH TOPICAL (22:08)
[2020-05-29 22:21] LABS: Basophils % 0.3 %; Eosinophils # 0.2 10^3/uL (0.0-0.8); Eosinophils % 1.3 %; Hematocrit 42.3 % (42.0-52.0); Hemoglobin 14.6 g/dL (11.7-16.6); Lymphocytes # 3.9 10^3/uL (0.8-4.8); Lymphocytes % 30.9 %; Mean Corpuscular HGB Conc 34.5 g/dL (30.0-36.0); Mean Corpuscular Volume 89.8 fL (80-94); Monocytes # 1.5 10^3/uL (0.2-0.9); Nucleated Red Blood Cells % 0 %; Platelet Count 343 10^3/cmm (130-400); Red Blood Count 4.71 10^6/uL (4.1-5.3); Red Cell Distribution Width 13.7 % (12.1-15.1); White Blood Count 12.7 10^3/uL (4.0-10.0)
[2020-05-29] MEDS: metoprolol tartrate 1 mg/1 mL SDV 5 mL 5 MG IV (22:29)
[2020-05-29 22:33] VITALS: BP 133/83; PULSE 104; RESP 18; O2SAT 96
[2020-05-29 22:33] LABS: INR 0.93 (0.8-1.2)
[2020-05-29 22:34] LABS: Partial Thromboplastin Time 28.8 SECONDS (23.9-36.7)
[2020-05-29 22:42] LABS: Troponin(5th) Baseline 17 ng/L (0-15)
[2020-05-29 22:51] LABS: Alanine Aminotransferase 41 U/L (0-41); Albumin Level 4.4 g/dL (3.5-5.2); Alkaline Phosphatase 54 IU/L (40-130); Anion Gap 18.7 (5-19); Blood Urea Nitrogen 14 mg/dL (6-20); Calcium 9.8 mg/dL (8.5-10.5); Carbon Dioxide 22 mmol/L (22-29); Chloride 98 mmol/L (98-107); Globulin 3.1 g/dL (1.3-4.6); Glomerular Filtration Rate 64.4 mL/min (90-130); Glucose 256 mg/dL (65-115); NT Pro B Type Natriuretic Pept 187 pg/mL (0-125); Osmolality Calculated 285 mOsm/kg (285-295); Sodium 135 mmol/L (136-145); Total Bilirubin 0.5 mg/dL (0.15-1.2); Total Protein 7.5 g/dL (6.6-8.7)
[2020-05-29 22:52] LABS: Aspartate Amino Transferase 42 U/L (0-40); Potassium 3.7 mmol/L (3.5-5.1)
[2020-05-29 22:54] LABS: Creatine Phosphokinase 357 U/L (39-308)
[2020-05-29 23:00] VITALS: BP 110/74; PULSE 93; RESP 16; O2SAT 95
--- NOTE | 2020-05-29 23:57 | ECG_ITS ---
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 Measurements Intervals [place] Rate: 85 P: 49 MA: 170 QRS: -5 QRSD: 169 T: 174 QT: 434 QTc: 519 Interpretive Statements SINUS RHYTHM POSSIBLE LEFT ATRIAL ENLARGEMENT [-0.1mV P WAVE IN V1/V2] LEFT BUNDLE BRANCH BLOCK [120+ ms QRS DURATION, 80+ ms Q/S IN V1/V2, 85+ ms R IN I/aVL/V5/V6] Compared to ECG 05/29/2020 21:50:15 Sinus tachycardia no longer present Electronically Signed On 05-30-2020 20:56:55 CDT by Theresa Berry M.D. [id number]
[2020-05-30] VITALS (67 sets, daily range): BP systolic 94–153; BP diastolic 53–94; PULSE 63–778; RESP 7–63; TEMP 36.5–36.8; O2SAT 89–98
[2020-05-30] MEDS: fentaNYL 50 mcg/mL INJ 2mL 100 MCG IVP (00:26)
[2020-05-30 00:41] LABS: Troponin 5 2HR 35.62 ng/L (0-15)
[2020-05-30 00:43] LABS: Troponin 5 2HR Delta 18.62 ABS# (0-10)
--- NOTE | 2020-05-30 01:25 | P.HP_ITS ---
Providers/Chief Complaint Primary Care Provider: Phillip Gill MD Chief Complaint: cp History of Present Illness Magen Riddle SR is a 49 year old male who has established complex coronary artery disease status post multiple stents, chronic smoker, obesity, hypertension, type 2 diabetes, dyslipidemia, combined systolic EF 35%, diastolic congestive heart failure, ischemic cardiomyopathy, recent stent 03/17, left bundle branch block Recent PCI: Cardiac angiogram revealed 90% in-stent stenosis of ostial left circumflex stent and 80% in-stent stenosis of right mid coronary stents. In- stent restenosis of left circumflex stent was treated with balloon angioplasty followed by drug-eluting stent mild in-stent restenosis of mid RCA stent was treated with noncompliant balloon angioplasty.On last admission had cardiac stress test (04/27) and was discharged home with instructions to follow-up with cardiology, coming in today with recurrent angina. 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 He is denying use of alcohol. He followed up with heart care service for AICD evaluation. Diagnosis in the ER revealed mild leukocytosis, significant delta troponin, BNP 107, clinically looks compensated for low EF heart failure, EKG showing left bundle branch block which is chronic does not meet TN criteria, at the time of my evaluation, blood pressure 110/53, heart rate 90, chest pain-free, saturating well on room air Review of Systems Const: Reports: fatigue; Denies: fever(s) or body aches Eyes: Denies: change in vision ENMT: Denies: throat pain Card: Reports: chest pain and dyspnea on exertion; Denies: palpitations or swelling of feet/ankles Resp: Denies: dyspnea GI: Denies: abdominal pain : Denies: flank pain Musc: Denies: neck pain Skin/Breast: Denies: rash Neuro: Denies: headache(s) Psych: Denies: anxiety Endo: Denies: polyuria Thai/Lymph: Denies: easy bruising All/Imm: Denies: urticaria Medications/Allergies Home Medications Medication Instructions Recorded Confirmed Last Taken Type Spiriva with HandiHaler 1 cap INHALATION DAILY 10/13/19 05/07/20 03/17/20 History alprazolam [Xanax] 0.5 mg PO BID PRN 10/13/19 05/07/20 03/17/20 History aspirin 81 mg PO DAILY 10/13/19 05/07/20 03/16/20 History budesonide-formoterol [Symbicort] 2 puff INHALATION BID 10/13/19 05/07/20 03/17/20 History glimepiride 4 mg PO DAILY 10/13/19 05/07/20 03/16/20 History hydrocodone-acetaminophen 1 tab PO TID PRN 10/13/19 05/07/20 03/17/20 History hydroxyzine HCl 50 mg PO TID PRN 10/13/19 05/07/20 03/16/20 History lisinopril 10 mg PO DAILY 10/13/19 05/07/20 03/16/20 History pantoprazole 40 mg PO DAILY 10/13/19 05/07/20 03/16/20 History zolpidem [Ambien] 10 mg PO BEDTIME 10/13/19 05/07/20 03/16/20 History potassium chloride 20 meq PO DAILY #30 tab 10/14/19 05/07/20 Unknown Rx Janumet 1 tab PO BID 11/14/19 05/07/20 03/16/20 History acetaminophen [Tylenol Extra 1,000 mg PO Q4H PRN 11/14/19 05/07/20 03/17/20 History Strength] doxepin 75 mg PO BEDTIME 11/14/19 05/07/20 03/16/20 History isosorbide mononitrate 60 mg PO BID PRN 11/14/19 05/07/20 03/17/20 History carvedilol 12.5 mg PO BID 12/05/19 05/07/20 03/16/20 History ticagrelor 90 mg tablet 90 mg PO BID #180 tab 01/22/20 05/07/20 03/17/20 Rx furosemide 40 mg tablet 40 mg PO DAILY #30 tab 03/03/20 05/07/20 Unknown Rx nitroglycerin 0.4 mg sublingual 0.4 mg SUBLINGUAL Q5M PRN 90 Days 03/16/20 05/07/20 03/17/20 Rx tablet #25 tab nitroglycerin See Rx Instructions .ROUTE .COMPLEX 03/17/20 05/07/20 03/17/20 History ranolazine 1,000 mg PO BID 03/17/20 05/07/20 03/17/20 History atorvastatin 80 mg PO BEDTIME #30 tab 03/18/20 05/07/20 Unknown Rx amlodipine 2.5 mg tablet 2.5 mg PO DAILY #90 tab 05/07/20 05/07/20 Unknown Rx Allergies Allergy/AdvReac Type Severity Reaction Status Date / Time cefdinir Allergy ALGY-Rash Verified 04/27/20 05:02 doxycycline Allergy ADR-Nausea Verified 04/27/20 05:02 PFSH Acute PFSH: Medical History Cardiac catheterization as the cause of abnormal reaction of the patient, or of later complication, without mention of misadventure at the time of the procedure Cardiomyopathy Chest pain Congestive heart failure Coronary artery spasm Diabetes mellitus Dyslipidemia Left bundle branch block Tobacco abuse Surgical History Hx of heart artery stent Stents to LAD, RCA (Aug 2019) and circumflex (2019), angioplasty of the obtuse marginal Family History Father Myocardial infarction Mother CAD (coronary artery disease) Brother Valvular heart disease Social History (Updated 05/30/20 @ 02:07 by Mana Abarca MD) Smoking and tobacco status: current every day smoker cigarettes [ Other cigarette details: Says cutting down but has not quit completely, smoking half a pack a day ] Alcohol intake: never Substance/Drug Use: never Household members: significant other Housing: House Marital status: Legally 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 Vitals/I&O/Wt Last Vital Signs Pulse 93 05/30/20 00:00 Resp 18 05/30/20 00:26 BP 102/62 05/30/20 00:00 Pulse Ox 94 05/30/20 00:26 Weight last 48 hrs Weight 99.79 kg Physical Exam Narrative: EXAM NARRATIVE: young male currently chest pain-free sitting at the bedside without any active discomfort Saturating well on room air Has nitroglycerin paste on his chest Hemodynamically stable S1, S2 no active signs of decompensation of heart failure Abdomen soft, nontender bowel sound present Neurologically nonfocal exam EOMI, PERRLA Lungs are clear to auscultation with mild crackles at the bases Appropriate mood and affect Suntanned Lower extremity no edema gangrene or ulcer Data : 05/29/20 22:03 05/29/20 22:03 Other Labs: Cardiac strep result: IMPRESSIONS 1. Medium to large size perfusion abnormality of moderate to severe severity of entire inferior, basal to apical anterior and apical jernigan on rest images with mild reversibility noted in mid anteroseptal, apical anterior and apical septal jernigan on stress images. 2. This represents old myocardial infarction in left anterior descending and right coronary artery territory with minimal sofie-infarct ischemia in left anterior descending artery territory. 3. The left ventricular ejection fraction is severely reduced with a value of 23%. 4. There is severely decreased wall thickening, more pronounced in mid to apical anterior and apical jernigan. 5. When compared to previous stress test dated 10/14/2019, there there is minimal sofie-infarct ischemia in left anterior descending artery territory. Lavinia Estrada MD (Electronically Signed) Final Date: 27 April 2020 17:16 A&P Assessment and plan (1) Unstable angina: Status: Acute (2) Cardiomyopathy: Status: Acute Qualifiers: Cardiomyopathy type: other Qualified Code(s): I42.8 - Other cardiomyopathies (3) Coronary artery disease: Status: Chronic Qualifiers: Coronary Disease-Associated Artery/Lesion type: curyung artery [place] vs. transplanted heart: curyung heart Associated angina: with unspecified angina Qualified Code(s): I25.119 - Atherosclerotic heart disease of curyung coronary artery with unspecified angina pectoris (4) Left bundle branch block: Status: Acute (5) Nicotine dependence: Status: Acute (6) Troponin level elevated: Status: Acute (7) NSTEMI (non-ST elevated myocardial infarction): Status: Acute Additional A&P Information NSTEMI Recurrent unstable angina Patient is smoking half a pack a day, Established significant coronary artery disease, significant positive delta tro ponin, currently chest pain-free, EKG reviewed, We will keep him n.p.o, cardio consult in the morning, continue aspirin, Plavix high-dose statin, therapeutic dose of Lovenox initiated, anticipating coronary angiogram, Recent stress test results reviewed Combined systolic/diastolic EF 35% heart failure without acute decompensation Clinically looks well compensated, I will hold his Lasix for now considering borderline systolic blood pressure AICD evaluation by cardiology for primary prevention Left bundle branch block Does not meet sbarbossa criteria for acute TN, serial EKGs, serial troponin, monitor in CSU Nicotine dependence: Counseled on smoking cessation patient is stating that he is trying to quit Full code DVT prophylaxis not needed I have started him on therapeutic dose of Lovenox N.p.o. Attestations Medical Necessity Statement*: Patient will need more than 2 midnights in the hospital, I am anticipating he will need coronary angiogram because of recurrent angina symptoms Time Spent in Patient Care: (>than 50% of time spent in counselling and/or direct pt care on unit) . 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 transplanted heart: curyung heart Associated angina: with unspecified angina Left bundle branch block I44.7 Nicotine dependence F17.200 Troponin level elevated R79.89 NSTEMI (non-ST elevated myocardial infarction) I21.4
--- NOTE | 2020-05-30 02:37 | PC.NURSE ---
Patient arrived to the floor from the ED after report was received via phone. Patient states his chest pain was originally a 10, but is now a 2. Patient is alert and oriented and ambulatory. Patient has been oriented to his room and has call light within reach. Unable to verify med rec at this time. Patient does not know his medications. He states they should all be the same as the last time I was in here.
[2020-05-30] MEDS: enoxaparin 100 mg/mL Syringe SUBCUT (02:49)
[2020-05-30] MEDS: sodium chloride 0.9% 1,000 ML 30 ML IV (02:50)
--- NOTE | 2020-05-30 03:57 | ECG_ITS ---
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 Measurements Intervals [place] Rate: 67 P: 50 ME: 194 QRS: 2 QRSD: 169 T: 204 QT: 486 QTc: 514 Interpretive Statements SINUS RHYTHM LEFT ATRIAL ENLARGEMENT [-0.15mV P WAVE IN V1/V2] LEFT BUNDLE BRANCH BLOCK [120+ ms QRS DURATION, 80+ ms Q/S IN V1/V2, 85+ ms R IN I/aVL/V5/V6] Compared to ECG 05/30/2020 00:07:11 No significant changes Electronically Signed On 05-30-2020 20:57:35 CDT by Theresa Berry M.D. [email or web address] [email or web address]/store/[id number]
--- NOTE | 2020-05-30 04:52 | PC.NURSE ---
Patient is currently resting with eyes closed. Will monitor.
[2020-05-30 05:12] LABS: Blood Urea Nitrogen 16 mg/dL (6-20); Calcium 8.8 mg/dL (8.5-10.5); Carbon Dioxide 24 mmol/L (22-29); Chloride 99 mmol/L (98-107); Glomerular Filtration Rate 79.4 mL/min (90-130); Glucose 173 mg/dL (65-115); Osmolality Calculated 284 mOsm/kg (285-295); Sodium 137 mmol/L (136-145)
[2020-05-30 05:16] LABS: Troponin 5 6HR 67.37 ng/L (0-15)
[2020-05-30 05:24] LABS: Anion Gap 17.8 (5-19); Potassium 3.8 mmol/L (3.5-5.1)
[2020-05-30 05:28] LABS: Troponin 5 6HR Delta 50.37 ng/L (0-12)
[2020-05-30] MEDS: lisinopril 10 mg Tablet PO (09:36)
[2020-05-30] MEDS: ranolazine (12HR) 500 mg Tablet 1000 MG PO ×2 (09:36→17:58)
[2020-05-30] MEDS: potassium chloride ER 10 mEq Tablet 20 MEQ PO (09:36)
[2020-05-30] MEDS: ticagrelor 90 mg Tablet PO ×2 (09:36→17:58)
[2020-05-30] MEDS: carvedilol 12.5 mg Tablet PO ×2 (09:36→17:58)
[2020-05-30] MEDS: aspirin 81 mg EC Tablet PO (09:36)
[2020-05-30] MEDS: HYDROcodone-acetaminophen 5-325 mg Tablet 1 TAB PO ×2 (09:41→17:57)
--- NOTE | 2020-05-30 10:30 | P.CONIM_ITS ---
Providers/Reason For Consult Consulting Physican/Specialty*: SILVIA Berry MD/cardiology Reason for Consult*: Patient with history of coronary disease, presenting with chest pain and elevated troponin T. Attending Physician: Juan Daley MD Primary Care Provider: Phillip Gill MD History of Present Illness History of Present Illness Magen Riddle SR is a 49 year old male is admitted to the hospital through the emergency room, where he presented with complaints of a prolonged chest pain. He was found with elevated troponin T. Cardiology consult is requested for further cardiac evaluation recommendations. Mr. Riddle is known to have coronary artery disease and had multiple cardiac dilatations and PCI's. Most recently, he had the cardiac authorization in March of this year. At that time, he was found to have in-stent stenosis in the circumflex/obtuse marginal artery for he which he underwent repeated PCI. He also had a in-stent stenosis in the mid RCA for which he underwent a balloon angioplasty. He continued to have chest pain since then. He was readmitted to the hospital in April with features of non-ST elevation myocardial infarction. At that time, he had a myocardial perfusion imaging which revealed mostly areas of fixed defects with a very small areas of reversible defects, suggestive of myocardial scarring with a possible sofie-infarction ischemia, mostly in the distribution of the left anterior descending artery. It was opted to treat him medically at that time. He also was found to have spasm of the ostium of the right coronary artery. He has been taking antianginal medications including ranolazine. He continues to smoke. Yesterday he was at home watching TV and all of a sudden, started having chest pain. The pain was pressure-like in nature, radiating across the chest, associated some shortness of breath. He took a total of 506 sublingual nitro spray. Apparently there was no significant improvement of the symptoms. The chest pain was up to 10/10 in intensity. For these complaints, he came to the emergency room. In the emergency room, he continued to have chest pain. He was placed on a nitro paste. He also was given 2 doses of fentanyl IV. He symptoms started subsiding. He did not have any significant chest pain through the night. However he continues to have some discomfort in the chest. His troponin T's were found to be elevated. He had a 2-hour delta of 18.6 and the 6-hour delta of 50.4. He also has a nausea intermittently. Denies any fever, chills or cough. No other specific complaints. Review of Systems Narrative: CONSTITUTIONAL: No fever or chills. EYES: No blurring of vision or other visual disturbances lately. ENT: No hoarseness of voice, auditory disturbances or sore throat. CARDIOVASCULAR: As mentioned above. RESPIRATORY: No significant cough. GASTROINTESTINAL: Nausea as mentioned above GENITOURINARY: No dysuria or hematuria. INTEGUMENTARY: No skin rashes or history of skin cancer. NEURO: No transient ischemic attacks or amaurosis. PSYCHIATRIC: No history of psychosis or major depression. HEMATOLOGIC: No bleeding disorders or significant anemia. ENDOCRINE: No history of polyuria or polydipsia. MUSCULOSKELETAL: No recent joint pain or swelling. ALLERGY/IMMUNOLOGY: As mentioned above. Meds/Allergies Home Medications and Allergies Home Medications Medication Instructions Recorded Confirmed Last Taken Type Spiriva with HandiHaler 1 cap INHALATION DAILY 10/13/19 05/30/20 03/17/20 History alprazolam [Xanax] 0.5 mg PO BID PRN 10/13/19 05/30/20 03/17/20 History aspirin 81 mg PO DAILY 10/13/19 05/30/20 03/16/20 History budesonide-formoterol [Symbicort] 2 puff INHALATION BID 10/13/19 05/30/20 03/17/20 History glimepiride 4 mg PO DAILY 10/13/19 05/30/20 03/16/20 History hydrocodone-acetaminophen 1 tab PO TID PRN 10/13/19 05/30/20 03/17/20 History hydroxyzine HCl 50 mg PO TID PRN 10/13/19 05/30/20 03/16/20 History lisinopril 10 mg PO DAILY 10/13/19 05/30/20 03/16/20 History pantoprazole 40 mg PO DAILY 10/13/19 05/30/20 03/16/20 History zolpidem [Ambien] 10 mg PO BEDTIME 10/13/19 05/30/20 03/16/20 History potassium chloride 20 meq PO DAILY #30 tab 10/14/19 05/30/20 Unknown Rx Janumet 1 tab PO BID 11/14/19 05/30/20 03/16/20 History acetaminophen [Tylenol Extra 1,000 mg PO Q4H PRN 11/14/19 05/30/20 03/17/20 History Strength] doxepin 75 mg PO BEDTIME 11/14/19 05/30/20 03/16/20 History isosorbide mononitrate 60 mg PO BID 11/14/19 05/30/20 03/17/20 History ticagrelor 90 mg tablet 90 mg PO BID #180 tab 01/22/20 05/30/20 03/17/20 Rx furosemide 40 mg tablet 40 mg PO DAILY #30 tab 03/03/20 05/30/20 Unknown Rx nitroglycerin 0.4 mg sublingual 0.4 mg SUBLINGUAL Q5M PRN 90 Days 03/16/20 05/30/20 03/17/20 Rx tablet #25 tab nitroglycerin See Rx Instructions .ROUTE .COMPLEX 03/17/20 05/30/20 03/17/20 History ranolazine 1,000 mg PO BID 03/17/20 05/30/20 03/17/20 History atorvastatin 80 mg PO BEDTIME #30 tab 03/18/20 05/30/20 Unknown Rx amlodipine 2.5 mg tablet 2.5 mg PO DAILY #90 tab 05/07/20 05/30/20 Unknown Rx benzonatate 200 mg PO BEDTIME 05/30/20 05/30/20 Unknown History carvedilol 25 mg PO BID 05/30/20 05/30/20 Unknown History metoprolol succinate 100 mg PO DAILY 05/30/20 05/30/20 Unknown History Allergies Allergy/AdvReac Type Severity Reaction Status Date / Time cefdinir Allergy ALGY-Rash Verified 05/30/20 02:36 doxycycline Allergy ADR-Nausea Verified 05/30/20 02:36 Current Medications Current Medications Generic Name Dose Route Start Last Admin Trade Name Freq PRN Reason Stop Dose Admin Hydrocodone Bitart/Acetaminophen 1 tab 05/30/20 08:16 05/30/20 09:41 [place] 5-325 Mg PO 1 tab Q8H PRN Administration MODERATE PAIN Aspirin 81 mg 05/30/20 09:00 05/30/20 09:36 Aspirin Ec PO 81 mg DAILY GRISEL Administration Carvedilol 12.5 mg 05/30/20 09:00 05/30/20 09:36 Coreg PO 12.5 mg BID GRISEL Administration Enoxaparin Sodium 100 mg 05/30/20 02:27 05/30/20 02:49 Lovenox SUBCUT 100 mg Q12H GRISEL Administration Sodium Chloride 1,000 mls @ 30 mls/hr 05/30/20 02:27 05/30/20 02:50 Sodium Chloride 0.9% IV 30 mls/hr .Q24H GRISEL Administration Lisinopril 10 mg 05/30/20 09:00 05/30/20 09:36 Prinivil PO 10 mg DAILY GRISEL Administration Nicotine 1 patch 05/30/20 09:00 05/30/20 09:37 Nicoderm 14 Mg Patch TRANSDERMA Not Given DAILY GRISEL Potassium Chloride 20 meq 05/30/20 09:00 05/30/20 09:36 Klor-Con 10 PO 20 meq DAILY GRISEL Administration Ranolazine 1,000 mg 05/30/20 09:00 05/30/20 09:36 Ranexa PO 1,000 mg BID GRISEL Administration Ticagrelor 90 mg 05/30/20 09:00 05/30/20 09:36 Brilinta PO 90 mg BID GRISEL Administration PFSH Acute PFSH: Medical History Cardiac catheterization as the cause of abnormal reaction of the patient, or of later complication, without mention of misadventure at the time of the procedure Cardiomyopathy Chest pain Congestive heart failure Coronary artery spasm Diabetes mellitus Dyslipidemia Left bundle branch block Tobacco abuse Surgical History Hx of heart artery stent Stents to LAD, RCA (Aug 2019) and circumflex (2019), angioplasty of the obtuse marginal Family History Father Myocardial infarction Mother CAD (coronary artery disease) Brother Valvular heart disease Social History Smoking and tobacco status: current every day smoker cigarettes [ Other cigarette details: Says cutting down but has not quit completely, smoking half a pack a day ] Alcohol intake: never Substance/Drug Use: never Household members: significant other Housing: House Marital status: Legally Current occupation: Works as a [employer] Last Vital Signs Temp 97.7 F 05/30/20 07:39 Pulse 75 05/30/20 07:39 Resp 17 05/30/20 07:39 BP 123/68 05/30/20 07:39 Pulse Ox 92 05/30/20 07:39 Weight last 48 hrs Weight 220 lb 4.8 oz Weight 220 lb Physical Exam Narrative: EXAM NARRATIVE: GENERAL: The patient is alert and oriented times three. Not in any acute distress. HEENT: No significant pallor, icterus or lymphadenopathy. The pupils are reactant to light. Oral cavity: There are no mucous membrane lesions. Funduscopic examination: The disk margins appear to be sharp with no exudates or hemorrhages. NECK: Trachea appears to be central. No masses noted. No JVD or thyromegaly appreciated. No carotid bruit. RESPIRATORY: Chest is symmetrical. No intercostals muscle retraction or any accessory muscle activation. There is no chest wall tenderness. Breath sounds are heard bilaterally. No rales or rhonchi heard. No evidence of any consolidation. BREASTS: Deferred. HEART: The PMI is in the 5th left intercostals space just inside the midclavicular line. No palpable precordial events. S1 and S2 are normal. No S3 or S4 heard. No pericardial rub or any click heard. ABDOMEN: No vessel pulsations or distention. No tenderness. No organomegaly appreciated. No abdominal bruit. Bowel sounds are normally heard. : Deferred. RECTAL: Deferred. LYMPHATIC: No lymphadenopathy noted in the neck or groin. EXTREMITIES: No edema or cyanosis. No clubbing. The pulses are symmetrical bilaterally. The radial, femoral, dorsalis pedis and the posterior tibial pulses are palpated and found to be in good volume and amplitude. MUSCULOSKELETAL: Gait is normal. There is no joint deformity or swelling noted. No joint tenderness or any effusion. The shoulder and hip joints appear to have normal range of motion. SKIN: There are no significant scars or skin rash noted. NEUROPSYCHIATRIC: The patient is alert and oriented x3. Appears to be in a good mood. The higher functions are grossly within normal limits. No tremors or rigidity noted. Data Labs: Other Labs: Laboratory Last Values WBC 12.7 10^3/uL (4.0 -10.0) H 05/29/20 22:03 RBC 4.71 10^6/uL (4.1 -5.3) 05/29/20 22:03 Hgb 14.6 g/dL (11.7-1 6.6) 05/29/20 22:03 Hct 42.3 % (42.0-52.0 ) 05/29/20 22:03 MCV 89.8 fL (80-94) 05/29/20 22:03 MCH 31.0 pg (28.0-34. 0) 05/29/20 22: MCHC 34.5 g/dL (30.0-3 6.0) 05/29/20 22:03 RDW 13.7 % (12.1-15.1 ) 05/29/20 22:03 Plt Count 343 10^3/cmm (130 -400) 05/29/20 22:03 MPV 9.0 fL (7.4-10.4) 05/29/20 22:03 Neut % (Auto) 55.0 % 05/29/20 22:03 Lymph % (Auto) 30.9 % 05/29/20 22:03 Payne % (Auto) 12.0 % 05/29/20 22:03 Eos % (Auto) 1.3 % 05/29/20 22:03 Baso % (Auto) 0.3 % 05/29/20 22:03 Neut # (Auto) 7.00 10^3/uL (1.8 -7.7) 05/29/20 22:03 Lymph # (Auto) 3.9 10^3/uL (0.8- 4.8) 05/29/20 22:03 Payne # (Auto) 1.5 10^3/uL (0.2- 0.9) H 05/29/20 22:03 Eos # (Auto) 0.2 10^3/uL (0.0- 0.8) 05/29/20 22:03 Baso # (Auto) 0.0 10^3/uL (0.0- 0.1) 05/29/20 22:03 Nucleated RBC % (a uto) 0 % 05/29/20 22: Nucleated RBCs # 0.0 /100WBC 05/29/20 22:03 PT 12.80 SECONDS (12 .1-14.9) 08/28/20 22:03 INR 0.93 (0.8-1.2) 05/29/20 22:03 APTT 28.8 SECONDS (23. 9-36.7) 05/29/20 22:03 Sodium 137 mmol/L (136-1 45) 05/30/20 03:43 Potassium 3.8 mmol/L (3.5-5 .1) 05/30/20 03:43 Chloride 99 mmol/L (98-107 ) 05/30/20 03:43 Carbon Dioxide 24 mmol/L (22-29) 05/30/20 03:43 Anion Gap 17.8 (5-19) 05/30/20 03:43 BUN 16 mg/dL (6-20) 05/30/20 03:43 Creatinine 1.0 mg/dL (0.7-1. 2) 05/30/20 03:43 GFR Calculation 79.4 mL/min (90-1 30) L 05/30/20 03:43 Glucose 173 mg/dL (65-115 ) H 05/30/20 03:43 Calculated Osmolal ity 284 mOsm/kg (285- 295) L 05/30/20 03:43 Calcium 8.8 mg/dL (8.5-10 .5) 05/30/20 03:43 Total Bilirubin 0.5 mg/dL (0.15-1 .2) 05/29/20 22:03 AST 42 U/L (0-40) H 05/29/20 22:03 ALT 41 U/L (0-41) 05/29/20 22:03 Alkaline Phosphata se 54 IU/L (40-130) 05/29/20 22:03 Creatine Kinase 357 U/L (39-308) H* 05/29/20 22:03 Troponin T Baselin e 17 ng/L (0-15) H 05/29/20 22:03 Troponin T 120 Min emely 35.62 ng/L (0-15) H 05/30/20 00:08 Delta Troponin T 18.62 ABS# (0-10) H* 05/30/20 00:08 Troponin T Hi Sens 6Hr 67.37 ng/L (0-15) H 05/30/20 03:43 Troponin T Hi Sens 6Hr Delta 50.37 ng/L (0-12) H* 05/30/20 03:43 NT-Pro-B Natriuret Pep 187 pg/mL (0-125) H 05/29/20 22:03 Total Protein 7.5 g/dL (6.6-8.7 ) 05/29/20 22:03 Albumin 4.4 g/dL (3.5-5.2 ) 05/29/20 22:03 Globulin 3.1 g/dL (1.3-4.6 ) 05/29/20 22:03 Echocardiogram in October 2019 Multiple wall motion normalities with a diminished left ventricular ejection fraction of 30-35%. Mildly dilated LV cavity Thickened mitral valve. Mild mitral valve regurgitation. Thickened aortic valve. There is no pericardial effusion. There are no intracardiac masses. Compared to the study from 08/16/2019, there may not be a significant change. Dr. Becerril was informed about these findings Cardiac catheterization on 03/17/2020 1. Left main normal 2. LAD has luminal irregularities with patent previously placed stent inthe proximal segment3. LCx is moderate size and caliber large vessel withbifurcating ostial high diagonal branch, 90% hazy eccentric in-stent s tenotic lesion at the ostium of circumflex just at the origin and involving highobtuse marginal branch.4. RCA is a moderate size and caliber vessel withproximal 50% long stenosis with severe spasm noted relieved withnitroglycerin, mid 80% in- stent restenosis of RCA.LCx is the culprit vesselwhich required balloon angioplasty followed by stent placement. In-stentrestenosis of RCA was treated with noncompliant balloon. There is severe coronary artery disease with three vessel disease. Proximal Circumflex Coronary Artery was treated with Balloon and Drug Eluting Stent. Mid Right Coronary Artery was treated with Balloon. Myocardial perfusion imaging on 04/27/2020 1. Medium to large size perfusion abnormality of moderate to severe severity of entire inferior, basal to apical anterior and apical jernigan on rest images with mild reversibility noted in mid anteroseptal, apical anterior and apical septal jernigan on stress images. 2. This represents old myocardial infarction in left anterior descending and right coronary artery territory with minimal sofie-infarct ischemia in left anterior descending artery territory. 3. The left ventricular ejection fraction is severely reduced with a value of 23%. 4. There is severely decreased wall thickening, more pronounced in mid to apical anterior and apical jernigan. 5. When compared to previous stress test dated 10/14/2019, there there is minimal sofie-infarct ischemia in left anterior descending artery territory. The EKG from 05/29/2020 revealed Normal sinus rhythm with left bundle branch block pattern. Possible left atrial enlargement. Compared to the previous EKG, there may not be a significant change A&P Assessment and plan (1) Atherosclerotic heart disease of [place] coronary artery with unstable angina pectoris: Patient is clinical features are consistent with a non-ST relation myocardial infarction. In view of his recurrent episodes of non-ST elevation myocardial infarction, history of recurrent restenosis, it may be appropriate to go ahead with a repeat cardiac catheterization and decide on further management. This was discussed with the patient in detail which he understood well and consented to proceed. I also may optimize his medical treatment. May consider starting him on Effient in place of Brilinta, because of the diabetes. Status: Acute Qualifiers: [place] vs. transplanted heart: [place] heart Qualified Code(s): I25.110 - Atherosclerotic heart disease of [place] coronary artery with unstable angina pectoris (2) Ischemic cardiomyopathy: The LV ejection fraction was around 30 to 35% by echocardiogram in October. This needs to be reevaluated. Based on the repeat LV ejection fraction, will decide on prophylactic ICD. Also we may consider Entresto. Currently he has no evidence of any decompensated heart failure. Status: Acute (3) Dyslipidemia: May continue on the current medications. Status: Acute (4) Left bundle branch block: This is chronic. But not require specific intervention at this point. May consider DOCUMENT MANAGEMENT SPECIALIST-D Status: Acute (5) Diabetes mellitus: Consider starting the patient on Jardiance in view of his high risk status Status: Acute Qualifiers: Diabetes mellitus type: type 2 Diabetes mellitus complication status: with hyperglycemia Diabetes mellitus senior care insulin use: without intermodal owner operator truck driver use Qualified Code(s): E11.65 - Type 2 diabetes mellitus with hyperglycemia (6) Benign essential hypertension with target blood pressure below 140/90: Currently he is normotensive. May continue the current medications. Status: Acute (7) Nicotine dependence: Strongly advised the patient to quit smoking. Cardiovascular implications were discussed. Status: Acute Qualifiers: Nicotine product type: cigarettes Substance use status: uncomplicated Qualified Code(s): F17.210 - Nicotine dependence, cigarettes, uncomplicated Additional A&P Information After reviewing the above and also based on the patient's clinical progress, further recommendations will be made. Possible cardiac catheterization today. The risk of bleeding, hematoma, vascular injury, myocardial infarction, CVA, renal failure and other concomitant complications were explained in detail. Patient understood this well and consented to proceed. Coding Level of Care Code Acute Mechanotherapist for [place] Fwd Diagnoses Atherosclerotic heart disease of [place] coronary artery with unstable angina pectoris I25.110 [place] vs. transplanted heart: [place] heart Ischemic cardiomyopathy I25.5 Dyslipidemia E78.5 Left bundle branch block I44.7 Diabetes mellitus E11.65 Diabetes mellitus type: type 2 Diabetes mellitus complication status: with hyperglycemia Diabetes mellitus intermodal owner operator truck driver insulin use: without intermodal owner operator truck driver use Benign essential hypertension with target blood pressure below 140/90 I10 Nicotine dependence F17.210 Nicotine product type: cigarettes Substance use status: uncomplicated
[2020-05-30] MEDS: sodium chloride 0.9% 1,000 ML 50 ML IV (11:04)
[2020-05-30] MEDS: diphenhydrAMINE 50 mg Capsule PO (11:04)
--- NOTE | 2020-05-30 11:10 | PC.NURSE ---
Patient transported to label printing machinist on carrier.
--- NOTE | 2020-05-30 11:16 | XACV_ITS ---
Exam Room: [facility] Ht: 183 cm Wt: 100 kg BSA: 2.27 m2 Gender: Male : 1970 Any Known Allergies: Other Exam Priority: Routine Procedure(s): Procedure Description: Diagnostic procedure Procedure Description: Coronary Angiography Diagnostic Cath Status: Elective Diagnostic Findings LM has 0% stenosis. CX has 0% stenosis. mLAD: Mild 40% stenosis, [place]: 3 flow. First Obtuse Marginal Branch Segment: Moderate 50% stenosis, [place]: 3 flow. pRCA: Moderate 50% stenosis, [place]: 3 flow. Mid Right Coronary Artery: Mild 30% stenosis, [place]: 3 flow. Coronary angiography shows co-dominance. PCI Status: Elective Conclusions There is mild coronary artery disease with two vessel disease. Indication for PCI: Worsening of chest pain along with shortness of breath despite of optimization of medicine. High and abnormal cardiac markers . 1-Normal left main2-LAD has patent prior proximal stent mid LAD has 40% stenosis. Moderate size and caliber vessel3-LCx is codominant vessel with patent previously placed ostial stent, obtuse marginal 1 has ostial 50% stenosis which is jailed by ostial circumflex stent due to high takeoff4-RCA has proximal 50% stenosis, RCA has mid 30% in-stent restenosis, dampening of pressure upon engagement was noted. Recommendations Continue current medical management and risk factor modification. Diagnostic RX Recommendation: medical therapy and/or counseling Pressures Phase:Rest AO : 100 mmHg / 60 mmHg ( 75 mmHg ) @ 6:57:00 AM 95 mmHg / 76 mmHg ( 85 mmHg ) @ 7:03:00 AM 39 mmHg / 31 mmHg ( 33 mmHg ) @ 7:04:00 AM Clinical Evaluation EBL: 5mL-10mL Procedural Details Pre-Procedure Time Out. Identified patient by full name and date of as verbalized by the patient/guarantor. Does the consent match the physician's order: Yes. Accurate & Complete Informed Consent: Yes. Inpatient/Outpatient History & Physical on Chart: Yes. If H&P is completed, is and addenduem needed: No; If yes, is the addendum complete: N/A. Visualize and Verify Site with Patient/Guarantor: N/A. Relevant Radiology Images available: Yes. Pre-op teaching completed and patient verbalized understanding. The risks, benefits, and alternatives of sedation and/or procedure were discussed by physician. The patient agrees to continue. Procedure started. Correct patient, site and procedure confirmed by cath team. Current diagnosis: Chest Pain. PERRLA. Strong, equal hand certified nurses' aide bilaterally. Lungs clear x 5 lobes. IV Site on Arrival: 18 gauge in the left anticubital. IV Fluids: 0.9% NaCl at KVO. 0 mL infused prior to offset label rewinder. Pre Procedural Pulses: bilateral dorsalis pedis was Doppled. Pre Procedural Pulses: bilateral posterior tibial was Doppled. Pre Procedural Pulses: bilateral radial was 2+. Oxygen started at 2liters/min via nasal canula. bilateral groins was prepped with chloroprep then draped in the usual sterile fashion. Physician notified. Baseline sample Acquired. HR: 76 BPM. Equipment: 6F - Femoral. Cardiac Cath Pack. ACIST Manifold Kit Model BT 2000. Heparinized Saline (2 units/mL), 1000 mL bag. Kit, Micropuncture. Physician arrived. Physician scrubbed in. Immediate Pre-Procedure Time Out. Correct Patient: Yes; Correct Procedure: Yes; Correct Site: Yes; Correct Patient Position: Yes; Correct Supplies: Yes; Dried Flammable Prep: Yes; Blood Products Available: No;. Lidocaine 1% infiltrated to the right groin. Arterial access obtained with micropuncture set. A 6 georgian JL4 catheter in over wire. Multiple views taken of left coronary artery. Catheter out. Multiple views taken of right coronary artery. Medication's Wasted: Heparin = 3000 units. PERRLA. Strong, equal hand certified nurses' aide bilaterally. No VTE prophylaxis required. Total IV fluids: 200 mL. Contrast type used: Omnipaque 300 mgI/mL, 500 mL bottle. Post Procedure: Pulses reassessed and unchanged. Sheath(s) sutured into position with 2-0 silk and sterile 4x4's and Op-site applied over the site. No oozing or signs and symptoms of hematoma noted. Arterial sheath flushed and connected to tranducer and pressure bag with heparinized saline. Post-op diagnosis: Endothelial Dysfuntion, Arterial Stents, Patent stents. Complications: None. Estimated blood loss: 5mL-10mL. Vital chart was stopped. Procedure completed. Patient transferred by bed to 1st floor. Site: Right Femoral artery Sheath Size: 6 Fr Hemostasis Success: Unsuccessful Procedure Medications Start: 11:23 AM Stop: 11:23 AM Medication: Fentanyl Amount: 50 mcg Start: 11:42 AM Stop: 11:42 AM Medication: Versed Amount: 2 mg Route: I.V. Start: 11:42 AM Stop: 11:42 AM Medication: Fentanyl Amount: 50 mcg Route: I.V. Start: 11:52 AM Stop: 11:52 AM Medication: Versed Amount: 1 mg Route: I.V. Start: 11:52 AM Stop: 11:52 AM Medication: Fentanyl Amount: 50 mcg Route: I.V. Start: 12:11 PM Stop: 12:11 PM Medication: Versed Amount: 1 mg Route: I.V. Start: 12:11 PM Stop: 12:11 PM Medication: Fentanyl Amount: 50 mcg Route: I.V. I, the attending physician, have reviewed and verified all procedure medications. Yes, all medications given per verbal order History/Risk Factors Hypertension: Yes Dyslipidemia: Yes Diabetic Therapy: Oral Peripheral Arterial Disease (PAD): No Myocardial Infarction ([place]): Yes Obesity: No Renal Disease: No Tobacco Use: Current/Recent(w/in 1 year) Prior Interventions PCI: Yes CABG: No Valve Surgery: No Report Signatures Finalized by:Mana Paulson MD on 06/11/2020 7:46:27 PM
--- NOTE | 2020-05-30 11:27 | W.PM.OPSUD ---
Surgery/Procedure H&P Update DATE OF PROCEDURE: May 30, 2020 DATE H&P PERFORMED: 05/30/20 H&P UPDATE INFORMATION: I have reviewed H&P completed within last 30 days and I have examined patient prior to procedure PREOP DIAGNOSIS: Unstable angina PRIMARY INDICATION FOR PROCEDURE: Unstable angina with elevated cardiac markers PATIENT REASSESSED PRIOR TO SEDATION, WITH NO CHANGE NOTED: Yes PHYSICAL EXAM: alert, oriented x 3, clear to auscultation bilaterally and regular rate & rhythm AIRWAY EVAL/ANESTHESIA PLAN: ASA II, Risks, benefits & alternatives of sedation and/or procedure discussed and Patient agrees to continue as planned
--- NOTE | 2020-05-30 12:50 | PC.NURSE ---
Manual Sheath Pull 1230-Received telephone order from [employer] and Dr. Paulson to removed sheath now. 1236-Pt in room,verified to Manda RN if pt received Heparin in [employer], RN at bedside verbalizes no heparin given. Pt received Fentanyl and versed in [employer]. 1250- Explained procedure to pt. Right femoral artery palpable to touch +2. verified location with doppler too. 10 cc blood removed from arterial line. 6 FR sheath removed. Applied manual direct firm pressure to right femoral artery. Hemostasis achieved for 20 mins. No hematoma, swelling or bleeding noted. Pt tolerated procedure well. DP and PT pulses in lower extremities palpable +3. Activity restrictions and bedrest discuss to pt and to call nurse for any unusual increased pain, swelling, wetness or numbness to groin area. Pt verbalizes understanding.
--- NOTE | 2020-05-30 14:19 | PM.PN ---
Subjective Subjective: Interval history: No chest pain complaints this morning, no nausea, no vomiting, no shortness of breath, no telemetry events Vitals/I&O/Wt Last Vital Signs Temp 97.7 F 05/30/20 07:39 Pulse 80 05/30/20 13:30 Resp 16 05/30/20 13:30 BP 134/92 05/30/20 13:30 Pulse Ox 94 05/30/20 13:30 Weight last 48 hrs Weight 99.926 kg Weight 99.79 kg Physical Exam Const: COMMON NORMALS: no acute distress and patient oriented x3 HENMT: COMMON NORMALS: normocephalic HEAD & SCALP: normocephalic Neck/C-Spine: COMMON NORMALS: no JVD Resp: COMMON NORMALS: normal respiratory effort, No retractions, No use of accessory muscles and clear to auscultation bilaterally AUSCULTATION: clear to auscultation bilaterally Cardio: COMMON NORMALS: no JVD, regular rate, regular rhythm, S1 normal heart sound present and S2 normal heart sound present RATE: regular rate RHYTHM: regular rhythm HEART SOUNDS: S1 normal heart sound present and S2 normal heart sound present GI: COMMON NORMALS: Normal to inspection, nondistended, normoactive bowel sounds present, Soft to palpation, non-tender, No hepatosplenomegaly present, no masses and no bruits PALPATION: Yes Soft to palpation and Yes No hepatosplenomegaly present Extremity: COMMON NORMALS: capillary refill normal, no clubbing, cyanosis or edema, no calf tenderness and no pedal edema Neuro: COMMON NORMALS: patient oriented x3 Psych: COMMON NORMALS: mental status grossly normal Data : 05/29/20 22:03 05/30/20 03:43 A&P Assessment and plan (1) Unstable angina: Status: Acute (2) Cardiomyopathy: Status: Acute Qualifiers: Cardiomyopathy type: other Qualified Code(s): I42.8 - Other cardiomyopathies (3) Coronary artery disease: Status: Chronic Qualifiers: Coronary Disease-Associated Artery/Lesion type: [place] artery [place] vs. transplanted heart: [place] heart Associated angina: with unspecified angina Qualified Code(s): I25.119 - Atherosclerotic heart disease of [place] coronary artery with unspecified angina pectoris (4) Left bundle branch block: Status: Acute (5) Nicotine dependence: Status: Acute Qualifiers: Nicotine product type: cigarettes Substance use status: uncomplicated Qualified Code(s): F17.210 - Nicotine dependence, cigarettes, uncomplicated (6) Troponin level elevated: Status: Acute (7) NSTEMI (non-ST elevated myocardial infarction): Status: Acute Additional A&P Information NSTEMI With past medical history of CAD, recent history of stress testing Recurrent unstable angina, currently chest pain-free Patient is smoking half a pack a day, Established significant coronary artery disease, significant positive delta troponin, currently chest pain-free, EKG reviewed, Cardiology on consult, continue aspirin, Plavix high-dose statin, therapeutic dose of Lovenox initiated, anticipating coronary angiogram Recent stress test results reviewed, positive, medically managed 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 transplanted heart: [place] heart Associated angina: with unspecified angina Left bundle branch block I44.7 Nicotine dependence F17.210 Nicotine product type: cigarettes Substance use status: uncomplicated Troponin level elevated R79.89 NSTEMI (non-ST elevated myocardial infarction) I21.4
[2020-05-30 15:24] LABS: Partial Thromboplastin Time 31.9 SECONDS (23.9-36.7)
[2020-05-30 16:59] LABS: Glucose Point of Care 245 mg/dL (70-110)
[2020-05-30] MEDS: isosorbide mononitrate ER 60 mg Tablet PO (17:58)
[2020-05-30 20:36] LABS: Glucose Point of Care 152 mg/dL (70-110)
[2020-05-30] MEDS: benzonatate 100 mg Capsule 200 MG PO (20:40)
[2020-05-30] MEDS: doxepin 25 mg Capsule 75 MG PO (20:40)
[2020-05-30] MEDS: atorvastatin 40 mg Tablet 80 MG PO (20:40)
[2020-05-31 00:30] VITALS: BP 146/77; PULSE 92; RESP 20; TEMP 37.9; O2SAT 93
[2020-05-31] MEDS: HYDROcodone-acetaminophen 5-325 mg Tablet 1 TAB PO ×2 (04:10→13:21)
[2020-05-31 04:47] VITALS: BP 144/82; PULSE 79; RESP 19; TEMP 36.8; O2SAT 91
[2020-05-31 04:55] LABS: Basophils % 0.3 %; Eosinophils % 0.5 %; Hematocrit 39.9 % (42.0-52.0); Hemoglobin 13.2 g/dL (11.7-16.6); Lymphocytes # 1.9 10^3/uL (0.8-4.8); Lymphocytes % 23.7 %; Mean Corpuscular HGB Conc 33.1 g/dL (30.0-36.0); Mean Corpuscular Hemoglobin 29.7 pg (28.0-34.0); Mean Corpuscular Volume 89.7 fL (80-94); Monocytes # 0.7 10^3/uL (0.2-0.9); Monocytes % 9.4 %; Neutrophils # 5.11 10^3/uL (1.8-7.7); Neutrophils % 65.6 %; Nucleated Red Blood Cells % 0 %; Platelet Count 247 10^3/cmm (130-400); Red Blood Count 4.45 10^6/uL (4.1-5.3); Red Cell Distribution Width 13.9 % (12.1-15.1); White Blood Count 7.8 10^3/uL (4.0-10.0)
[2020-05-31 05:17] LABS: Alanine Aminotransferase 27 U/L (0-41); Alkaline Phosphatase 49 IU/L (40-130); Anion Gap 13.8 (5-19); Aspartate Amino Transferase 25 U/L (0-40); Blood Urea Nitrogen 14 mg/dL (6-20); Calcium 8.9 mg/dL (8.5-10.5); Carbon Dioxide 24 mmol/L (22-29); Chloride 101 mmol/L (98-107); Globulin 3.2 g/dL (1.3-4.6); Glomerular Filtration Rate 71.1 mL/min (90-130); Glucose 179 mg/dL (65-115); Magnesium 1.3 mg/dL (1.7-2.3); Osmolality Calculated 281 mOsm/kg (285-295); Phosphorus 2.3 mg/dL (2.5-4.5); Potassium 3.8 mmol/L (3.5-5.1); Sodium 135 mmol/L (136-145); Total Bilirubin 0.6 mg/dL (0.15-1.2); Total Protein 7.2 g/dL (6.6-8.7)
[2020-05-31 06:48] LABS: Glucose Point of Care 166 mg/dL (70-110)
[2020-05-31 07:53] VITALS: BP 124/65; PULSE 73; RESP 16; TEMP 36.4; O2SAT 94
[2020-05-31] MEDS: amlodipine 5 mg Tablet 2.5 MG PO (08:30)
[2020-05-31] MEDS: ranolazine (12HR) 500 mg Tablet 1000 MG PO (08:30)
[2020-05-31] MEDS: FUROsemide 40 mg Tablet PO (08:32)
[2020-05-31] MEDS: carvedilol 12.5 mg Tablet PO (08:32)
[2020-05-31] MEDS: ticagrelor 90 mg Tablet PO (08:33)
[2020-05-31] MEDS: potassium chloride ER 10 mEq Tablet 20 MEQ PO ×2 (08:33→09:55)
[2020-05-31] MEDS: lisinopril 10 mg Tablet PO (08:33)
[2020-05-31] MEDS: pantoprazole DR 40 mg Tablet PO (08:33)
[2020-05-31] MEDS: isosorbide mononitrate ER 60 mg Tablet PO (08:34)
[2020-05-31] MEDS: enoxaparin 40 mg/0.4 mL Syringe SUBCUT (08:51)
[2020-05-31] MEDS: aspirin 81 mg EC Tablet PO (08:51)
[2020-05-31] MEDS: magnesium oxide 400 mg tablet PO (09:32)
[2020-05-31 10:10] VITALS: PULSE 73; RESP 18; O2SAT 95
[2020-05-31 11:54] LABS: Glucose Point of Care 214 mg/dL (70-110)
[2020-05-31 12:00] VITALS: BP 123/78; PULSE 77; RESP 16; TEMP 36.4; O2SAT 96
[2020-05-31] MEDS: ALPRAZolam 0.5 mg Tablet PO (13:21)
--- NOTE | 2020-05-31 13:59 | PM.PN ---
Subjective Subjective: Interval history: Patient had a cardiac catheterization yesterday. He was found to have no revascularizable lesions. Apparently had a coronary spasm. Medications: Medication Review Details: Current Medications Hydrocodone Bitart/Acetaminophen ([place] 5-325 Mg) 1 tab PO Q8H PRN PRN Reason: MODERATE PAIN Last Admin: 05/31/20 13:21 Dose: 1 tab Documented by: Al Hydrox/Mg Hydrox/Simethicone (Maalox) 30 ml PO Q15M PRN PRN Reason: INDIGESTION Albuterol/Ipratropium (Duoneb) 3 ml INHALATION Q4H.RESPIRATORY PRN PRN Reason: SHORTNESS OF BREATH Alprazolam (Xanax) 0.5 mg PO BID PRN PRN Reason: Anxiety Last Admin: 05/31/20 13:21 Dose: 0.5 mg Documented by: Amlodipine Besylate (Norvasc) 2.5 mg PO DAILY [facility] Last Admin: 05/31/20 08:30 Dose: 2.5 mg Documented by: Aspirin (Aspirin Ec) 81 mg PO DAILY [facility] Last Admin: 05/31/20 08:51 Dose: 81 mg Documented by: Atorvastatin Calcium (Lipitor) 80 mg PO BEDTIME [facility] Last Admin: 05/30/20 20:40 Dose: 80 mg Documented by: Benzonatate (Tessalon Pearls) 200 mg PO BEDTIME [facility] Last Admin: 05/30/20 20:40 Dose: 200 mg Documented by: Carvedilol (Coreg) 12.5 mg PO BID [facility] Last Admin: 05/31/20 08:32 Dose: 12.5 mg Documented by: Dextrose (D50w) 25 ml IVP ONCE PRN; Protocol PRN Reason: hypoglycemia protocol Dextrose (D50w) 50 ml IVP PRN PRN; Protocol PRN Reason: hypoglycemia protocol Doxepin HCl (Sinequan) 75 mg PO BEDTIME [facility] Last Admin: 05/30/20 20:40 Dose: 75 mg Documented by: Enoxaparin Sodium (Lovenox) 40 mg SUBCUT Q24H [facility] Last Admin: 05/31/20 08:51 Dose: 40 mg Documented by: Furosemide (Lasix) 40 mg PO DAILY@0800 [facility] Last Admin: 05/31/20 08:32 Dose: 40 mg Documented by: Glucagon (Glucagen) 1 mg IM ONCE PRN; Protocol PRN Reason: Adult Acute Hypoglycemia Prot. Hydroxyzine Pamoate (Vistaril) 50 mg PO TID PRN PRN Reason: Anxiety Sodium Chloride (Sodium Chloride 0.9%) 1,000 mls @ 30 mls/hr IV .Q24H [facility] Last Admin: 05/31/20 03:56 Dose: Not Given Documented by: Dextrose (D5w) 500 mls @ 100 mls/hr IV ONCE PRN; Protocol PRN Reason: Adult Acute Hypoglycemia Prot Insulin Aspart (Novolog) 0 unit SUBCUT TIDWM [facility]; Protocol Last Admin: 05/31/20 12:23 Dose: 4 unit Documented by: Isosorbide Mononitrate (Imdur) 60 mg PO BID [facility] Last Admin: 05/31/20 08:34 Dose: 60 mg Documented by: Lisinopril (Prinivil) 10 mg PO DAILY [facility] Last Admin: 05/31/20 08:33 Dose: 10 mg Documented by: Magnesium Hydroxide (Milk Of Magnesia) 30 ml PO DAILY PRN PRN Reason: CONSTIPATION Naloxone HCl (Narcan) 0.1 mg IVP Q2M PRN PRN Reason: RESPIRATORY RATE < 8/MIN Nicotine (Nicoderm 14 Mg Patch) 1 patch TRANSDERMA DAILY [facility] Last Admin: 05/31/20 08:29 Dose: Not Given Documented by: Nitroglycerin (Nitrostat) 0.4 mg SUBLINGUAL Q5M PRN PRN Reason: chest pain Pantoprazole Sodium (Protonix) 40 mg PO DAILY [facility] Last Admin: 05/31/20 08:33 Dose: 40 mg Documented by: Potassium Chloride (Klor-Con 10) 20 meq PO DAILY [facility] Last Admin: 05/31/20 08:33 Dose: 20 meq Documented by: Potassium Chloride (Klor-Con 10) 20 meq PO DAILY [facility] Last Admin: 05/31/20 09:55 Dose: 20 meq Documented by: Ranolazine (Ranexa) 1,000 mg PO BID [facility] Last Admin: 05/31/20 08:30 Dose: 1,000 mg Documented by: Fluticasone/Salmeterol (Advair Diskus 250-50) 2 puff INHALATION BID [facility] Last Admin: 05/31/20 10:09 Dose: 2 puff Documented by: Ticagrelor (Brilinta) 90 mg PO BID [facility] Last Admin: 05/31/20 08:33 Dose: 90 mg Documented by: Zolpidem Tartrate (Ambien) 10 mg PO BEDTIME [facility] Last Admin: 05/30/20 20:40 Dose: 10 mg Documented by: Vitals/I&O/Wt Last Vital Signs Temp 97.5 F L 05/31/20 12:00 Pulse 77 05/31/20 12:00 Resp 16 05/31/20 12:00 BP 123/78 05/31/20 12:00 Pulse Ox 96 05/31/20 12:00 05/30/20 05/31/20 05/31/20 22:59 06:59 14:59 Intake Total 240 / 240 240 / 240 Balance 240 / 240 240 / 240 Weight last 48 hrs Weight 218 lb 9.6 oz Weight 220 lb 4.8 oz Weight 220 lb Physical Exam Narrative: EXAM NARRATIVE: GENERAL: The patient is alert and oriented times three. Not in any acute distress. HEENT: No significant pallor, icterus or lymphadenopathy. NECK: Trachea appears to be central. No masses noted. No JVD or thyromegaly appreciated. No carotid bruit. RESPIRATORY: Chest is symmetrical. No intercostals muscle retraction or any accessory muscle activation. There is no chest wall tenderness. Breath sounds are heard bilaterally. No rales or rhonchi heard. No evidence of any consolidation. BREASTS: Deferred. HEART: The PMI is in the 5th left intercostals space just inside the midclavicular line. No palpable precordial events. S1 and S2 are normal. No S3 or S4 heard. No pericardial rub or any click heard. ABDOMEN: No vessel pulsations or distention. No tenderness. No organomegaly appreciated. No abdominal bruit. Bowel sounds are normally heard. : Deferred. RECTAL: Deferred. LYMPHATIC: No lymphadenopathy noted in the neck or groin. EXTREMITIES: Right groin has no hematoma or bleeding. MUSCULOSKELETAL: Gait is normal. There is no joint deformity or swelling noted. No joint tenderness or any effusion. The shoulder and hip joints appear to have normal range of motion. SKIN: There are no significant scars or skin rash noted. NEUROPSYCHIATRIC: The patient is alert and oriented x3. Appears to be in a good mood. The higher functions are grossly within normal limits. No tremors or rigidity noted. Data : 05/31/20 04:11 05/31/20 04:11 Other Labs: Laboratory Last Values WBC 7.8 10^3/uL (4.0-10.0) 05/31/20 04:11 RBC 4.45 10^6/uL (4.1-5.3) 05/31/20 04:11 Hgb 13.2 g/dL (11.7-16.6) 05/31/20 04:11 Hct 39.9 % (42.0-52.0) L 05/31/20 04:11 MCV 89.7 fL (80-94) 05/31/20 04:11 MCH 29.7 pg (28.0-34.0) 05/31/20 04:11 MCHC 33.1 g/dL (30.0-36.0) 05/31/20 04:11 RDW 13.9 % (12.1-15.1) 05/31/20 04:11 Plt Count 247 10^3/cmm (130-400) 05/31/20 04:11 MPV 9.0 fL (7.4-10.4) 05/31/20 04:11 Neut % (Auto) 65.6 % 05/31/20 04:11 Lymph % (Auto) 23.7 % 05/31/20 04:11 [place] % (Auto) 9.4 % 05/31/20 04:11 Eos % (Auto) 0.5 % 05/31/20 04:11 Baso % (Auto) 0.3 % 05/31/20 04:11 Neut # (Auto) 5.11 10^3/uL (1.8-7.7) 05/31/20 04:11 Lymph # (Auto) 1.9 10^3/uL (0.8-4.8) 05/31/20 04:11 [place] # (Auto) 0.7 10^3/uL (0.2-0.9) 05/31/20 04:11 Eos # (Auto) 0.0 10^3/uL (0.0-0.8) 05/31/20 04:11 Baso # (Auto) 0.0 10^3/uL (0.0-0.1) 05/31/20 04:11 Nucleated RBC % (auto) 0 % 05/31/20 04:11 Nucleated RBCs # 0.0 /100WBC 05/31/20 04:11 PT 12.80 SECONDS (12.1-14.9) 05/29/20 22:03 INR 0.93 (0.8-1.2) 05/29/20 22:03 APTT 31.9 SECONDS (23.9-36.7) 05/30/20 14:45 Sodium 135 mmol/L (136-145) L 05/31/20 04:11 Potassium 3.8 mmol/L (3.5-5.1) 05/31/20 04:11 Chloride 101 mmol/L (98-107) 05/31/20 04:11 Carbon Dioxide 24 mmol/L (22-29) 05/31/20 04:11 Anion Gap 13.8 (5-19) 05/31/20 04:11 BUN 14 mg/dL (6-20) 05/31/20 04:11 Creatinine 1.1 mg/dL (0.7-1.2) 05/31/20 04:11 GFR Calculation 71.1 mL/min (90-130) L 05/31/20 04:11 Glucose 179 mg/dL (65-115) H 05/31/20 04:11 POC Glucose 214 mg/dL (70-110) 05/31/20 11:46 Calculated Osmolality 281 mOsm/kg (285-295) L 05/31/20 04:11 Calcium 8.9 mg/dL (8.5-10.5) 05/31/20 04:11 Phosphorus 2.3 mg/dL (2.5-4.5) L 05/31/20 04:11 Magnesium 1.3 mg/dL (1.7-2.3) L 05/31/20 04:11 Total Bilirubin 0.6 mg/dL (0.15-1.2) 05/31/20 04:11 AST 25 U/L (0-40) 05/31/20 04:11 ALT 27 U/L (0-41) 05/31/20 04:11 Alkaline Phosphatase 49 IU/L (40-130) 05/31/20 04:11 Creatine Kinase 357 U/L (39-308) H* 05/29/20 22:03 Troponin T Baseline 17 ng/L (0-15) H 05/29/20 22:03 Troponin T 120 Minute 35.62 ng/L (0-15) H 05/30/20 00:08 Delta Troponin T 18.62 ABS# (0-10) H* 05/30/20 00:08 Troponin T Hi Sens 6Hr 67.37 ng/L (0-15) H 05/30/20 03:43 Troponin T Hi Sens 6Hr Delta 50.37 ng/L (0-12) H* 05/30/20 03:43 NT-Pro-B Natriuret Pep 187 pg/mL (0-125) H 05/29/20 22:03 Total Protein 7.2 g/dL (6.6-8.7) 05/31/20 04:11 Albumin 4.0 g/dL (3.5-5.2) 05/31/20 04:11 Globulin 3.2 g/dL (1.3-4.6) 05/31/20 04:11 A&P Assessment and plan (1) Atherosclerotic heart disease of [place] coronary artery with unstable angina pectoris: Patient is clinical features are consistent with a non-ST relation myocardial infarction. Patient underwent a cardiac catheterization yesterday. He was found to have no revascularizable lesions. Status: Acute Qualifiers: [place] vs. transplanted heart: [place] heart Qualified Code(s): I25.110 - Atherosclerotic heart disease of [place] coronary artery with unstable angina pectoris (2) Ischemic cardiomyopathy: The LV ejection fraction was around 30 to 35% by echocardiogram in October. This needs to be reevaluated. Based on the repeat LV ejection fraction, will decide on prophylactic ICD. Also we may consider Entresto. Currently he has no evidence of any decompensated heart failure. Status: Acute (3) Dyslipidemia: May continue on the current medications. Status: Acute (4) Left bundle branch block: This is chronic. But not require specific intervention at this point. May consider [employer]ESS[employer]-D Status: Acute (5) Diabetes mellitus: Consider starting the patient on Jardiance in view of his high risk status Status: Acute Qualifiers: Diabetes mellitus complication status: with hyperglycemia Diabetes mellitus mcc insulin use: without mcc use Diabetes mellitus type: type 2 Qualified Code(s): E11.65 - Type 2 diabetes mellitus with hyperglycemia (6) Benign essential hypertension with target blood pressure below 140/90: Currently he is normotensive. May continue the current medications. Status: Acute (7) Nicotine dependence: Strongly advised the patient to quit smoking. Cardiovascular implications were discussed. Status: Acute Qualifiers: Nicotine product type: cigarettes Substance use status: uncomplicated Qualified Code(s): F17.210 - Nicotine dependence, cigarettes, uncomplicated Additional A&P Information Patient may benefit from an ICD. 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 transplanted heart: [place] heart Ischemic cardiomyopathy I25.5 Dyslipidemia E78.5 Left bundle branch block I44.7 Diabetes mellitus E11.65 Diabetes mellitus complication status: with hyperglycemia Diabetes mellitus [employer] insulin use: without [employer] use Diabetes mellitus type: type 2 Benign essential hypertension with target blood pressure below 140/90 I10 Nicotine dependence F17.210 Nicotine product type: cigarettes Substance use status: uncomplicated
--- NOTE | 2020-05-31 14:33 | P.DS_ITS ---
Discharge Providers Date of Admission: 05/30/20 01:34 Date of Discharge: May 31, 2020 Attending Provider at Admission: Mana Abarca MD Attending Provider at Discharge: Juan Daley MD Primary Care Provider: Phillip Gill MD Diagnoses at Discharge Discharge Diagnosis (1) Atherosclerotic heart disease of [place] coronary artery with unstable angina pectoris: Status: Acute Qualifiers: [place] vs. transplanted heart: [place] heart Qualified Code(s): I25.110 - Atherosclerotic heart disease of [place] coronary artery with unstable angina pectoris (2) Ischemic cardiomyopathy: Status: Acute (3) Dyslipidemia: Status: Acute (4) Left bundle branch block: Status: Acute (5) Diabetes mellitus: Status: Acute Qualifiers: Diabetes mellitus complication status: with hyperglycemia Diabetes mellitus long term acute care registered nurse insulin use: without alf use Diabetes mellitus type: type 2 Qualified Code(s): E11.65 - Type 2 diabetes mellitus with hyperglycemia (6) Benign essential hypertension with target blood pressure below 140/90: Status: Acute (7) Nicotine dependence: Status: Acute Qualifiers: Nicotine product type: cigarettes Substance use status: uncomplicated Qualified Code(s): F17.210 - Nicotine dependence, cigarettes, uncomplicated Reason for Visit Reason for Visit: cp Hospital Course Discharge Summary: This is a 49-year-old male with a past medical history of CAD status post multiple cardiac dilatations and PCI's, most recent was in March 2020, with in-stent stenosis of circumflex/obtuse marginal artery, and RCA undergoing balloon angioplasty, and then recent positive stress test medically managed, ischemic cardiomyopathy, type 2 diabetes mellitus, hypertension, hyperlipidemia, current smoker who presents [facility] for chest pain Patient was admitted to [facility] for chest pain with concerns for NSTEMI, patient was admitted to cardiac stepdown unit, received aspirin, statin, Brilinta, anticoagulation, cardiology was consulted. Patient underwent a cardiac angiogram, which did not show any clinically significant obstructive CAD, stents were patent, and patient tolerated the procedure well, patient was monitored over the next 24 hours with no repeat chest pain symptoms. Patient was discharged on his home medications, medical management, instructions to quit smoking, and close follow-up with cardiology as outpatient. Physical Exam Const: COMMON NORMALS: no acute distress and patient oriented x3 HENMT: COMMON NORMALS: normocephalic HEAD & SCALP: normocephalic Neck/C-Spine: COMMON NORMALS: no JVD Resp: COMMON NORMALS: normal respiratory effort, No retractions, No use of accessory muscles and clear to auscultation bilaterally AUSCULTATION: clear to auscultation bilaterally Cardio: COMMON NORMALS: no JVD, regular rate, regular rhythm, S1 normal heart sound present and S2 normal heart sound present RATE: regular rate RHYTHM: regular rhythm HEART SOUNDS: S1 normal heart sound present and S2 normal heart sound present GI: COMMON NORMALS: Normal to inspection, nondistended, normoactive bowel sounds present, Soft to palpation, non-tender, No hepatosplenomegaly present, no masses and no bruits PALPATION: Yes Soft to palpation and Yes No hepatosplenomegaly present Extremity: COMMON NORMALS: capillary refill normal, no clubbing, cyanosis or edema, no calf tenderness and no pedal edema Neuro: COMMON NORMALS: patient oriented x3 Psych: COMMON NORMALS: mental status grossly normal Discharge Data Data Completed and Pending: Completed Studies During Hospitalization Category Date Time Status XR chest 1V lovely ble [id number] Stat Exams 05/29/20 21:56 Completed Pending at discharge Category Date Time Status TECHNICAL REP request for service Routin e Exams 05/30/20 11:16 Taken Complete Blood Co unt w/Auto AM LABS Lab 06/01/20 04:00 Ordered Complete Blood Co unt w/Auto AM LABS Lab 06/02/20 04:00 Ordered Comprehensive Met abolic Panel AM LA BS Lab 06/01/20 04:00 Ordered Comprehensive Met abolic Panel AM LA BS Lab 06/02/20 04:00 Ordered Magnesium AM LABS Lab 06/01/20 04:00 Ordered Magnesium AM LABS Lab 06/02/20 04:00 Ordered Phosphorus AM LAB S Lab 06/01/20 04:00 Ordered Phosphorus AM LAB S Lab 06/02/20 04:00 Ordered Labs from last 24 hours 05/31/20 05/31/20 05/31/20 11:46 06:45 04:11 WBC RBC Hgb Hct MCV MCH MCHC RDW Plt Count MPV Neut % (Auto) Lymph % (Auto) [place] % (Auto) Eos % (Auto) Baso % (Auto) Neut # (Auto) Lymph # (Auto) [place] # (Auto) Eos # (Auto) Baso # (Auto) Nucleated RBC % (a uto) Nucleated RBCs # APTT Sodium 135 L Potassium 3.8 Chloride 101 Carbon Dioxide 24 Anion Gap 13.8 BUN 14 Creatinine 1.1 GFR Calculation 71.1 L Glucose 179 H POC Glucose 214 166 Calculated Osmolal ity 281 L Calcium 8.9 Phosphorus 2.3 L Magnesium 1.3 L Total Bilirubin 0.6 AST 25 ALT 27 Alkaline Phosphata se 49 Total Protein 7.2 Albumin 4.0 Globulin 3.2 05/31/20 05/30/20 05/30/20 04:11 20:22 16:46 WBC 7.8 RBC 4.45 Hgb 13.2 Hct 39.9 L MCV 89.7 MCH 29.7 MCHC 33.1 RDW 13.9 Plt Count 247 MPV 9.0 Neut % (Auto) 65.6 Lymph % (Auto) 23.7 [place] % (Auto) 9.4 Eos % (Auto) 0.5 Baso % (Auto) 0.3 Neut # (Auto) 5.11 Lymph # (Auto) 1.9 [place] # (Auto) 0.7 Eos # (Auto) 0.0 Baso # (Auto) 0.0 Nucleated RBC % (a uto) 0 Nucleated RBCs # 0.0 APTT Sodium Potassium Chloride Carbon Dioxide Anion Gap BUN Creatinine GFR Calculation Glucose POC Glucose 152 245 Calculated Osmolal ity Calcium Phosphorus Magnesium Total Bilirubin AST ALT Alkaline Phosphata se Total Protein Albumin Globulin 05/30/20 14:45 WBC RBC Hgb Hct MCV MCH MCHC RDW Plt Count MPV Neut % (Auto) Lymph % (Auto) [place] % (Auto) Eos % (Auto) Baso % (Auto) Neut # (Auto) Lymph # (Auto) [place] # (Auto) Eos # (Auto) Baso # (Auto) Nucleated RBC % (a uto) Nucleated RBCs # APTT 31.9 Sodium Potassium Chloride Carbon Dioxide Anion Gap BUN Creatinine GFR Calculation Glucose POC Glucose Calculated Osmolal ity Calcium Phosphorus Magnesium Total Bilirubin AST ALT Alkaline Phosphata se Total Protein Albumin Globulin Vitals: Last Vital Signs Temp 97.5 F L 05/31/20 12:00 Pulse 77 05/31/20 12:00 Resp 16 05/31/20 12:00 BP 123/78 05/31/20 12:00 Pulse Ox 96 05/31/20 12:00 Discharge Plan Discharge Patient Disposition: Home Condition: Stable Prescriptions: Continued amlodipine 2.5 mg tablet 2.5 mg PO DAILY Qty: 90 RF: 2 Brilinta 90 mg tablet 90 mg PO BID Qty: 180 RF: 3 furosemide [Lasix] 40 mg tablet 40 mg PO DAILY Qty: 30 RF: 4 nitroglycerin [Nitrostat] 0.4 mg tablet, sublingual 0.4 mg SUBLINGUAL Q5M PRN (Reason: chest pain) 90 Days Qty: 25 RF: 3 doxepin 75 mg Capsule 75 mg PO BEDTIME RF: 0 acetaminophen [Tylenol Extra Strength] 500 mg Tablet 1,000 mg PO Q4H PRN (Reason: Pain) RF: 0 Janumet 50-500 mg Tablet 1 tab PO BID RF: 0 isosorbide mononitrate 30 mg tablet extended release 24 hr 60 mg PO BID RF: 0 carvedilol 12.5 mg tablet 25 mg PO BID RF: 0 benzonatate 200 mg capsule 200 mg PO BEDTIME RF: 0 metoprolol succinate 100 mg tablet extended release 24 hr 100 mg PO DAILY RF: 0 alprazolam [Xanax] 0.5 mg tablet 0.5 mg PO BID PRN (Reason: Anxiety) RF: 0 hydrocodone-acetaminophen 10-325 mg Tablet 1 tab PO TID PRN (Reason: Pain) RF: 0 aspirin 81 mg tablet,delayed release (DR/EC) 81 mg PO DAILY RF: 0 glimepiride 4 mg Tablet 4 mg PO DAILY RF: 0 zolpidem [Ambien] 10 mg Tablet 10 mg PO BEDTIME RF: 0 hydroxyzine HCl 50 mg Tablet 50 mg PO TID PRN (Reason: Anxiety) RF: 0 lisinopril 20 mg Tablet 10 mg PO DAILY RF: 0 pantoprazole 40 mg Tablet,Delayed Release (Dr/Ec) 40 mg PO DAILY RF: 0 Spiriva with HandiHaler 18 mcg Capsule, W/Inhalation Device 1 cap INHALATION DAILY RF: 0 budesonide-formoterol [Symbicort] 160-4.5 mcg/actuation Hfa Aerosol Inhaler 2 puff INHALATION BID RF: 0 potassium chloride 20 mEq tablet extended release 20 meq PO DAILY Qty: 30 RF: 4 nitroglycerin 400 mcg/spray spray,non-aerosol See Rx Instructions .ROUTE .COMPLEX RF: 0 ranolazine 500 mg tablet extended release 12 hr 1,000 mg PO BID RF: 0 atorvastatin 40 mg Tablet 80 mg PO BEDTIME Qty: 30 RF: 0 Discharge Diet: Cardiac Discharge Activity: Resume usual activity Patient Instructions: How to Stop Smoking (GEN), Cigarette Smoking and Your Health (GEN) Activity Restrictions/Additional Instructions: -If you have repeat chest pain, please come back to emergency room -Please stop smoking -Please follow-up with cardiology in the next 2 weeks Discharge Attestations Time Spent in Discharge Care*: less than 30 min Status at Discharge: Cognitive status at discharge: cognitively intact , Behavioral status at discharge: cooperative , Quality Metrics Clinical Quality Measures During this hospital stay, did patient experience: None Coding Level of Care Code 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 transplanted heart: [place] heart Ischemic cardiomyopathy I25.5 Dyslipidemia E78.5 Left bundle branch block I44.7 Diabetes mellitus E11.65 Diabetes mellitus complication status: with hyperglycemia Diabetes mellitus long term acute care registered nurse insulin use: without alf use Diabetes mellitus type: type 2 Benign essential hypertension with target blood pressure below 140/90 I10 Nicotine dependence F17.210 Nicotine product type: cigarettes Substance use status: uncomplicated
--- NOTE | 2020-05-31 15:15 | PC.NURSE ---
discharge to home with caregiver discuss to pt to ff-up with [facility] for discussion with dr. juárez on possible life vest/aicd placement. encourage pt to quit smoking and heart healthy diet. informed pt on no new changes to meds and he has to continue taking all his meds as prescribed by his doctors. post angiogram activity restrictions discuss to pt. pt verbalizes understanding.
--- NOTE | 2020-06-01 12:55 | PC.RESP ---
SMOKING CESSATION INFORMATION SENT TO PATIENT.
== END 2020-05-31 15:15 | disposition home or self-care (01) | DRG 281 ==
LOC: ER 21:55 → CSU 05-30 02:07
PROVIDERS: Emergency Medicine; Internal Medicine Cardiovascular Disease; Admitting Provider Internal Medicine; PCP Family Medicine; Visit Provider Family Medicine
DX: I25.110 Atherosclerotic heart disease of native coronary artery with unstable angina pectoris (principal); I21.4 Non-ST elevation (NSTEMI) myocardial infarction; I50.42 Chronic combined systolic (congestive) and diastolic (congestive) heart failure; I25.5 Ischemic cardiomyopathy; E78.5 Hyperlipidemia, unspecified; I44.7 Left bundle-branch block, unspecified; F17.210 Nicotine dependence, cigarettes, uncomplicated; E11.65 Type 2 diabetes mellitus with hyperglycemia; Z95.5 Presence of coronary angioplasty implant and graft; Z79.82 Long term (current) use of aspirin; E66.9 Obesity, unspecified; Z68.29 Body mass index [BMI] 29.0-29.9, adult; I11.0 Hypertensive heart disease with heart failure
CPT/HCPCS: 12345; 36415; 36416; 71045; 80048; 80053; 82550; 82962; 83735; 83880; 84100; 84484; 85025; 85610; 85730; 93005; 93454; 94640; 96372; 99283; C1769; C1887; C1894; J1644; J1650; J1815; J2250; J3010; J3490; J7030; Q0163; Q9967

== ENCOUNTER 2020-06-10 00:09 | Emergency (ER) | payer MEDICAID, SELFPAY ==
[2020-06-10] VITALS (10 sets, daily range): BP systolic 110–141; BP diastolic 74–107; PULSE 80–100; RESP 13–20; TEMP 36.4; O2SAT 92–100; BMI 29.8
--- NOTE | 2020-06-10 00:23 | XRR_ITS ---
PROCEDURE INFORMATION: Exam: XR Chest, 1 View Exam date and time: 06/10/2020 1:10 AM Age: 49 years old Clinical indication: Shortness of breath; Chest pain; Prior surgery; Surgery type: Stents; Additional info: Chest pain, SOB TECHNIQUE: Imaging protocol: XR of the chest Views: 1 view. COMPARISON: CR XR chest 1V portable [id number] 05/29/2020 10:03 PM FINDINGS: Lungs: Lungs are well aerated without a focal area of consolidation. Pleural space: Unremarkable. No pleural effusion. No pneumothorax. Heart/Mediastinum: The cardiac silhouette appears enlarged, some of which is magnification related to the AP projection. Bones/joints: Unremarkable. XR/XR chest 1V portable [id number] IMPRESSION: Lungs are well aerated without a focal area of consolidation.
--- NOTE | 2020-06-10 00:23 | ECG_ITS ---
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 Measurements Intervals [place] Rate: 99 P: 60 MT: 169 QRS: -11 QRSD: 176 T: 166 QT: 388 QTc: 500 Interpretive Statements SINUS RHYTHM POSSIBLE LEFT ATRIAL ENLARGEMENT [-0.1mV P WAVE IN V1/V2] LEFT BUNDLE BRANCH BLOCK [120+ ms QRS DURATION, 80+ ms Q/S IN V1/V2, 85+ ms R IN I/aVL/V5/V6] Compared to ECG 05/30/2020 05:13:28 No significant changes Electronically Signed On 06-10-2020 19:37:35 CDT by Theresa Berry M.D. [id number]
[2020-06-10] MEDS: nitroglycerin 0.4 mg sublingual Tablet SUBLINGUAL (00:30)
--- NOTE | 2020-06-10 00:31 | ED_ITS ---
HPI - Chest Pain General: Chief Complaint: Chest Pain Stated Complaint: chest pain Time Seen by Provider: 06/10/20 00:26 Source: patient Mode of arrival: ambulatory Limitations: no limitations History of Present Illness: HPI narrative: 49-year-old male has a long history of coronary artery disease and chest pains. Patient had a cath last week that showed no acute abnormalities likely had coronary spasms. Patient states he started having pain again today that was sharp in nature. He denies any relief with nitro. He denies any shortness of breath. Denies any fevers. MD complaint: chest pain Associated symptoms: Deny abdominal pain, dyspnea, fever(s), nausea or vomiting Review of Systems Const: Denies: fever(s), chills, body aches or change in appetite Eyes: Denies: blurry vision or eye discomfort ENMT: Denies: throat pain or dental pain Card: Reports: chest pain Resp: Denies: dyspnea GI: Denies: abdominal pain, nausea, vomiting or diarrhea : Denies: dysuria Musc: Denies: neck pain or back pain Skin/Breast: Denies: rash Neuro: Denies: headache(s) Psych: Denies: depression Thai/Lymph: Denies: easy bruising All/Imm: Denies: urticaria PFSH ED PFSH: Medical History Benign essential hypertension with target blood pressure below 140/90 Cardiac catheterization as the cause of abnormal reaction of the patient, or of later complication, without mention of misadventure at the time of the procedure Cardiomyopathy Chest pain Congestive heart failure Coronary artery spasm Diabetes mellitus Dyslipidemia Ischemic cardiomyopathy Left bundle branch block Tobacco abuse Surgical History Hx of heart artery stent Stents to LAD, RCA (Aug 2019) and circumflex (2019), angioplasty of the obtuse marginal Family History Father Myocardial infarction Mother CAD (coronary artery disease) Brother Valvular heart disease Social History Smoking and tobacco status: current every day smoker cigarettes [ Other cigarette details: Says cutting down but has not quit completely, smoking half a pack a day ] Alcohol intake: never Household members: significant other Housing: House Marital status: Legally 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 Physical Exam Const: COMMON NORMALS: no acute distress, patient oriented x3 and healthy appearing HENMT: COMMON NORMALS: normocephalic and atraumatic HEAD & SCALP: normocephalic and atraumatic Eye: COMMON NORMALS: Equal, round and reactive pupils present and EOMs intact bilaterally PUPIL: Yes Equal, round and reactive pupils present Neck/C-Spine: COMMON NORMALS: full ROM and supple Chest: COMMONS NORMALS: normal inspection of the chest and normal palpation of entire chest wall Resp: COMMON NORMALS: normal respiratory effort, No retractions, No use of accessory muscles and clear to auscultation bilaterally AUSCULTATION: clear to auscultation bilaterally Cardio: COMMON NORMALS: regular rate, regular rhythm and No murmurs present (Cardio) RATE: regular rate RHYTHM: regular rhythm GI: COMMON NORMALS: Normal to inspection, nondistended, normoactive bowel sounds present, Soft to palpation, non-tender and no masses PALPATION: Yes Soft to palpation Extremity: COMMON NORMALS: normal to inspection and full ROM Neuro: COMMON NORMALS: patient oriented x3, moves all extremities and no focal motor deficits Psych: COMMON NORMALS: mental status grossly normal, Normal thought process present and cooperative THOUGHT PROCESS: Normal thought process present Skin: COMMON NORMALS: no rashes or lesions noted and no wounds GENERAL SKIN EXAM: no rashes or lesions noted Course Vital Signs: Vital signs: Vital Signs Temperature 97.6 F 06/10/20 00:23 Pulse Rate 80 06/10/20 01:45 Respiratory Rate 20 H 06/10/20 02:30 Blood Pressure 110/79 06/10/20 01:45 Pulse Oximetry 98 06/10/20 02:30 MDM - Chest Pain MDM Narrative: Medical decision making narrative: Prince presents with a non-ST elevation [place]. Patient's second troponin is quite elevated. Informed patient of this informed that he needs to stay. Patient states that he had a cath 1 week ago and states he had vasospasms. He states he lives close and he does not want stay in the hospital. I informed him he could be having a heart attack and he could even . He understands this and has decision-making capacity. He understands the risks. Patient decided to sign out AMA. I informed her if he has any more chest pain or changes his mind he is return immediately. He understands this. Lab Data: Labs: Lab Results 06/10/20 06/10/20 06/10/20 Range/Units 00:25 00:25 00:25 WBC 13.8 H (4.0-10.0) 10^3/ uL RBC 4.90 (4.1-5.3) 10^6/u L Hgb 14.8 (11.7-16.6) g/dL Hct 44.4 (42.0-52.0) % MCV 90.6 (80-94) fL MCH 30.2 (28.0-34.0) pg MCHC 33.3 (30.0-36.0) g/dL RDW 14.3 (12.1-15.1) % Plt Count 449 H (130-400) 10^3/c mm MPV 8.6 (7.4-10.4) fL Neut % (Auto) 64.1 % Lymph % (Auto) 25.2 % [place] % (Auto) 8.0 % Eos % (Auto) 1.6 % Baso % (Auto) 0.4 % Neut # (Auto) 8.85 H (1.8-7.7) 10^3/u L Lymph # (Auto) 3.5 (0.8-4.8) 10^3/u L [place] # (Auto) 1.1 H (0.2-0.9) 10^3/u L Eos # (Auto) 0.2 (0.0-0.8) 10^3/u L Baso # (Auto) 0.1 (0.0-0.1) 10^3/u L Nucleated RBC % (a uto) 0 % Nucleated RBCs # 0.0 /100WBC Sodium 135 L (136-145) mmol/L Potassium 3.9 (3.5-5.1) mmol/L Chloride 98 (98-107) mmol/L Carbon Dioxide 23 (22-29) mmol/L Anion Gap 17.9 (5-19) BUN 15 (6-20) mg/dL Creatinine 1.2 (0.7-1.2) mg/dL GFR Calculation 64.4 L (90-130) mL/min Glucose 191 H (65-115) mg/dL Calculated Osmolal ity 281 L (285-295) mOsm/k g Calcium 10.4 (8.5-10.5) mg/dL Total Bilirubin 0.5 (0.15-1.2) mg/dL AST 54 H (0-40) U/L ALT 27 (0-41) U/L Alkaline Phosphata se 61 (40-130) IU/L Troponin T Baselin e 84 H (0-15) ng/L Troponin T 120 Min [place] Troponin T Total Protein 7.9 (6.6-8.7) g/dL Albumin 4.7 (3.5-5.2) g/dL Globulin 3.2 (1.3-4.6) g/dL 06/10/20 06/10/20 Range/Units 02:32 03:35 WBC (4.0-10.0) 10^3/ uL RBC (4.1-5.3) 10^6/u L Hgb (11.7-16.6) g/dL Hct (42.0-52.0) % MCV (80-94) fL MCH (28.0-34.0) pg MCHC (30.0-36.0) g/dL RDW (12.1-15.1) % Plt Count (130-400) 10^3/c mm MPV (7.4-10.4) fL Neut % (Auto) % Lymph % (Auto) % [place] % (Auto) % Eos % (Auto) % Baso % (Auto) % Neut # (Auto) (1.8-7.7) 10^3/u L Lymph # (Auto) (0.8-4.8) 10^3/u L [place] # (Auto) (0.2-0.9) 10^3/u L Eos # (Auto) (0.0-0.8) 10^3/u L Baso # (Auto) (0.0-0.1) 10^3/u L Nucleated RBC % (a uto) % Nucleated RBCs # /100WBC Sodium (136-145) mmol/L Potassium (3.5-5.1) mmol/L Chloride (98-107) mmol/L Carbon Dioxide (22-29) mmol/L Anion Gap (5-19) BUN (6-20) mg/dL Creatinine (0.7-1.2) mg/dL GFR Calculation (90-130) mL/min Glucose (65-115) mg/dL Calculated Osmolal ity (285-295) mOsm/k g Calcium (8.5-10.5) mg/dL Total Bilirubin (0.15-1.2) mg/dL AST (0-40) U/L ALT (0-41) U/L Alkaline Phosphata se (40-130) IU/L Troponin T Baselin e (0-15) ng/L Troponin T 120 Min [place] Cancelled 3110 H Delta Troponin T Cancelled 3026 H* Total Protein (6.6-8.7) g/dL Albumin (3.5-5.2) g/dL Globulin (1.3-4.6) g/dL Imaging Data^: CXR: Attestation: I personally reviewed and interpreted this imaging study as follows: My impression: no acute abnormality EKG Data^: EKG 1: Attestation: I personally reviewed and interpreted this EKG as follows: EKG interpretation date: 06/10/20 EKG interpretation time: 00:19 Interpretation: nsr hr [address] or t wave abnormalities lbbb qrs 176 qtc 445 no acute change EKG 2: Attestation: I personally reviewed and interpreted this EKG as follows: EKG interpretation date: 06/10/20 EKG interpretation time: 02:28 Interpretation: Normal sinus rhythm heart rate 74 left bundle branch block no ST or T wave abnormalities QRS 178 QTc 45 EKG 3: Attestation: I personally reviewed and interpreted this EKG as follows: EKG interpretation date: 06/10/20 EKG interpretation time: 03:40 Interpretation: nsr hr [address] or t wave abnormalities qrs 176 qtc 484 no change frov previous Discharge Plan Discharge Patient Disposition: Left Against Medical Advice Clinical Impression: Non-ST elevation [place] (NSTEMI) Condition: Stable Prescriptions: No Action amlodipine 2.5 mg tablet 2.5 mg PO DAILY Qty: 90 RF: 2 Brilinta 90 mg tablet 90 mg PO BID Qty: 180 RF: 3 furosemide [Lasix] 40 mg tablet 40 mg PO DAILY Qty: 30 RF: 4 doxepin 75 mg Capsule 75 mg PO BEDTIME RF: 0 acetaminophen [Tylenol Extra Strength] 500 mg Tablet 1,000 mg PO Q4H PRN (Reason: Pain) RF: 0 Janumet 50-500 mg Tablet 1 tab PO BID RF: 0 isosorbide mononitrate 30 mg tablet extended release 24 hr 60 mg PO BID RF: 0 carvedilol 12.5 mg tablet 25 mg PO BID RF: 0 benzonatate 200 mg capsule 200 mg PO BEDTIME RF: 0 metoprolol succinate 100 mg tablet extended release 24 hr 100 mg PO DAILY RF: 0 alprazolam [Xanax] 0.5 mg tablet 0.5 mg PO BID PRN (Reason: Anxiety) RF: 0 aspirin 81 mg tablet,delayed release (DR/EC) 81 mg PO DAILY RF: 0 glimepiride 4 mg Tablet 4 mg PO DAILY RF: 0 zolpidem [Ambien] 10 mg Tablet 10 mg PO BEDTIME RF: 0 hydroxyzine HCl 50 mg Tablet 50 mg PO TID PRN (Reason: Anxiety) RF: 0 lisinopril 20 mg Tablet 10 mg PO DAILY RF: 0 pantoprazole 40 mg Tablet,Delayed Release (Dr/Ec) 40 mg PO DAILY RF: 0 Spiriva with HandiHaler 18 mcg Capsule, W/Inhalation Device 1 cap INHALATION DAILY RF: 0 budesonide-formoterol [Symbicort] 160-4.5 mcg/actuation Hfa Aerosol Inhaler 2 puff INHALATION BID RF: 0 potassium chloride 20 mEq tablet extended release 20 meq PO DAILY Qty: 30 RF: 4 hydrocodone-acetaminophen 10-325 mg tablet 1 tab PO QID PRN (Reason: Pain) RF: 0 nitroglycerin 400 mcg/spray spray,non-aerosol See Rx Instructions .ROUTE .COMPLEX RF: 0 ranolazine 500 mg tablet extended release 12 hr 1,000 mg PO BID RF: 0 atorvastatin 40 mg Tablet 80 mg PO BEDTIME Qty: 30 RF: 0 Referrals: Phillip Gill MD [Primary Care Provider] - 1-3 days Discharge Diet: Advance as tolerated Discharge Activity: Resume usual activity Patient Instructions: Myocardial Infarction (GEN) Coding Level of Care Code ED Hand Coke Drawer for Chg Fwd Exam Comprehensive
[2020-06-10 00:34] LABS: Basophils # 0.1 10^3/uL (0.0-0.1); Basophils % 0.4 %; Eosinophils # 0.2 10^3/uL (0.0-0.8); Eosinophils % 1.6 %; Hematocrit 44.4 % (42.0-52.0); Hemoglobin 14.8 g/dL (11.7-16.6); Lymphocytes # 3.5 10^3/uL (0.8-4.8); Lymphocytes % 25.2 %; Mean Corpuscular HGB Conc 33.3 g/dL (30.0-36.0); Mean Corpuscular Hemoglobin 30.2 pg (28.0-34.0); Mean Corpuscular Volume 90.6 fL (80-94); Mean Platelet Volume 8.6 fL (7.4-10.4); Monocytes # 1.1 10^3/uL (0.2-0.9); Neutrophils # 8.85 10^3/uL (1.8-7.7); Neutrophils % 64.1 %; Nucleated Red Blood Cells % 0 %; Platelet Count 449 10^3/cmm (130-400); Red Cell Distribution Width 14.3 % (12.1-15.1); White Blood Count 13.8 10^3/uL (4.0-10.0)
[2020-06-10] MEDS: morphine 4 mg/mL SDV 1 mL IVP (00:40)
[2020-06-10] MEDS: LORazepam 2 mg/mL INJ 1 mL 1 MG IVP (00:41)
[2020-06-10 00:54] LABS: Alanine Aminotransferase 27 U/L (0-41); Albumin Level 4.7 g/dL (3.5-5.2); Alkaline Phosphatase 61 IU/L (40-130); Anion Gap 17.9 (5-19); Aspartate Amino Transferase 54 U/L (0-40); Blood Urea Nitrogen 15 mg/dL (6-20); Calcium 10.4 mg/dL (8.5-10.5); Carbon Dioxide 23 mmol/L (22-29); Chloride 98 mmol/L (98-107); Globulin 3.2 g/dL (1.3-4.6); Glomerular Filtration Rate 64.4 mL/min (90-130); Glucose 191 mg/dL (65-115); Osmolality Calculated 281 mOsm/kg (285-295); Potassium 3.9 mmol/L (3.5-5.1); Sodium 135 mmol/L (136-145); Total Bilirubin 0.5 mg/dL (0.15-1.2); Total Protein 7.9 g/dL (6.6-8.7)
[2020-06-10 00:56] LABS: Troponin(5th) Baseline 84 ng/L (0-15)
--- NOTE | 2020-06-10 02:23 | ECG_ITS ---
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 Measurements Intervals [place] Rate: 74 P: 43 [place]: 181 QRS: 9 QRSD: 178 T: 180 QT: 457 QTc: 510 Interpretive Statements SINUS RHYTHM POSSIBLE LEFT ATRIAL ENLARGEMENT [-0.1mV P WAVE IN V1/V2] LEFT BUNDLE BRANCH BLOCK [120+ ms QRS DURATION, 80+ ms Q/S IN V1/V2, 85+ ms R IN I/aVL/V5/V6] Compared to ECG 06/10/2020 00:19:52 No significant changes Electronically Signed On 06-10-2020 20:04:32 CDT by Theresa Berry M.D. [id number]
[2020-06-10] MEDS: HYDROmorphone 1 mg/mL INJ 1 mL IVP (02:30)
--- NOTE | 2020-06-10 02:41 | PC.NURSE ---
during pt rounding, pt states pain returning 9/10
[2020-06-10 04:12] LABS: Troponin 5 2HR 3110 ng/L (0-15); Troponin 5 2HR Delta 3026 ABS# (0-10)
--- NOTE | 2020-06-10 06:23 | ECG_ITS ---
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 Measurements Intervals [place] Rate: 72 P: 46 [place]: 179 QRS: 1 QRSD: 176 T: 181 QT: 460 QTc: 505 Interpretive Statements SINUS RHYTHM POSSIBLE LEFT ATRIAL ENLARGEMENT [-0.1mV P WAVE IN V1/V2] LEFT BUNDLE BRANCH BLOCK [120+ ms QRS DURATION, 80+ ms Q/S IN V1/V2, 85+ ms R IN I/aVL/V5/V6] Compared to ECG 06/10/2020 02:28:09 No significant changes Electronically Signed On 06-10-2020 20:04:37 CDT by Theresa Berry M.D. [id number]
== END 2020-06-10 04:31 | disposition left against medical advice (07) ==
PROVIDERS: Emergency Provider Emergency Medicine; PCP Family Medicine
DX: I21.4 Non-ST elevation (NSTEMI) myocardial infarction (principal); Z79.82 Long term (current) use of aspirin; I11.0 Hypertensive heart disease with heart failure; I50.9 Heart failure, unspecified; E11.9 Type 2 diabetes mellitus without complications; E78.5 Hyperlipidemia, unspecified; F17.210 Nicotine dependence, cigarettes, uncomplicated
CPT/HCPCS: 12345; 36415; 71045; 80053; 84484; 85025; 93005; 96374; 96375; 99283; 99284; J1170; J2060; J2270

== ENCOUNTER 2020-06-11 12:21 | Outpatient (CLI) | payer MEDICAID, SELFPAY ==
--- NOTE | 2020-06-11 12:24 | USCV_ITS ---
Magen Riddle Age: 49 Gender: M : 1970 Exam Date: 06/11/2020 12:42 Ordering Phys: Janiya Bray Technologist: Yocasta Tavarez Exam Location: [facility] [place] Indication: POST RI BP: 127 / 70 HR: 75 Rhythm: Sinus Technical Quality: Adequate MEASUREMENTS (Male / Female) Normal Values 2D ECHO LV Diastolic Diameter PLAX 6.1 cm 4.2 - 5.9 / 3.9 - 5.3 cm LV Systolic Diameter PLAX 5.0 cm LV Chamber Size 5.6 cm IVS Diastolic Thickness 1.1 cm 0.6 - 1.0 / 0.6 - 0.9 cm IVS Systolic Thickness 1.3 cm LVPW Diastolic Thickness 1.2 cm 0.6 - 1.0 / 0.6 - 0.9 cm LVPW Systolic Thickness 1.5 cm RV Chamber Size 3.3 cm LVOT Diameter 2.0 cm LV Ejection Fraction 2D Teich 37.3 % LV Ejection Fraction MOD 2C 51.8 % LV Ejection Fraction 2C AL 48.4 % LA Diameter 4.9 cm LA Width 3.8 cm LA Height 5.1 cm RA Width 4.1 cm RA Height 5.0 cm Aorta at Sinotubular Diameter 3.0 cm M-MODE LV Diastolic Diameter MM 6.3 cm 4.2 - 5.9 / 3.9 - 5.3 cm LV Systolic Diameter MM 4.9 cm LV Ejection Fraction MM Teich 43.2 % IVS Diastolic Thickness MM 1.3 cm 0.6 - 1.0 / 0.6 - 0.9 cm IVS Systolic Thickness MM 1.2 cm LVPW Diastolic Thickness MM 1.2 cm 0.6 - 1.0 / 0.6 - 0.9 cm LVPW Systolic Thickness MM 1.6 cm RV Diastolic Diameter MM 1.3 cm Aortic Annulus Diameter 3.7 cm LA Ao Ratio MM 1.3 MV E Point Septal Separation 1.3 cm DOPPLER AV Peak Velocity 133.0 cm/s LVOT Peak Velocity 69.0 cm/s AV Area Cont Eq vti 1.6 cm squared AV Area Cont Eq pk 1.6 cm squared MV Area PHT 5.6 cm squared Mitral E to A Ratio 1.6 MV E' Velocity 10.0 cm/s Mitral E to MV E' Ratio 12.5 Mitral E to LV E' Lateral Ratio 10.4 Mitral E to LV E' Septal Ratio 16.1 TR Peak Velocity 184.0 cm/s TR Peak Gradient 13.6 mmHg TR Mean Velocity 179.0 cm/s TR Mean Gradient 14.9 mmHg TR Velocity Time Integral 56.7 cm TV Peak E Velocity 64.0 cm/s Right Atrial Pressure 3.0 mmHg Pulmonary Artery Systolic Pressu 16.5 mmHg PV Peak Velocity 70.0 cm/s RV Acceleration Time 0.1 s RV Ejection Time 0.3 s RV AcT/ET 0.3 FINDINGS Left Ventricle Mildly increased left ventricular cavity size. Severely increased left ventricular cavity size. Severely decreased left ventricular systolic function. Left ventricular ejection fraction is estimated at 25-30 %. Global left ventricular hypokinesis. Abnormal septal motion consistent with conduction abnormality. Right Ventricle Normal right ventricular size and systolic function. Right Atrium Normal right atrial size. Left Atrium Mildly increased left atrial size. Mitral Valve Mildly thickened mitral valve. No mitral valve stenosis. Mild mitral valve regurgitation. Aortic Valve Structurally normal trileaflet aortic valve. No aortic valve stenosis. No aortic valve regurgitation. Tricuspid Valve Structurally normal tricuspid valve. No tricuspid valve stenosis. Trace tricuspid valve regurgitation. Pulmonic Valve Structurally normal pulmonic valve. No pulmonary valve stenosis. Mild pulmonary valve regurgitation. Pericardium No pericardial effusion. Aorta Normal size aortic root and proximal ascending aorta. CONCLUSIONS 1. Mildly increased left ventricular cavity size. Severely increased left ventricular cavity size. Severely decreased left ventricular systolic function. Left ventricular ejection fraction is estimated at 25-30 %. Global left ventricular hypokinesis. 2. Mild mitral valve regurgitation. 3. When compared to previous echocardiogram dated 10/13/2019, there may not have been any significant changes. Lavinia Estrada MD (Electronically Signed) Final Date: 12 June 2020 18:14 S
== END 2020-06-11 12:22 | disposition home or self-care (01) ==
LOC: US 12:22
PROVIDERS: PCP Family Medicine; Visit Provider Nurse Practitioner Family
DX: I73.9 Peripheral vascular disease, unspecified (principal); I34.0 Nonrheumatic mitral (valve) insufficiency
CPT/HCPCS: 85379; 93306

== ENCOUNTER 2020-06-14 19:25 | Emergency (ER) | payer MEDICAID, SELFPAY ==
--- NOTE | 2020-06-14 20:10 | W.ED.CPR ---
HPI - CPR General: Stated Complaint: sob Time Seen by Provider: 06/14/20 20:05 Source: family History of Present Illness: HPI narrative: Patient arrived to the ER with a complaint of shortness of breath. He was noted to be very diaphoretic. Nursing immediately brought him back to a room as he was unresponsive, ashen and diaphoretic. I helped lift the patient from the wheelchair to the bed and checked and there was no carotid pulse and no spontaneous respirations. A code was called. Review of Systems General: Reports: ROS unobtainable due to medical condition PFSH ED PFSH: Medical History Benign essential hypertension with target blood pressure below 140/90 Cardiac catheterization as the cause of abnormal reaction of the patient, or of later complication, without mention of misadventure at the time of the procedure Cardiomyopathy Chest pain Congestive heart failure Coronary artery spasm Diabetes mellitus Dyslipidemia Ischemic cardiomyopathy Left bundle branch block Tobacco abuse Surgical History Hx of heart artery stent Stents to LAD, RCA (Aug 2019) and circumflex (2019), angioplasty of the obtuse marginal Family History Father Myocardial infarction Mother CAD (coronary artery disease) Brother Valvular heart disease Social History Smoking and tobacco status: current every day smoker cigarettes [ Other cigarette details: Says cutting down but has not quit completely, smoking half a pack a day ] Alcohol intake: never Household members: significant other Housing: House Marital status: Legally 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 Cyanosis in extremities noted Cardio: OTHER: No palpable pulses in either femoral arteries or either carotid arteries. GI: COMMON NORMALS: Soft to palpation PALPATION: Yes Soft to palpation Extremity: NARRATIVE EXTREMITY EXAM: Cyanotic to extremities Neuro: [place] SCALE: document GCS findings [place] coma scale eye opening: None [place] coma scale verbal response: None [place] coma scale motor response: None [place] coma scale total score: 3 Skin: NARRATIVE SKIN EXAM: Diaphoretic and cyanotic MDM - Cardiac Arrest/CPR MDM Narrative: Medical decision making narrative: Code was called immediately upon the patient's arrival to the room and a short 5-second assessment was made. ACLS algorithms were initiated. Please see code note for times and dosages of medications. Patient was intubated by Dr. Contreras. The family was allowed in the room and at 9 after approximately 30 minutes from the time of onset of code the family requested that the code be stopped. I believe this to be appropriate as the patient had not responded at any time. He was always in a bradycardic pulseless rhythm. Multiple bedside ultrasounds were checked and there was no squeeze at all of the ventricles. Time of is 2008. Further history is obtained the patient did leave the ER AGAINST MEDICAL ADVICE recently. He had severe cardiovascular disease including severe cardiomyopathy. The grounds keeper was called. Critical Care Time Critical Care Time: Critical Care Time: Yes Total Critical Care Time: 30 Attestation: Critical care time consisted of code management. ACLS consisted of supervision of nurses placing intraosseous lines. Critical care time consisted of rhythm interpretation, pulse checks, medication management and bedside ultrasound to evaluate for cardiac activity. Critical care time also consisted of family consultation. Discharge Plan Discharge Patient Disposition: Clinical Impression: Cardiopulmonary arrest Condition: Stable Referrals: Phillip Gill MD [Primary Care Provider] - Coding Level of Care Code ED [employer] Sales Manager for Chg Fwd Exam Detailed
[2020-06-14 21:03] VITALS: PULSE 84; RESP 12; BMI 29.8
[2020-06-14 23:18] LABS: ABG PCO2 48.3 mmHg (35-45); ABG PH Result 7.19 (7.35-7.45); Arterial Blood Gas Hematocrit 27.8 % (42-52); Base Excess ABG -9.7 mmol/L (-2.0-2.0); Blood Gas Operator Identificat JB; Blood Gas Sample Site Femoral, left; Blood Gas Sample Type Venous; Carboxyhemoglobin 1.6 %THgb (0.4-20.1); HCO3 ABG 18.2 mmol/L (22-26); HGB O2 Sat 13.6 % (95-100); Ionized Calcium Level - ABG 0.9 mmol/L (1.1-1.4); Methemoglobin 0.5 % (0.4-1.5); Oxygen Device AMBU; Oxygen Saturation ABG 13.9; PO2 ABG 15.1 mmHg (80.0-100.0); Potassium Level - ABG 1.8 mmol/L (3.5-5.0); Total Hemoglobin 9.1 g/dL (14-18)
--- NOTE | 2020-06-15 01:19 | PC.NURSE ---
MTS notified of pt @ 2104. Per MTS pt is a candidate at this time, will call family for body release. Joaquin Nicholson Burner Technician notified of pt demise @ 2208. [place] [facility] [place]20.
--- NOTE | 2020-06-15 10:41 | PC.NURSE ---
Marychuy called asking about the status of the pt. After speaking with them I contacted [facility]. [facility] informed me that they still needed to speak with the family about donation. After speaking with the family I received a call stating that [facility] was releasing the pt. [facility] called within 10 mins and also released the pt. I contacted [facility] in [place] as per the family's wishes at 1020. Joaquin Nicholson arrived and assumed the pt at 1035.
== END 2020-06-14 23:10 | disposition expired ==
PROVIDERS: Emergency Provider Emergency Medicine; PCP Family Medicine
DX: I46.9 Cardiac arrest, cause unspecified (principal); I11.0 Hypertensive heart disease with heart failure; I50.9 Heart failure, unspecified; E11.9 Type 2 diabetes mellitus without complications; E78.5 Hyperlipidemia, unspecified; F17.210 Nicotine dependence, cigarettes, uncomplicated
CPT/HCPCS: 12345; 80051; 82810; 83986; 99281; 99285; J0171; J0282; J0330; J3490